=== PATIENT | male | born 1945 | race Caucasian/White ===

== ENCOUNTER → 2017-06-17 | Outpatient (CLI) | payer MEDICARE ==
[2017-06-17 10:59] LABS: ALT 36 U/L (21-72); AST 43 U/L (17-59); Albumin 4.2 g/dL (3.5-5.0); Alkaline Phosphatase 83 U/L (38-126); Anion Gap 11 mmol/L; Blood Urea Nitrogen 22 mg/dL (9-20); Calcium 9.5 mg/dL (8.4-10.2); Carbon Dioxide 28 mmol/L (22-30); Chloride 104 mmol/L (98-107); Cholesterol 152 mg/dL (<200); Glucose 110 mg/dL (74-99); HDL Cholesterol 36 mg/dL (40-60); LDL Cholesterol,Calculated 76 mg/dL (0-99); Potassium 4.9 mmol/L (3.5-5.1); Sodium 143 mmol/L (137-145); Total Bilirubin 0.6 mg/dL (0.2-1.3); Total Protein 7.3 g/dL (6.3-8.2); Triglycerides 198 mg/dL (<150)
[2017-06-17 11:25] LABS: Prostate Specific Antigen 0.64 ng/mL (0.00-4.00)
== END | disposition home or self-care (01) ==
LOC: LABWHC1 09:35
PROVIDERS: ATTEND Family Medicine
DX: E78.5 Hyperlipidemia, unspecified (principal); N40.0 Benign prostatic hyperplasia without lower urinary tract symptoms; I10 Essential (primary) hypertension
CPT/HCPCS: 36415; 80053; 80061; 84153

== ENCOUNTER → 2017-11-29 | Outpatient (CLI) | payer MEDICARE ==
--- NOTE | 2017-11-29 10:39 | XR ---
EXAMINATION TYPE: XR chest 2V DATE OF EXAM: 11/29/2017 COMPARISON: 01/15/2017 INDICATION: MRI clearance TECHNIQUE: Frontal and lateral views of the chest are obtained. FINDINGS: The heart size is normal. The pulmonary vasculature is normal. The lungs are clear. Sternotomy wires are in the midline. There is a right shoulder prosthesis. Left shoulder surgery luciano ges are evident. There are a few scattered surgical clips from a CABG. There appears to be residual epicardial lead just posterior to the xiphoid process and inferior to th e last sternotomy wire on the lateral projection. IMPRESSION: 1. No acute pulmonary process. 2. Suspected epicardial leads identified on the lateral view.
== END | disposition home or self-care (01) ==
LOC: RADXRMAIN 09:57
PROVIDERS: ATTEND Orthopaedic Surgery Sports Medicine
DX: Z01.818 Encounter for other preprocedural examination (principal)
CPT/HCPCS: 71046

== ENCOUNTER → 2017-12-13 | Outpatient (CLI) | payer MEDICARE ==
--- NOTE | 2017-12-13 22:00 | MR ---
EXAMINATION TYPE: MR shoulder LT wo con DATE OF EXAM: 12/13/2017 COMPARISON: None HISTORY: Pain in left shoulder TECHNIQUE: Multiplanar, multisequence imaging of the left shoulder is performed without contrast. FINDINGS: There is motion on the exam. Postop change causes susceptibility artifact limiting evaluati on. Rotator Cuff: a tear of the rotator cuff is present with retraction to the level of the distal clavi olimpia, supraspinatus tendon and infraspinatus tendon are torn Acromioclavicular Joint: Arthropathy present at the acromioclavicular joint Glenohumeral Joint: Humerus is somewhat high riding, there is remodeling with arthropathy of the chanel ral head Labrum: Some increased signal present within the anterior labrum, difficult to exclude a small tear Biceps Tendon: Thought to be within the bicipital groove but not well seen centrally Bone marrow signal: No focal abnormal marrow signal is appreciated. Other: No additional significant abnormality is appreciated. IMPRESSION: There is motion on the exam. Postop changes are noted. Osteoarthritic change. Tear with retraction of the supraspinatus and infraspinatus tendons. Additional findings above.
== END | disposition home or self-care (01) ==
LOC: RADMRIMAIN 21:05
PROVIDERS: ATTEND Orthopaedic Surgery Sports Medicine
DX: M19.012 Primary osteoarthritis, left shoulder (principal); M75.102 Unspecified rotator cuff tear or rupture of left shoulder, not specified as traumatic; S46.912A Strain of unspecified muscle, fascia and tendon at shoulder and upper arm level, left arm, initial encounter; Z98.890 Other specified postprocedural states

== ENCOUNTER → 2018-06-26 | Outpatient (CLI) | payer MEDICARE ==
[2018-06-26 11:08] LABS: HCT 53.4 % (39.0-53.0); HGB 17.6 gm/dL (13.0-17.5); MCH 30.8 pg (25.0-35.0); MCV 93.4 fL (80.0-100.0); Mean Platelet Volume 7.4; Platelet Count 183 k/uL (150-450); RBC 5.71 m/uL (4.30-5.90); RDW 13.1 % (11.5-15.5); WBC 5.6 k/uL (3.8-10.6)
[2018-06-26 16:25] LABS: Albumin 4.6 g/dL (3.80-4.90); Anion Gap 8.9 mmol/L (4.00-12.00); Calcium 9.7 mg/dL (8.7-10.3); Carbon Dioxide 26.1 mmol/L (21.6-31.8); Globulin 2.3 g/dL (1.6-3.3); LDL Cholesterol,Calculated 76.2 mg/dL (0.0-131.0); Potassium 5.3 mmol/L (3.5-5.5); Total Bilirubin 0.7 mg/dL (0.3-1.2); Total Protein 6.9 g/dL (6.2-8.2); VLDL Calculation 51.8 mg/dL (5.00-40.00)
== END | disposition home or self-care (01) ==
LOC: LABWHC1 08:48
PROVIDERS: ATTEND Family Medicine
DX: I10 Essential (primary) hypertension (principal); N40.0 Benign prostatic hyperplasia without lower urinary tract symptoms; E78.5 Hyperlipidemia, unspecified
CPT/HCPCS: 36415; 80053; 80061; 84153; 84439; 84443; 85027

== ENCOUNTER 2018-11-21 09:42 | Observation (INO) | payer MEDICARE ==
[2018-11-21] MEDS ORDERED: NITROGLYCERIN OINT 1 INCH/GM PACKET TOPICAL STA (09:49)
[2018-11-21] MEDS ORDERED: MORPHINE SULFATE 2 MG/ML SYRINGE IVP STA (09:49)
[2018-11-21] MEDS ORDERED: SODIUM CHLORIDE 0.9% 500 ML 500 ML IV STA (09:49)
--- NOTE | 2018-11-21 10:07 | ED ---
General Adult HPI - General Stated complaint: chest pain Time Seen by Provider: 11/21/18 09:50 Source: EMS, RN notes reviewed Mode of arrival: EMS Limitations: no limitations - History of Present Illness Initial comments: This is a 73-year-old male who presents emergency department with past medical history significant for bypass surgery. Patient states yesterday morning he wo ke up with chest pain and is in the front of his chest and feels like a heaviness or patient states she is also back pain on the right side which radiates around to the right upper quadrant. Patient states movement seems to make it considerably worse. Taking a deep breath makes it worse. Patient states palpating on the abdomen or back also increases the pain. Patient states he is not short of breath but it does hurt to take a deep breath. Patient denies any diaphoretic episodes. Patient denies nausea vomiting diarrhea. Patient denies any injury or heavy lifting recently. Patient denies any recent fever chills or cough - Related Data Home Medications Medication Instructions Recorded Confirmed Lisinopril 10 mg PO DAILY 12/23/14 11/21/18 Aspirin 325 mg PO DAILY 12/26/14 11/21/18 Metoprolol Tartrate [Lopressor] 50 mg PO DAILY 12/26/14 11/21/18 Multivitamins, Thera [Theragran] 1 tab PO DAILY 12/26/14 11/21/18 Pravastatin Sodium 80 mg PO HS 11/21/18 11/21/18 Allergies Allergy/AdvReac Type Severity Reaction Status Date / Time Morpholine Analogues AdvReac Severe Nausea & Verified 11/21/18 10:07 Vomiting Review of Systems ROS Statement: Those systems with pertinent positive or pertinent negative responses have been documented in the HPI. ROS Other: All systems not noted in ROS Statement are negative. Past Medical History Past Medical History: Coronary Artery Disease (CAD), Hyperlipidemia, Hypertension, Osteoarthritis (OA) Additional Past Medical History / Comment(s): kidney stones. slight heart murmur History of Any Multi-Drug Resistant Organisms: None Reported Past Surgical History: Coronary Bypass/CABG, Heart Catheterization, Joint Replacement, Orthopedic Surgery Additional Past Surgical History / Comment(s): colonscopy. bilat knee scopes. bilat TKA. bilat rotator cuff repair, total right shoulder \\. uppp. kidney stones in july 2014 removal of scar tissue in bladder neck Past Anesthesia/Blood Transfusion Reactions: No Reported Reaction Past Psychological History: No Psychological Hx Reported Smoking Status: Former smoker Past Alcohol Use History: None Reported Past Drug Use History: None Reported - Past Family History Brother(s) Family Medical History: Cancer Sister(s) Family Medical History: Cancer General Exam - General Exam Comments Initial Comments: GENERAL: Patient is well-developed and well-nourished. Patient is nontoxic and well- hydrated and is in moderate distress. ENT: Neck is soft and supple. No significant lymphadenopathy is noted. Oropharynx is clear. Moist mucous membranes. Neck has full range of motion without eliciting any pain. EYES: The sclera were anicteric and conjunctiva were pink and moist. Extraocular movements were intact and pupils were equal round and reactive to light. Eyelids were unremarkable. PULMONARY: Unlabored respirations. Good breath sounds bilaterally. No audible rales rhonchi or wheezing was noted. CARDIOVASCULAR: There is a regular rate and rhythm without any murmurs gallops or rubs. ABDOMEN: Patient is tender right upper quadrant SKIN: Skin is clear with no lesions or rashes and otherwise unremarkable. NEUROLOGIC: Patient is alert and oriented x3. Cranial nerves II through XII are grossly intact. Motor and sensory are also intact. Normal speech, volume and content. Symmetrical smile. MUSCULOSKELETAL: Normal extremities with adequate strength and full range of motion. No lower extremity swelling or edema. No calf tenderness. Patient has tenderness over this CVA area on the right LYMPHATICS: No significant lymphadenopathy is noted PSYCHIATRIC: Normal psychiatric evaluation. Limitations: no limitations Course Vital Signs 11/21/18 11/21/18 11/21/18 09:51 10:00 11:13 Temperature 98.0 F Pulse Rate 69 86 Respiratory 16 16 Rate Blood Pressure 187/113 146/76 127/70 O2 Sat by Pulse 95 97 99 Oximetry 11/21/18 11/21/18 11:50 12:00 Temperature Pulse Rate 63 60 Respiratory 16 18 Rate Blood Pressure 123/84 133/69 O2 Sat by Pulse 99 96 Oximetry Medical Decision Making - Medical Decision Making EKG shows normal sinus rhythm at 66 bpm MS interval 166 QRS 122 QT interval 398 QTC is 417. Patient's EKG shows no ST segment elevation or depression or T wave abnormalities are noted. After the patient had been here a while the he come back and indicated to me that the patient had back pain radiating to the groin just like his previous kidney stone pain that started yesterday morning this morning however he woke up and was complaining of chest pain for the first time when asked patient if this was a more accurate description of his pain he said it was. Patient states the back pain does however seem to be increased with movement and the chest pain remains on his chest and he describes it as a pressure but is considerably better now than it was this morning. I repeated an EKG it showed sinus bradycardia 56 bpm MS interval 280 QRS 130 for QT intervals 448 QTC is 432. Patient's EKG shows some ST segment depression in leads 1 and aVL which was no different than what was previously seen in the previous EKG. CT of the abdomen and pelvis showed no acute abnormality. Patient still was complaining of some chest pressure pill considerably better than was earlier. I spoke with Dr. Zhang he agreed to admit the patient admitted the patient wrote admitting orders and consult to cardiology. - Lab Data Result diagrams: 11/21/18 09:50 11/21/18 09:50 Lab Results 11/21/18 11/21/18 11/21/18 Range/Units 09:50 09:50 09:50 WBC 8.3 (3.8-10.6) k/uL RBC 5.73 (4.30-5.90) m/uL Hgb 17.8 H (13.0-17.5) gm/dL Hct 53.2 H (39.0-53.0) % MCV 92.8 (80.0-100.0) fL MCH 31.0 (25.0-35.0) pg MCHC 33.5 (31.0-37.0) g/dL RDW 13.2 (11.5-15.5) % Plt Count 232 (150-450) k/uL Neutrophils % 58 % Lymphocytes % 29 % Monocytes % 5 % Eosinophils % 5 % Basophils % 1 % Neutrophils # 4.8 (1.3-7.7) k/uL Lymphocytes # 2.4 (1.0-4.8) k/uL Monocytes # 0.4 (0-1.0) k/uL Eosinophils # 0.4 (0-0.7) k/uL Basophils # 0.1 (0-0.2) k/uL PT 11.0 (9.0-12.0) sec INR 1.0 (<1.2) APTT 26.2 (22.0-30.0) sec Sodium 138 (137-145) mmol/L Potassium 5.2 H (3.5-5.1) mmol/L Chloride 103 (98-107) mmol/L Carbon Dioxide 21 L (22-30) mmol/L Anion Gap 14 mmol/L BUN 20 (9-20) mg/dL Creatinine 0.97 (0.66-1.25) mg/dL Est GFR (CKD-EPI)AfAm 89 (>60 ml/min/1.73 sqM) Est GFR (CKD-EPI)NonAf 77 (>60 ml/min/1.73 sqM) Glucose 120 H (74-99) mg/dL Calcium 9.5 (8.4-10.2) mg/dL Magnesium 1.8 (1.6-2.3) mg/dL Total Bilirubin 1.0 (0.2-1.3) mg/dL AST 45 (17-59) U/L ALT 35 (21-72) U/L Alkaline Phosphatase 71 (38-126) U/L Troponin I (0.000-0.034) ng/mL Total Protein 8.2 (6.3-8.2) g/dL Albumin 4.6 (3.5-5.0) g/dL Amylase 84 (30-110) U/L Lipase 73 (23-300) U/L Urine Color Urine Appearance (Clear) Urine pH (5.0-8.0) Ur Specific [place] (1.001-1.035) Urine Protein (Negative) Urine Glucose (UA) (Negative) Urine Ketones (Negative) Urine Blood (Negative) Urine Nitrite (Negative) Urine Bilirubin (Negative) Urine Urobilinogen (<2.0) mg/dL Ur Leukocyte Esterase (Negative) 11/21/18 11/21/18 Range/Units 09:50 11:55 WBC (3.8-10.6) k/uL RBC (4.30-5.90) m/uL Hgb (13.0-17.5) gm/dL Hct (39.0-53.0) % MCV (80.0-100.0) fL MCH (25.0-35.0) pg MCHC (31.0-37.0) g/dL RDW (11.5-15.5) % Plt Count (150-450) k/uL Neutrophils % % Lymphocytes % % Monocytes % % Eosinophils % % Basophils % % Neutrophils # (1.3-7.7) k/uL Lymphocytes # (1.0-4.8) k/uL Monocytes # (0-1.0) k/uL Eosinophils # (0-0.7) k/uL Basophils # (0-0.2) k/uL PT (9.0-12.0) sec INR (<1.2) APTT (22.0-30.0) sec Sodium (137-145) mmol/L Potassium (3.5-5.1) mmol/L Chloride (98-107) mmol/L Carbon Dioxide (22-30) mmol/L Anion Gap mmol/L BUN (9-20) mg/dL Creatinine (0.66-1.25) mg/dL Est GFR (CKD-EPI)AfAm (>60 ml/min/1.73 sqM) Est GFR (CKD-EPI)NonAf (>60 ml/min/1.73 sqM) Glucose (74-99) mg/dL Calcium (8.4-10.2) mg/dL Magnesium (1.6-2.3) mg/dL Total Bilirubin (0.2-1.3) mg/dL AST (17-59) U/L ALT (21-72) U/L Alkaline Phosphatase (38-126) U/L Troponin I <0.012 (0.000-0.034) ng/mL Total Protein (6.3-8.2) g/dL Albumin (3.5-5.0) g/dL Amylase (30-110) U/L Lipase (23-300) U/L Urine Color Light Yellow Urine Appearance Clear (Clear) Urine pH 5.5 (5.0-8.0) Ur Specific [place] 1.007 (1.001-1.035) Urine Protein Negative (Negative) Urine Glucose (UA) Negative (Negative) Urine Ketones Negative (Negative) Urine Blood Negative (Negative) Urine Nitrite Negative (Negative) Urine Bilirubin Negative (Negative) Urine Urobilinogen <2.0 (<2.0) mg/dL Ur Leukocyte Esterase Negative (Negative) Disposition Clinical Impression: Chest pain, Right flank pain Disposition: ADMITTED IP TO THIS HOSP Referrals: Antonio Zhnag DO [Primary Care Provider] - 1-2 days Time of Disposition: 13:01
[2018-11-21 10:09] LABS: Basophils # (A) 0.1 k/uL (0-0.2); Basophils % (A) 1 %; Eosinophils # (A) 0.4 k/uL (0-0.7); Eosinophils % (A) 5 %; HCT 53.2 % (39.0-53.0); HGB 17.8 gm/dL (13.0-17.5); Lymphocytes # (A) 2.4 k/uL (1.0-4.8); Lymphocytes % (A) 29 %; MCHC 33.5 g/dL (31.0-37.0); MCV 92.8 fL (80.0-100.0); Mean Platelet Volume 7.2; Monocytes # (A) 0.4 k/uL (0-1.0); Monocytes % (A) 5 %; Neutrophils # (A) 4.8 k/uL (1.3-7.7); Neutrophils % (A) 58 %; Platelet Count 232 k/uL (150-450); RBC 5.73 m/uL (4.30-5.90); RDW 13.2 % (11.5-15.5); WBC 8.3 k/uL (3.8-10.6)
[2018-11-21 10:18] LABS: Partial Thromboplastin Time 26.2 sec (22.0-30.0)
[2018-11-21 10:19] LABS: Albumin 4.6 g/dL (3.5-5.0); Calcium 9.5 mg/dL (8.4-10.2); Magnesium 1.8 mg/dL (1.6-2.3); Total Protein 8.2 g/dL (6.3-8.2)
[2018-11-21 10:22] LABS: Potassium 5.2 mmol/L (3.5-5.1)
--- NOTE | 2018-11-21 10:41 | XR ---
EXAMINATION TYPE: XR chest 2V DATE OF EXAM: 11/21/2018 COMPARISON: 11/29/2017 HISTORY: Chest pain radiating to the patient's back and abdomen TECHNIQUE: Frontal and lateral views of the chest are obtained. FINDINGS: There is no focal air space opacity, pleural effusion, or pneumothorax seen. The post-CAB G changes of the chest are noted within mediastinum slightly shifted to the right secondary to patien t rotation. Right humeral arthroplasty and postsurgical changes of the left shoulder/rotator cuff are seen. Mild multilevel degenerative changes of the thoracic spine. IMPRESSION: No acute cardiopulmonary process.
[2018-11-21 12:00] LABS: Appearance,Urine Clear (Clear); Bilirubin,Urine Negative (Negative); Blood,Urine Negative (Negative); Color,Urine Light Yellow; Glucose,Urine (UA) Negative (Negative); Ketones,Urine Negative (Negative); Leukocyte Esterase,Urine Negative (Negative); Nitrite,Urine Negative (Negative); PH, Urine 5.5 (5.0-8.0); Protein,Urine Negative (Negative); Specific Gravity,Urine 1.007 (1.001-1.035); Urobilinogen,Urine <2.0 mg/dL (<2.0)
[2018-11-21] MEDS ORDERED: DIAZEPAM 5 MG/ML 2 ML INJ IVP STA (12:23)
[2018-11-21] MEDS ORDERED: KETOROLAC 60 MG/2 ML VIAL IVP STA ×2 (12:23→12:59)
--- NOTE | 2018-11-21 12:49 | CT ---
EXAMINATION TYPE: CT abdomen pelvis wo con DATE OF EXAM: 11/21/2018 HISTORY: Right flank pain CT DLP: 851.9 mGycm. Automated Exposure Control for Dose Reduction was Utilized. TECHNIQUE: CT scan of the abdomen and pelvis is performed without oral or IV contrast. COMPARISON: CT abdomen and pelvis December 27, 2011 FINDINGS: Within the limitations of a non-contrast study, the following observations are made. LUNG BASES: Bilateral lower lung groundglass opacity is seen posteriorly. No pleural effusion or pneu mothorax is evident. Coronary artery calcification is seen which is noted marked underlying coronary artery disease. Partial visualization of overlying sternal wires. LIVER/GB: Liver is diffusely low dense relative to spleen consistent with diffuse fatty infiltration. PANCREAS: No significant abnormality is seen. SPLEEN: No significant abnormality is seen. ADRENALS: No significant abnormality is seen. KIDNEYS: Some cortical thinning in both kidneys. Retroaortic left renal vein which is normal variant redemonstrated. No renal calculi or hydronephrosis identified bilaterally. BOWEL: Evaluation bowel suboptimal secondary to lack of enteric contrast. Normal-appearing appendix i s seen for base of cecum in the right upper pelvis. Scattered colonic diverticula left and sigmoid co ruth. No CT evidence for acute diverticulitis.. GENITAL ORGANS: Left-sided pelvic phleboliths. Prostate gland is not enlarged with central calcificat ions. LYMPH NODES: No greater than 1cm abdominal or pelvic lymph nodes are appreciated. OSSEOUS STRUCTURES: Postsurgical change L4-S1 level redemonstrated. OTHER: Small fat containing left greater than right inguinal hernias. IMPRESSION: No renal stones or hydronephrosis is seen bilaterally. No suspicious new or acute finding s seen to account for patient's symptoms of right-sided flank pain.
[2018-11-21] MEDS ORDERED: NITROGLYCERIN SL TABS 0.4 MG TAB SUBLINGUAL PRN (13:02)
[2018-11-21] MEDS: NITROGLYCERIN OINT 1 INCH/GM PACKET TOPICAL SCH (18:22)
[2018-11-22] MEDS: NITROGLYCERIN OINT 1 INCH/GM PACKET TOPICAL SCH ×2 (00:39→06:06)
[2018-11-22 05:35] LABS: Cholesterol 189 mg/dL (<200); HDL Cholesterol 31 mg/dL (40-60); Triglycerides 443 mg/dL (<150)
[2018-11-22 08:28] VITALS: RESP 17
[2018-11-22] MEDS ORDERED: ASPIRIN 325 MG TAB PO SCH (09:00)
[2018-11-22] MEDS ORDERED: METOPROLOL TARTRATE 50 MG TAB PO SCH (09:00)
[2018-11-22] MEDS ORDERED: FENOFIBRATE 160 MG TAB PO SCH (09:00)
[2018-11-22] MEDS ORDERED: ASPIRIN 81 MG PO SCH (09:00)
[2018-11-22] MEDS ORDERED: LISINOPRIL 10 MG TAB PO SCH (09:00)
--- NOTE | 2018-11-22 10:23 | P.CRDCN ---
History of Present Illness History of present illness: This is a pleasant 73-year-old male past medical history significant for coronary artery disease status post bypass grafting, hyperlipidemia, hypertension and chronic kidney disease. We have been asked to see the patient in consultation secondary to chest discomfort. He follows in the office with Dr. Calle. He states he has been feeling pain in the right flank for the past few days, started Tuesday. Tried to get into his PCP but couldn't get an appointment until . Yesterday he woke up with ongoing flank pain but he also developed a pressure sensation in the mid sternal region like someone was pushing on his chest. He went to Urgent care and his blood pressure was around 200/100 so he was sent to ED for further evaluation. At the time of my exam he is seen sitting up in bed with his at the bedside. He continues to feel significant pain in the right upper abdomen with radiation around to the right flank. He also feels a reproducible pain in the mid-sternal region. He denies associated shortness of breath, dizziness, nausea, vomiting, diaphoresis or pal pitations. EKG reveals sinus mechanism heart rate of 66, LVH, poor R-wave progression and non-specific abnormalities. Chest x-ray is negative for any acute cardiopulmonary process. CT abdomen and pelvis obtained revealed bilateral lower lobe groundglass opacities, coronary artery calcifications, diffuse fatty infiltration of the liver with no renal stones or hydronephrosis noted. No comment on the gallbladder. Laboratory data reviewed, WBC 8.3, hemoglobin 17.8, platelet's 232, sodium 138, potassium 5.2, creatinine 0.97, magnesium 1.8, triglycerides 443, cardiac enzymes negative 3. Current cardiac medications include pravastatin 80 mg daily, Lopressor 50 mg daily, lisinopril 10 mg daily and aspirin 325 mg daily. Most recent stress test was a Lexiscan stress test performed in the office 2017 was negative for reversibility. Most recent echocardiogram obtained in the office in 2016 revealed preserved LV systolic function with EF 50% with mild LVH, trace mitral regurgitation, mild a ortic regurgitation and calcified aortic valve. At the time of my exam: CONSTITUTIONAL: Denies fever. Denies chills. EYES: Denies blurred vision. Denies vision changes. Denies eye pain. EARS, NOSE, MOUTH & THROAT: Denies headache. Denies sore throat. Denies ear pain. CARDIOVASCULAR: Complains of reproducible chest pain. Denies shortness of breath. Denies orthopnea. Denies PND. Denies palpitations. RESPIRATORY: Denies cough. GASTROINTESTINAL: Complains of right upper abdominal pain and right flank pain. Denies diarrhea. Denies constipation. Denies nausea. Denies vomiting. MUSCULOSKELETAL: Denies myalgias. INTEGUMENTARY: Denies pruitis. Denies rash. NEUROLOGIC: Denies numbness. Denies tingling. Denies weakness. PSYCHIATRIC: Denies anxiety. Denies depression. ENDOCRINE: Denies fatigue. Denies weight change. Denies polydipsia. Denies polyurina. GENITOURINARY: Denies burning, hematuria or urgency with micturation. HEMATOLOGIC: Denies history of anemia. Denies bleeding. Blood pressure 149/76 heart rate 67 afebrile and maintaining oxygen saturation on room air GENERAL: This is a 73-year-old male in no apparent distress at the time of my examination. HEENT: Head is atraumatic, normocephalic. Pupils are equal, round. Sclerae anicteric. Conjunctivae are clear. Mucous membranes of the mouth are moist. Neck is supple. There is no jugular venous distention. No carotid bruit is heard. LUNGS: Clear to auscultation no wheezes, rales or rhonchi. No chest wall tenderness is noted on palpation or with deep breathing. HEART: Regular rate and rhythm with systolic ejection murmur at the base, no rubs or gallops. S1 and S2 heard. ABDOMEN: Soft, significant right upper quadrant tenderness. Bowel sounds are heard. No organomegaly noted. EXTREMITIES: No evidence of peripheral edema and no calf tenderness noted. VASCULAR: Radial and dorsalis pedis pulses palpated, no evidence of clubbing. NEUROLOGIC: Patient is awake, alert and oriented x3. ASSESSMENT Chest pain, atypical for angina. Pain is reproducible and seems to be radiating up from the abdomen. An acute coronary event has been ruled out. Abdominal pain, primary team is evaluating the gallbladder History of coronary artery disease s/p bypass grafting Hypertension Dyslipidemia PLAN An acute coronary event has been ruled out. Ongoing medical management of suspected gallbladder disease. Initiate on fenofibrate for control of triglycerides. Follow up with Dr. Calle upon discharge for outpatient stress testing once abdominal discomfort is addressed and relieved. Thank you kindly for this consultation. Nurse Practitioner note has been reviewed, I agree with a documented findings and plan of care. Patient was seen and examined. Past Medical History Past Medical History: Coronary Artery Disease (CAD), Hyperlipidemia, Hypertension, Osteoarthritis (OA), Renal Disease Additional Past Medical History / Comment(s): Generalized arthritis, L leg numbness/tingling since harvested vein for CABG, slight cardiac murmur, kidney stones, possible ureteral stricture-difficult to pass lópez catheters. History of Any Multi-Drug Resistant Organisms: None Reported Past Surgical History: Coronary Bypass/CABG, Heart Catheterization, Joint Replacement, Orthopedic Surgery Additional Past Surgical History / Comment(s): 2004 CABG 4 vessel, UVPPP, colonoscopy, bilateral knee arthroscopy, bilateral total knee arthroplasties, bilateral rotator cuff repairs, R total reverse shoulder, kidney stone basketing, cystoscopies/scar tissue removed from bladder. Past Anesthesia/Blood Transfusion Reactions: No Reported Reaction Smoking Status: Former smoker - Past Family History Father Additional Family Medical History / Comment(s): Father in a tractor accident. Mother Family Medical History: Myocardial Infarction ([place]) Additional Family Medical History / Comment(s): Mother of a massive [place] at the age of 69yrs. Brother(s) Family Medical History: Cancer Sister(s) Family Medical History: Cancer Medications and Allergies Home Medications Medication Instructions Recorded Confirmed Type Lisinopril 10 mg PO DAILY 12/23/14 11/21/18 History Aspirin 325 mg PO DAILY 12/26/14 11/21/18 History Metoprolol Tartrate [Lopressor] 50 mg PO DAILY 12/26/14 11/21/18 History Multivitamins, Thera [Theragran] 1 tab PO DAILY 12/26/14 11/21/18 History Pravastatin Sodium 80 mg PO HS 11/21/18 11/21/18 History Allergies Allergy/AdvReac Type Severity Reaction Status Date / Time Morpholine Analogues AdvReac Severe Nausea & Verified 11/21/18 10:07 Vomiting Physical Exam Vitals: Vital Signs Temp Pulse Pulse Resp BP BP Pulse Ox 11/22/18 02:31 97.8 F 59 L 18 115/58 93 L 11/22/18 00:00 97.3 F L 59 L 18 128/55 94 L 11/21/18 20:00 98.1 F 67 18 153/70 11/21/18 16:00 17 11/21/18 14:20 98.2 F 61 17 145/72 96 11/21/18 14:00 98.1 F 81 16 112/56 99 11/21/18 13:46 61 18 116/74 96 11/21/18 13:02 57 L 18 134/76 99 11/21/18 12:00 60 18 133/69 96 11/21/18 11:50 63 16 123/84 99 11/21/18 11:13 86 16 127/70 99 11/21/18 10:00 146/76 97 11/21/18 09:51 98.0 F 69 16 187/113 95 Intake and Output 11/21/18 11/22/18 11/22/18 22:59 06:59 14:59 Intake Total 0 Balance 0 Intake: Oral 0 Results 11/21/18 09:50 11/21/18 09:50 Cardiac Enzymes 11/21/18 11/21/18 11/21/18 Range/Units 09:50 09:50 15:23 AST 45 (17-59) U/L Troponin I <0.012 <0.012 (0.000-0.034) ng/mL 11/21/18 Range/Units 22:24 AST (17-59) U/L Troponin I <0.012 (0.000-0.034) ng/mL Coagulation 11/21/18 Range/Units 09:50 PT 11.0 (9.0-12.0) sec APTT 26.2 (22.0-30.0) sec Lipids 11/21/18 Range/Units 09:50 Triglycerides 443 H (<150) mg/dL Cholesterol 189 (<200) mg/dL HDL Cholesterol 31 L (40-60) mg/dL CBC 11/21/18 Range/Units 09:50 WBC 8.3 (3.8-10.6) k/uL RBC 5.73 (4.30-5.90) m/uL Hgb 17.8 H (13.0-17.5) gm/dL Hct 53.2 H (39.0-53.0) % Plt Count 232 (150-450) k/uL Comprehensive Metabolic Panel 11/21/18 Range/Units 09:50 Sodium 138 (137-145) mmol/L Potassium 5.2 H (3.5-5.1) mmol/L Chloride 103 (98-107) mmol/L Carbon Dioxide 21 L (22-30) mmol/L BUN 20 (9-20) mg/dL Creatinine 0.97 (0.66-1.25) mg/dL Glucose 120 H (74-99) mg/dL Calcium 9.5 (8.4-10.2) mg/dL AST 45 (17-59) U/L ALT 35 (21-72) U/L Alkaline Phosphatase 71 (38-126) U/L Total Protein 8.2 (6.3-8.2) g/dL Albumin 4.6 (3.5-5.0) g/dL Current Medications Generic Name Dose Route Start Last Admin Trade Name Freq PRN Reason Stop Dose Admin Aspirin 81 mg 11/22/18 09:00 Aspirin PO DAILY [facility] Fenofibrate 160 mg 11/22/18 09:00 Lofibra PO DAILY [facility] Lisinopril 10 mg 11/22/18 09:00 Zestril PO DAILY [facility] Metoprolol Tartrate 50 mg 11/22/18 09:00 Lopressor PO DAILY [facility] Nitroglycerin 0.4 mg 11/21/18 13:02 Nitrostat SUBLINGUAL Q5M PRN Chest Pain Pravastatin Sodium 80 mg 11/22/18 21:00 Pravachol PO HS [facility] Intake and Output 11/21/18 11/22/18 11/22/18 22:59 06:59 14:59 Intake Total 0 Balance 0 Intake: Oral 0 11/21/18 09:50 11/21/18 09:50
--- NOTE | 2018-11-22 10:34 | ECHOF ---
Referral Reason:cp MEASUREMENTS -------- HEIGHT: 167.6 cm WEIGHT: 86.2 kg BP: IVSd: 1.3 cm (0.6 - 1.1) LVIDd: 3.5 cm (3.9 - 5.3) LVPWd: 0.9 cm (0.6 - 1.1) IVSs: 2.0 cm LVIDs: 1.8 cm LVPWs: 1.5 cm LAESV Index (A-L): 15.49 ml/m Ao Diam: 3.5 cm (2.0 - 3.7) AV Cusp: 1.9 cm (1.5 - 2.6) LA Diam: 2.9 cm (2.7 - 3.8) MV EXCURSION: 14.230 mm (> 18.000) MV EF SLOPE: 86 mm/s (70 - 150) EPSS: 1.9 cm MV E Dany: 0.55 m/s MV DecT: 229 ms MV A Dany: 0.74 m/s MV E/A Ratio: 0.75 AV maxP.24 mmHg AV meanP.86 mmHg AR PHT: 576 ms RAP: 5.00 mmHg RVSP: 15.44 mmHg FINDINGS -------- Sinus rhythm. This was a technically difficult study with suboptimal views. The left ventricular size is normal. There is mild concentric left ventricular hypertrophy. Overa ll left ventricular systolic function is mildly impaired with, an EF between 45 - 50 %. Basal infer olateral hypokinesis. The right ventricle is normal in size. Normal LA size by volume 22+/-6 ml/m2. The right atrial size is normal. Lumason used Interatrial and interventricular septum intact. Aortic valve is trileaflet and is mildly thickened. There is mild aortic regurgitation. There is mild aortic stenosis present. Peak/mean gradient across the Aortic Valve is 19.24mmHg / 8.86mmHg. The mitral valve is normal. The mitral valve leaflets are mildly thickened. Mild mitral regurgita tion is present. The tricuspid valve appears structurally normal. Mild tricuspid regurgitation present. Right vent ricular systolic pressure is normal at < 35 mmHg. There is no pulmonic regurgitation present. The aortic root size is normal. Normal inferior vena cava with normal inspiratory collapse consistent with estimated right atrial pre ssure of 5 mmHg. There is no pericardial effusion. CONCLUSIONS -------- 1. Sinus rhythm. 2. This was a technically difficult study with suboptimal views. 3. The left ventricular size is normal. 4. There is mild concentric left ventricular hypertrophy. 5. Overall left ventricular systolic function is mildly impaired with, an EF between 45 - 50 %. 6. Basal inferolateral hypokinesis. 7. The right ventricle is normal in size. 8. Normal LA size by volume 22+/-6 ml/m2. 9. The right atrial size is normal. 10. Lumason used 11. Interatrial and interventricular septum intact. 12. Aortic valve is trileaflet and is mildly thickened. 13. There is mild aortic regurgitation. 14. There is mild aortic stenosis present. 15. Peak/mean gradient across the Aortic Valve is 19.24mmHg / 8.86mmHg. 16. The mitral valve is normal. 17. The mitral valve leaflets are mildly thickened. 18. Mild mitral regurgitation is present. 19. The tricuspid valve appears structurally normal. 20. Mild tricuspid regurgitation present. 21. Right ventricular systolic pressure is normal at < 35 mmHg. 22. There is no pulmonic regurgitation present. 23. The aortic root size is normal. 24. Normal inferior vena cava with normal inspiratory collapse consistent with estimated right atrial pressure of 5 mmHg. 25. There is no pericardial effusion. [employer] OPENER: Ivett Goodman RDCS
--- NOTE | 2018-11-22 10:50 | US ---
EXAMINATION TYPE: US gallbladder DATE OF EXAM: 11/22/2018 COMPARISON: NONE CLINICAL HISTORY: R/O cholecystitis. RUQ pain EXAM MEASUREMENTS: Liver Length: 16.5 cm Gallbladder Wall: 0.4 cm CBD: 0.7 cm Right Kidney: 10.2 x 4.8 x 4.3 cm Pancreas: Obscured by bowel gas Liver: Portions visualized appear wnl. There is mild hepatomegaly. Gallbladder: No stones seen Evidence for sonographic Nguyễn's sign: No CBD: wnl Right Kidney: wnl IMPRESSION: 1. Mild hepatomegaly.
[2018-11-22 12:15] VITALS: BP 143/77; PULSE 57; TEMP 97.7
[2018-11-22] MEDS ORDERED: PRAVASTATIN SODIUM 80 MG TAB PO SCH (21:00)
== END 2018-11-22 13:10 ==
LOC: EC 09:42 → 1SOBS 13:02
PROVIDERS: ADMIT Family Medicine; ATTEND Family Medicine
DX: R07.89 Other chest pain (principal); R10.11 Right upper quadrant pain; M54.9 Dorsalgia, unspecified; I12.9 Hypertensive chronic kidney disease with stage 1 through stage 4 chronic kidney disease, or unspecified chronic kidney disease; N18.9 Chronic kidney disease, unspecified; Z95.1 Presence of aortocoronary bypass graft; I25.10 Atherosclerotic heart disease of native coronary artery without angina pectoris; E78.5 Hyperlipidemia, unspecified; R01.1 Cardiac murmur, unspecified; R20.0 Anesthesia of skin; R20.2 Paresthesia of skin; M15.9 Polyosteoarthritis, unspecified; Z79.899 Other long term (current) drug therapy; Z79.82 Long term (current) use of aspirin; Z88.5 Allergy status to narcotic agent; Z87.442 Personal history of urinary calculi; Z87.891 Personal history of nicotine dependence; Z80.9 Family history of malignant neoplasm, unspecified; Z82.49 Family history of ischemic heart disease and other diseases of the circulatory system
CPT/HCPCS: 96374; 96375; 99285; 36415; 93005; 80061; 80053; 82150; 83690; 83735; 84484; 85025; 85610; 85730; 81003; 71046; 76705; 74176; G0378 ×2; C8929; J3360; J1885; Q9950; 93306

== ENCOUNTER → 2018-12-27 | Outpatient (CLI) | payer MEDICARE ==
--- NOTE | 2018-12-27 16:51 | CT ---
EXAMINATION TYPE: CT abdomen pelvis w con DATE OF EXAM: 12/27/2018 COMPARISON: 11/21/2018 HISTORY: Right upper quadrant abdominal pain and back pain. CT DLP: 1289.9 mGycm Automated exposure control for dose reduction was used. TECHNIQUE: Helical acquisition of images was performed from the lung bases through the pelvis. CONTRAST: Performed with Oral Contrast and with IV Contrast, patient injected with 80ml mL of Isovue 300. FINDINGS: There is minimal atelectasis at the lung bases. There is no pleural effusion. Heart appears normal. Liver appears normal. Bile ducts are not dilated. Gallbladder appears normal. Spleen appears normal. There is no evidence of pancreatic mass. There is no adrenal mass. Stomach appears normal. Kidneys show satisfactory contrast opacification. T here is no hydronephrosis. Ureters are not dilated. There is 1 cm cortical cyst posterior right kidne y. Appendix appears normal. There are multiple diverticula in the sigmoid colon. Bladder distends smo othly. There is no inguinal hernia. There is dense prostatic calcification. There is no evidence of p elvic mass. There is no mesenteric edema. There is no ascites or free air. There is no sign of a bowel obstructio n. There is a mild first-degree L4-5 spondylolisthesis. There is no lumbar compression fracture. Ther e is posterior fusion surgery from L4 to S1. The bony pelvis is intact. There is severe L4-5 bony spi nal stenosis. IMPRESSION: NO RENAL STONE OR OBSTRUCTION. NO ACUTE ABNORMALITY OF THE ABDOMEN PELVIS. SEVERE LUMBAR SPINAL STENOSIS AT L4-5. NO SIGNIFICANT CHANGE COMPARED TO OLD EXAM. MINIMAL SIGMOID DIVERTICULOSIS.
== END | disposition home or self-care (01) ==
LOC: RADCTMAIN 14:39
PROVIDERS: ATTEND Family Medicine
DX: K57.30 Diverticulosis of large intestine without perforation or abscess without bleeding (principal)
CPT/HCPCS: 82565; 84520; 74177; 36415; Q9967 ×2

== ENCOUNTER → 2019-01-09 | Outpatient (CLI) | payer MEDICARE ==
--- NOTE | 2019-01-10 11:17 | NM ---
EXAMINATION TYPE: NM hepatobiliary w EF DATE OF EXAM: 01/09/2019 COMPARISON: NONE INDICATION: Cholecystitis, K 81.0 TECHNIQUE: After the intravenous administration of 5.2 mCi Tc 99m Mebrofenin hepatobiliary scintigrap hy is performed. Images were obtained immediately post injection. FINDINGS: There is prompt uptake and excretion of radiotracer by the liver. Extrahepatic ducts are identified at 5 minutes. The gallbladder is visualized within 7 minutes. Small bowel activity is noted within 16 minutes. At one hour 8 ounces of oral ensure plus is given to mimic CCK and gallbladder ejection fraction is c alculated at 73 %, which is in the normal range. (Normal >35% and <80%.). IMPRESSION: 1. Normal hepatobiliary scan
== END | disposition home or self-care (01) ==
LOC: RADNMMAIN 14:38
PROVIDERS: ATTEND Family Medicine
DX: K81.0 Acute cholecystitis (principal)
CPT/HCPCS: 78226; A9537

== ENCOUNTER → 2020-01-14 | Outpatient (CLI) | payer MEDICARE ==
--- NOTE | 2020-01-14 14:18 | US ---
EXAMINATION TYPE: US extremity nonvasc mass LT DATE OF EXAM: 01/14/2020 COMPARISON: NONE CLINICAL HISTORY: 74-year-old male S90.852A FOREIGN BODY LT HEEL. Patient states he has had multiple visits to the physician's office office where the doctor tried to remove this foreign body. This was also seen on x-rays taken at the physician's office. TECHNIQUE: Targeted ultrasound examination at the site of clinical concern along the left heel FINDINGS: Residential Program Worker notes: Echogenic linear structure seen measuring 3.6mm and a depth of 3 mm. IMPRESSION: A 3.6 mm linear foreign body within the subcutaneous adipose layer, 3 mm deep to the skin surface.
== END | disposition home or self-care (01) ==
LOC: RADUSWWP 10:19
PROVIDERS: ATTEND Podiatrist Foot & Ankle Surgery
DX: S90.852A Superficial foreign body, left foot, initial encounter (principal)

== ENCOUNTER → 2020-11-11 | Outpatient (CLI) | payer MEDICARE ==
--- NOTE | 2020-11-12 08:41 | CT ---
EXAMINATION TYPE: CT brain enoch lenz DATE OF EXAM: 11/11/2020 COMPARISON: None. HISTORY: Dizziness, memory changes and neck pain. CT DLP: 1598.6 mGycm. Automated Exposure Control for Dose Reduction was Utilized. TECHNIQUE: CT scan of the head and cervical spine are performed without contrast. FINDINGS: There is no acute intracranial hemorrhage or midline shift identified. Mild to moderate v entricular and sulcal prominence is present. Mild to moderate low-attenuation in the periventricular white matter. Vascular calcification distal internal carotid arteries bilaterally is noted. The globe s are intact and the visualized sinuses are clear. No suspicious opacification mastoid air cells. Cervical spine is visualized in its entirety from C1 through upper thoracic levels and demonstrates s light grade 1 retrolisthesis C3 on C4 lung posterior vertebral body margin. Prevertebral soft tissue appears within normal limits. The C1-C2 articulation is within normal limits on the coronal images. Vertebral body heights are maintained. Mild to moderate disc space narrowing with moderate to severe spurring at C3-C4 level. Moderate to severe disc space narrowing with severe spurring at C5-C6 and C 6-C7 levels. Posterior spur disc complexes efface the anterior thecal sac at C4-C5 level, slightly mo re prominent at C3-C4 level sagittal image 50 and most prominent at C5-C6 and C6-C7 levels. Review of axial images shows multilevel uncovertebral facet degenerative changes contributing to mult ilevel bilateral neural foraminal narrowing findings greatest at the bilateral C6-C7 level. Thyroid g land appears within normal limits. Lung apices show no pneumothorax. Moderate calcified plaque bilate ral carotid bulb level is present IMPRESSION: 1. Multilevel spondylolisthesis and degenerative changes in the cervical spine as detailed above. 2. No acute intracranial hemorrhage or midline shift is seen. Egos-lq-[id number] diffuse cerebral atrop hy and chronic small vessel ischemic change.
== END | disposition home or self-care (01) ==
LOC: RADCTMAIN 16:55
PROVIDERS: ATTEND Family Medicine
DX: I67.82 Cerebral ischemia (principal); M47.812 Spondylosis without myelopathy or radiculopathy, cervical region; M43.12 Spondylolisthesis, cervical region; G31.9 Degenerative disease of nervous system, unspecified
CPT/HCPCS: 70450; 72125

== ENCOUNTER → 2020-11-17 | Outpatient (CLI) | payer MEDICARE ==
[2020-11-17 14:01] LABS: Basophils # (A) 0.06 X 10*3/uL (0.00-0.10); Basophils % (A) 0.6 %; Eosinophils # (A) 0.14 X 10*3/uL (0.04-0.35); Eosinophils % (A) 1.4 %; HCT 52.7 % (39.6-50.0); HGB 17.4 g/dL (13.0-17.0); Lymphocytes # (A) 1.79 X 10*3/uL (0.90-5.00); Lymphocytes % (A) 18.4 %; MCV 93.9 fL (80.0-97.0); Mean Platelet Volume 10.3 fL (9.5-12.2); Monocytes # (A) 0.52 X 10*3/uL (0.20-1.00); Monocytes % (A) 5.4 %; Neutrophils % (A) 73.2 %; Platelet Count 216 X 10*3/uL (140-440); RBC 5.61 X 10*6/uL (4.40-5.60); RDW 13.2 % (11.5-14.5); WBC 9.71 X 10*3/uL (4.50-10.00)
[2020-11-17 16:38] LABS: African American GFR (CKD) 84.4 (60.0-200.0); C Reactive Protein <0.4 mg/dL (0.0-0.8); Non-African American GFR(CKD) 72.8 (60.0-200.0)
[2020-11-17 16:47] LABS: Erythrocyte Sedimentation Rate 1 mm/Hr (0-20)
== END | disposition home or self-care (01) ==
LOC: LABWHC1 09:26
PROVIDERS: ATTEND Ophthalmology
DX: M31.6 Other giant cell arteritis (principal)
CPT/HCPCS: 36415; 82565; 84520; 85025; 85652; 86140

== ENCOUNTER → 2020-11-23 | Outpatient (CLI) | payer MEDICARE ==
--- NOTE | 2020-11-23 22:11 | MR ---
EXAMINATION TYPE: MR brain wo/w con DATE OF EXAM: 11/23/2020 COMPARISON: None HISTORY: Prior CT on synapse, no prior MR, visual field loss, CVA CONTRAST: Standard multiplanar, multisequence MRI departmental protocol utilizing 8.5ml mL intravenous Gadavist gadolinium contrast. There is cerebral cortical atrophy. There is no mass effect nor midline shift. There is no evidence o f intracranial hemorrhage. There are some nodular areas of increased signal on the diffusion images i n the cortex of the posterior right occipital lobe. There is also 7 mm area of increased signal in th e central brainstem on the diffusion and FLAIR images. This could be additional focus of acute infarc t. The corpus callosum is intact. Sella turcica appears normal. Optic chiasm appears normal. There is no evidence of orbital mass. The contrast images show some minimal gyriform enhancement medial right oc cipital lobe. There is normal enhancement of the venous sinuses. The pituitary stalk is in the midlin e. There are some nodular foci nonenhancing in the right centrum semiovale on the T2 and FLAIR images consistent with microvascular ischemia. Total number is approximately 10, these measure up to 7 mm. 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 There is possible acute infarct in the centra l brainstem at the level of the cerebral peduncles. There is evidence of some microvascular ischemia with small lacunar infarcts in the right centrum aba iovale. Cerebral atrophy.
== END | disposition home or self-care (01) ==
LOC: RADMRIMAIN 10:38
PROVIDERS: ATTEND Ophthalmology
DX: I63.9 Cerebral infarction, unspecified (principal); I67.82 Cerebral ischemia; G31.9 Degenerative disease of nervous system, unspecified
CPT/HCPCS: 70553; A9585

== ENCOUNTER 2021-06-13 13:19 | Emergency (ER) | payer MEDICARE ==
[2021-06-13 14:13] VITALS: RESP 18; TEMP 97.1
--- NOTE | 2021-06-13 15:56 | ED ---
General Adult HPI - General Chief complaint: Extremity Injury, Lower Stated complaint: fall, right hip pain Time Seen by Provider: 06/13/21 15:33 Source: patient Mode of arrival: ambulatory Limitations: no limitations - History of Present Illness Initial comments: Dictation was produced using [employer] dictation software. please excuse any grammatical, word or spelling errors. Chief Complaint: Patient is a 75-year-old male presents with progressive coccygeal pain and lower back pain after multiple falls History of Present Illness: To 75-year-old male he has past medical history of back surgery. He is accompanied by who is a recently retired [employer] a nurse. She states that patient has fallen multiple times causing coccygeal and lower back pain. Patient has history of spine surgery. They initially went to one of the nearby urgent cares were a bunch of x-rays were performed. It was then recommended to them to come to the emergency department for CT imaging. Patient is ambulatory. Does however have severe pain to his coccyx and lower back. has been trying to treated with ice and Voltaren gel with no result. reports that his symptoms are getting slightly worse. The ROS documented in this emergency department record has been reviewed and confirmed by me. Those systems with pertinent positive or negative responses have been documented in the HPI. All other systems are other negative and/or noncontributory. PHYSICAL EXAM: General Impression: Alert and oriented x3, not in acute distress HEENT: Normocephalic atraumatic, extra-ocular movements intact, pupils equal and reactive to light bilaterally, mucous membranes moist. Cardiovascular: Heart regular rate and rhythm Chest: Able to complete full sentences, no retractions, no tachypnea Abdomen: abdomen soft, non-tender, non-distended, no organomegaly Musculoskeletal: Pulses present and equal in all extremities, no peripheral edema Pelvis: Pelvis stable, palpable pain over the coccyx and sacrum and lumbar spine Motor: no focal deficits noted Neurological: CN II-XII grossly intact, no focal motor or sensory deficits noted Skin: Intact with no visualized rashes Psych: Normal affect and mood ED course: 75-year-old male presents to the emergency department with lumbar back pain and sacral/coccygeal pain. He has fallen 3 times. Last fall was 3 days ago. Denies any head trauma. Patient not on any blood thinners. Pelvis CT and lumbar spine CT shows no acute traumatic injuries. Surgical instrumentation appears to be intact. Patient reevaluated at the bedside found to be in stable medical condition. He ambulatory with minimal complications. - Related Data Home Medications Medication Instructions Recorded Confirmed lisinopriL [Lisinopril] 10 mg PO DAILY 12/23/14 11/21/18 Metoprolol Tartrate [Lopressor] 50 mg PO DAILY 12/26/14 11/21/18 Multivitamins, Thera [Multivitamin 1 tab PO DAILY 12/26/14 11/21/18 (formulary)] Pravastatin Sodium 80 mg PO HS 11/21/18 11/21/18 Previous Rx's Medication Instructions Recorded Aspirin EC [Ecotrin Low Dose] 81 mg PO DAILY #30 tablet. 11/22/18 Baclofen [Lioresal] 10 mg PO BID #30 tablet 11/22/18 Fenofibrate [Lofibra] 160 mg PO DAILY #30 tab 11/22/18 Allergies Allergy/AdvReac Type Severity Reaction Status Date / Time Morpholine Analogues AdvReac Severe Nausea & Verified 06/13/21 14:13 Vomiting Review of Systems ROS Statement: Those systems with pertinent positive or pertinent negative responses have been documented in the HPI. ROS Other: All systems not noted in ROS Statement are negative. Past Medical History Past Medical History: Coronary Artery Disease (CAD), Hyperlipidemia, Hypertension, Osteoarthritis (OA), Renal Disease Additional Past Medical History / Comment(s): Generalized arthritis, L leg numbness/tingling since harvested vein for CABG, slight cardiac murmur, kidney stones, possible ureteral stricture-difficult to pass lópez catheters. History of Any Multi-Drug Resistant Organisms: None Reported Past Surgical History: Coronary Bypass/CABG, Heart Catheterization, Joint Replacement, Orthopedic Surgery Additional Past Surgical History / Comment(s): 2004 CABG 4 vessel, UVPPP, colonoscopy, bilateral knee arthroscopy, bilateral total knee arthroplasties, bilateral rotator cuff repairs, R total reverse shoulder, kidney stone basketing, cystoscopies/scar tissue removed from bladder. Past Anesthesia/Blood Transfusion Reactions: No Reported Reaction Past Psychological History: No Psychological Hx Reported Past Alcohol Use History: None Reported Past Drug Use History: None Reported - Past Family History Father Additional Family Medical History / Comment(s): Father in a tractor accident. Mother Family Medical History: Myocardial Infarction (PA) Additional Family Medical History / Comment(s): Mother of a massive PA at the age of 69yrs. Brother(s) Family Medical History: Cancer Sister(s) Family Medical History: Cancer General Exam Limitations: no limitations Course Vital Signs 06/13/21 14:10 Temperature 97.1 F L Pulse Rate 18 L Respiratory 18 Rate Blood Pressure 152/78 O2 Sat by Pulse 99 Oximetry Disposition Clinical Impression: Sacral pain Disposition: HOME SELF-CARE Condition: Good Instructions (If sedation given, give patient instructions): Contusion in Adults (ED) Is patient prescribed a controlled substance at d/c from ED?: No Referrals: Antonio Zhang DO [Primary Care Provider] - 1-2 days
--- NOTE | 2021-06-13 16:44 | CT ---
EXAMINATION TYPE: CT lumbar spine wo con, CT pelvis wo con DATE OF EXAM: 06/13/2021 4:20 PM COMPARISON: CT abdomen and pelvis December 27, 2018 HISTORY: Fall, right hip and back pain. CT DLP: 1242.7 (accession [id number]), 381.8 (accession [id number]) mGycm Automated exposure control for dose reduction was used. Unenhanced CT of the lumbar spine was performed. Bone and soft tissue window settings are submitted as well as coronal and sagittal reconstructions. There are 5 lumbar-type vertebra redemonstrated. Persistent posterior interpedicular rods and screws from L4 through S1 level. Persistent artificial disc material at L4-L5 level. Stable slight grade 1 a nterolisthesis of L4 and L3. Persistent mild to moderate disc space narrowing with vacuum disc phenom enon at L3-L4 level. No acute fracture or dislocation is seen. Posterior bony projection at L4-L5 lev el effaces the anterior thecal sac similar to 2019 study. Review of axial images shows broad disc bulge effaces the anterior thecal sac at L3-L4 level. There i s moderate facet arthropathy effacing the posterolateral thecal sac on axial image 58. Mild to moderate calcified plaque of the aorta extends into branch vessels. Some diverticula and prox imal sigmoid colon are redemonstrated. Images of the pelvis show no acute displaced fracture. Pubic symphysis is intact. Moderate axial join t space loss with mild to moderate acetabular spurring is present in both hips bilaterally. Sacroilia c joints show symmetric mild to moderate narrowing similar to prior. Small to moderate-sized bilatera l fat containing inguinal hernias are redemonstrated. No concerning pelvic fluid collection is seen. IMPRESSION: No acute fracture or dislocation in the lumbar spine or pelvis.
[2021-06-13 17:19] VITALS: BP 151/75; PULSE 51
== END 2021-06-13 17:15 | disposition home or self-care (01) ==
LOC: EC 13:19
DX: M53.3 Sacrococcygeal disorders, not elsewhere classified (principal); I25.10 Atherosclerotic heart disease of native coronary artery without angina pectoris; E78.5 Hyperlipidemia, unspecified; I10 Essential (primary) hypertension; M19.90 Unspecified osteoarthritis, unspecified site; Z79.82 Long term (current) use of aspirin; Z79.899 Other long term (current) drug therapy; Z87.442 Personal history of urinary calculi; Z95.1 Presence of aortocoronary bypass graft; Z96.653 Presence of artificial knee joint, bilateral; W18.30XA Fall on same level, unspecified, initial encounter
CPT/HCPCS: 72131; 72192; 99283

== ENCOUNTER → 2022-02-15 | Outpatient (CLI) | payer MEDICARE ==
--- NOTE | 2022-02-15 10:28 | XR ---
EXAMINATION TYPE: XR chest 2V DATE OF EXAM: 02/15/2022 COMPARISON: November 21, 2018 HISTORY: Shortness of breath TECHNIQUE: Frontal and lateral views of the chest are obtained. FINDINGS: Scattered senescent parenchymal changes noted. Hyperinflation compatible with COPD. No evidence for infiltrate. No evidence for atelectasis. Heart size is stable. Mediastinal structures are stable and grossly unremarkable. No evidence for hilar prominence. Degenerative changes dorsal spine. IMPRESSION: 1. No evidence for acute pulmonary disease.
== END | disposition home or self-care (01) ==
LOC: RADXRMAIN 10:02
PROVIDERS: ATTEND Family Medicine
DX: R05.9 Cough, unspecified (principal); R63.4 Abnormal weight loss
CPT/HCPCS: 71046

== ENCOUNTER → 2022-07-20 | Outpatient (CLI) | payer MEDICARE ==
--- NOTE | 2022-07-20 09:18 | XR ---
EXAMINATION TYPE: XR thoracic spine complete DATE OF EXAM: 07/20/2022 CLINICAL HISTORY: pain TECHNIQUE: Frontal, lateral, and swimmer's view of thoracic spine are obtained. COMPARISON: None. FINDINGS: Thoracic spine show satisfactory alignment without evidence of acute fracture or dislocatio n. Vertebral body heights are preserved. Moderate multilevel degenerative disc disease and spondylos is. Visualized ribs are unremarkable. IMPRESSION: No acute fracture or dislocation is seen in the thoracic spine. ICD 10 NO FRACTURE, INIT IAL EVALUATION
== END | disposition home or self-care (01) ==
LOC: RADXRMAIN 08:48
PROVIDERS: ATTEND Family Medicine
DX: M51.34 Other intervertebral disc degeneration, thoracic region (principal)
CPT/HCPCS: 72072

== ENCOUNTER → 2022-08-17 | Outpatient (CLI) | payer MEDICARE ==
--- NOTE | 2022-08-18 00:28 | CT ---
EXAMINATION TYPE: CT abdomen pelvis w con DATE OF EXAM: 08/17/2022 COMPARISON: 06/13/2021 INDICATION: elevated WBC DLP: 1027.6 mGycm, Automated exposure control for dose reduction was used. CONTRAST: 80 cc mL of Isovue 300. Study performed with Oral Contrast TECHNIQUE: Axial images were obtained from above the diaphragm to the pubic rami in the axial plane a t 5 mm thick sections. Reconstructed images are reviewed on the computer in the coronal plane. FINDINGS: Limited CT sections are obtained the lung bases. Mild subsegmental atelectasis may be within the dep endent lung bases.. Some coronary artery calcifications likely present. CT ABDOMEN: Liver: Diminished density relationships and spleen compatible some mild fatty infiltration. Spleen: Normal Pancreas: Normal Adrenal glands: The adrenal glands are normal. Gallbladder: Normal Kidneys: No masses are evident. No hydronephrosis is present. There is a 1.4 cm cyst of the posteri or mid right kidney. 1.5 cm exophytic cyst may be on the lateral left mid kidney. Aorta: Vascular calcification is within the aorta. Inferior vena cava: Normal. CT PELVIS: Loops of bowel within the abdomen and pelvis are normal. Oral contrast extends to the splenic fle xure. Couple of diverticuli within the descending colon. Diverticula within the sigmoid colon. No acu te diverticulitis is evident. Appendix: Not identified. No dilated tubular structure or inflammatory changes. Urinary bladder: Normal. Genitourinary structures: Prostate is slightly prominent with calcification. Osseous structures: No suspicious lytic or sclerotic lesions. IMPRESSIONS: 1. Diverticulosis without acute diverticulitis. 2. Right renal cyst. 3. Suggestion of mild subsegmental atelectasis lung bases. 4. No suspicious abnormality to account for elevated white count otherwise evident.
== END | disposition home or self-care (01) ==
LOC: RADCTMAIN 17:00
PROVIDERS: ATTEND Family Medicine
DX: D72.829 Elevated white blood cell count, unspecified (principal); K57.30 Diverticulosis of large intestine without perforation or abscess without bleeding; N28.1 Cyst of kidney, acquired
CPT/HCPCS: 74177; Q9967

== ENCOUNTER → 2022-09-24 | Outpatient (CLI) | payer MEDICARE ==
--- NOTE | 2022-09-29 10:20 | MR ---
EXAMINATION TYPE: MR lumbar spine wo con DATE OF EXAM: 09/24/2022 COMPARISON: none HISTORY: Low back pain TECHNIQUE: Multiplanar, multisequence images of the lumbar spine were acquired without IV contrast. L1-L2: Normal disc appearance without desiccation. No herniation, protrusion or disc bulging. No ca nal stenosis is present. Foramina are patent bilaterally. L2-L3: Moderate disc desiccation with posterior disc bulge. Effacement of the ventral thecal sac. No evidence for central stenosis or lateral recess stenosis. Bilateral neural foramina are patent. L3-L4: Severe disc desiccation with posterior disc bulge. Laminectomy change however there appears to be moderate persistent central stenosis. Bilateral neural foraminal encroachment. Severe facet joint arthropathy. L4-L5: Postoperative changes of fusion and laminectomy. Pedicular screws are in place. Intervertebral body spacer is noted. Grade 1 anterolisthesis measuring 4 mm. Artifact limits evaluation. Lack of co ntrast also limits evaluation. Recurrent Central stenosis is not excluded at this level. L5-S1: Decompressive laminectomy with pedicular screws in place. Normal alignment. No evidence for re current central stenosis. Lumbar segments are intact. No paraspinal masses are identified. Conus medullaris has a normal appe arance. IMPRESSION: 1. Postoperative changes as discussed above. Recurrent central stenosis at L3-4 and L4-5 is difficult to exclude. See above.
== END | disposition home or self-care (01) ==
LOC: RADMRIMAIN 18:50
PROVIDERS: ATTEND Nurse Practitioner Family
DX: M43.16 Spondylolisthesis, lumbar region (principal); M99.73 Connective tissue and disc stenosis of intervertebral foramina of lumbar region
CPT/HCPCS: 72148

== ENCOUNTER → 2022-12-08 | Outpatient (CLI) | payer MEDICARE | END | disposition home or self-care (01) | LOC: LABPAT 08:35 | PROVIDERS: ATTEND Orthopaedic Surgery | DX: Z01.812 Encounter for preprocedural laboratory examination (principal); Z22.322 Carrier or suspected carrier of Methicillin resistant Staphylococcus aureus; M47.816 Spondylosis without myelopathy or radiculopathy, lumbar region; M48.061 Spinal stenosis, lumbar region without neurogenic claudication | CPT/HCPCS: 87070 ==

== ENCOUNTER 2022-12-14 08:16 | Inpatient (IN) | payer MEDICARE ==
[2022-12-09 16:09] VITALS: BMI 27.7
--- NOTE | 2022-12-13 15:58 | P.HPOR ---
History of Present Illness H&P Date: 12/08/22 Chief Complaint: Low back pain and neurogenic claudication .D:Date: 12/08/22 : 01:25pm .T:Title: [facility] Date of :[birth year] [id number]: NKDA Age: 77 year Height: 5'6" Weight: 174 lbs BMI: 28.08 kg/m2 Occupation: Retired VAS: 6 CHIEF COMPLAINT: Preoperative evaluation for L2-pelvis decompression and fusion DOI: 02/2022 DOS: H/O L4-S1 decompression and fusion performed by Dr. Summers Duration of current treatment regiment:N/A HISTORY : Xrays No new xrays taken in office Trauma or injury Yes FFS in Feb 2022 and Mar 2022 Work-Related No Pain description Sharp Location Posterior Activity Modification No Hand Dominance Right TREATMENTS COMPLETED: 6 weeks of PT completed? Month and Year of last PT date? Yes, years ago How many sessions? 12 Did it help? No Physician directed home exercise completed? Yes, Patient has trialed the physician directed home exercise program without relief of their symptoms. Medications No: List: N/A Alternative interventions Chiropractic:No Massage therapy:No R.I.C.E: yes Brace:No Injections No RFA: No SUBJECTIVE: Mr. Rodriguez returns to the office today for a preoperative evaluation preceeding his previously scheduled L2-pelvis decompression and fusion. The patient is currently taking Ibuprofen as needed for relief of his symptoms. Otherwise, the patient denies any f/c/sob/cp, no bladder or bowel retention/incontinence, no perineal numbness/tingling, and ambulates independently. HPI: Mr. Rodriguez returns to the office on 10/11/2022 for a re-check on his mid and low back pain and to review recent MRI of the lumbar spine results. The patient reports experiencing a continued sharp, ache-like pain throughout the mid and low back. The patient notes intermittent radiating pain into the hips as well. The patient notes radiating pain down into the bilateral lower extremities, associated with intermittent numbness and tingling. The patient previously underwent surgical intervention in the form of an L4-S1 decompression and fusion in 2006. He notes that the surgery provided him with significant relief up until February of 2022 after he had fallen at home from a standing position. The patient notes that his symptoms are exacerbated by prolonged activity, such as walking and standing. The patient states that his current symptoms make it very difficult to complete his daily activities. The patient is having severe sleep disturbances due to his ongoing pain and associated symptoms. The patient notes that is symptoms have become intractable. The patient has trialed conservative treatment measures in the form of at home stretches/exercises, activity modification, at home ice/heat therapies, and medication management, all with no significant or sustained relief of his symptoms. The patient is currently taking Ibuprofen as needed for relief of his symptoms. Otherwise, the patient denies any f/c/sob/cp, no bladder or bowel retention/incontinence, no perineal numbness/tingling, and ambulates independently. Mr. Rodriguez presents to the office on 09/20/2022 for an evaluation of their thoracolumbar pain. Patient reports a constant stabbing and sharp thoracolumbar pain ongoing for the past 6 months but has progressed over the last 6 weeks with an onset of 02/2022 after he reports fall from standing x2. In addition to their thoracolumbar pain, they do report that it radiates from the mid back around to the right rib cage. Patient does report numbness and tinging to the bottom of his feet. Overall the patient has seen a progressive increase in symptoms since their onset. Mr. Rodriguez symptoms are exacerbated with prolonged ambulation or sitting, bending or twisting, due to this they notes that it is increasingly difficult for Mr. Rodriguez to complete many of their daily tasks. Patient is having mild sleep disturbances as well due to their ongoing pain and associated symptoms. Regarding treatments, the patient has previously trialed the above listed modalities. Patient denies trialing any other modalities at this time. For their symptoms, the patient has been taking Tramadol, Motrin, and Flexeril. Otherwise the patient denies any f/c/sob/cp, no bladder or bowel rete ntion/incontinence, no perineal numbness/tingling, and ambulates independently. The patients' past social, medical, family, surgical history, as well as review of systems, have been reviewed. Please refer to the Neurosurgery History and Physical form that has been scanned in to our electronic medical record system. 14 points review of systems completed and as stated in HPI, all other systems reviewed are negative. Social History: Reviewed, see appropriate section of the chart for details. Family History: Reviewed, see appropriate section of the chart for details. P2 Past Medical History: Reviewed, see appropriate section of the chart for details. P1 [id number] Medications: Rx: aspirin 325 mg tablet Ref: 0 Rx: cholecalciferol (vitamin D3) Ref: 0 Rx: cyclobenzaprine 10 mg tablet Ref: 0 Rx: lisinopriL 10 mg tablet Ref: 0 Rx: metFORMIN ER 500 mg 24 hr tablet,extended release Ref: 0 Rx: metoprolol tartrate 50 mg tablet Ref: 0 Rx: pravastatin 80 mg tablet Ref: 0 Rx: traMADol 50 mg tablet Ref: 0 PHYSICAL EXAMINATION: General:Awake, alert, appropriate for age, in no acute distress. HEENT:No unusual neck masses around region of lateral neck triangle, thyroid, supraclavicular groove Heart:Regular rate and rhythm, normal S1, S2 and no murmur/gallop. Lungs:Clear to auscultation bilaterally with no use of accessory muscles. Extremities:Skin warm and dry without acute lesions, coloration, temperature, skin intact, no tenderness or erythema Integument: Hairy patches:ABSENT Dorsal skin dimples:ABSENT Cafe au lait spots:ABSENT Surgical incisions:well healed Palpation: Please see Pain drawing on Intake sheet for further detail. Midline spinal tenderness: No E6 Cervical Tenderness: No E6 Paralumbar tenderness: No E6 Parathoracic tenderness: No E6 Buttocks tenderness: No E6 POSTURAL and MUSCULO-SKELETAL EVALUATION: Coronal Balance: NEUTRAL Recumbent testing: Patient is able to lay flat on back Sagittal Balance: NEUTRAL Shoulder Profile: LEVEL Pelvic Girdle: LEVEL Neck ROM: UNRESTRICTED Lumbar ROM: RESTRICTED Shoulder ROM: Symmetrical Hip ROM: Symmetrical Knee ROM: Symmetrical Hands: Normal appearance, symmetrical Feet: Normal appearance, Symmetrical VASCULAR STATUS : LEFT RIGHT Wrist Pulses INTACT INTACT Pedal Pulses (Dors. pedis & post.tibialis) INTACT INTACT Color NORMAL NORMAL Edema Absent Absent NEUROLOGIC EXAMINATION: Mental Status:Awake and alert, fully oriented, with normal attention, concentration and memory, and fluent, appropriate speech. Cranial Nerves: I: Olfactory not tested. II: Visual acuity normal, no visual field deficit noted with confrontation. III,IV: Normal pupillary reflexes & intact extraocular movements without nystagmus. V,: Intact symmetrical facial sensation. VII: Intact symmetrical facial motor movement VIII: Hearing intact. IX,X: Intact gag, swallow, & normal voice. XI: Sternocleidomastoid, trapezius function intact. XII: Tongue midline with normal movements. L'hermitte's Sign: Negative / absent Spurling'Sign: Absent bilaterally. Cubital percussion test: Absent bilaterally. العراقي-Tinel sign - Carpal region: Absent bilaterally. Straight Leg Raising: Absent bilaterally. Crossed straight leg raise: negative O8 MOTOR EXAM (0-5/5, N/T) Muscle appearance: Symmetrical, without signs of atrophy or dystrophy UPPER EXTREMITY RIGHT LEFT Shoulder Abduction 4+ 4+ Biceps 4+ 4+ Triceps 4+ 4+ Wrist Extension 4+ 4+ Hand Intrinsic 4+ 4+ Head Of Mathematics 4+ 4+ Hand and finger dexterity intact bilaterally?yes Disdiadochokinesis examination negative bilaterally? yes LOWER EXTREMITY RIGHT LEFT Hip Flexion 4/5 4/5 Knee Extension 4/5 4/5 Knee Flexion 4/5 4/5 Dorsiflexion 4+/5 4/5 Plantarflexion 4/5 4/5 EHL 4/5 4+/5 FHL 4/5 4+/5 Toe heel walk / heel-toe walk intact while maintaining satisfactory balance? yes Squatting/straightening w/o assistance to a min of 60 degree knee flexion? yes Single leg stance:intact Trendelenburg sign negative bilaterally REFLEXES(0-4/2, NT)Upper ExtremityLower Extremity Right 2 2 Left 2 2 Pathological Reflexes RIGHTLEFT العراقي's Absent Absent Clonus Absent Absent Babinski Absent Absent Sensory system (0-4, N/T) Test type RU KENDRICK RL LL Joint-Position 2 2 2 2 Vibration 2 2 2 2 Pain & LT sense 2 2 2 2 Dermatomal Deficit: None None Global Global Gait and Functional Evaluation: Ambulatory aids:Independent Romberg's test:Intact bilaterally Steady Gait RADIOGRAPHIC STUDI ES: XR lumbar spine, multiview taken at [facility] on 09/20/22 reviewed: These demonstrate posterior fusion complex from L4-S1 with rods and screws in position along with interbody devices. There is reasonable looking fusion at L4-5. There is ASD at L3-4 and spondylosis that is advancing at L2-3 with collapse of disc space and facet arthrosis along with deformity. No fractures noted. AP pelvis shows no fractures. INCLUDEPICTURE P:\\\\ppart\\\\Files\\\\[id number]\\\\[id number]\\\\ [id number]\\\\SVQG586\\\\JJJG590\\\\GYSS750\\\\JIIW945\\\\WNKG240\\\\YVHR498\\\\JGTM327\\\\GZER060\\ \\KMLG682\\\\KHHR276\\\\KUTL763\\\\HAWH127\\\\VVYP374\\\\VRGU312\\\\DEYE510\\\\RCJY907\\\\WXKJ484 \\\\[id number].PNG \\d MRI scancompleted [facility] from09[facility]2022 of Lum[facility]ine: IMages reviewed. ASD noted around L4-S1 posteriolateral and interbody fusion at L2-3 and L3-4. L3-4 shows severe stenosis related to degenerative changes along with L2-3 which has moderate stenosis central and foraminal. No fractures no lesions. INCLUDEPICTURE P:\\\\ppart\\\\Files\\\\[id number]\\\\[id number]\\\\BCQB697\\\\UJAO007\\\\IGYK423\\\\JNHO079\\\\JAMS661\\ \\CKMB037\\\\BPIY985\\\\YWDD099\\\\GLJT567\\\\YDQY452\\\\YPUO189\\\\JUXF414\\\\NPLL635\\\\XJRB855 \\\\GXXE787\\\\HVUG006\\\\YXVO589\\\\LNZW379\\\\[id number].PNG \\d IMPRESSION: It was my pleasure to have seen and examined Manny. I reviewed the patient's clinical syndrome, physical findings, and imaging studies during the appointment today. It is my impression that the patient has a diagnosis of. 1. L2-S1 spondylosis with stenosis 2. Lower extremity radiculopathy, bilateral 3. Lower extremity weakness, bilateral I outlined the natural course history without intervention and various interv entional options. I discussed at length with the patient different nonsurgical and surgical options. In the nonsurgical arm the patient can elect to do medications [id number]-fyocuib as well as prescription injections home exercise physical therapy occupational therapy all of which are symptomatic treatments at this time. While I recommend surgery the patient has the option of these. On the taveras rgical arm the patient has options of decompression alone decompression and fusion or revision decompression fusion. We discussed all these at length the risks and benefits as well as potential outcomes. At this point the patient and I both agree that he would like a revision decompression and fusion from L2 to pelvis. He expressed understanding this is very comfortable with this choice and he wants to proceed PLAN: Based on my findings I suggest the following course of action: -I discussed treatment options with the patient, including operative and non- operative options, and they have elected to proceed with the following surgical procedure: Revision L2-Pelvis decompression and fusion The indications, risks, benefits, and alternatives to surgery were discussed with the patient and family at length. Specifically (but not limited to) the risks of infection, stiffness, recurrence of symptoms, need for revision surgery, local numbness, neurovascular injury, and blood clots were discussed. The patient's questions were answered. The decision to proceed was made. Consent will be obtained for the procedure. - Ambulate daily - Take medications as directed - Ice and rest for pain and swelling control. Spine Surgery Risk Review Mr. Rodriguez is presenting for evaluation of mid and low back pain, as well as bilateral lower extremity weakness, numbness, and tingling. It was my pleasure to have seen and examined Mr. Rodriguez. In our visit today we have had a chance to go over subjective complaints, physical examination findings and treatments including the natural course history without intervention and various interventional options. The patients imaging demonstrates: XR lumbar spine, multiview taken at [facility] on 09/20/22 reviewed: These demonstrate posterior fusion complex from L4-S1 with rods and screws in position along with interbody devices. There is reasonable looking fusion at L4-5. There is ASD at L3-4 and spondylosis that is advancing at L2-3 with collapse of disc space and facet arthrosis along with deformity. No fractures noted. AP pelvis shows no fractures. MRI scancompleted [facility]09[facility]20[facility] of [facility]: IMages reviewed. ASD noted around L4-S1 posteriolateral and interbody fusion at L2-3 and L3-4. L3-4 shows severe stenosis related to degenerative changes along with L2-3 which has moderate stenosis central and foraminal. No fractures no lesions. There is the apperance of pseudo arthrosis at L5-S1 as well. Thoracic spine: Mild spondylitic changes with preserved alignment. Disc heights are preserved. Vertebral body heights are preserved. No acute osseous abnormalities. Lumbar spine: Moderate spondylitic and degenerative changes with preserved alignment. surgical hardware noted L4-S1, rods and screws intact no migration. Artificial disc present at L4-L5. Adjacent segment disease present at L3-L4. Grade 1 anterolisthesis L3 and L4. No acute osseous abnormalities. On physical exam, Mr. Rodriguez demonstrates: The patient reports experiencing a continued sharp, ache-like pain throughout the mid and low back. The patient notes intermittent radiating pain into the hips as well. The patient notes radiating pain down into the bilateral lower extremities, associated with intermittent numbness and tingling. The patient notes that his symptoms are exacerbated by prolonged activity, such as walking and standing. The patient states that his current symptoms make it very difficult to complete his daily activities. The patient is having severe sleep disturbances due to his ongoing pain and associated symptoms. The patient notes that is symptoms have become intractable. I have explained to the patient that as their condition progresses it will cause further neurological deficits and eventual paralysis. Based on the patients imaging, physical exam, and the rapid progression and disabling nature of their symptoms, at this time I recommend surgery in the form of a: Revision L2-Pelvis decompression and fusion. I discussed the risk and benefits of this procedure at length with Mr. Rodriguez. The patient agreed to considered pursuing the procedure above mentioned. Prior to surgery, she should follow up with her PCP (Cardio, ID, IM etc) for clearance. Questions were invited and answered, and the patient wishes to proceed as outlined below. Currently, I am recommendin.Revision L2-Pelvis decompression and fusion 2.Follow up with PCP for surgical clearance 3.Review of surgical risks and benefits as well as an educational packet on the proposed surgical procedure. Risks: All surgical procedures come with inherent risks, including those related to positioning, anesthesia, intraoperative findings, and postoperative complications. It is important to understand that surgery does not come with any guarantee of a successful outcome as complications and adverse events are always possible. The patient was given a handout in office today discussing the surgical p rocedure and risks associated with the intervention, both of which were discussed with the patient. These risks include but are not limited to the following: * Experiencing same, different or even worse symptoms in back, neck, arms, or legs compared to before surgery. Requiring further surgery or other forms of treatment presently or at some time in the future at same or other levels of the intended spine surgery. On an extreme but fortunately relatively rare basis severe complication such as blindness, stroke, heart attack, temporary and/or permanent nerve injury, paralysis, coma, or may occur, sometimes without known explanation. Surgical complications may include but are not limited to risk of infection, fluid accumulation in the surgical dissection site, including a seroma or hematoma, that requires additional surgery, wound drainage, bleeding, new numbness or weakness, vision changes/loss, spinal fluid leakage, non-healing and/or infected incision, headaches, difficulty or inability to swallow, hoarseness, hemopneumothorax, pneumothorax, impotence, retrograde ejaculation, vaginal dryness; injury to nerves, spinal cord, blood vessels, lymphatics or other vital organs (i.e., bowel injury, injury to the great vessels); heterotopic bone formation; complications related to the hardware such as screws, rods, cages including misplaced hardware, device failure, instrumentation at the wrong spine level, hardware fracture/breakage, or hardware loosening; vertebral failure of the spinal column above or below the newly placed hardware; retained surgical instrumentations or devices and the need for further surgery. * Medical risks of the planned spine surgery include but are not limited to generalized Infections to the whole body or local areas outside of the surgical site (sepsis), heart attack, bleeding, anaphylaxis, meningitis, seizure, epilepsy, hearing loss, burn gu, laceration of the head or other areas of the body, bruising, hypersensitivity of the skin, bladder over distension; allergic reaction; shoulder injury related to positioning; fat, blood and air clots to other areas of the body like heart, lungs, brain; failure of internal organs such as lungs, kidneys, liver and excessive bleeding. If blood transfusions are necessary, note that transfusions may cause intolerance reactions such as anaphylaxis or other complex reactions. Despite best efforts, the results of spine surgery might not heal in terms of bone, soft tissues such as skin, fascia, ligaments, and joints. Additionally, in order to achieve best possible results, spine surgery may be carried out beyond the initially planned levels and involve decompression, fusion including insertion of hardware at levels other than the original intended area of taveras rgical interest change some portions of the procedure in order to ensure the best possible outcomes. With spine surgery and spinal fusion, there are different off label uses of instrumentation (devices, implants and hardware) as well as biological substances (bone morphogenic proteins, demineralized bone matrix) as well as using extra bone from allograft sources (i.e. cadaver bone) or autograft (iliac crest bone, ribs, or the spine itself). The patient has been given information about these practices and their inherent risks and benefits. [facility] is an educational center that serves as a training facility for neurosurgical and orthopedic MEDICAL ASSISTANT OB GYN and Nursing students. Physician assistants are medically trained surgical providers who function in the outpatient, inpatient, and operating room setting under the direct supervision of the attending surgeon. [facility] has multiple operating rooms with single and overlapping rooms running daily. They currently function under the required guidelines as produced by the [facility] Finance Committee with regards to the overlapping rooms and will continue to comply with changes to this policy as they occur. The requirements include and are complied with as follows: (1) the critical portions of the overlapping rooms will not occur at the same time, (2) the attending physician will be physically present during the critical portions of the procedure and immediately available during the entire case, and (3) a back-up attending is designated should the primary attending not be immediately available. The patient has had a chance to review all the listed information, has been given print outs detailing this information, and has had all his/her questions answered to their satisfaction. It was my pleasure to have seen and examined Mr. Rodriguez. In our visit today we have had a chance to go over my understanding of our patient's current condition, the natural course history without intervention and various interventional options. Questions were invited and answered, and the patient wishes to proceed as outlined above. I have seen and examined the patient for 25 minutes and we have spent more than 50% of the time in repeat and detailed counseling about the patient's condition, its natural course history with out and as much as can be predicted with surgery and re-review of various surgical treatment options. In conclusion, Mr. Rodriguez and his spouse requested we proceed with the above suggested surgery and are willing to accept risks and limitations of the suggested surgery as nature of the disease process and our best attempts at treatment for the condition. Thank you again for allowing us to be part of your patient's care. Please don't hesitate to contact me if you have any further questions. Follow- up: Post procedure Patient Education: (Informational booklet, instructions, etc) given at today's appointment: Yes .ED:Patient Education: Y Medications Reviewed: YES In our visit today Mr. Rodriguez and I have had a chance to go over my understanding of the patient's current condition, the natural course history without intervention and various interventional options. Questions were invited and answered, and the patient wishes to proceed as outlined above. I will be sure to keep you updated afterMr. Rodriguez returns here for further follow-up. Thank you again for your referral. Please do not hesitate to contact me if you have any further questions. Signed and authenticated by: Cruz Abreu [facility] [address], [address] [address] This message is confidential, intended only for the named recipient(s) and may contain information that is privileged or exempt from disclosure under applicable law. If you are not the intended recipient(s), you are notified that the dissemination, distribution or copying of this information is strictly prohibited. If you received this message in error, please notify the sender then delete this message. Patient verbalizes understanding of the information discussed. The above note was initiated by Nellie Patel, physician recording shampoo assistant for Dr. Cruz Mahoney. This note has been reviewed by Dr. Mahoney, who has made his personal changes and impressions for this document. CC: Antonio Zhang D.O. 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 Past Anesthesia/Blood Transfusion Reactions: No Reported Reaction Additional Past Anesthesia/Blood Transfusion Reaction / Comment(s): no hx blood transfusion Past Psychological History: No Psychological Hx Reported Additional Psychological History / Comment(s): Pt resides with his spouse. He is independent. Smoking Status: Never smoker Past Alcohol Use History: None Reported Additional Past Alcohol Use History / Comment(s): Pt started smoking in 1959 and quit in 1979. Past Drug Use History: None Reported - Past Family History Father Additional Family Medical History / Comment(s): Father in a tractor accident. Mother Family Medical History: Myocardial Infarction ([place]) Additional Family Medical History / Comment(s): Mother of a massive CT at the age of 69yrs. Brother(s) Family Medical History: Cancer Additional Family Medical History / Comment(s): at age 49 Sister(s) Family Medical History: Cancer Additional Family Medical History / Comment(s): at age 49 Medications and Allergies Home Medications Medication Instructions Recorded Confirmed Type lisinopriL [Lisinopril] 10 mg PO QAM 12/23/14 12/09/22 History Metoprolol Tartrate [Lopressor] 50 mg PO QAM 12/26/14 12/09/22 History Multivitamins, Thera [Multivitamin 1 tab PO DAILY 12/26/14 12/09/22 History (formulary)] Pravastatin Sodium 80 mg PO HS 11/21/18 12/09/22 History Aspirin EC [Ecotrin Low Dose] 81 mg PO DAILY #30 tablet. 11/22/18 12/09/22 Rx Cholecalciferol [Vitamin D3 (25 25 mcg PO DAILY 12/09/22 12/09/22 History Mcg = 1000 Iu)] Clopidogrel [Plavix] 75 mg PO HS 12/09/22 12/09/22 History Ibuprofen [Motrin] 800 mg PO Q8H PRN 12/09/22 12/09/22 History Allergies Allergy/AdvReac Type Severity Reaction Status Date / Time morphine AdvReac Nausea & Verified 12/09/22 14:26 Vomiting Physical Examination Osteopathic Statement: *. No significant issues noted on an osteopathic structural exam other than those noted in the History and Physical/Consult.
[~2022-12-14 08:16] MED LIST: ACETAMINOPHEN TAB 500 MG TAB PO PRN; GABAPENTIN 300 MG CAP PO PRN; MIDAZOLAM 2 MG/2 ML VIAL IV PRN; ONDANSETRON 4 MG/2 ML VIAL IVP PRN; TRANEXAMIC 1,000 MG/100ML-NACL 1,000 MG in SALINE 1 100ML.BAG IVPB PRN; fentaNYL (PF) 50 MCG/ML 2 ML AMP IV PRN
[2022-12-14] MEDS: LACTATED RINGERS 1,000 ML IV SCH (08:52)
[2022-12-14] MEDS ORDERED: MIDAZOLAM 2 MG/2 ML VIAL IVP ONE (10:10)
[2022-12-14] MEDS ORDERED: fentaNYL (PF) 50 MCG/ML 2 ML AMP IVP ONE (10:11)
[2022-12-14] MEDS ORDERED: ROCURONIUM 10 MG/ML (5 ML VIAL) IV ONE (10:48)
[2022-12-14] MEDS ORDERED: TRANEXAMIC 1,000 MG/100ML-NACL PREMIX BAG ONE (10:48)
[2022-12-14] MEDS ORDERED: fentaNYL (PF) 50 MCG/ML 2 ML AMP ONE (10:48)
[2022-12-14] MEDS ORDERED: SUCCINYLCHOLINE CHLORIDE 200 MG/10 ML VIAL IV ONE (10:48)
[2022-12-14] MEDS ORDERED: NEOSTIGMINE 1 MG/ML 10 ML VIAL ONE (10:48)
[2022-12-14] MEDS ORDERED: WATER FOR INJECTION, STERILE 10 ML VIAL IV ONE (10:48)
[2022-12-14] MEDS ORDERED: PHENYLEPHRINE-0.9% NACL SYG 1,000 MCG/10 ML SYRINGE ONE (10:48)
[2022-12-14] MEDS ORDERED: LIDOCAINE 2% INJ 20 MG/ML (2 ML VIAL) ONE (10:48)
[2022-12-14] MEDS ORDERED: KETAMINE 10 MG/ML 20 ML VIAL ONE (10:48)
[2022-12-14] MEDS ORDERED: VASOPRESSIN 20 UNIT/ML 1 ML VIAL ONE (10:48)
[2022-12-14] MEDS ORDERED: ePHEDrine 50 MG/ML 1 ML VIAL ONE (10:48)
[2022-12-14] MEDS ORDERED: PROPOFOL 10 MG/ML 20 ML VIAL IV ONE (10:48)
[2022-12-14] MEDS ORDERED: ONDANSETRON 4 MG/2 ML VIAL ONE (10:48)
[2022-12-14] MEDS ORDERED: MIDAZOLAM 2 MG/2 ML VIAL ONE (10:48)
[2022-12-14] MEDS ORDERED: GLYCOPYRROLATE 0.2 MG/ML 2 ML VIAL ONE (10:48)
[2022-12-14] MEDS ORDERED: GENTAMICIN 80 MG in SODIUM CHLORIDE 0.9% IRRIGATIO 3,000 ML IRRIGATION ONE (12:18)
[2022-12-14] MEDS ORDERED: ceFAZolin 3,000 MG in SODIUM CHLORIDE 0.9% IRRIGATIO 3,000 ML IRRIGATION ONE (12:19)
[2022-12-14] MEDS ORDERED: THROMBIN (BOVINE) 5,000 UNIT VIAL MISCELLANE ONE (12:29)
[2022-12-14] MEDS ORDERED: GELATIN SPONGE,ABSORB (LARGE) 1 EACH SPONGE MISCELLANE ONE (12:29)
[2022-12-14] MEDS ORDERED: VANCOMYCIN 1,000 MG VIAL MISCELLANE ONE ×2 (12:45→16:02)
[2022-12-14] MEDS ORDERED: LACTATED RINGERS 1,000 ML IV ONE ×3 (13:14→17:15)
--- NOTE | 2022-12-14 14:29 | P.ANPRN ---
Procedure Note - Anesthesia - Invasive Line Right Arterial Line Time Out Performed: Yes (1007) Date of Procedure: 12/14/22 Time of Procedure: 10:18 Location of Patient: PreOp Preparation: Sterile Prep, Sterile Dressing Arterial Line Location: Radial (right) Ultrasound Used: No Purpose - Visualization and Identification of Vasculature: No Needle Guage: 20g Image Stored and Saved: No Narrative: Central line placement per sterile protocol utilized.
[2022-12-14] MEDS ORDERED: MAGNESIUM HYDROXIDE 2,400 MG/30 ML CUP PO PRN (15:23)
[2022-12-14] MEDS ORDERED: HYDROmorphone 1 MG/ML 1 ML SYRINGE IVP PRN (15:23)
[2022-12-14] MEDS ORDERED: SENNOSIDES-DOCUSATE SODIUM 1 EACH TAB PO PRN (15:23)
[2022-12-14] MEDS ORDERED: HYDROmorphone 0.5 MG/0.5 ML SYRINGE IVP PRN (15:23)
--- NOTE | 2022-12-14 17:02 | P.OP ---
Date of Procedure: 12/14/22 Preoperative Diagnosis: 1. 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 SPONDYLOSIS L2-4 SEVERE 3. LE WEAKNESS 4. NEUROGENIC CLAUDICATION Postoperative Diagnosis: 1. 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 SPONDYLOSIS L2-4 SEVERE 3. LE WEAKNESS 4. NEUROGENIC CLAUDICATION 5. BILATERAL SIJ OA, SEVERE Procedure(s) Performed: 1. L2-3 POSTERILATERAL AND INTERBODY FUSION (06308) 2. L3-4 POSTERIOLATERAL AND INTERBODY FUSION (38779) 3. REVISION POSTERIOLATERAL FUSION L4-S1 (89522, 76944)/59 4. BILATERAL SACROILLIAC JOINT ARTHRODESIS, OPEN FOR LARGE CONSTRUCT STABILITY (49873/50) 5. BILATERAL COMPLETE LAMINECTOMY, FACETECTOMY AND FORAMINOTOMY FOR DEFORMITY CORRECTION AND CAGE PLACEMENT AND DECOMPRESSION OF NEURAL ELEMENTS L2-3 AND L3-4 (74721, 43973) 6. INSTRUMENTATION L2-PELVIS (21586) 7. ATTACHMENT OF CAUDAL END OF CONSTRUCT TO THE PELVIS (36459) 8. REMOVAL OF HARDWARE L4-S1 (48303) 9. EXPLORATION OF FUSION (77471) 10. USE OF [employer] NAVIGATION FOR SCREW PLACEMENT (82845) USE OF IONM. ALL SCREWS TESTING >14 MA Implants: LYNDON EVEREST SCREW AND SEEMA SYSTEM GLOBUS RISE TLIF 8X7/[id number] MM X2 MAGNATOS VENTRIS ALLOCEL AF, CERUS Anesthesia: GETA Surgeon: Cruz Mahoney Pigeon Fancier #1: Marcos Bullock (WAS PRESENT AND ASSISTED WITH ALL ASPECTS OF THE CASE FROM POSITION TO CLOSURE) Estimated Blood Loss (ml): 350 IV fluids (ml): 2,500 Urine output (ml): 500 Pathology: none sent Condition: stable Disposition: PACU Indications for Procedure: Mr. Rodriguez is presenting for evaluation of mid and low back pain, as well as bilateral lower extremity weakness, numbness, and tingling. It was my pleasure to have seen and examined Mr. Rodriguez. In our visit today we have had a chance to go over subjective complaints, physical examination findings and treatments including the natural course history without intervention and various interventional options. The patients imaging demonstrates: XR lumbar spine, multiview taken at [facility] on 09/20/22 reviewed: These demonstrate posterior fusion complex from L4-S1 with rods and screws in position along with interbody devices. There is reasonable looking fusion at L4-5. There is ASD at L3-4 and spondylosis that is advancing at L2-3 with collapse of disc space and facet arthrosis along with deformity. No fractures noted. AP pelvis shows no fractures. [facility]: IMages reviewed. ASD noted around L4-S1 posteriolateral and interbody fusion at L2-3 and L3-4. L3-4 shows severe stenosis related to degenerative changes along with L2-3 which has moderate stenosis central and foraminal. No fractures no lesions. There is the apperance of pseudo arthrosis at L5-S1 as well. Thoracic spine: Mild spondylitic changes with preserved alignment. Disc heights are preserved. Vertebral body heights are preserved. No acute osseous abnormalities. Lumbar spine: Moderate spondylitic and degenerative changes with preserved alignment. surgical hardware noted L4-S1, rods and screws intact no migration. Artificial disc present at L4-L5. Adjacent segment disease present at L3-L4. Grade 1 anterolisthesis L3 and L4. No acute osseous abnormalities. On physical exam, Mr. Rodriguez demonstrates: The patient reports experiencing a continued sharp, ache-like pain throughout the mid and low back. The patient notes intermittent radiating pain into the hips as well. The patient notes radiating pain down into the bilateral lower extremities, associated with intermittent numbness and tingling. The patient notes that his symptoms are ex acerbated by prolonged activity, such as walking and standing. The patient states that his current symptoms make it very difficult to complete his daily activities. The patient is having severe sleep disturbances due to his ongoing pain and associated symptoms. The patient notes that is symptoms have become intractable. I have explained to the patient that as their condition progresses it will cause further neurological deficits and eventual paralysis. Based on the patients imaging, physical exam, and the rapid progression and disabling nature of their symptoms, at this time I recommend surgery in the form of a: Revision L2-Pelvis decompression and fusion. I discussed the risk and benefits of this procedure at length with Mr. Rodriguez. The patient agreed to considered pursuing the procedure above mentioned. Prior to surgery, she should follow up with her PCP (Cardio, ID, IM etc) for clearance. Questions were invited and answered, and the patient wishes to proceed as outlined below. Currently, I am recommendin.Revision L2-Pelvis decompression and fusion Description of Procedure: L2-Pelvis Decompression and fusion REVISION, WITH ANGELA The patient was seen and examined in the preoperative area. All preoperative protocols were followed. Informed consent was obtained, risks and benefits of the procedure were discussed at length. Risks including bleeding infection damage to the surrounding tissue and risk of reoperation were discussed with the patient. Risk of anesthesia up to and including was discussed with the patient. These are outlined in the risk review. They were willing to accept these risks and all the risks of surgery. The patient was given a weight-based dose of antibiotics in the form of 3 g Ancef. The patient was seen and evaluated by the anesthesia team who deemed them fit for surgery. The site was marked, the patient was willing to proceed with the procedure. The patient was transferred to the operative suite by the Department of anesthesia. They were then drifted off to sleep by the department anesthesia and GETA was performed. The patient tolerated this well. Burrows catheter was placed by nursing staff, a-traumatically. Once confirmation of lines and ventilation the patient was transferred to a prone Trios spine table very carefully. The head was secured and stable. X Ray confirmed alignment. All bony prominences including wrists, elbows, axilla, chest, hips, and thighs, and feet were padded very well. Special attention was paid to the genitalia, and these were padded accordingly. SCDs were placed on bilateral lower extremities and were connected. Arms were well padded and placed at 90/90 up and out and well padded. Safety strap and tape placed on the patient. Once in position, again we confirmed good ventilation capabilities and that lines were running appropriately. The patients lumbosacral pelvic was then exposed. Hair was removed for incision. 1010s were placed outlining the incision site. Standard alcohol was used to clean the incision site and allowed to dry. C-arm was used to bio-lillian the patient and confirm level for incision which was marked with a skin marker. Operative briefing was performed with all teams and everyone in agreement to proceed. The patient was then prepped and draped in a normal sterile fashion. Timeout was then performed, and all parties agreed with the procedure to be performed. Midline skin incision was then made over the previously bookmarked and incised area and dissection taken down to the lumbosacral fascia which was identified and cleaned with a mccann. There was excessive sub-q adipose and scar tissue that was obtrusive and needed to be retracted. Once midline was identified, fasciotomy was made over the SP of L1-S1 and pelvis. Subperiosteal dissection was then taken down over the lamina and facet joints and TPs were exposed and trough made posterolateral. Old hardware was identified and cleaned of scar tissue and bone. Old hardware was explored along with the fusion at these levels. Hardware was removed without issues. There was good fusion L4-5, this was questionable at L5-S1 but overall good bone foramtion was noted. TPs were then decorticated with a high speed luis angel for lateral fusion. Dissection was taken out over the sacrum to the pelvis. SI joint identified and modified Stinson starting point for pelvic screws identified as well. Retractors placed. Wound was irrigated and lateral image with penfield 4 placed at the pars of L4 confirmed levels for operation. SP clamp was then placed for the [employer] navigation tracker and secured. The wound was then filled with NSS and Z-drape. A 3D Ziehm spin was then obtained and registered. Once confirmation of accuracy screws were then placed from L2-Pelvis using navigation. Old screw trajectories were changed to more favorable tajectories. Navigated high speed luis angel was used to make a pilot fuel engineer hole followed by a navigated awl-tap passed through the pedicle into the body. A ball tip probe then confirmed within the pedicle. Screw was then measured and placed using a navigated screwdriver. After screws were placed from L2-S1, AP image confirmed safe placement of screws. Lateral images as well as navigation were then used to place bilateral pelvic screws. Starting point selected just lateral to the SI joint and S2 pseudo facet. Lateral image taken and luis angel used to make the pilot fuel engineer hole. Gearshift then used to pass into the pelvis under lateral imaging just above the sciatic notch. 30 deg/30deg iliac oblique then taken to confirm within the teardrop and ball tip probe used to probe good bone. Screw was then measured and selected and placed under lateral imaging. This was repeated on the contralateral side. Screws were then visualized and appeared safe. A second Zheim spin was obtained and confirmed safe screw placement. We then proceeded to place in an S2Ai approach bilateral, SIJ screws for the purpose of SIJ fusion due to severe OA and large construct needing firm foundational support. High speed luis angel, navigated awl-tap and finally SI bone torque screw was selected and placed. This was done on both sides bilaterally. SIJ were then decorticated with the high speed luis angel for further healing potential. Screws and construct were then viewed in AP, LAT, Inlet and Outlet and confirmed to be in good position. Screws were then tested, and reliably tested screws tested above 14 mA. We then proceeded to decompression and interbody placement. At L3-4, bilateral laminectomy, complete facetectomy and foraminotomy was performed with high speed luis angel and kerrison rongure. Again, exuberant scar tissue and bone formation was encountered and at this level specifically around the facet joints as well as a white chalky like substance which was taken from joints and the epidural space at this level and sent for pathology. I suspected gout or CPPD in this area based on its look, but it was one of the main reason for stenosis at this adjacent level. There was also a large disc osteophyte com plex that was identified once disc space was found. The dura was carefully dissected off this anteriorly and b/l. Once encountered, the disc space was then accessed with a Raptor osteotome neural elements protected. Complete discectomy performed there was good mobility at this level. Cage was then sized and selected. Autograft and allograft was then placed anterior in the disc space and the cage was then inserted and impacted into place under lateral. AP image, as before, was taken to ensure midline placement. The cage was then expanded into position. The cage was tested and was very stable and since it was in safe position without any other issues. The wound was irrigated. Meticulous hemostasis then performed, and attention turned to L2-3. At L2-3 again bilateral laminectomy, complete facetectomy and foraminotomy were performed. The neural elements were less scared at this level; however, it was very unstable. The elements were then protected, and disc space accessed. Seq uential shaving performed until desired height and lordosis. Cage selected, and graft placed anterior to the cage within the disc space. Cage was then placed under lateral image, expanded and had good height, lordosis and deformity correction. The wound was irrigated, and meticulous hemostasis performed once again. Attention was then drawn to seema placement. Rods were selected, measured, cut and bent to appropriate lordosis. They were then secured into pelvic screws b/l. Sequential reduction then done into each screw and set screw placed. Set screws were then final tightened and lateral image showed good lordosis reduction with increase around 10 deg from starting. Once rods were secured, cross links were selected and placed and final tightened. The wound was then irrigated with 3L Ancef irrigation, 3L gentamicin irrigation and 3L NSS. Surgicel was then placed on the dura, which was inspected and had no injury. Then, in the posterolateral gutter was placed, MagnatOs, Autograft and allograft. This was impacted into position and surgical placed over it. 2g Vanco powder was then placed deep in the wound. A deep, subfascial drain was placed We then proceeded with layered closure. #1 PDS placed in the deep fascia. 0 Vicryl placed in the deep subq, 2-0 placed in the superficial subq and charli placed in the skin. The wound edges approximated very well. The wound was then cleaned with ETOH and dressed with optifoam dressing, drain sponges and tegaderms. Drains sewed into position. IONM confirmed no changes. The patient was then transferred off the [facility] spine table to their hospital bed a-traumatically. Drains continued to hold suction. The patient was then extubated and transferred to the PACU in stable condition having tolerated the procedure with no complications.
--- NOTE | 2022-12-14 17:05 | P.PN ---
Progress Note - Text Progress Note Date: 12/14/22 Pt s/e in PACU. Still sleepy and groggy from surgery. VSS at this time, still bradycardic at 55 but pressures are running in the 120s SBP. Currently, being warmed as his temp was low. No other issues. Does not follow commands yet. Pain seems controlled. Nsg at bedside.
--- NOTE | 2022-12-14 17:06 | FL ---
Fluoroscopy INDICATION: Pain FINDINGS: Fluoroscopy time: 1 minute 7 seconds. Total dose area product (DAP) in uGy*m?, mGy*cm? (or similar): 3888.7139 Images obtained: 0. IMPRESSION: 1. Documentation of fluoroscopy.
--- NOTE | 2022-12-14 17:12 | XR ---
Fluoroscopy INDICATION: L2 pelvic revision FINDINGS: Fluoroscopy time: 1 minute 7 seconds. Total dose area product (DAP) in uGy*m?, mGy*cm? (or similar): 3888.7139 Images obtained: 6. IMPRESSION: 1. Documentation of fluoroscopy.
[2022-12-14] MEDS ORDERED: PHENYLEPHRINE-0.9% NACL SYG 1,000 MCG/10 ML SYRINGE IVP ONE (17:20)
[2022-12-14] MEDS: PHENYLEPHRINE 40 MG in SODIUM CHLORIDE 0.9% 250 ML IV SCH (17:39)
[2022-12-14] MEDS ORDERED: SODIUM CHLORIDE 0.9% 1,000 ML IV ONE (17:58)
--- NOTE | 2022-12-14 18:51 | P.GSCN ---
History of Present Illness Consult date: 12/14/22 History of present illness: 77 yo male in the or today for extensive back surgery by Dr ritchie today. An intraoperative catheter will be necessary but the nursing staff and Dr ritchie couldnot place. I was asked to do so. He apparently years ago had a similar situation requiring urological intervention to place a catheter. Review of Systems not obtainable as the patient is anesthetized. Past Medical History Past Medical History: Coronary Artery Disease (CAD), Hyperlipidemia, Hypertension, Osteoarthritis (OA), Renal Disease Additional Past Medical History / Comment(s): Generalized arthritis, L leg numbness/tingling since harvested vein for CABG, slight cardiac murmur, kidney stones, urethra stricture at the bladder neck-has had difficulty with catheter insertions in the past History of Any Multi-Drug Resistant Organisms: None Reported Past Surgical History: Coronary Bypass/CABG, Heart Catheterization, Joint Replacement, Orthopedic Surgery Additional Past Surgical History / Comment(s): 2004 CABG 4 vessel, UVPPP, colonoscopy, bilateral knee arthroscopy, bilateral total knee arthroplasties, bilateral rotator cuff repairs, R total reverse shoulder, kidney stone basketing, cystoscopies/scar tissue removed from bladder. Past Anesthesia/Blood Transfusion Reactions: No Reported Reaction Additional Past Anesthesia/Blood Transfusion Reaction / Comm: no hx blood transfusion Past Psychological History: No Psychological Hx Reported Additional Psychological History / Comment(s): Pt resides with his spouse. He is independent. Smoking Status: Never smoker Past Alcohol Use History: None Reported Additional Past Alcohol Use History / Comment(s): Pt started smoking in 1960 and quit in 1979. Past Drug Use History: None Reported - Past Family History Father Additional Family Medical History / Comment(s): Father in a tractor accident. Mother Family Medical History: Myocardial Infarction ([place]) Additional Family Medical History / Comment(s): Mother of a massive [place] at the age of 69yrs. Brother(s) Family Medical History: Cancer Additional Family Medical History / Comment(s): at age 49 Sister(s) Family Medical History: Cancer Additional Family Medical History / Comment(s): at age 49 Medications and Allergies Home Medications Medication Instructions Recorded Confirmed Type lisinopriL [Lisinopril] 10 mg PO QAM 12/23/14 12/14/22 History Metoprolol Tartrate [Lopressor] 50 mg PO QAM 10/01/15 09/19/23 History Multivitamins, Thera [Multivitamin 1 tab PO DAILY 12/26/14 12/14/22 History (formulary)] Pravastatin Sodium 80 mg PO HS 11/21/18 12/14/22 History Aspirin EC [Ecotrin Low Dose] 81 mg PO DAILY #30 tablet. 11/22/18 12/14/22 Rx Cholecalciferol [Vitamin D3 (25 25 mcg PO DAILY 12/09/22 12/14/22 History Mcg = 1000 Iu)] Clopidogrel [Plavix] 75 mg PO HS 12/09/22 12/14/22 History Ibuprofen [Motrin] 800 mg PO Q8H PRN 12/09/22 12/14/22 History Allergies Allergy/AdvReac Type Severity Reaction Status Date / Time morphine AdvReac Nausea & Verified 12/14/22 08:45 Vomiting Surgical - Exam Vital Signs Temp Pulse Resp BP Pulse Ox 98.1 F 42 L 18 144/65 97 12/14/22 09:01 12/14/22 09:01 12/14/22 09:01 12/14/22 09:01 12/14/22 09:01 - General well developed, well nourished - Respiratory intubated - Genitourinary normal penis with no external lesions, testicles present Assessment and Plan Assessment: Impression: inability to pass a catheter probably due to a urethral stricture. Plan: catheter placement
--- NOTE | 2022-12-14 18:59 | P.PCN ---
Date of Procedure: 12/14/22 Preoperative Diagnosis: Inability to pass a catheter. Postoperative Diagnosis: same secondary to a distal bulbar urethral stricture Procedure(s) Performed: dilation of urethral stricute with f/f 10-18 fr, Difficult placement of a 14 fr coude tip catheter Anesthesia: ANALIA Surgeon: Ac Bourne Estimated Blood Loss (ml): 0 Pathology: none sent Condition: stable Indications for Procedure: inability of staff to place a catheter intraop for a complicated surgical procedure. Description of Procedure: thepatient is prepped and draped sterilely, I first attempt a 14 fr coude tip catheter and meet resistance in the distal bulbar urethra. I then pass a 5 fr spiral tip filiform catheter into the bladder. I then sequentially dilate the stricture with 10 to 18 fr followers. These are then removed and I pass a 14 fr coude tip catheter into the bladder with clear urine return. Impression: successful dilation of distal bulbar urethral stricture with catheter placement Recommendation: The cath can be removed as soon as 48 hours post op. If further problems arise please let me know.
[2022-12-14] MEDS: ACETAMINOPHEN TAB 325 MG TAB PO SCH ×2 (19:22→23:00)
[2022-12-14] MEDS: GABAPENTIN 300 MG CAP PO SCH ×2 (19:22→21:03)
[2022-12-14 19:36] LABS: African American GFR (CKD) >90 (>60 ml/min/1.73 sqM); Anion Gap 5 mmol/L; Blood Urea Nitrogen 16 mg/dL (9-20); Calcium 7.9 mg/dL (8.4-10.2); Carbon Dioxide 23 mmol/L (22-30); Chloride 105 mmol/L (98-107); Glucose 120 mg/dL (74-99); Non-African American GFR(CKD) >90 (>60 ml/min/1.73 sqM); Potassium 4.2 mmol/L (3.5-5.1); Sodium 133 mmol/L (137-145)
[2022-12-15] MEDS: HYDROcodone/APAP 5-325MG 1 EACH TAB PO PRN (01:05)
--- NOTE | 2022-12-15 02:18 | P.CNPUL ---
History of Present Illness Consult date: 12/15/22 Requesting physician: Cruz Mahoney Reason for consult: other (ICU management) Chief complaint: Elective L2 to pelvis decompression and fusion History of present illness: I am seeing this patient in new consultation today 12/15/2022 status postoperative day #1 following elective L2 to pelvis decompression and fusion. Patient is a 77-year-old male with past medical history significant for chronic lower back pain and prior lumbar fusion, coronary artery disease with prior coronary artery bypass grafting, hypertension, hyperlipidemia. PCP is Dr. Zhang. Patient was having issues with lower back pain and radiculopathy symptoms. He was scheduled for an elective L2-pelvis decompression and fusion yesterday with Dr. Mahoney. Patient's perioperative course was relatively uneventful. He was on low-dose Greg-Synephrine intraoperatively, but this has been weaned off. He was extubated in recovery. Patient is currently lying in bed, on 2 L/m nasal cannula, in no acute distress. Neurovascular status of the lower extremities is intact. Strength 5/5. Postoperative surgical incision is clean, dry, and approximated. CYNTHIA drain is compressed and has a small amount of sangenous output. Follow-up CT of the lumbar spine is pending. Postoperative BMP shows sodium 133, potassium 4.2, chloride 105, serum bicarbonate 23, BUN 16, creatinine 0.71, glucose 120. Lactated Ringer's is currently infusing at 40 miles per hour. Pain is reportedly well controlled with current analgesics. Patient is hemodynamically stable. He will likely be monitored in the intensive care unit overnight. Review of Systems REVIEW OF SYSTEMS: CONSTITUTIONAL: Denies any recent significant weight loss or weight gain. EYES: Denies change in vision. EARS, NOSE, MOUTH, THROAT: Denies headaches, denies sore throat. CARDIOVASCULAR: Denies chest pain, palpitations or syncopal episodes. RESPIRATORY: Denies shortness of breath, cough, congestion or hemoptysis. GASTROINTESTINAL: Denies change in appetite, abdominal pain, nausea and vomiting, or diarrhea GENITOURINARY: Denies hematuria, denies infections. MUSKULOSKELETAL: Admits post-surgical incisional pain. INTEGUMENTARY: Denies rash, denies eczema. NEUROLOGICAL: Denies recent memory loss, no recent seizure activity. PSYCHIATRIC: Denies anxiety, denies depression. 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 Past Anesthesia/Blood Transfusion Reactions: No Reported Reaction Additional Past Anesthesia/Blood Transfusion Reaction / Comment(s): no hx blood transfusion Past Psychological History: No Psychological Hx Reported Additional Psychological History / Comment(s): Pt resides with his spouse. He is independent. Smoking Status: Never smoker Past Alcohol Use History: None Reported Additional Past Alcohol Use History / Comment(s): Pt started smoking in 1959 and quit in 1979. Past Drug Use History: None Reported - Past Family History Father Additional Family Medical History / Comment(s): Father in a tractor accident. Mother Family Medical History: Myocardial Infarction (NC) Additional Family Medical History / Comment(s): Mother of a massive NC at the age of 69yrs. Brother(s) Family Medical History: Cancer Additional Family Medical History / Comment(s): at age 49 Sister(s) Family Medical History: Cancer Additional Family Medical History / Comment(s): at age 49 Medications and Allergies Home Medications Medication Instructions Recorded Confirmed Type lisinopriL [Lisinopril] 10 mg PO QAM 12/23/14 12/14/22 History Metoprolol Tartrate [Lopressor] 50 mg PO QAM 12/26/14 12/14/22 History Multivitamins, Thera [Multivitamin 1 tab PO DAILY 12/26/14 12/14/22 History (formulary)] Pravastatin Sodium 80 mg PO HS 11/21/18 12/14/22 History Aspirin EC [Ecotrin Low Dose] 81 mg PO DAILY #30 tablet. 11/22/18 12/14/22 Rx Cholecalciferol [Vitamin D3 (25 25 mcg PO DAILY 12/09/22 12/14/22 History Mcg = 1000 Iu)] Clopidogrel [Plavix] 75 mg PO HS 12/09/22 12/14/22 History Ibuprofen [Motrin] 800 mg PO Q8H PRN 12/09/22 12/14/22 History Allergies Allergy/AdvReac Type Severity Reaction Status Date / Time morphine AdvReac Nausea & Verified 12/14/22 08:45 Vomiting Physical Exam Vitals: Vital Signs Temp Pulse Pulse Resp BP BP Pulse Ox 12/15/22 01:23 67 18 112/69 97 12/15/22 01:00 66 8 L 132/60 96 12/15/22 00:00 98.4 F 66 56 L 10 L 135/61 97 12/14/22 23:04 70 6 L 135/61 98 12/14/22 23:00 68 12 124/53 99 12/14/22 22:00 61 11 L 144/66 95 12/14/22 21:23 57 L 12 144/66 96 12/14/22 21:00 36.3 F L 63 14 99 12/14/22 20:52 61 17 98 12/14/22 20:15 54 L 8 L 97 12/14/22 20:00 95.4 F L 54 L 11 L 90 L 12/14/22 19:50 56 L 12 12/14/22 19:45 52 L 9 L 88 L 12/14/22 19:30 53 L 9 L 99 12/14/22 19:15 50 L 6 L 99 12/14/22 19:00 55 L 11 L 97 12/14/22 18:50 48 L 12 98 12/14/22 18:40 47 L 13 94 L 12/14/22 18:33 15 12/14/22 18:21 46 L 18 139/61 100 12/14/22 18:00 47 L 16 153/63 100 12/14/22 17:57 97.9 F 12/14/22 17:45 97.6 F 42 L 16 160/70 100 12/14/22 17:30 46 L 16 113/56 97 12/14/22 17:29 96.9 F L 12/14/22 17:15 44 L 16 123/59 97 12/14/22 17:00 96.0 F L 44 L 16 116/36 97 12/14/22 10:19 40 L 16 112/51 99 12/14/22 09:01 98.1 F 42 L 18 144/65 97 Intake and Output 12/14/22 12/14/22 12/15/22 14:59 22:59 06:59 Intake Total 2952 1980 60 Output Total 1430 205 Balance 2952 550 -145 Intake: IV 2952 1980 60 Lactated Ringers 1,000 ml 80 60 @ 20 mls/hr IV .Q24H [facility] Rx#:[id number] Output: Drainage 200 60 Right Medial Back 200 60 Urine 880 145 Estimated Blood Loss 350 Other: Weight 78.4 kg ABP, PAP, CO, CI - Last 8 Hours Arterial Blood Pressure 138/53 Arterial Blood Pressure 138/45 Arterial Blood Pressure 173/58 Arterial Blood Pressure 138/51 Arterial Blood Pressure 159/57 Arterial Blood Pressure 179/64 Arterial Blood Pressure 156/54 Arterial Blood Pressure 164/55 Arterial Blood Pressure 158/56 Arterial Blood Pressure 168/62 Arterial Blood Pressure 168/63 Arterial Blood Pressure 168/63 Arterial Blood Pressure 161/58 Arterial Blood Pressure 164/65 GENERAL EXAM: Alert, 77-year-old white male, comfortable in no apparent distress. HEAD: Normocephalic and atraumatic EYES: Normal reaction of pupils, equal size. NOSE: Clear with pink turbinates. THROAT: No erythema or exudates. NECK: No masses, no JVD. CHEST: No chest wall deformity. LUNGS: Equal air entry with left lower lobe inspiratory crackles. No wheezing, rhonchi, focal dullness. On 2 L/m nasal cannula. No conversational dyspnea or accessory muscle use. CARDIOVASCULAR: S1 and S2, with a soft grade 2 systolic ejection murmur, no other extra heart sounds. ABDOMEN: No hepatosplenomegaly, active bowel sounds, no guarding or rigidity. SPINE: No scoliosis or deformity. Postsurgical incisional dressing clean, dry, and approximated. SKIN: No rashes CENTRAL NERVOUS SYSTEM: No focal deficits, tone is normal in all 4 extremities. No saddle anesthesia. Neurovascular status of the bilateral lower extremities intact. EXTREMITIES: There is no peripheral edema, clubbing, or cyanosis. Peripheral pulses are intact. Results - Laboratory Findings CBC and BMP: 12/14/22 18:58 Abnormal lab findings: Abnormal Labs 12/14/22 18:58 Sodium 133 L Glucose 120 H Calcium 7.9 L Assessment and Plan Assessment: Postoperative day #1 following elective L2 to pelvis decompression and fusion revision. History of uretheral stricture, with difficulties placing intra-operative urinary catheter, status-post dilation and uretheral stricture by urology. Coronary artery disease, status post coronary artery bypass grafting Benign essential hypertension Hyperlipidemia Plan: Patient's medications and labs were reviewed Patient is being monitored in the intensive care unit during his immediate post- op recovery. No perioperative complications reported. Follow-up lumbar CT pending On 2 L/m nasal cannula Encourage incentive spirometer SCDs are on DVT prophylaxis and activity per surgical services Pain adequately controlled with current analgesics. We will continue to follow while patient is in the intensive care unit I have personally seen and examined the patient, performed the documentation and the assessment and plan as written. Number of minutes spent on the visit:20 Time with Patient: Greater than 30
[2022-12-15] MEDS: CYCLOBENZAPRINE 5 MG TAB PO PRN ×2 (03:16→13:36)
[2022-12-15 03:46] LABS: Basophils % (A) 0 %; Eosinophils % (A) 0 %; HCT 36.3 % (39.0-53.0); Lymphocytes # (A) 0.7 k/uL (1.0-4.8); Lymphocytes % (A) 6 %; MCH 31.6 pg (25.0-35.0); MCHC 34.2 g/dL (31.0-37.0); MCV 92.6 fL (80.0-100.0); Mean Platelet Volume 7.9; Monocytes # (A) 0.5 k/uL (0-1.0); Monocytes % (A) 5 %; Neutrophils # (A) 9.3 k/uL (1.3-7.7); Neutrophils % (A) 88 %; Platelet Count 116 k/uL (150-450); RBC 3.92 m/uL (4.30-5.90); RDW 12.5 % (11.5-15.5); WBC 10.5 k/uL (3.8-10.6)
[2022-12-15 03:47] LABS: African American GFR (CKD) >90 (>60 ml/min/1.73 sqM); Anion Gap 5 mmol/L; Blood Urea Nitrogen 16 mg/dL (9-20); Calcium 7.9 mg/dL (8.4-10.2); Carbon Dioxide 23 mmol/L (22-30); Chloride 103 mmol/L (98-107); Glucose 113 mg/dL (74-99); Non-African American GFR(CKD) 87 (>60 ml/min/1.73 sqM); Potassium 4.4 mmol/L (3.5-5.1); Sodium 131 mmol/L (137-145)
[2022-12-15 04:02] LABS: HGB 12.4 gm/dL (13.0-17.5)
[2022-12-15] MEDS: ACETAMINOPHEN TAB 325 MG TAB PO SCH ×4 (05:54→23:01)
--- NOTE | 2022-12-15 08:54 | P.PN ---
Subjective Progress Note Date: 12/15/22 Principal diagnosis: 1. L2-S1 spondylosis with stenosis 2. Lower extremity radiculopathy, bilateral 3. Lower extremity weakness, bilateral Patient seen and examined this morning in ICU. Patient is resting comfortably in bed. VSS. Patient does report that his pain is managed on current regimen. Surgical incision to the thoracolumbar spine; dressing is clean, dry, and intact. Hemovac is present with 420 mL output overnight. Patient reports improvement in his bilateral lower extremities since the procedure. Burrows catheter is present, remains patent. Informed patient if he is medically stable he may be transferred to medical surgical floor. Patient is looking forward to working with physical therapy today. No acute concerns at this time. Objective - Vital Signs Vital signs: Vital Signs Temp 99.0 F 12/15/22 04:00 Pulse 71 12/15/22 07:00 Resp 17 12/15/22 07:00 BP 117/57 12/15/22 07:00 Pulse Ox 96 12/15/22 07:00 FiO2 Intake & Output 12/14/22 12/15/22 12/15/22 18:59 06:59 18:59 Intake Total 4852 760 Output Total 1020 1500 Balance 3832 -740 Weight 78.4 kg 81 kg Intake: IV 4852 260 Lactated Ringers 1,000 ml 260 @ 20 mls/hr IV .Q24H [facility] Rx#:[id number] Oral 500 Output: Drainage 420 Right Medial Back 420 Urine 670 1080 Estimated Blood Loss 350 ABP, PAP, CO, CI - Last Documented Arterial Blood Pressure 115/37 - Exam Inspection: Surgical incision to the thoracolumbar spine, dressing is clean dry and intact with no shadowing noted. Hemovac is present with 420 mL output overnight. Sensation: Sensation is equal, symmetric, bilaterally intact throughout the upper and lower extremities. Patient reports mild bilateral thigh tingling, which was present prior to procedure. Palpation: Nontender to palpation throughout bilateral upper and lower extremities and throughout spine exam Range of motion: Patient does have full range of motion bilateral upper and lower extremities on exam Motor: 5/5 in all major motor groups in the bilateral upper and 4/5 lower extremities Special tests: Negative Homans bilaterally. Negative Esvin bilaterally. Negative clonus bilaterally. Neurovascular: Radial pulse intact, 2+ bilaterally. Cap refill under 3 seconds in digits upper extremities. - Labs CBC & Chem 7: 12/15/22 03:30 12/15/22 03:30 Labs: Abnormal Lab Results - Last 24 Hours (Table) 12/14/22 12/15/22 12/15/22 Range/Units 18:58 03:30 03:30 RBC 3.92 L (4.30-5.90) m/uL Hgb 12.4 L D (13.0-17.5) gm/dL Hct 36.3 L (39.0-53.0) % Plt Count 116 L (150-450) k/uL Neutrophils # 9.3 H (1.3-7.7) k/uL Lymphocytes # 0.7 L (1.0-4.8) k/uL Sodium 133 L 131 L (137-145) mmol/L Glucose 120 H 113 H (74-99) mg/dL Calcium 7.9 L 7.9 L (8.4-10.2) mg/dL Assessment and Plan Assessment: Postop day 1: Revision [id number] decompression and fusion 1. L2-S1 spondylosis with stenosis 2. Lower extremity radiculopathy, bilateral 3. Lower extremity weakness, bilateral Plan: -Appreciate home service consultant and team management. -Patient may be downgraded to medical surgical floor when medically stable -Activity: Ambulate QID, OOB all meals, up and about, limit lifting bending twisting to less than 5 lbs. Use walker or cane if needed for stability. -Daily PT/OT, increase ambulation strength and balance. -Brace when up and about, not needed in bed or chair -Pain control: Adequate at this time -Meds: reviewed -GI ppx: senna, Miralax -Maintain Burrows catheter at this time -DVT PPX: OK to restart Heparin tonight -Hygiene: Shower today. Maintain dressing clean and dry. Meticulous cleaning after BMs away from the incision site -Drains: Maintain for now. Continue to monitor and record output q shift. -Encourage IS 10x/hr -Dispo: Anticipate discharge home with homecare in the next 48-72 hours *I reviewed and discussed this case with my attending Dr. Mahoney, whom has reviewed this chart and films and is in agreement with assessment and plan of care as outlined above. I have personally seen and examined the patient, performed the documentation and the assessment and plan as written. Number of minutes spent on the visit: 20m.
[2022-12-15] MEDS: GABAPENTIN 300 MG CAP PO SCH ×3 (09:23→21:07)
--- NOTE | 2022-12-15 09:43 | CONS ---
CONSULTATION HISTORY OF PRESENT ILLNESS: Manny is a 77-year-old gentleman, well known to me from my practice with known coronary artery disease, status post bypass surgery and hypertension, who is admitted to hospital following back surgery. The patient was on a small dose of Levophed perioperatively that had been quickly tapered and stopped. The patient underwent L2-L3 fusion and bilateral sacroiliac arthrodesis along with laminectomy, facetectomy and foraminectomy. This morning, the patient is doing well and is free of cardiac symptoms. Denies any chest pain, difficulty in breathing, stable hemodynamically, and his home medications are going to be resumed. PAST MEDICAL HISTORY: Significant for CAD, status post CABG, hypertension, dyslipidemia, chronic back pain, status post prior surgery. MEDICATIONS: He is currently on, 1. Lisinopril 10 daily. 2. Pravastatin 80 daily. 3. Lopressor. 4. Plavix 75 mg daily. 5. Aspirin. 6. Vitamin D. ALLERGIES: To morphine. FAMILY HISTORY: Negative for premature coronary artery disease. SOCIAL HISTORY: Negative for current smoking, EtOH abuse, or drug abuse. REVIEW OF SYSTEMS: 14 out of 14 review of systems has been performed. Pertinents are as documented. PHYSICAL EXAMINATION: GENERAL: Comfortable at rest. VITAL SIGNS: Stable. NECK: There is no jugular venous distention. Carotid upstroke is normal. There is no bruit. CHEST: Reveals good air entry bilaterally. HEART: Reveals first and second heart sounds. No gallop. No murmur. ABDOMEN: Soft. EXTREMITIES: Did not reveal any edema. Peripheral pulses are felt. LABORATORY DATA: Labs show a hemoglobin of 12.4, platelet count is 160. Potassium is 4.4, creatinine is 0.7. ASSESSMENT: 1. Back pain, status post surgery postop day #1. 2. Coronary artery disease, status post coronary artery bypass graft. 3. Hypertension. 4. Dyslipidemia. PLAN: We will resume lisinopril, pravastatin, and Lopressor that he is on. Aspirin and Plavix will be resumed whenever it is feasible from surgical standpoint. MMODL / IJN: [id number] /
[2022-12-15] MEDS: HYDROcodone/APAP 10-325MG 1 EACH TAB PO PRN ×3 (10:04→23:05)
[2022-12-15] MEDS: PHENYLEPHRINE 40 MG in SODIUM CHLORIDE 0.9% 250 ML IV SCH ×3 (10:46→21:13)
[2022-12-15 10:49] LABS: Glucose,Whole Blood 112 mg/dL (70-110)
--- NOTE | 2022-12-15 11:27 | CT ---
EXAMINATION TYPE: CT brain wo con for TPA DATE OF EXAM: 12/15/2022 COMPARISON: 11/21/2020 INDICATION: CODE STROKE DLP: 1139.9 mGycm, Automated exposure control for dose reduction was used. CONTRAST: None CT of the brain is performed utilizing 3 mm thick sections through the posterior fossa and 3 mm thick sections through the remaining calvarium. Study is performed within 24 hours of arrival to the hosp ital. No abnormal hyperdensity is present to suggest an acute intracranial hemorrhage. No mass lesion is evident. Some physiologic basal ganglion calcifications within the left basal gangl ia. There is some hypodensity within the inferior right occipital region which appears to be changing fro m comparison. The evolving infarct at this level could be considered., Example image series 201 image 21. Ventricles and sulci are mildly prominent for the patient age. Paranasal sinuses and mastoid air cells within the [id number] are clear. Report was called to the ICU by Dr. Chapman by telephone 1124 hours 12/15/2022. IMPRESSION: 1. 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 Correlate with the patient's sympt oms. Follow-up MRI can be performed as clinically indicated.
--- NOTE | 2022-12-15 11:34 | CT ---
EXAMINATION TYPE: CT lumbar spine wo con CT DLP: 1543.6 mGycm, Automated exposure control for dose reduction was used. DATE OF EXAM: 12/14/2022 8:48 PM COMPARISON: 06/13/2021. CLINICAL INDICATION:Male, 77 years old with history of s/p revision L2-pelvis decompression fusion; P HH, Post surgery TECHNIQUE: Multiple axial images were obtained from the midportion of T11 through the sacroiliac fatmata nts. Soft tissue and bone windows in coronal and sagittal planes were obtained and reviewed. Contrast used: none. Oral contrast used: none. FINDINGS: Postsurgical changes to the lumbar spine with fixation hardware at L2-S1 including bilateral sacroili ac joint fixation. Discectomy at L2-L3, L3-L4, and L4-L5 . Hardware limits evaluation at these levels . Hardware appears intact. No evidence of fracture. Laminectomy changes within the surgical bed. Postsurgical changes in the soft tissues with foci of gas present. Drainage catheter with tubing in t he surgical bed. Posterior back skin charli are present. IMPRESSION: Postsurgical changes without evidence of immediate post operative complication.
[2022-12-15] MEDS: ASPIRIN 325 MG TAB PO SCH (11:58)
[2022-12-15] MEDS: SODIUM CHLORIDE 0.9% 1,000 ML IV SCH (12:00)
--- NOTE | 2022-12-15 12:16 | CT ---
EXAMINATION TYPE: CODE STROKE: CTA head neck DATE OF EXAM: 12/15/2022 HISTORY: Code stroke, neurologic change COMPARISON: None CT DLP: 1665.9 mGycm. Automated Exposure Control for Dose Reduction was Utilized. TECHNIQUE: CTA scan of the neck is performed with IV Contrast, patient injected with 55 mL of Isovue 370, axial images are obtained, coronal and sagittal reformatted images are reviewed. Three-D recons tructed images are created on an independent workstation and reviewed. Source images are reviewed. FINDINGS: Carotid/Vascular Structures: There is a 3 vessel arch. There is occlusion of the right internal carotid artery at its proximal portion. Left carotid bifurca tion as atheromatous plaquing without significant flow-limiting stenosis. This is approximately 47% n arrowed. Vertebral arteries are codominant. Left internal carotid artery is patent to the skull base. No collateral flow below the skull base wit hin the right internal carotid artery is evident Cervical of [place]: Vertebral basilar system appears normal. Some minimal reflux into the right carot id siphon is present. There is normal flow within the left carotid siphon. A1 and M1 segments are pat ent. The anterior communicating artery is patent. Posterior communicating arteries are patent bilater ally. Other: No significant diminished posterior occipital blood flow is not identified. IMPRESSION: 1. 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 There is no contrast evident within the internal carotid skull base. 2. Normal [place] of [place] NASCET criteria was used in interpretation of this exam?
[2022-12-15] MEDS ORDERED: oxyBUTYnin chloride 5 MG TAB PO PRN (12:52)
[2022-12-15] MEDS: LACTATED RINGERS 1,000 ML IV SCH (12:57)
[2022-12-15] MEDS: CLOPIDOGREL 75 MG TAB PO SCH (13:07)
[2022-12-15] MEDS: NOREPINEPHRINE 4 MG in SODIUM CHLORIDE 0.9% 250 ML IV SCH (13:57)
--- NOTE | 2022-12-15 14:02 | P.CONS ---
History of Present Illness - Reason for Consult Consult date: 12/15/22 Medical management Requesting physician: Cruz Mahoney - History of Present Illness This is a 77-year-old gentleman with past medical history significant for CAD, status post CABG, hyperlipidemia, hypertension, chronic kidney disease, urethral stricture, renal calculi, chronic low back pain with radiculopathy and multiple other medical issues status post L2 to pelvis decompression/fusion as well as urethral dilation and Burrows catheter placement. Tolerated procedure well. Currently in the ICU. Continues on Greg-Synephrine, with parameters of maintaining mean arterial pressure greater than 80. Pain controlled on current analgesic regimen; reports minimal bilateral thigh tingling which patient states was present prior to surgery. Denies chest pain, palpitations or shortness of breath. Denies lightheadedness dizziness or focal deficits. Denies headache or visual disturbances. Lumbar CT results pending. Review of Systems ROS Statement: Those systems with pertinent positive or pertinent negative responses have been documented in the HPI. ROS Other: All systems not noted in ROS Statement are negative. Past Medical History Past Medical History: Coronary Artery Disease (CAD), Hyperlipidemia, Hypertension, Osteoarthritis (OA), Renal Disease Additional Past Medical History / Comment(s): Generalized arthritis, L leg numbness/tingling since harvested vein for CABG, slight cardiac murmur, kidney stones, urethra stricture at the bladder neck-has had difficulty with catheter insertions in the past History of Any Multi-Drug Resistant Organisms: None Reported Past Surgical History: Coronary Bypass/CABG, Heart Catheterization, Joint Replacement, Orthopedic Surgery Additional Past Surgical History / Comment(s): 2004 CABG 4 vessel, UVPPP, colonoscopy, bilateral knee arthroscopy, bilateral total knee arthroplasties, bilateral rotator cuff repairs, R total reverse shoulder, kidney stone basketing, cystoscopies/scar tissue removed from bladder. Past Anesthesia/Blood Transfusion Reactions: No Reported Reaction Additional Past Anesthesia/Blood Transfusion Reaction / Comm: no hx blood transfusion Past Psychological History: No Psychological Hx Reported Additional Psychological History / Comment(s): Pt resides with his spouse. He is independent. Smoking Status: Never smoker Past Alcohol Use History: None Reported Additional Past Alcohol Use History / Comment(s): Pt started smoking in 1959 and quit in 1979. Past Drug Use History: None Reported - Past Family History Father Additional Family Medical History / Comment(s): Father in a tractor accident. Mother Family Medical History: Myocardial Infarction (AL) Additional Family Medical History / Comment(s): Mother of a massive AL at the age of 69yrs. Brother(s) Family Medical History: Cancer Additional Family Medical History / Comment(s): at age 49 Sister(s) Family Medical History: Cancer Additional Family Medical History / Comment(s): at age 49 Medications and Allergies Home Medications Medication Instructions Recorded Confirmed Type lisinopriL [Lisinopril] 10 mg PO QAM 12/23/14 12/14/22 History Metoprolol Tartrate [Lopressor] 50 mg PO QAM 12/26/14 12/14/22 History Multivitamins, Thera [Multivitamin 1 tab PO DAILY 12/26/14 12/14/22 History (formulary)] Pravastatin Sodium 80 mg PO HS 11/21/18 12/14/22 History Aspirin EC [Ecotrin Low Dose] 81 mg PO DAILY #30 tablet. 11/22/18 12/14/22 Rx Cholecalciferol [Vitamin D3 (25 25 mcg PO DAILY 12/09/22 12/14/22 History Mcg = 1000 Iu)] Clopidogrel [Plavix] 75 mg PO HS 12/09/22 12/14/22 History Ibuprofen [Motrin] 800 mg PO Q8H PRN 12/09/22 12/14/22 History Allergies Allergy/AdvReac Type Severity Reaction Status Date / Time morphine AdvReac Nausea & Verified 12/14/22 08:45 Vomiting Physical Exam Vitals: Vital Signs Temp Pulse Pulse Resp BP BP Pulse Ox 12/15/22 07:00 71 17 117/57 96 12/15/22 06:00 70 15 121/60 95 12/15/22 05:00 70 7 L 130/60 97 12/15/22 04:00 99.0 F 71 56 L 12 129/60 96 12/15/22 03:00 69 17 120/67 96 12/15/22 02:00 68 16 112/69 94 L 12/15/22 01:23 67 18 112/69 97 12/15/22 01:00 66 8 L 132/60 96 12/15/22 00:00 98.4 F 66 56 L 10 L 135/61 97 12/14/22 23:04 70 6 L 135/61 98 12/14/22 23:00 68 12 124/53 99 12/14/22 22:00 61 11 L 144/66 95 12/14/22 21:23 57 L 12 144/66 96 12/14/22 21:00 36.3 F L 63 14 99 12/14/22 20:52 61 17 98 12/14/22 20:15 54 L 8 L 97 12/14/22 20:00 95.4 F L 54 L 11 L 90 L 12/14/22 19:50 56 L 12 12/14/22 19:45 52 L 9 L 88 L 12/14/22 19:30 53 L 9 L 99 12/14/22 19:15 50 L 6 L 99 12/14/22 19:00 55 L 11 L 97 12/14/22 18:50 48 L 12 98 12/14/22 18:40 47 L 13 94 L 12/14/22 18:33 15 12/14/22 18:21 46 L 18 139/61 100 12/14/22 18:00 47 L 16 153/63 100 12/14/22 17:57 97.9 F 12/14/22 17:45 97.6 F 42 L 16 160/70 100 12/14/22 17:30 46 L 16 113/56 97 12/14/22 17:29 96.9 F L 12/14/22 17:15 44 L 16 123/59 97 12/14/22 17:00 96.0 F L 44 L 16 116/36 97 12/14/22 10:19 40 L 16 112/51 99 12/14/22 09:01 98.1 F 42 L 18 144/65 97 Intake and Output 12/14/22 12/15/22 12/15/22 22:59 06:59 14:59 Intake Total 1980 680 Output Total 1430 1090 Balance 550 -410 Intake: IV 1979 180 Lactated Ringers 1,000 ml 80 180 @ 20 mls/hr IV .Q24H [facility] Rx#:[id number] Oral 500 Output: Drainage 200 220 Right Medial Back 200 220 Urine 880 870 Estimated Blood Loss 350 Other: Weight 81 kg ABP, PAP, CO, CI - Last 8 Hours Arterial Blood Pressure 115/37 Arterial Blood Pressure 101/42 Arterial Blood Pressure 106/44 Arterial Blood Pressure 133/52 Arterial Blood Pressure 146/66 Arterial Blood Pressure 140/65 Arterial Blood Pressure 138/53 GENERAL: This is a -77 year-old , sitting up in bed, in no apparent distress at the time of examination. Pleasant and cooperative. HEENT: Head is atraumatic, normocephalic. Pupils are equal, round, and reactive to light. Sclerae anicteric. Conjunctivae are clear. Mucus membranes of the mouth are moist. Neck is supple, no JVD. RESPIRATORY: Clear to auscultation. No wheezes, rales, or rhonchi. No use of accessory muscles. Patient maintaining oxygen saturation greater than 92%. No chest wall tenderness is noted on palpation or with deep breathing. CARDIOVASCULAR: Regular rate and rhythm. S1 and S2 noted. Systolic murmur auscultated. GASTROINTESTINAL: No distention noted. Abdomen soft and round. Normal active bowel sounds auscultated x 4 quadrants. No pain or tenderness noted upon palpation. INTEGUMENTARY: No cyanosis. No jaundice. No rashes noted. No cellulitis noted. EXTREMITIES: 2+ peripheral pulses. No evidence of peripheral edema. No calf tenderness noted. NEUROLOGIC: Cranial nerves II-XII intact. PSYCHIATRIC: Awake, alert, and oriented X 3. Appropriate affect. Intact judgement and insight. Results CBC & Chem 7: 12/15/22 03:30 12/15/22 03:30 Labs: Abnormal Lab Results - Last 24 Hours (Table) 12/14/22 12/15/22 12/15/22 Range/Units 18:58 03:30 03:30 RBC 3.92 L (4.30-5.90) m/uL Hgb 12.4 L D (13.0-17.5) gm/dL Hct 36.3 L (39.0-53.0) % Plt Count 116 L (150-450) k/uL Neutrophils # 9.3 H (1.3-7.7) k/uL Lymphocytes # 0.7 L (1.0-4.8) k/uL Sodium 133 L 131 L (137-145) mmol/L Glucose 120 H 113 H (74-99) mg/dL Calcium 7.9 L 7.9 L (8.4-10.2) mg/dL Assessment and Plan Assessment: Chronic lower extremity radiculopathy, weakness, L2-S1 spondylosis with stenosis, prior lumbar fusion ,status post revision L2-pelvis decompression and fusion History of distal bulbar urethral stricture, status post dilation with Burrows catheter- coude placement intraoperative as per urology. History of a occipital CVA,11/15 brain MRI , follows with Dr. Rajwinder Francisco. reports repeat [place] of [place] [facility] [place], history of CABG Hypertension Hyperlipidemia Plan: Continue on current medication regime ,monitoring and symptomatic treatme nt. ICU management as per [employer]. Pain management, DVT prophylaxis as per orthopedic spine. Aggressive pulmonary toileting with incentive spirometer reinforced.PT. thank you for the consult. The impression and plan of care has been dictated as directed. : I performed a history and examination of this patient, discussed the same with the dictator. I agree with the dictator's note ,documented as a scribe. Any additional findings or plans will be noted.
[2022-12-15 21:28] LABS: Chol/HDL Ratio 3.44 Ratio; LDL Cholesterol,Calculated 51.7 mg/dL (0.0-131.0)
[2022-12-16] MEDS: SODIUM CHLORIDE 0.9% 1,000 ML IV SCH ×2 (06:14→18:15)
[2022-12-16] MEDS: ACETAMINOPHEN TAB 325 MG TAB PO SCH ×3 (06:15→19:56)
[2022-12-16 06:56] LABS: Basophils % (A) 0 %; Eosinophils # (A) 0.4 k/uL (0-0.7); Eosinophils % (A) 5 %; HCT 35.4 % (39.0-53.0); HGB 11.6 gm/dL (13.0-17.5); Lymphocytes # (A) 0.6 k/uL (1.0-4.8); Lymphocytes % (A) 7 %; MCH 31.1 pg (25.0-35.0); MCHC 32.7 g/dL (31.0-37.0); MCV 95.2 fL (80.0-100.0); Mean Platelet Volume 8.5; Monocytes # (A) 0.5 k/uL (0-1.0); Monocytes % (A) 5 %; Neutrophils % (A) 83 %; Platelet Count 112 k/uL (150-450); RBC 3.72 m/uL (4.30-5.90); RDW 13.2 % (11.5-15.5); WBC 9.6 k/uL (3.8-10.6)
[2022-12-16 07:16] LABS: African American GFR (CKD) >90 (>60 ml/min/1.73 sqM); Anion Gap 2 mmol/L; Blood Urea Nitrogen 11 mg/dL (9-20); Calcium 8.1 mg/dL (8.4-10.2); Carbon Dioxide 28 mmol/L (22-30); Chloride 104 mmol/L (98-107); Glucose 102 mg/dL (74-99); Non-African American GFR(CKD) 85 (>60 ml/min/1.73 sqM); Potassium 4.5 mmol/L (3.5-5.1); Sodium 134 mmol/L (137-145)
--- NOTE | 2022-12-16 08:31 | P.PN ---
Subjective Progress Note Date: 12/16/22 Principal diagnosis: 1. L2-S1 spondylosis with stenosis 2. Lower extremity radiculopathy, bilateral 3. Lower extremity weakness, bilateral Patient seen and examined this morning. Patient remains in the ICU, he had an episode of becoming non-responsive yesterday 12/15/22 around 11:00am. Code Stroke initiated and CTA was obtained that demonstrates an obstruction of the proximal right internal carotid artery. Patient was started back on his Plavix, IV fluids, and Continues on Greg-Synephrine, with parameters of maintaining mean arterial pressure greater than 80. Current vitals are 127/59 MAP of 82, HR 81, 97% on 2L NC. Patient is currently resting in bed and is feeling much better. He is able to answer all questions appropriately and his muscle strength and ROM of bilateral extremities are equal. Surgical dressing to the lumbar region is intact with mild shadowing. Hemovac present with no compression and minimal output. Patient continues to report improvement in radicular symptoms into the bilateral lower extremities. LSO brace has been ordered. Patient to continue to work with physical therapy. No acute concerns at this time. Objective - Vital Signs Vital signs: Vital Signs Temp 97.8 F 12/16/22 04:00 Pulse 90 12/16/22 07:00 Resp 15 12/16/22 07:00 BP 133/58 12/16/22 07:00 Pulse Ox 96 12/16/22 07:00 FiO2 Intake & Output 12/15/22 12/16/22 12/16/22 18:59 06:59 18:59 Intake Total 255.966 5924.263 75 Output Total 1745 1450 100 Balance -1039.137 -107.737 -25 Weight 83.2 kg Intake: IV 517 900 75 Lactated Ringers 1,000 ml 60 @ 20 mls/hr IV .Q24H [facility] Rx#:[id number] Sodium Chloride 0.9% 1, 457 900 75 000 ml @ 75 mls/hr IV . [id number] [facility] Rx#:[id number] Intake, IV Titration 88.863 192.263 Amount Phenylephrine 40 mg In 88.863 192.263 Sodium Chloride 0.9% 250 ml @ 0.5 MCG/KG/MIN 14. 935 mls/hr IV .Q17H1M [facility] Rx#:[id number] Oral 100 250 Output: Drainage 120 40 Right Medial Back 120 40 Urine 1625 1410 100 Other: Voiding Method Indwelling Catheter Indwelling Catheter ABP, PAP, CO, CI - Last Documented Arterial Blood Pressure 103/47 - Exam Inspection: Surgical incision to the thoracolumbar spine, dressing is clean dry and intact with no shadowing noted. Hemovac is present with no compression, minimal output overnight. Sensation: Sensation is equal, symmetric, bilaterally intact throughout the upper and lower extremities. Patient reports mild bilateral thigh tingling, which was present prior to procedure. Palpation: Nontender to palpation throughout bilateral upper and lower extre mities and throughout spine exam Range of motion: Patient does have full range of motion bilateral upper and lower extremities on exam Motor: 5/5 in all major motor groups in the bilateral upper and 4/5 lower extremities Special tests: Negative Homans bilaterally. Negative Esvin bilaterally. Negative clonus bilaterally. Neurovascular: Radial pulse intact, 2+ bilaterally. Cap refill under 3 seconds in digits upper extremities. - Labs CBC & Chem 7: 12/16/22 06:24 12/16/22 06:24 Labs: Abnormal Lab Results - Last 24 Hours (Table) 12/15/22 12/15/22 12/16/22 Range/Units 03:30 10:47 06:24 RBC 3.72 L (4.30-5.90) m/uL Hgb 11.6 L (13.0-17.5) gm/dL Hct 35.4 L (39.0-53.0) % Plt Count 112 L (150-450) k/uL Neutrophils # 8.0 H (1.3-7.7) k/uL Lymphocytes # 0.6 L (1.0-4.8) k/uL Sodium (137-145) mmol/L Glucose (74-99) mg/dL POC Glucose (mg/dL) 112 H (70-110) mg/dL Calcium (8.4-10.2) mg/dL HDL Cholesterol 33.10 L (40.00-60.00) mg/dL 12/16/22 Range/Units 06:24 RBC (4.30-5.90) m/uL Hgb (13.0-17.5) gm/dL Hct (39.0-53.0) % Plt Count (150-450) k/uL Neutrophils # (1.3-7.7) k/uL Lymphocytes # (1.0-4.8) k/uL Sodium 134 L (137-145) mmol/L Glucose 102 H (74-99) mg/dL POC Glucose (mg/dL) (70-110) mg/dL Calcium 8.1 L (8.4-10.2) mg/dL HDL Cholesterol (40.00-60.00) mg/dL Assessment and Plan Assessment: Postop day 2: Revision [id number] decompression and fusion Dilation of urethral stricute with f/f 10-18 fr, Difficult placement of a 14 fr coude tip catheter 1. L2-S1 spondylosis with stenosis 2. Lower extremity radiculopathy, bilateral 3. Lower extremity weakness, bilateral Plan: -Appreciate marketing sales consultant and team management. -Patient may be downgraded to medical surgical floor when medically stable -Activity: Ambulate QID, OOB all meals, up and about, limit lifting bending twisting to less than 5 lbs. Use walker or cane if needed for stability. -Daily PT/OT, increase ambulation strength and balance. -Brace when up and about, not needed in bed or chair -Pain control: Adequate at this time -Meds: reviewed -GI ppx: senna, Miralax -Maintain Burrows catheter at this time -DVT PPX: Plavix -Hygiene: Shower today. Maintain dressing clean and dry. Meticulous cleaning after BMs away from the incision site -Drains: Maintain for now. Continue to monitor and record output q shift. -Encourage IS 10x/hr -Dispo: Anticipate discharge home with homecare in the next 48-72 hours *I reviewed and discussed this case with my attending Dr. Mahoney, whom has reviewed this chart and films and is in agreement with assessment and plan of care as outlined above. I have personally seen and examined the patient, performed the documentation and the assessment and plan as written. Number of minutes spent on the visit: 20m.
[2022-12-16] MEDS: HYDROcodone/APAP 10-325MG 1 EACH TAB PO PRN (09:01)
[2022-12-16] MEDS: GABAPENTIN 300 MG CAP PO SCH ×3 (09:03→22:51)
[2022-12-16] MEDS: ASPIRIN 325 MG TAB PO SCH (09:03)
[2022-12-16] MEDS: CLOPIDOGREL 75 MG TAB PO SCH (09:03)
[2022-12-16] MEDS: NOREPINEPHRINE 4 MG in SODIUM CHLORIDE 0.9% 250 ML IV SCH (10:43)
--- NOTE | 2022-12-16 11:49 | PN ---
PROGRESS NOTE SUBJECTIVE: Manny is a 77-year-old gentleman with history of coronary artery disease, status post bypass surgery, who underwent back surgery by Dr. Mahoney. Yesterday, the patient had a code stroke with transient weakness involving the left side of his body. CT angiogram revealed chronic occlusion of the right internal carotid artery with a right occipital lobe infarct. His symptoms have resolved in less than half a minute. This morning, his predominant symptom is in the form of pain at the surgical site. OBJECTIVE: VITAL SIGNS: Heart rate is 66 beats per minute, blood pressure is 126/57, respiratory rate is 14. NECK: There is no jugular venous distention. Carotid upstroke is normal. There is no bruit. CHEST: Reveals good air entry bilaterally. HEART: Reveals first and second heart sounds. No gallop. No murmur. ABDOMEN: Soft, nontender. EXTREMITIES: Did not reveal any edema. Peripheral pulses are felt. LABORATORY DATA: Show that the hemoglobin is 11.6, platelet count is 112. Potassium is 4.5, creatinine is 0.8. LDL cholesterol is 51. ASSESSMENT: 1. Coronary artery disease, status post coronary artery bypass grafting. 2. Cerebrovascular accident. 3. Status post back surgery. PLAN: We will continue him on his current medications. MMODL / IJN: [id number] /
[2022-12-16] MEDS: CYCLOBENZAPRINE 5 MG TAB PO PRN (11:53)
--- NOTE | 2022-12-16 12:04 | P.PN ---
Subjective Progress Note Date: 12/16/22 Principal diagnosis: ostoperative day #2 following elective L2 to pelvis decompression and fusion revision. I am seeing this patient in new consultation today 12/15/2022 status postoperative day #1 following elective L2 to pelvis decompression and fusion. Patient is a 77-year-old male with past medical history significant for chronic lower back pain and prior lumbar fusion, coronary artery disease with prior coronary artery bypass grafting, hypertension, hyperlipidemia. PCP is Dr. Zhang. Patient was having issues with lower back pain and radiculopathy symptoms. He was scheduled for an elective L2-pelvis decompression and fusion yesterday with Dr. Mahoney. Patient's perioperative course was relatively uneventful. He was on low-dose Greg-Synephrine intraoperatively, but this has been weaned off. He was extubated in recovery. Patient is currently lying in bed, on 2 L/m nasal cannula, in no acute distress. Neurovascular status of the lower extremities is intact. Strength 5/5. Postoperative surgical incision is clean, dry, and approximated. CYNTHIA drain is compressed and has a small amount of sangenous output. Follow-up CT of the lumbar spine is pending. Postoperative BMP shows sodium 133, potassium 4.2, chloride 105, serum bicarbonate 23, BUN 16, creatinine 0.71, glucose 120. Lactated Ringer's is currently infusing at 40 miles per hour. Pain is reportedly well controlled with current analgesics. Patient is hemodynamically stable. He will likely be monitored in the intensive care unit overnight. Patient was reevaluated today on 12/16/2022, he is postoperative day #2. However the patient had an episode yesterday of CVA, and code stroke was called. Patient was found to have an evolving right occipital lobe infarct. Patient had relief and transient hemiplegia involving the left side. However this has resolved. Patient was advised to go on Plavix and aspirin per neurology on the case. Today the pain is sickly about the same, no major change, neurologically is seems to be intact. 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 Patient was seen by orthopedics and the recommendation was to keep a mean arterial pressure above 80 hence the patient is requiring Greg-Synephrine at 0.4 mcg/kg/m in order to keep a mean arterial pressure of 80 or higher. Again the patient is now on aspirin and Plavix, his left-sided weakness didn't resolve. It lasted only about 50 seconds. Patient is hemodynamically stable, IV fluid is saline 0.9 at 75 mL per hour. Objective - Vital Signs Vital signs: Vital Signs Temp 98.1 F 12/16/22 08:00 Pulse 62 12/16/22 11:00 Resp 12 12/16/22 11:00 BP 112/53 12/16/22 11:00 Pulse Ox 96 12/16/22 11:00 FiO2 Intake & Output 12/15/22 12/16/22 12/16/22 18:59 06:59 18:59 Intake Total 649.628 5700.263 915 Output Total 1745 1450 1005 Balance -1039.137 -107.737 -90 Weight 83.2 kg Intake: IV 517 900 375 Lactated Ringers 1,000 ml 60 @ 20 mls/hr IV .Q24H [facility] Rx#:[id number] Sodium Chloride 0.9% 1, 457 900 375 000 ml @ 75 mls/hr IV . [id number] [facility] Rx#:[id number] Intake, IV Titration 88.863 192.263 Amount Phenylephrine 40 mg In 88.863 192.263 Sodium Chloride 0.9% 250 ml @ 0.5 MCG/KG/MIN 14. 935 mls/hr IV .Q17H1M [facility] Rx#:[id number] Oral 100 250 540 Output: Drainage 120 40 90 Right Medial Back 120 40 90 Urine 1625 1410 915 Other: Voiding Method Indwelling Catheter Indwelling Catheter Indwelling Catheter ABP, PAP, CO, CI - Last Documented Arterial Blood Pressure 103/47 - Exam GENERAL EXAM: Revealed a 77-year-old white male in no distress HEAD: Normocephalic and atraumatic EYES: Normal reaction of pupils, equal size. NOSE: Clear with pink turbinates. THROAT: No erythema or exudates. NECK: No masses, no JVD. CHEST: No chest wall deformity. LUNGS: Clear bilaterally no rhonchi and no wheezes CARDIOVASCULAR: S1 and S2, with a soft grade 2 systolic ejection murmur, no other extra heart sounds. ABDOMEN: No hepatosplenomegaly, active bowel sounds, no guarding or rigidity. SPINE: . Postsurgical incisional dressing clean, dry SKIN: No rashes CENTRAL NERVOUS SYSTEM: No gross focal neurologic deficits EXTREMITIES: No clubbing edema or cyanosis - Labs CBC & Chem 7: 12/16/22 06:24 12/16/22 06:24 Labs: Abnormal Lab Results - Last 24 Hours (Table) 12/15/22 12/16/22 12/16/22 Range/Units 03:30 06:24 06:24 RBC 3.72 L (4.30-5.90) m/uL Hgb 11.6 L (13.0-17.5) gm/dL Hct 35.4 L (39.0-53.0) % Plt Count 112 L (150-450) k/uL Neutrophils # 8.0 H (1.3-7.7) k/uL Lymphocytes # 0.6 L (1.0-4.8) k/uL Sodium 134 L (137-145) mmol/L Glucose 102 H (74-99) mg/dL Calcium 8.1 L (8.4-10.2) mg/dL HDL Cholesterol 33.10 L (40.00-60.00) mg/dL Assessment and Plan Assessment: Impression: Postoperative day #2 following elective L2 to pelvis decompression and fusion revision. Acute right occipital CVA, with transient neurological symptoms/resolved, this is related to 100% occluded right coronary artery/inoperable. History of uretheral stricture, with difficulties placing intra-operative urinary catheter, status-post dilation and uretheral stricture by urology. Coronary artery disease, status post coronary artery bypass grafting Benign essential hypertension Hyperlipidemia Recommendation: Continue to monitor in the ICU as long as the patient is on Greg-Synephrine Continue aspirin and Plavix Neurology to see officially on consultation today Continue incentive spirometry Continue pain control management Ambulation as per orthopedics on the case. We will continue to follow. Time with Patient: Less than 30
--- NOTE | 2022-12-16 15:00 | P.CNNES ---
History of Present Illness Consult date: 12/16/22 Requesting physician: Cruz Mahoney Reason for Consult: Code stroke History of Present Illness: I was not able to see patient yesterday because I had called in sick Patient is a 77-year-old right-handed male who came for elective lumbar surgery on 12/14/2022. Patient underwent posterolateral and interbody fusion, L3-L4 posterolateral interbody fusion, revision posterolateral fusion L4 to S1 bilateral sacroiliac joint arthrodesis, open for large construct stability, bilateral complete laminectomy, facetectomy and foraminotomy for deformity correction in cage placement and decompression of neural element L2-3 and L3 4. Instrumentation L2 to pelvis removal of hardware L4 to S1. Patient was doing fine postoperatively. Yesterday he was sitting in the chair when the nurse noticed that he suddenly slouched over and was not responding at all even with deep painful stimuli. He was flaccid on the left side, but the right side he was able to squeeze his hand. The nurse checked his blood pressure was 46/26 and pulse oximeter of the 85%. He was placed in the bed and he started to recover and symptoms completely went away within "30 seconds". At present he is back to baseline. Stroke code was activated. CT head reported an evolving right occipital lobe infarct. Correlate with patient's symptoms. Follow-up MRI can be performed as clinically indicated. I personally reviewed CT head, appears the lesion mentioned is chronic from the previous MRI performed from 11/23/2020, which revealed acute ischemic stroke right occipital lobe at that time. On the current study, there is no acute ischemic process. MRI of the brain performed at [facility] on 09/24/2022 revealed no evidence of intracranial mass, acute/subacute infarct or abnormal enhancement. Remote right occipital lobe injury. Nonspecific white matter changes, likely related to small vessel ischemic disease. Diffusion weighted images shows no evidence of restricted diffusion to suggest acute/subacute infarct. Patient's mentions that about 2 years ago he went to an eye doctor who felt patient may have stroke in the eye. He underwent MRI of the brain, which revealed an acute stroke in the right occipital region on 11/23/2020. He was seen by Dr. 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 Patient was maintained on aspirin and Plavix. Patient's further mentioned that they were recommended to stop aspirin and Plavix about 7 days prior to his back surgery. After patient has stroke code, he is resumed on his aspirin and Plavix. Patient also has history of quadruple bypass. Patient smoked 4 cigarettes per day for 25 years, quit in 1987. Patient is to drink alcohol. Review of Systems Constitutional: Reports weight loss, Denies chills, Denies fever Eyes: denies blurred vision, denies diplopia, denies pain Ears: left: decreased hearing, deny: ear discharge Ears, nose, mouth and throat: Denies headache, Denies sore throat Cardiovascular: Denies chest pain, Denies shortness of breath Respiratory: Denies cough, Denies excessive sputum Gastrointestinal: Denies abdominal pain, Denies diarrhea, Denies nausea, Denies vomiting Genitourinary: Reports urinary frequency, Denies incontinence, Denies urinary retention Musculoskeletal: Reports low back pain, Reports neck pain Integumentary: Denies pruritus, Denies rash Neurological: Reports as per HPI Psychiatric: Denies anxiety, Denies depression Endocrine: Reports weight change, Denies fatigue Hematologic/Lymphatic: Reports easy bruising, Denies easy bleeding Past Medical History Past Medical History: Coronary Artery Disease (CAD), Hyperlipidemia, Hypertension, Osteoarthritis (OA), Renal Disease Additional Past Medical History / Comment(s): Generalized arthritis, L leg numbness/tingling since harvested vein for CABG, slight cardiac murmur, kidney stones, urethra stricture at the bladder neck-has had difficulty with catheter insertions in the past History of Any Multi-Drug Resistant Organisms: None Reported Past Surgical History: Coronary Bypass/CABG, Heart Catheterization, Joint Replacement, Orthopedic Surgery Additional Past Surgical History / Comment(s): 2004 CABG 4 vessel, UVPPP, colonoscopy, bilateral knee arthroscopy, bilateral total knee arthroplasties, bilateral rotator cuff repairs, R total reverse shoulder, kidney stone basketing, cystoscopies/scar tissue removed from bladder. Past Anesthesia/Blood Transfusion Reactions: No Reported Reaction Additional Past Anesthesia/Blood Transfusion Reaction / Comment(s): no hx blood transfusion Past Psychological History: No Psychological Hx Reported Additional Psychological History / Comment(s): Pt resides with his spouse. He is independent. Smoking Status: Never smoker Past Alcohol Use History: None Reported Additional Past Alcohol Use History / Comment(s): Pt started smoking in 1959 and quit in 1979. Past Drug Use History: None Reported - Past Family History Father Additional Family Medical History / Comment(s): Father in a tractor accident. Mother Family Medical History: Myocardial Infarction (PA) Additional Family Medical History / Comment(s): Mother of a massive PA at the age of 69yrs. Brother(s) Family Medical History: Cancer Additional Family Medical History / Comment(s): at age 49 Sister(s) Family Medical History: Cancer Additional Family Medical History / Comment(s): at age 49 Medications and Allergies Home Medications Medication Instructions Recorded Confirmed Type lisinopriL [Lisinopril] 10 mg PO QAM 12/23/14 12/14/22 History Metoprolol Tartrate [Lopressor] 50 mg PO QAM 12/26/14 12/14/22 History Multivitamins, Thera [Multivitamin 1 tab PO DAILY 12/26/14 12/14/22 History (formulary)] Pravastatin Sodium 80 mg PO HS 11/21/18 12/14/22 History Aspirin EC [Ecotrin Low Dose] 81 mg PO DAILY #30 tablet. 11/22/18 12/14/22 Rx Cholecalciferol [Vitamin D3 (25 25 mcg PO DAILY 12/09/22 12/14/22 History Mcg = 1000 Iu)] Clopidogrel [Plavix] 75 mg PO HS 12/09/22 12/14/22 History Ibuprofen [Motrin] 800 mg PO Q8H PRN 12/09/22 12/14/22 History Allergies Allergy/AdvReac Type Severity Reaction Status Date / Time morphine AdvReac Nausea & Verified 12/14/22 08:45 Vomiting Physical Examination - Vital Signs Vital Signs: Vital Signs Temp Pulse Pulse Resp BP BP Pulse Ox 12/16/22 11:00 62 12 112/53 96 12/16/22 10:45 62 12 125/48 94 L 12/16/22 10:30 63 12 105/55 94 L 12/16/22 10:15 66 118/52 12/16/22 10:00 66 14 126/57 90 L 12/16/22 09:45 65 13 127/55 95 12/16/22 09:30 66 14 148/68 96 12/16/22 09:15 73 12 128/56 95 12/16/22 09:00 75 10 L 123/52 96 12/16/22 08:45 72 13 126/58 93 L 12/16/22 08:30 75 11 L 121/52 97 12/16/22 08:15 73 12 112/57 95 12/16/22 08:00 98.1 F 78 12 116/59 96 12/16/22 07:59 96 12/16/22 07:45 77 15 122/70 96 12/16/22 07:30 86 19 115/55 96 12/16/22 07:15 86 20 110/56 95 12/16/22 07:00 90 15 133/58 96 12/16/22 06:45 81 18 127/59 97 12/16/22 06:30 71 17 118/57 97 12/16/22 06:15 72 12 132/66 96 12/16/22 06:00 72 14 128/69 97 12/16/22 05:45 66 16 135/59 97 12/16/22 05:30 73 14 111/53 97 12/16/22 05:15 69 12 119/54 97 12/16/22 05:00 64 13 101/52 96 12/16/22 04:45 72 14 123/61 96 12/16/22 04:30 68 14 113/54 97 12/16/22 04:15 66 16 119/56 96 12/16/22 04:00 97.8 F 65 14 114/53 96 12/16/22 03:45 65 12 117/53 96 12/16/22 03:30 65 14 92/58 96 12/16/22 03:15 65 13 112/55 96 12/16/22 03:00 65 13 110/49 96 12/16/22 02:45 65 13 113/53 96 12/16/22 02:30 66 12 110/53 96 12/16/22 02:23 64 13 110/53 96 12/16/22 02:00 64 12 109/51 96 12/16/22 01:45 64 14 107/50 96 12/16/22 01:30 64 13 108/53 96 12/16/22 01:15 65 10 L 104/57 96 12/16/22 01:00 98.9 F 65 64 12 97/51 104/57 96 12/16/22 00:45 64 12 92/49 96 12/16/22 00:30 66 11 L 89/51 96 12/16/22 00:15 67 12 89/50 96 12/16/22 00:14 66 12 89/50 95 12/16/22 00:00 67 12 94/48 95 12/15/22 23:45 73 12 105/53 95 12/15/22 23:30 75 14 113/53 96 12/15/22 23:15 76 13 119/62 96 12/15/22 23:00 75 14 112/59 95 12/15/22 22:45 75 15 125/70 96 12/15/22 22:30 69 18 120/52 97 12/15/22 22:15 69 13 115/52 97 12/15/22 22:00 70 14 130/58 97 12/15/22 21:45 69 13 119/57 97 12/15/22 21:30 69 13 136/58 97 12/15/22 21:15 80 13 136/59 98 12/15/22 21:00 67 14 137/66 97 12/15/22 20:45 63 13 133/60 98 12/15/22 20:30 68 14 118/49 97 12/15/22 20:15 70 16 132/55 97 12/15/22 20:00 98.7 F 67 18 127/54 97 12/15/22 19:45 74 13 114/52 96 12/15/22 19:30 69 13 107/57 96 12/15/22 19:15 70 12 110/57 96 12/15/22 19:00 73 12 105/51 96 12/15/22 18:45 80 16 112/55 94 L 12/15/22 18:30 75 13 149/70 90 L 12/15/22 18:15 81 20 149/70 88 L 12/15/22 18:00 76 15 118/40 98 12/15/22 17:45 86 22 141/126 12/15/22 17:30 73 25 H 98 12/15/22 17:15 76 24 123/46 93 L 12/15/22 17:00 57 L 12 127/49 99 12/15/22 16:45 57 L 15 116/55 99 12/15/22 16:30 64 10 L 118/52 98 12/15/22 16:15 61 11 L 115/63 98 12/15/22 16:00 99.1 F 70 11 L 136/53 97 12/15/22 15:45 65 16 139/56 97 12/15/22 15:30 70 18 122/71 12/15/22 15:15 64 14 143/47 12/15/22 15:00 65 15 159/77 98 12/15/22 14:45 73 25 H 108/36 100 12/15/22 14:30 71 13 125/97 97 12/15/22 14:15 66 16 135/57 12/15/22 14:00 67 17 110/50 97 12/15/22 13:45 80 19 116/55 98 12/15/22 13:30 81 18 129/56 97 12/15/22 13:15 79 11 L 131/81 98 12/15/22 13:00 78 19 138/57 98 12/15/22 12:45 97 34 H 121/59 97 12/15/22 12:30 85 14 107/57 99 12/15/22 12:15 98 138/68 93 L 12/15/22 12:12 96 16 138/68 95 12/15/22 12:10 89 17 138/68 91 L 12/15/22 12:08 89 10 L 138/68 89 L 12/15/22 12:06 92 15 138/68 93 L 12/15/22 12:04 106 H 22 138/68 95 12/15/22 12:02 104 H 15 138/68 94 L 12/15/22 12:00 98.6 F 102 H 16 139/69 95 12/15/22 11:58 92 11 L 139/69 95 12/15/22 11:56 93 18 139/69 92 L 12/15/22 11:54 92 22 139/69 96 Intake and Output 12/15/22 12/16/22 12/16/22 22:59 06:59 14:59 Intake Total 1101.083 609.134 915 Output Total 0700 142 5605 Balance -113.917 -240.866 -90 Intake: IV 675 525 375 Sodium Chloride 0.9% 1, 675 525 375 000 ml @ 75 mls/hr IV . [id number] [facility] Rx#:[id number] Intake, IV Titration 176.083 84.134 Amount Phenylephrine 40 mg In 176.083 84.134 Sodium Chloride 0.9% 250 ml @ 0.5 MCG/KG/MIN 14. 935 mls/hr IV .[id number] [facility] Rx#:[id number] Oral 250 540 Output: Drainage 40 90 Right Medial Back 40 90 Urine 1175 850 915 Other: Voiding Method Indwelling Catheter Indwelling Catheter Indwelling Catheter Weight 83.2 kg Patient is an elderly male, very pleasant, in no acute distress. Patient is alert awake oriented to time place and person. He knows it is November 2022 and that is in [facility] in [place]. Speech and language functions are normal. Patient can name and repeat very well. Patient's speech appears slightly dysarthric, but patient's believes that is his baseline speech. No aphasia or dysarthria. Attention, concentration and fund of knowledge is adequate. On cranial nerve examination, pupils are equal, round and reacting to light, visual kruger are full on confrontation, with no neglect on double simultaneous stimulation. Extraocular muscles are intact with no nystagmus. Face is symmetric, tongue protrudes to the midline. Palatal elevation and sensation normal, hearing is slightly decreased and shoulder shrug normal, facial sensation normal. On muscle strength testing, there is no pronator drift and the strength is normal in arms and legs distally and proximally. Shoulders were difficult to check because of pain. Deep tendon reflexes are symmetric 1+ all over and plantars are withdrawal bilaterally. Sensory to touch is equal with no neglect on double simultaneous stimulation. Cerebellar function showed no ataxia for [id number] testing. No dysdiadochokinesia. Tone and bulk of muscles normal. Gait deferred.. On general examination, there is no carotid bruit or murmur, S1-S2 audible. Chest is clear on consultation. Abdomen is soft nontender. No organomegaly, bowel sounds present. Peripheral pulses are present. No edema. Results - Laboratory Findings CBC and BMP: 12/16/22 06:24 12/16/22 06:24 Abnormal Lab Findings: Abnormal Labs 12/14/22 12/15/22 12/15/22 18:58 03:30 03:30 RBC 3.92 L Hgb 12.4 L D Hct 36.3 L Plt Count 116 L Neutrophils # 9.3 H Lymphocytes # 0.7 L Sodium 133 L 131 L Glucose 120 H 113 H POC Glucose (mg/dL) Calcium 7.9 L 7.9 L HDL Cholesterol 12/15/22 12/15/22 12/16/22 03:30 10:47 06:24 RBC 3.72 L Hgb 11.6 L Hct 35.4 L Plt Count 112 L Neutrophils # 8.0 H Lymphocytes # 0.6 L Sodium Glucose POC Glucose (mg/dL) 112 H Calcium HDL Cholesterol 33.10 L 12/16/22 06:24 RBC Hgb Hct Plt Count Neutrophils # Lymphocytes # Sodium 134 L Glucose 102 H POC Glucose (mg/dL) Calcium 8.1 L HDL Cholesterol Assessment and Plan Assessment: * Probable TIA manifesting with unresponsiveness/left-sided weakness, that resolved in about 30 seconds. The cause of cerebral ischemia likely related to hypotension with blood pressure recorded 46/26 at that time. Patient has chronic right ICA occlusion, which probably resulted in hypoperfusion in the collaterals resulting in transient ischemia. Symptoms resolved in 30 seconds. At present all symptoms have resolved, and his NIH stroke scale is 0. * Status post lumbar surgery * Coronary artery disease * Hypertension * Hyperlipidemia * X tobacco use Plan: * MRI of the brain was considered, but it appears the symptoms were very transient, and symptoms resolved in 30 seconds. Cerebral ischemia was likely related to hypoperfusion from significant hypotension. His current neurological examination is normal, and current NIH stroke scale 0. The "right occipital evolving stroke" reported in computed tomography scan is chronic from previous right occipital CVA diagnosed in 11/23/2020. Patient with recent back surgery will have difficulty laying flat for 45 minutes. Therefore we canceled MRI. Patient's completely agrees with canceling MRI. * Patient's aspirin and Plavix has been resumed (which were held for 7 days prior to back surgery). We will decrease aspirin from 325 mg to 81 mg daily. * Avoid further episodes of hypotension. * 2-D echo with bubble study to rule out PFO. 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 There is no contrast evident within the internal carotid skull base. Normal [place]. This is chronic right ICA occlusion noted even 2 years prior. * Fasting a.m. lipid panel with cholesterol 114, LDL 51, HDL 33 and triglycerides 146. * Hemoglobin A1c 6.6 on 08/11/2022. We will repeat. * Permissive hypertension for next 24-48 hours * Close neuro checks as per protocol. * Telemetry monitoring rule out any arrhythmia * PT and OT. * Gastric ulcer prophylaxis: Start Pepcid 20 mg twice a day. * DVT prophylaxis: Heparin 5000 units subcu every 8 hours * Neurology will continue to follow. Thank you for the consult.
[2022-12-16] MEDS: FAMOTIDINE 20 MG TAB PO SCH (21:07)
[2022-12-17] MEDS: ACETAMINOPHEN TAB 325 MG TAB PO SCH ×5 (00:07→23:57)
[2022-12-17 04:56] LABS: African American GFR (CKD) >90 (>60 ml/min/1.73 sqM); Anion Gap 3 mmol/L; Blood Urea Nitrogen 11 mg/dL (9-20); Calcium 8.2 mg/dL (8.4-10.2); Carbon Dioxide 27 mmol/L (22-30); Chloride 105 mmol/L (98-107); Glucose 95 mg/dL (74-99); Non-African American GFR(CKD) 88 (>60 ml/min/1.73 sqM); Sodium 135 mmol/L (137-145)
[2022-12-17 05:20] LABS: Basophils % (A) 0 %; Eosinophils # (A) 0.5 k/uL (0-0.7); Eosinophils % (A) 7 %; HCT 32.3 % (39.0-53.0); HGB 10.6 gm/dL (13.0-17.5); Lymphocytes # (A) 0.7 k/uL (1.0-4.8); Lymphocytes % (A) 9 %; MCH 31.2 pg (25.0-35.0); MCV 94.5 fL (80.0-100.0); Mean Platelet Volume 8.3; Monocytes # (A) 0.4 k/uL (0-1.0); Monocytes % (A) 5 %; Neutrophils # (A) 6.1 k/uL (1.3-7.7); Neutrophils % (A) 77 %; Platelet Count 103 k/uL (150-450); RBC 3.41 m/uL (4.30-5.90); RDW 13.1 % (11.5-15.5); WBC 7.9 k/uL (3.8-10.6)
[2022-12-17] MEDS: PHENYLEPHRINE 40 MG in SODIUM CHLORIDE 0.9% 250 ML IV SCH (06:03)
--- NOTE | 2022-12-17 08:23 | P.PN ---
Subjective Progress Note Date: 12/17/22 Principal diagnosis: 1. L2-S1 spondylosis with stenosis 2. Lower extremity radiculopathy, bilateral 3. Lower extremity weakness, bilateral Patient seen and examined this morning. Patient remains in the ICU. Patient is currently resting in bed and is feeling much better. He was assisted by RN from bed to chair with walker and tolerated activity well. Surgical dressing to the lumbar region is intact with mild shadowing. Hemovac had been removed by patient last night. Patient continues to report improvement in radicular symptoms into the bilateral lower extremities. LSO brace has been ordered. Patient to [facility] to work with physical therapy. No acute concerns at this time. Objective - Vital Signs Vital signs: Vital Signs Temp 97.7 F 12/17/22 04:00 Pulse 72 12/17/22 07:00 Resp 11 L 12/17/22 07:00 BP 147/83 12/17/22 07:00 Pulse Ox 94 L 12/17/22 07:00 FiO2 Intake & Output 12/16/22 12/17/22 12/17/22 18:59 06:59 18:59 Intake Total 6647.783 0556 75 Output Total 2150 1695 100 Balance -174.847 -555 -25 Weight 82.2 kg Intake: IV 910 900 75 Invasive Line 4 10 Sodium Chloride 0.9% 1, 900 900 75 000 ml @ 75 mls/hr IV . [id number] [facility] Rx#:[id number] Intake, IV Titration 45.153 Amount Phenylephrine 40 mg In 45.153 Sodium Chloride 0.9% 250 ml @ 0.5 MCG/KG/MIN 14. 935 mls/hr IV .Q17H1M [facility] Rx#:[id number] Oral 1020 240 Output: Drainage 190 Right Medial Back 190 Urine 1960 1695 100 Other: Voiding Method Indwelling Catheter Indwelling Catheter ABP, PAP, CO, CI - Last Documented Arterial Blood Pressure 103/47 - Exam Inspection: Surgical incision to the thoracolumbar spine, dressing is clean dry and intact with no shadowing noted. Sensation: Sensation is equal, symmetric, bilaterally intact throughout the upper and lower extremities. Patient reports mild bilateral thigh tingling, which was present prior to procedure. Palpation: Nontender to palpation throughout bilateral upper and lower extremities and throughout spine exam Range of motion: Patient does have full range of motion bilateral upper and lower extremities on exam Motor: 5/5 in all major motor groups in the bilateral upper and 4/5 lower extr emities Special tests: Negative Homans bilaterally. Negative Esvin bilaterally. Negative clonus bilaterally. Neurovascular: Radial pulse intact, 2+ bilaterally. Cap refill under 3 seconds in digits upper extremities. - Labs CBC & Chem 7: 12/17/22 04:05 12/17/22 04:05 Labs: Abnormal Lab Results - Last 24 Hours (Table) 12/16/22 12/17/22 12/17/22 Range/Units 14:52 04:05 04:05 RBC 3.41 L (4.30-5.90) m/uL Hgb 10.6 L (13.0-17.5) gm/dL Hct 32.3 L (39.0-53.0) % Plt Count 103 L (150-450) k/uL Lymphocytes # 0.7 L (1.0-4.8) k/uL Sodium 135 L (137-145) mmol/L Hemoglobin A1c 6.3 H (<=6.0) % Calcium 8.2 L (8.4-10.2) mg/dL Assessment and Plan Assessment: Postop day 3: Revision [id number] decompression and fusion Dilation of urethral stricute with f/f 10-18 fr, Difficult placement of a 14 fr coude tip catheter 1. L2-S1 spondylosis with stenosis 2. Lower extremity radiculopathy, bilateral 3. Lower extremity weakness, bilateral Plan: -Appreciate data warehouse consultant and team management. -Patient may be downgraded to medical surgical floor when medically stable -Activity: Ambulate QID, OOB all meals, up and about, limit lifting bending twisting to less than 5 lbs. Use walker or cane if needed for stability. -Daily PT/OT, increase ambulation strength and balance. -Brace when up and about, not needed in bed or chair -Pain control: Adequate at this time -Meds: reviewed -GI ppx: senna, Miralax -Maintain Burrows catheter at this time -DVT PPX: Plavix -Hygiene: Shower today. Maintain dressing clean and dry. Meticulous cleaning after BMs away from the incision site -Encourage IS 10x/hr -Dispo: Anticipate discharge home with homecare in the next 48 hours *I reviewed and discussed this case with my attending Dr. Mahoney, whom has reviewed this chart and films and is in agreement with assessment and plan of care as outlined above. I have personally seen and examined the patient, performed the documentation and the assessment and plan as written. Number of minutes spent on the visit: 20m.
[2022-12-17] MEDS: NOREPINEPHRINE 4 MG in SODIUM CHLORIDE 0.9% 250 ML IV SCH (09:55)
[2022-12-17] MEDS: FAMOTIDINE 20 MG TAB PO SCH ×2 (09:55→21:22)
[2022-12-17] MEDS: CLOPIDOGREL 75 MG TAB PO SCH (09:55)
[2022-12-17] MEDS: SODIUM CHLORIDE 0.9% 1,000 ML IV SCH (09:55)
[2022-12-17] MEDS: ASPIRIN 81 MG PO SCH (09:55)
--- NOTE | 2022-12-17 10:55 | P.PN ---
Subjective Progress Note Date: 12/16/22 - History of Present Illness This is a 77-year-old gentleman with past medical history significant for CAD, status post CABG, hyperlipidemia, hypertension, chronic kidney disease, urethral stricture, renal calculi, chronic low back pain with radiculopathy and multiple other medical issues status post L2 to pelvis decompression/fusion as well as urethral dilation and Burrows catheter placement. Tolerated procedure well. Currently in the ICU. Continues on Greg-Synephrine, with parameters of maintaining mean arterial pressure greater than 80. Pain controlled on current analgesic regimen; reports minimal bilateral thigh tingling which patient states was present prior to surgery. Denies chest pain, palpitations or shortness of breath. Denies lightheadedness dizziness or focal deficits. Denies headache or visual disturbances. Lumbar CT results pending. 12/16/2022 complaining of postoperative pain. Yesterday, while sitting in the chair, staff reports- patient became unresponsive, blood pressure 46/26, pulse ox dropped to 85% left sided flaccid, code stroke called, placed in bed, symptoms resolved within 30 seconds. Currently patient is back to baseline. CT head reported an evolving right occipital lobe infarct. Evaluated by neurology, CT compared to previous MRI 11/23/20, reporting lesion appears to be chronic, as prior MRI reported acute ischemic stroke right occipital lobe at that time. Brain MRI of 09/24/2022 did not reveal evidence of intracranial mass, acute/subacute infarct or abnormal enhancement. Remote right occipital lobe injury, nonspecific white matter changes likely small vessel ischemic change, no evidence of restricted diffusion to suggest acute/subacute infarct as per neurology's review. Denies chest pain, palpitations or shortness of breath. Denies lightheadedness dizziness or focal deficits. Denies visual deficits or headache. Maintained on Greg-Synephrine to maintain map of 80. Continues on Plavix, aspirin and IV fluids. Hemoglobin 9.6, platelets 112, sodium increased to 134, renal function stable. Blood sugars controlled, prior hemoglobin A1c on 08/11/2022 6.6, repeat level ordered. Objective - Vital Signs Vital signs: Vital Signs Temp 98.0 F 12/16/22 12:00 Pulse 65 12/16/22 14:00 Resp 19 12/16/22 14:00 BP 102/69 12/16/22 14:00 Pulse Ox 96 12/16/22 14:00 FiO2 Intake & Output 12/15/22 12/16/22 12/16/22 18:59 06:59 18:59 Intake Total 062.723 4463.263 1421.818 Output Total 1745 1450 1515 Balance -1039.137 -107.737 -93.182 Weight 83.2 kg Intake: IV 517 900 600 Lactated Ringers 1,000 ml 60 @ 20 mls/hr IV .Q24H [facility] Rx#:[id number] Sodium Chloride 0.9% 1, 457 900 600 000 ml @ 75 mls/hr IV . [id number] [facility] Rx#:[id number] Intake, IV Titration 88.863 192.263 41.818 Amount Phenylephrine 40 mg In 88.863 192.263 41.818 Sodium Chloride 0.9% 250 ml @ 0.5 MCG/KG/MIN 14. 935 mls/hr IV .Q17H1M [facility] Rx#:[id number] Oral 100 250 780 Output: Drainage 120 40 90 Right Medial Back 120 40 90 Urine 1625 1410 1425 Other: Voiding Method Indwelling Catheter Indwelling Catheter Indwelling Catheter ABP, PAP, CO, CI - Last Documented Arterial Blood Pressure 103/47 - Exam GENERAL: Alert and oriented 3, sitting up in bed, no acute distress. HEENT: Head is atraumatic, normocephalic. Pupils are equal, round, and reactive to light. Sclerae anicteric. Conjunctivae are clear. MMM.Neck is supple, no JVD. RESPIRATORY: Unlabored, equal air entry .Clear to auscultation. No wheezes, rales, or rhonchi. CARDIOVASCULAR: Regular rate and rhythm. S1 and S2 noted. Systolic murmur auscultated. GASTROINTESTINAL: Soft, nontender, no distention noted. +BS. INTEGUMENTARY: Warm and dry ,No cyanosis. No jaundice. No rashes noted. No cellulitis noted. EXTREMITIES: 2+ peripheral pulses. No evidence of peripheral edema. No calf tenderness noted. NEUROLOGIC: Cranial nerves II-XII intact. No focal deficits - Labs CBC & Chem 7: 12/17/22 04:05 12/17/22 04:05 Labs: Abnormal Lab Results - Last 24 Hours (Table) 12/15/22 12/16/22 12/16/22 Range/Units 03:30 06:24 06:24 RBC 3.72 L (4.30-5.90) m/uL Hgb 11.6 L (13.0-17.5) gm/dL Hct 35.4 L (39.0-53.0) % Plt Count 112 L (150-450) k/uL Neutrophils # 8.0 H (1.3-7.7) k/uL Lymphocytes # 0.6 L (1.0-4.8) k/uL Sodium 134 L (137-145) mmol/L Glucose 102 H (74-99) mg/dL Calcium 8.1 L (8.4-10.2) mg/dL HDL Cholesterol 33.10 L (40.00-60.00) mg/dL Assessment and Plan Assessment: Chronic lower extremity radiculopathy, weakness, L2-S1 spondylosis with stenosis, prior lumbar fusion ,status post revision L2-pelvis decompression and fusion Probable TIA, secondary to hypotension in a patient with chronic right ICA occlusion. History of distal bulbar urethral stricture, status post dilation with Burrows catheter- coude placement intraoperative as per urology. Possible acute TIA History of a occipital CVA,11/15 brain MRI, follows with Dr. Rajwinder Francisco. reports repeat MRI of brain performed September 24 at [facility] [place]. CAD, history of CABG Hypertension Hyperlipidemia Plan: Continue on current medication regime ,monitoring and symptomatic treatment. Hemoglobin A1c level pending. Neuro workup in progress. ICU management as per line service person. Pain management. Continues on Plavix and aspirin .GI prophylaxis with Pepcid. DVT prophylaxis as per neurology and orthopedic spine surgery. Aggressive pulmonary toileting with incentive spirometer reinforced. PT. thank you for the consult. The impression and plan of care has been dictated as directed. Dr.: I performed a history and examination of this patient, discussed the same with the dictator. I agree with the dictator's note ,documented as a scribe. Any additional findings or plans will be noted.
--- NOTE | 2022-12-17 11:32 | CA ---
Transthoracic Echo Report Name: Manny Rodriguez Age: 77 Gender: M : 1945 Exam Date: 12/16/2022 13:57 Exam Location: [facility] Ht (in): 66 Wt (lb): 183 Ordering Physician: Jerrod Morales MD Attending/Referring Phys: Credit Control Manager Owen Parekh Procedure CPT: Indications: Acute stroke, rule out embolic source Cardiac Hx: Technical Quality: Technically difficult study Contrast 1: Total Dose (mL): Contrast 2: Total Dose (mL): MEASUREMENTS (Male / Female) Normal Values 2D ECHO LV Diastolic Diameter PLAX 3.6 cm 4.2 - 5.9 / 3.9 - 5.3 cm LV Systolic Diameter PLAX 1.8 cm IVS Diastolic Thickness 1.1 cm 0.6 - 1.0 / 0.6 - 0.9 cm LVPW Diastolic Thickness 1.1 cm 0.6 - 1.0 / 0.6 - 0.9 cm LV Relative Wall Thickness 0.6 LVOT Diameter 2.0 cm Aortic Root Diameter 3.2 cm LV Diastolic Volume MOD BP 59.7 cm??? 67 - 155 / 56 - 104 cm??? LV Systolic Volume MOD BP 26.3 cm??? 22 - 58 / 19 - 49 cm??? LV Ejection Fraction MOD BP 56.0 % >= 55 % LV Cardiac Index MOD BP 1092.8 cm???/min???m??? LV Diastolic Volume MOD 4C 72.1 cm??? LV Systolic Volume MOD 4C 31.5 cm??? LV Ejection Fraction MOD 4C 56.3 % LV Cardiac Index MOD 4C 1326.6 cm???/min???m??? LV Diastolic Length 4C 8.1 cm LV Systolic Length 4C 7.1 cm LV Diastolic Volume MOD 2C 41.7 cm??? LV Systolic Volume MOD 2C 17.0 cm??? LV Ejection Fraction MOD 2C 59.1 % LV Cardiac Index MOD 2C 804.7 cm???/min???m??? LV Diastolic Length 2C 6.7 cm LV Systolic Length 2C 5.5 cm LA Volume 59.5 cm??? 18 - 58 / 22 - 52 cm??? DOPPLER AV Peak Velocity 183.3 cm/s AV Peak Gradient 13.4 mmHg AV Mean Velocity 167.3 cm/s AV Mean Gradient 12.9 mmHg AV Velocity Time Integral 41.9 cm AI Peak Velocity 349.6 cm/s AI Peak Gradient 48.9 mmHg AI Pressure Half Time 643.1 ms LVOT Peak Velocity 136.0 cm/s LVOT Peak Gradient 7.4 mmHg LVOT Velocity Time Integral 25.6 cm LVOT Stroke Volume 82.5 cm??? LVOT Stroke Volume Index 42.8 ml/m??? LVOT Cardiac Index 2694.7 cm???/min???m??? AV Area Cont Eq vti 2.0 cm??? AV Area Cont Eq pk 2.4 cm??? MV Peak Velocity 95.4 cm/s MV Peak Gradient 3.6 mmHg MV Mean Velocity 47.2 cm/s MV Mean Gradient 1.1 mmHg MV Velocity Time Integral 31.8 cm Mitral E Point Velocity 73.3 cm/s Mitral A Point Velocity 94.5 cm/s Mitral E to A Ratio 0.8 MV Deceleration Time 221.1 ms MV E' Velocity 5.4 cm/s Mitral E to MV E' Ratio 13.5 TR Peak Velocity 192.0 cm/s TR Peak Gradient 14.7 mmHg Right Ventricular Systolic Press 19.8 mmHg PV Peak Velocity 124.9 cm/s PV Peak Gradient 6.2 mmHg FINDINGS Left Ventricle Normal LV size and wall thickness. Left ventricular ejection fraction is estimated at 50-55 %. Right Ventricle Normal right ventricular size. Right Atrium Normal right atrial size. Left Atrium Mildly increased left atrial volume. Mildly increased left atrial area. LA volume index= 31ml/m2 Mitral Valve Structurally normal mitral valve. No mitral regurgitation. Aortic Valve Aortic valve not well visualized. There is at least mild to moderate AV calcification. Mild to moderate AI. Tricuspid Valve Tricuspid valve not well visualized. Trace TR. Pulmonic Valve Pulmonic valve not well visualized. Pericardium Normal pericardium. Aorta Normal size aortic root . CONCLUSIONS Difficult and limited parasternal views. Left ventricular ejection fraction 5055% Mildly increased left atrial diameter No mitral regurgitation Mild to moderate aortic insufficiency Trace tricuspid regurgitation Technically difficult bubble study however no shunt noted. If still clinical suspicion of PFO may consider FREDERICK to further evaluate. Previewed by: Dr. Johann Peguero DO (Electronically Signed) Final Date: 17 December 2022 11:31
--- NOTE | 2022-12-17 11:36 | P.PN ---
Subjective Progress Note Date: 12/17/22 - History of Present Illness This is a 77-year-old gentleman with past medical history significant for CAD, status post CABG, hyperlipidemia, hypertension, chronic kidney disease, urethral stricture, renal calculi, chronic low back pain with radiculopathy and multiple other medical issues status post L2 to pelvis decompression/fusion as well as urethral dilation and Burrows catheter placement. Tolerated procedure well. Currently in the ICU. Continues on Greg-Synephrine, with parameters of maintaining mean arterial pressure greater than 80. Pain controlled on current analgesic regimen; reports minimal bilateral thigh tingling which patient states was present prior to surgery. Denies chest pain, palpitations or shortness of breath. Denies lightheadedness dizziness or focal deficits. Denies headache or visual disturbances. Lumbar CT results pending. 12/16/2022 complaining of postoperative pain. Yesterday, while sitting in the chair, staff reports- patient became unresponsive, blood pressure 46/26, pulse ox dropped to 85% left sided flaccid, code stroke called, placed in bed, symptoms resolved within 30 seconds. Currently patient is back to baseline. CT head reported an evolving right occipital lobe infarct. Evaluated by neurology, CT compared to previous MRI 11/23/20, reporting lesion appears to be chronic, as prior MRI reported acute ischemic stroke right occipital lobe at that time. Brain MRI of 09/24/2022 did not reveal evidence of intracranial mass, acute/subacute infarct or abnormal enhancement. Remote right occipital lobe injury, nonspecific white matter changes likely small vessel ischemic change, no evidence of restricted diffusion to suggest acute/subacute infarct as per neurology's review. Denies chest pain, palpitations or shortness of breath. Denies lightheadedness dizziness or focal deficits. Denies visual deficits or headache. Maintained on Greg-Synephrine to maintain map of 80. Continues on Plavix, aspirin and IV fluids. Hemoglobin 9.6, platelets 112, sodium increased to 134, renal function stable. Blood sugars controlled, prior hemoglobin A1c on 08/11/2022 6.6, repeat level ordered. 12/17/2022 Greg-Synephrine weaned off, maintaining mean arterial pressures in the high 90s.no events overnight.ambulating, tolerating exertion well.Denies lightheadedness dizziness or focal deficits.denies visual deficits, headache. denies chest pain, palpitations or shortness of breath. Maintaining O2 sats in the high 90s on room air. Echo Doppler with bubble study pending. Afebrile, normal WBC. Hemoglobin 10.6, platelets 103. Blood sugars controlled, A1c 6.3. Objective - Vital Signs Vital signs: Vital Signs Temp 97.5 F L 12/17/22 07:45 Pulse 79 12/17/22 07:45 Resp 13 12/17/22 07:45 BP 145/67 12/17/22 07:45 Pulse Ox 98 12/17/22 08:39 FiO2 Intake & Output 12/16/22 12/17/22 12/17/22 18:59 06:59 18:59 Intake Total 1479.181 3456 350 Output Total 2150 1695 350 Balance -174.847 -555 0 Weight 82.2 kg Intake: IV 910 900 150 Invasive Line 4 10 Sodium Chloride 0.9% 1, 900 900 150 000 ml @ 75 mls/hr IV . [id number] [facility] Rx#:[id number] Intake, IV Titration 45.153 Amount Phenylephrine 40 mg In 45.153 Sodium Chloride 0.9% 250 ml @ 0.5 MCG/KG/MIN 14. 935 mls/hr IV .Q17H1M [facility] Rx#:[id number] Oral 1020 240 200 Output: Drainage 190 Right Medial Back 190 Urine 1960 1695 350 Other: Voiding Method Indwelling Catheter Indwelling Catheter Indwelling Catheter ABP, PAP, CO, CI - Last Documented Arterial Blood Pressure 103/47 - Exam GENERAL: Alert and oriented 3, sitting up in chair, no acute distress. HEENT: Normocephalic ,Pupils are equal, round, and reactive to light. Conjunctivae clear. MMM.Neck is supple, no JVD. RESPIRATORY: Unlabored, equal air entry .Clear to auscultation. CARDIOVASCULAR: Regular rate and rhythm. S1 and S2 noted. Systolic murmur auscultated. GASTROINTESTINAL: Soft, nontender, no distention noted. +BS. INTEGUMENTARY: Warm and dry , No rashes noted. EXTREMITIES: 2+ peripheral pulses. No evidence of peripheral edema. No calf tenderness noted. NEUROLOGIC: Cranial nerves II-XII intact. No focal deficits - Labs CBC & Chem 7: 12/17/22 04:05 12/17/22 04:05 Labs: Abnormal Lab Results - Last 24 Hours (Table) 12/16/22 12/17/22 12/17/22 Range/Units 14:52 04:05 04:05 RBC 3.41 L (4.30-5.90) m/uL Hgb 10.6 L (13.0-17.5) gm/dL Hct 32.3 L (39.0-53.0) % Plt Count 103 L (150-450) k/uL Lymphocytes # 0.7 L (1.0-4.8) k/uL Sodium 135 L (137-145) mmol/L Hemoglobin A1c 6.3 H (<=6.0) % Calcium 8.2 L (8.4-10.2) mg/dL Assessment and Plan Assessment: Chronic lower extremity radiculopathy, weakness, L2-S1 spondylosis with stenosis, prior lumbar fusion ,status post revision L2-pelvis decompression and fusion Probable TIA, secondary to hypotension in a patient with chronic right ICA occlusion. History of distal bulbar urethral stricture, status post dilation with Burrows catheter- coude placement intraoperative as per urology. Possible acute TIA History of a occipital CVA,11/15 brain MRI, follows with Dr. Rajwinder Francisco. reports repeat MRI of brain performed September 24 at [facility] [place]. CAD, history of CABG Hypertension Hyperlipidemia Plan: Continue on current medication regime ,monitoring and symptomatic treatment. Echo with bubble study pending. Pain management. Continues on Plavix and aspirin .GI prophylaxis with Pepcid. DVT prophylaxis as per neurology and orthopedic spine surgery. Aggressive pulmonary toileting with incentive spirometer reinforced. PT. The impression and plan of care has been dictated as directed. : I performed a history and examination of this patient, discussed the same with the dictator. I agree with the dictator's note ,documented as a scribe. Any additional findings or plans will be noted.
--- NOTE | 2022-12-17 12:41 | P.PN ---
Subjective Progress Note Date: 12/17/22 Principal diagnosis: ostoperative day # 3 following elective L2 to pelvis decompression and fusion revision. I am seeing this patient in new consultation today 12/15/2022 status postoperative day #1 following elective L2 to pelvis decompression and fusion. Patient is a 77-year-old male with past medical history significant for chronic lower back pain and prior lumbar fusion, coronary artery disease with prior coronary artery bypass grafting, hypertension, hyperlipidemia. PCP is Dr. Zhang. Patient was having issues with lower back pain and radiculopathy symptoms. He was scheduled for an elective L2-pelvis decompression and fusion yesterday with Dr. Mahoney. Patient's perioperative course was relatively uneventful. He was on low-dose Greg-Synephrine intraoperatively, but this has been weaned off. He was extubated in recovery. Patient is currently lying in bed, on 2 L/m nasal cannula, in no acute distress. Neurovascular status of the lower extremities is intact. Strength 5/5. Postoperative surgical incision is clean, dry, and approximated. CYNTHIA drain is compressed and has a small amount of sangenous output. Follow-up CT of the lumbar spine is pending. Postoperative BMP shows sodium 133, potassium 4.2, chloride 105, serum bicarbonate 23, BUN 16, creatinine 0.71, glucose 120. Lactated Ringer's is currently infusing at 40 miles per hour. Pain is reportedly well controlled with current analgesics. Patient is hemodynamically stable. He will likely be monitored in the intensive care unit overnight. Patient was reevaluated today on 12/16/2022, he is postoperative day #2. However the patient had an episode yesterday of CVA, and code stroke was called. Patient was found to have an evolving right occipital lobe infarct. Patient had relief and transient hemiplegia involving the left side. However this has resolved. Patient was advised to go on Plavix and aspirin per neurology on the case. Today the pain is sickly about the same, no major change, neurologically is seems to be intact. 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 Patient was seen by orthopedics and the recommendation was to keep a mean arterial pressure above 80 hence the patient is requiring Greg-Synephrine at 0.4 mcg/kg/m in order to keep a mean arterial pressure of 80 or higher. Again the patient is now on aspirin and Plavix, his left-sided weakness didn't resolve. It lasted only about 50 seconds. Patient is hemodynamically stable, IV fluid is saline 0.9 at 75 mL per hour. Patient was reevaluated today on 12/17/2022, patient is doing great, feeling much better, he is off Greg-Synephrine, he is now postoperative day #3, seen by neurology on consultation, did not feel an MRI is necessary. Neurology felt the findings are old findings that were noted in his occipital lobe, and did not feel that the patient had acute CVA this was more of a TIA-type of picture Objective - Vital Signs Vital signs: Vital Signs Temp 97.5 F L 12/17/22 07:45 Pulse 79 12/17/22 07:45 Resp 13 12/17/22 07:45 BP 145/67 12/17/22 07:45 Pulse Ox 98 12/17/22 08:39 FiO2 Intake & Output 12/16/22 12/17/22 12/17/22 18:59 06:59 18:59 Intake Total 4866.906 0988 350 Output Total 2150 1695 350 Balance -174.847 -555 0 Weight 82.2 kg Intake: IV 910 900 150 Invasive Line 4 10 Sodium Chloride 0.9% 1, 900 900 150 000 ml @ 75 mls/hr IV . [id number] [facility] Rx#:[id number] Intake, IV Titration 45.153 Amount Phenylephrine 40 mg In 45.153 Sodium Chloride 0.9% 250 ml @ 0.5 MCG/KG/MIN 14. 935 mls/hr IV .Q17H1M [facility] Rx#:[id number] Oral 1020 240 200 Output: Drainage 190 Right Medial Back 190 Urine 1960 1695 350 Other: Voiding Method Indwelling Catheter Indwelling Catheter Indwelling Catheter ABP, PAP, CO, CI - Last Documented Arterial Blood Pressure 103/47 - Exam GENERAL EXAM: Revealed a 77-year-old white male in no distress HEAD: Normocephalic and atraumatic EYES: Normal reaction of pupils, equal size. NOSE: Clear with pink turbinates. THROAT: No erythema or exudates. NECK: No masses, no JVD. CHEST: No chest wall deformity. LUNGS: Clear bilaterally no rhonchi and no wheezes CARDIOVASCULAR: S1 and S2, with a soft grade 2 systolic ejection murmur, no other extra heart sounds. ABDOMEN: No hepatosplenomegaly, active bowel sounds, no guarding or rigidity. SPINE: . Postsurgical incisional dressing clean, dry SKIN: No rashes CENTRAL NERVOUS SYSTEM: No gross focal neurologic deficits EXTREMITIES: No clubbing edema or cyanosis - Labs CBC & Chem 7: 12/17/22 04:05 12/17/22 04:05 Labs: Abnormal Lab Results - Last 24 Hours (Table) 12/16/22 12/17/22 12/17/22 Range/Units 14:52 04:05 04:05 RBC 3.41 L (4.30-5.90) m/uL Hgb 10.6 L (13.0-17.5) gm/dL Hct 32.3 L (39.0-53.0) % Plt Count 103 L (150-450) k/uL Lymphocytes # 0.7 L (1.0-4.8) k/uL Sodium 135 L (137-145) mmol/L Hemoglobin A1c 6.3 H (<=6.0) % Calcium 8.2 L (8.4-10.2) mg/dL Assessment and Plan Assessment: Impression: Postoperative day #3 following elective L2 to pelvis decompression and fusion revision. Acute TIA, neurology felt there was no clear-cut evidence of CVA, and the findings on the CT of the brain are likely related to old infarct. History of uretheral stricture, with difficulties placing intra-operative urinary catheter, status-post dilation and uretheral stricture by urology. Coronary artery disease, status post coronary artery bypass grafting Benign essential hypertension Hyperlipidemia Recommendation: Transfer patient out of the ICU to a medical surgical floor Continue aspirin and Plavix Continue incentive spirometry Continue pain control management We will follow the patient as needed Time with Patient: Less than 30
[2022-12-17] MEDS: HYDROcodone/APAP 5-325MG 1 EACH TAB PO PRN ×2 (13:10→18:12)
[2022-12-17] MEDS: CYCLOBENZAPRINE 5 MG TAB PO PRN (21:22)
--- NOTE | 2022-12-17 22:15 | CONS ---
CONSULTATION HISTORY OF PRESENT ILLNESS: 77-year-old gentleman, who is admitted to hospital following back surgery, had an episode of TIA, from which he recovered fully. This morning, his predominant symptom is in the form of back pain. He is getting pain medications and is sleeping comfortably. PHYSICAL EXAMINATION: VITAL SIGNS: Afebrile. Vital signs are stable. NECK: There is no jugular venous distention. CHEST: Reveals good air entry bilaterally. HEART: Reveals first and second heart sounds. No gallop. No murmur. ABDOMEN: Soft. EXTREMITIES: Exam of extremities did not reveal any edema. Peripheral pulses are felt. MEDICATIONS: Currently on; 1. Aspirin. 2. Plavix. 3. Dilaudid on a p.r.n. basis. We will resume the lovastatin and lisinopril that he was on. MMODL / IJN: [id number] /
[2022-12-18] MEDS: ACETAMINOPHEN TAB 325 MG TAB PO SCH (05:27)
[2022-12-18] MEDS: ASPIRIN 81 MG PO SCH (07:59)
[2022-12-18] MEDS: CLOPIDOGREL 75 MG TAB PO SCH (07:59)
[2022-12-18] MEDS: FAMOTIDINE 20 MG TAB PO SCH (07:59)
[2022-12-18 08:33] VITALS: BP 144/71; PULSE 78; RESP 17; TEMP 97.6
[2022-12-18] MEDS ORDERED: ENOXAPARIN 40 MG/0.4 ML SYRINGE SQ SCH (11:45)
--- NOTE | 2022-12-18 11:45 | P.PN ---
Subjective Progress Note Date: 12/17/22 Patient was seen for a follow-up. Patient is laying comfortably in the bed. Patient's mentation has much improved. Objective - Vital Signs Vital signs: Vital Signs Temp 98 F 12/17/22 14:50 Pulse 78 12/17/22 14:50 Resp 12 12/17/22 14:50 BP 157/72 12/17/22 14:50 Pulse Ox 98 12/17/22 08:39 FiO2 Intake & Output 12/17/22 12/17/22 12/18/22 06:59 18:59 06:59 Intake Total 1140 850 Output Total 1695 1000 Balance -555 -150 Weight 82.2 kg Intake: IV 900 150 Sodium Chloride 0.9% 1, 900 150 000 ml @ 75 mls/hr IV . [id number] [facility] Rx#:[id number] Oral 240 700 Output: Urine 1695 1000 Other: Voiding Method Indwelling Catheter Indwelling Catheter ABP, PAP, CO, CI - Last Documented Arterial Blood Pressure 103/47 - Exam Patient's mentation has much improved. He is very alert and awake. He denies any focal symptoms. Denies any new neurological symptoms. Clinically stable. - Labs CBC & Chem 7: 12/17/22 04:05 12/17/22 04:05 Labs: Abnormal Lab Results - Last 24 Hours (Table) 12/16/22 12/17/22 12/17/22 Range/Units 14:52 04:05 04:05 RBC 3.41 L (4.30-5.90) m/uL Hgb 10.6 L (13.0-17.5) gm/dL Hct 32.3 L (39.0-53.0) % Plt Count 103 L (150-450) k/uL Lymphocytes # 0.7 L (1.0-4.8) k/uL Sodium 135 L (137-145) mmol/L Hemoglobin A1c 6.3 H (<=6.0) % Calcium 8.2 L (8.4-10.2) mg/dL Assessment and Plan Assessment: * Probable TIA manifesting with unresponsiveness/left-sided weakness, that resolved in about 30 seconds. The cause of cerebral ischemia likely related to hypotension with blood pressure recorded 46/26 at that time. Patient has chronic right ICA occlusion, which probably resulted in hypoperfusion in the collaterals resulting in transient ischemia. Symptoms resolved in 30 seconds. At present all symptoms have resolved, and his NIH stroke scale is 0. * Status post lumbar surgery * Coronary artery disease * Hypertension * Hyperlipidemia * X tobacco use Plan: * MRI of the brain was considered, but it appears the symptoms were very transient, and symptoms resolved in 30 seconds. Cerebral ischemia was likely related to hypoperfusion from significant hypotension. His current ne urological examination is normal, and current NIH stroke scale 0. The "right occipital evolving stroke" reported in computed tomography scan is chronic from previous right occipital CVA diagnosed in 11/23/2020. Patient with recent back surgery will have difficulty laying flat for 45 minutes. Therefore we canceled MRI. Patient's completely agrees with canceling MRI. * Patient's aspirin and Plavix has been resumed (which were held for 7 days prior to back surgery). We will decrease aspirin from 325 mg to 81 mg daily. * Avoid further episodes of hypotension. * 2-D echo revealed left-ventricular EF 50-55%, mildly increased left atrial di ameter. No MR. Dohy-ca-sqptojyy aortic insufficiency. Technically difficult bubble study however no shunt noted. If still clinical suspicion of PFO may consider FREDERICK to further evaluate. Cardiology is already on board. From neurology standpoint, it appears very clear, the patient was off antiplatelet medication for 7 days, and developed TIA. 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 There is no contrast evident within the internal carotid skull base. Normal gal[place] of [place]. This is chronic right ICA occlusion noted even 2 years prior. * Fasting a.m. lipid panel with cholesterol 114, LDL 51, HDL 33 and triglycerides 146. Although patient's LDL is well controlled, but because of carotid occlusion, we will start low-dose Lipitor 20 mg daily. * Hemoglobin A1c 6.6 on 08/11/2022. Repeat hemoglobin A1c 6.3 12/16/2022.. * Optimize control of blood pressure. * Telemetry monitoring rule out any arrhythmia * PT and OT. * Gastric ulcer prophylaxis: Start Pepcid 20 mg twice a day. * DVT prophylaxis: Lovenox 40 mg daily * As there is no active neurological issue, we will sign off. Please reconsult neurology if any concerns. Dr. Majano starting service from Tuesday.
--- NOTE | 2022-12-18 12:25 | P.PN ---
Subjective Progress Note Date: 12/18/22 Principal diagnosis: 1. L2-S1 spondylosis with stenosis 2. Lower extremity radiculopathy, bilateral 3. Lower extremity weakness, bilateral Patient seen and examined this morning. Patient has been transferred to medical surgical floor. Patient is sitting up in chair. Patient reports he is feeling well and is comfortable with being discharged home today. Spouse is at bedside and agrees with this plan. Surgical dressing to the lumbar region is intact with mild shadowing. Dressing to be changed prior to discharge. López cath remains, patient will be discharge with lópez and to include a leg bag. He will follow up with Dr. Bourne on Tuesday12/20/22 for trial void. Patient continues to report improvement in radicular symptoms into the bilateral lower extremities. LSO brace is at bedside. No acute concerns at this time. Objective - Vital Signs Vital signs: Vital Signs Temp 97.6 F 12/18/22 08:00 Pulse 78 12/18/22 08:00 Resp 17 12/18/22 08:00 BP 144/71 12/18/22 08:00 Pulse Ox 97 12/18/22 08:00 FiO2 Intake & Output 12/17/22 12/18/22 12/18/22 18:59 06:59 18:59 Intake Total 850 Output Total 1000 2345 Balance -150 -2345 Weight 78 kg Intake: IV 150 Sodium Chloride 0.9% 1, 150 000 ml @ 75 mls/hr IV . [id number] [facility] Rx#:[id number] Oral 700 Output: Urine 1000 2345 Other: Voiding Method Indwelling Catheter Indwelling Catheter ABP, PAP, CO, CI - Last Documented Arterial Blood Pressure 103/47 - Exam Inspection: Surgical incision to the thoracolumbar spine, dressing is clean dry and intact with scant shadowing noted. Sensation: Sensation is equal, symmetric, bilaterally intact throughout the upper and lower extremities. Palpation: Nontender to palpation throughout bilateral upper and lower extremities and throughout spine exam Range of motion: Patient does have full range of motion bilateral upper and lower extremities on exam Motor: 5/5 in all major motor groups in the bilateral upper and 4/5 lower extremities Special tests: Negative Homans bilaterally. Negative Esvin bilaterally. Negative clonus bilaterally. Neurovascular: Radial pulse intact, 2+ bilaterally. Cap refill under 3 seconds in digits upper extremities. - Labs CBC & Chem 7: 12/17/22 04:05 12/17/22 04:05 Assessment and Plan Assessment: Postop day 4: Revision [id number] decompression and fusion Dilation of urethral stricute with f/f 10-18 fr, Difficult placement of a 14 fr coude tip catheter 1. L2-S1 spondylosis with stenosis 2. Lower extremity radiculopathy, bilateral 3. Lower extremity weakness, bilateral Plan: -Appreciate devops consultant and team management. -Activity: Ambulate QID, OOB all meals, up and about, limit lifting bending twisting to less than 5 lbs. Use walker or cane if needed for stability. -Daily PT/OT, increase ambulation strength and balance. -Brace when up and about, not needed in bed or chair -Pain control: Adequate at this time -Meds: reviewed -GI ppx: senna, Miralax -Maintain López catheter at this time -DVT PPX: Plavix -Hygiene: Shower today. Maintain dressing clean and dry. Meticulous cleaning after BMs away from the incision site -Encourage IS 10x/hr -Dispo: Discharge home today with homecare. Pateint to follow up with Dr. Bourne, Tuesday12/20/22 for trial void. *I reviewed and discussed this case with my attending Dr. Mahoney, whom has reviewed this chart and films and is in agreement with assessment and plan of care as outlined above. I have personally seen and examined the patient, performed the documentation and the assessment and plan as written. Number of minutes spent on the visit: 20m.
--- NOTE | 2022-12-18 12:36 | P.DS ---
Providers Date of admission: 12/14/22 08:16 Expected date of discharge: 12/18/22 Attending physician: Cruz Mahoney DO Consults: 12/14/22 16:51 Consult Physician Routine Consulting Provider: Ac Bourne Consult Reason/Comments: Urinary catheter recomendations Do you want consulting provider notified?: Yes 12/14/22 16:52 Consult Physician Routine Consulting Provider: Dmitry Peña Consult Reason/Comments: bradycardia, s/p lumbar fusion Do you want consulting provider notified?: Yes 12/14/22 18:17 Consult Physician Routine Consulting Provider: Mickie Santamaria Consult Reason/Comments: ICU management Do you want consulting provider notified?: Already Contacted 12/14/22 18:51 Consult Physician Routine Consulting Provider: Antonio Zhang Consult Reason/Comments: medical management Do you want consulting provider notified?: Yes 12/15/22 11:18 Consult Physician Routine Consulting Provider: Jerrod Morales Consult Reason/Comments: code stroke Do you want consulting provider notified?: Yes Primary care physician: Antonio Zhang Hospital Course: Hospital Course: The patient was evaluated preoperatively and found to have the diagnosis of lumbar spondylosis with stenosis They underwent appropriate preoperative care and were willing to undergo the intended procedure. They underwent a successful revision L2 to pelvis decompression and fusion, were recovered appropriately and sent to the floor. While on the floor they worked with physical therapy, occupational therapy and nursing to enhance their recovery experience. Their pain was well controlled through their stay and they were started on appropriate medications, DVT ppx modalities, activity and dietary needs. Daily labs were monitored closely, and transfusions were only used when necessary. Medicine as well as other consulting services have made their input and have helped with our team approach and multidisciplinary care. PT milestones have been met and passed and they have made the recommendation of home with home care for this patient and treating providers agree with this care path. The patient will be discharged home with appropriate medications, instructions and follow-up information and in stable condition. Patient Condition at Discharge: Good Plan - Discharge Summary Discharge Rx Participant: No New Discharge Prescriptions: New cefaDROXiL [Duricef] 500 mg PO Q12HR #10 cap Cyclobenzaprine [Flexeril] 5 mg PO TID PRN #60 tablet PRN Reason: Muscle Spasm HYDROcodone/APAP 5-325MG [Clark 5-325] 1 tab PO Q4HR PRN #42 tab PRN Reason: Pain Sennosides/Docusate Sodium [Senna Plus 8.6-50 mg Softgel] 1 each PO DAILY PRN #20 capsule PRN Reason: Constipation No Action lisinopriL [Lisinopril] 10 mg PO QAM Multivitamins, Thera [Multivitamin (formulary)] 1 tab PO DAILY Metoprolol Tartrate [Lopressor] 50 mg PO QAM Pravastatin Sodium 80 mg PO HS Aspirin EC [Ecotrin Low Dose] 81 mg PO DAILY #30 tablet. Ibuprofen [Motrin] 800 mg PO Q8H PRN PRN Reason: Pain Cholecalciferol [Vitamin D3 (25 Mcg = 1000 Iu)] 25 mcg PO DAILY Clopidogrel [Plavix] 75 mg PO HS Discharge Medication List lisinopriL [Lisinopril] 10 mg PO QAM 12/23/14 [History] Metoprolol Tartrate [Lopressor] 50 mg PO QAM 12/26/14 [History] Multivitamins, Thera [Multivitamin (formulary)] 1 tab PO DAILY 12/26/14 [History] Pravastatin Sodium 80 mg PO HS 11/21/18 [History] Aspirin EC [Ecotrin Low Dose] 81 mg PO DAILY #30 tablet. 11/22/18 [Rx] Cholecalciferol [Vitamin D3 (25 Mcg = 1000 Iu)] 25 mcg PO DAILY 12/09/22 [History] Clopidogrel [Plavix] 75 mg PO HS 12/09/22 [History] Ibuprofen [Motrin] 800 mg PO Q8H PRN 12/09/22 [History] Cyclobenzaprine [Flexeril] 5 mg PO TID PRN #60 tablet 12/18/22 [Rx] HYDROcodone/APAP 5-325MG [Clark 5-325] 1 tab PO Q4HR PRN #42 tab 12/18/22 [Rx] Sennosides/Docusate Sodium [Senna Plus 8.6-50 mg Softgel] 1 each PO DAILY PRN #20 capsule 12/18/22 [Rx] cefaDROXiL [Duricef] 500 mg PO Q12HR #10 cap 12/18/22 [Rx] Follow up Appointment(s)/Referral(s): Anisa Bonilla NPC [Nurse Practitioner] - 12/28/22 Antonio Zhang DO [Primary Care Provider] - 1 Week Ac Bourne MD [STAFF PHYSICIAN] - 1-2 Days Activity/Diet/Wound Care/Special Instructions: Spine Discharge and Recovery Instructions Date of Surgery: 12/14/2022 Diagnosis: Lumbar spondylosis with stenosis Procedure: [] Medications: See medication list All medication refills should be obtained through your primary care doctor or your clinic spine surgeon. Please discuss prescription refills at your follow up appointment. Do not call the hospital for medication refills. Dressing: Leave your dressing in place for a total of 5 days post operatively. Then you may remove your dressing and leave open to air. Keep the area clean and if not able to keep area clean, then cover with sterile gauze and tape. Showering: You may shower 3 days after your procedure allowing soap and water to run over incision. Do not scrub. Do not soak. Blot dry. Follow up: Please confirm a follow up appointment with your surgeon 3 weeks post operatively. Please make an appointment to follow up with your PCP in 1-2 weeks after surgery for evaluation 3 phase, 3-week plan POST OP WEEKS 1-3 1. Lifting/carrying/pushing/pulling limited to less than 5 pounds. 2. Do not sit for longer than 15 minutes at one time. Get up and walk around. Prolonged sitting is NOT advised. If you lay down, see if you can tolerate laying down on you front (belly side) 3. Walk for periods of 15 minutes = 1 mile but no longer; do it multiple times times each day. 4. Ice your low back after activity. POST OP WEEKS 3-6 1. Lifting limited to less than 20 pounds. 2. Do not sit for longer than 30 minutes at a time. Frequently change positions. Use a sit-to stand workstation or take frequent breaks from sitting if you have returned to work. 3. Walk for 30 minutes each day. If possible, do these three or more times a day POST OP WEEKS 6+ At your 6-week appointment we will give you a physical therapy referral to focus on a core stabilization and strengthening program. You should also work on leg & buttock strengthening, hamstring & quadriceps stretching, and continue a low impact aerobic activity program such as swimming, walking, or riding a stationary bicycle. During the initial 6 weeks after your surgery, you are at the highest risk of re-injuring your spine. You should generally avoid BLTs (bending, lifting and twisting combination motions) and follow the above guidelines to reduce the chance of reinjury. You can anticipate post op appointments in our office at approximately 3 weeks and 6 weeks after your surgery. INCISION CARE: If your incision is not draining you do NOT need to cover it with a dressing. Keep your incision clean, dry and intact. In most cases, we apply skin glue, charli or sutures to the incision at the time of surgery. This will be like a crust or have the appearance of a scab and will fall off in time on its own. The stitches or charli need to be removed at 3 weeks post op appointment. You may begin to shower 3 days after surgery (this allows the glue to chan well). However, please avoid scrubbing the incision site or peeling off any of the skin glue. This will ensure optimal healing of your incision. Also, during this time avoid soaking the incision area in water - this includes swimming pools, hot tubs or baths. No ointments, lotions or oils on the incision until your surgeon allows. Leave charli, sutures or glue in place. Neurological dysfunction that comes on suddenly can also be a sign of a stroke. Below some common symptoms of a stroke are listed: B - balance difficulty such as sudden onset walking or leaning to one side - NEW E - eye problem such as sudden double vision or trouble seeing on one side - NEW F - Facial weakness or numbness on one side - NEW A - Arm or leg weakness or numbness on one side - NEW S - Slurred speech or difficulty with word finding - NEW T - Time is BRAIN! Call 911 as soon as you recognize these symptoms Diet: Consume a regular diet rich in vegetables and lean protein such as chicken or fish. You should consume in a ratio of approximately 20% fats|40% carbohydrates|40%protein. Vegetables, sweet potatoes, brown rice or quinoa are examples of good carbohydrates. Chips, white bread, cookies and sweets/sugar are examples of bad carbohydrates. Limit your bad carbs, go wild with good carbs. "Life's Simple 7" Guidelines as per [place] [employer] These will help you reclaim your life after surgery and calender machine operator helper in your recovery, keeping in mind your restrictions. (1) Get Active. Physical activity can help people lose weight, control high blood pressure and cholesterol, feel emotionally better, and sleep better. (2) Control Cholesterol. Avoid a diet high in saturated fat, trans fat, & cholesterol. Limit whole milk & cream, ice cream, butter, egg yolks, processed meats (like sausage and hot dogs), and fatty meats. Choose healthy foods that are low in saturated fat, trans fat and cholesterol which include: Fruits and vegetables, fiber rich grain products (like whole grain pasta and brown rice), lean meat such as chicken, fish, nuts, seeds, and legumes. (3) Eat Better. Eat small portions. Shop at the grocery with a list and do not stray from it. Tips for a healthy diet include: Limit sodium intake to less than 1500mg daily, avoid prepackaged, processed, and fast foods, choose a diet rich in fruits, vegetables, and whole grain, high fiber foods, and limit saturated & cholesterol in your diet. (4) Manage Blood Pressure. If you have high blood pressure, you should have a cuff at home so that you can check your blood pressure regularly. Be sure you have a good cuff. An arm one is generally better than a wrist one. Bring the cuff to a doctor's appointment to validate that the measurements that your cuff are taking are accurate. Take your blood pressure twice daily when you are sitting down and relaxing. Record the numbers in a log and bring this log with you to your doctors' appointments. (5) Lose Weight if your BMI is above 25. A healthy BMI is between 19-25. To calculate Your BMI, you may use a Standard BMI Calculator on the NIH BMI website: <www.nhlbi.nih.gov/guidelines/obesity/BMI/bmicalc.htm>. Weigh oneself daily. If you are overweight, set a goal to lose weight. A pound a week loss if needed is a good target. (6) Reduce Blood Sugar. Limit foods and liquids with "added sugars." (Added sugars include sucrose, fructose, glucose, maltose, dextrose, high fructose corn syrup, corn syrup, concentrated fruit juice and honey). (7) Stop Smoking. If you smoke, quitting smoking is one of the best things that you can do for your health. Smoking increases your risk of heart attack, stroke, and peripheral vascular disease, which is a build-up of plaque in your arteries. Please discard all the cigarettes and lighters in your house. Have a plan for what you will do when you have the urge to smoke. Direct and second- hand smoke shortens your life as well as the lives of your family, friends and others around you. For your health and the health of those around you, please consider quitting! Proper Bending Body Mechanics: Maintain a wide stance with one foot slightly in front of the other. Keep your back straight. Bend utilizing the strength in your hips and knees. Do not bend at the waist. Maintain the lifted object at your waist-level close to your body. Avoid lifting weight that causes immediately pain or pain anywhere in the body afterwards. Smoking/Nicotine If there was ever one thing that you could do to increase your overall health, decrease your risk of cardiovascular problems by about 39% the second you make the choice, it is to STOP SMOKING. Your body's most instant gratification is the second you stop smoking. We have all heard the studies, read the articles but it is true, smoking is extremely bad for your overall health, and moreover it is detrimental to your bone health. Nicotine, IN ANY FORM, kills bone cells, prevents your body from healing fractures, and significantly prolongs healing after surgery. In spine surgery specifically, it increases your risk of not healing your bones to create a fusion and increases your risk of having a revision surgery due to this up to 60%. I know it is hard. I know it feels impossible. But there are ways. Take control of your life. We are here to help you through it. And when you are ready, ask us and we can direct you to help if you desire. Use the START Plan to Quit Smoking (please visit the Helpguide.org website listed below for more information): S = Set a quit date. Choose a date within the next 2 weeks, so you have enough time to prepare without losing your motivation to quit. If you mainly smoke at work, quit on the weekend, so you have a few days to adjust to the change. T = Tell family, friends, and co-workers that you plan to quit. Let your friends and family in on your plan to quit smoking and tell them you need their support and encouragement to stop. Look for a quit katie who wants to stop smoking as well. You can help each other get through the rough times. A = Anticipate and plan for the challenges you'll face while quitting. Most people who begin smoking again do so within the first 3 months. You can help yourself make it through by preparing ahead for common challenges, such as nicotine withdrawal and cigarette cravings. R = Remove cigarettes and other tobacco products from your home, car, and work. Throw away all your cigarettes (no emergency pack!), lighters, ashtrays, and matches. Wash your clothes and freshen up anything that smells like smoke. Shampoo your car, clean your drapes and carpet, and steam your furniture. T = Talk to your doctor about getting help to quit. Your doctor can prescribe medication to help with withdrawal and suggest other alternatives. If you can't see a doctor, you can get many products over the counter at your local pharmacy or grocery store, including the nicotine patch, nicotine lozenges, and nicotine gum. Resources for Quitting Smoking: <https://www.[place].gov/documents/[facility]/Quit_Tobacco_Resources_for_patients_313 480_7.pdf> Supplementation: Take recommended dosages of Vitamin D and Calcium to help fortify your bones and help them to heal. See your health maintenance packet for dosages and recom mended levels. DVT/VTE prophylaxis: You will be given compression stockings from the hospital. Wear these daily for the first two weeks after surgery. You may take them off at night. You may be prescribed a medication to help thin your blood. Take this as directed. If you are not prescribed this medication, early and frequent ambulation has been shown to be the best prophylaxis to deep vein thrombosis and sequelae related to this event. Discharge Disposition: HOME WITH HOME HEALTH SERVICES
--- NOTE | 2022-12-18 12:45 | PN ---
PROGRESS NOTE SUBJECTIVE: A 77-year-old gentleman who is admitted to hospital following back surgery. He is feeling better. Back pain is better. Stable hemodynamically. OBJECTIVE: GENERAL: Comfortable at rest. VITAL SIGNS: Stable. CHEST: Reveals good air entry bilaterally. HEART: Reveals first and second heart sounds. No gallop. ABDOMEN: Soft. EXTREMITIES: Did not reveal any edema. Peripheral pulses are felt. ASSESSMENT: Coronary artery disease, status post coronary artery bypass grafting, status post back surgery, status post transient ischemic attack. PLAN: The patient is doing well. He will continue current medications. MMODL / IJN: [id number] /
[2022-12-18] MEDS ORDERED: PSYLLIUM HUSK 100% 6 GM PACKET PO SCH (13:00)
--- NOTE | 2022-12-18 14:45 | P.PN ---
Subjective Progress Note Date: 12/18/22 Patient seen and evaluated bedside. Patient is postoperative day 4. Seen by surgical team. Postoperatively patient doing well. Burrows catheter remains in place. Will need follow-up with urology. Primary team to decide regarding discharge planning. Objective - Vital Signs Vital signs: Vital Signs Temp 97.6 F 12/18/22 08:00 Pulse 78 12/18/22 08:00 Resp 17 12/18/22 08:00 BP 144/71 12/18/22 08:00 Pulse Ox 97 12/18/22 08:00 FiO2 Intake & Output 12/17/22 12/18/22 12/18/22 18:59 06:59 18:59 Intake Total 850 Output Total 1000 2345 Balance -150 -2345 Weight 78 kg Intake: IV 150 Sodium Chloride 0.9% 1, 150 000 ml @ 75 mls/hr IV . [id number] PEYTON Rx#:[id number] Oral 700 Output: Urine 1000 2345 Other: Voiding Method Indwelling Catheter Indwelling Catheter ABP, PAP, CO, CI - Last Documented Arterial Blood Pressure 103/47 - Exam PHYSICAL EXAMINATION: GENERAL: The patient is alert and oriented x3, not in any acute distress. Well developed, well nourished. HEENT: Pupils are round and equally reacting to light. EOMI. No scleral icterus. No conjunctival pallor. Normocephalic, atraumatic. No pharyngeal erythema. No thyromegaly. CARDIOVASCULAR: S1 and S2 present. No murmurs, rubs, or gallops. PULMONARY: Chest is clear to auscultation, no wheezing or crackles. ABDOMEN: Soft, nontender, nondistended, normoactive bowel sounds. No palpable organomegaly. MUSCULOSKELETAL: wound bandage, Burrows cath in place EXTREMITIES: No cyanosis, clubbing, or pedal edema. NEUROLOGICAL: Gross neurological examination did not reveal any focal deficits. - Labs CBC & Chem 7: 12/17/22 04:05 12/17/22 04:05 Assessment and Plan Assessment: Postoperative day 4 elective L2/pelvic decompression fusion History of urethral stricture Acute TIA seen by neurology Coronary artery disease history of bypass CABG Hypertension Hyperlipidemia Continue current medical management including aspirin, Plavix Continue pain control per primary team New to maintain Burrows catheter was seen by urology can follow up outpatient for trial of void versus inpatient trial of void Continue patient on aspirin, Lipitor, bowel regimen On Lovenox for DVT prophylaxis
[2022-12-18] MEDS ORDERED: ATORVASTATIN 20 MG TAB PO SCH (21:00)
--- NOTE | 2022-12-20 11:20 | CDI ---
Documentation Clarification Form Date: 12/20/2022 11:05:44 AM From: Pam Godinez Phone: Admit Date: 12/14/2022 08:16:00 AM Patient Name: Manny Rodriguez Visit Number: [id number] Discharge Date: 12/18/2022 03:15:00 PM ATTENTION: The Clinical Documentation Specialists (CDI) and [facility] Coding Staff appreciate your assistance in clarifying documentation. Please respond to the clarification below the line at the bottom and electronically sign. The CDI & [facility] Coding staff will review the response and follow-up if needed. Please note: Queries are made part of the Legal Health Record. If you have any questions, please contact the author of this message via ITS. Dr. Sheng Calle Unspecified CKD is documented per HP Notes. Additional clarification regarding the stage of CKD is requested. History/Risk Factors: 77yo M, Lumbar spondylosiswithstenosis, IP CVA d/t stenosis RAUL, HTN, HLD Clinical Indicators: CHILANGO GFR 85 - <90 BUN 16 Creatinine 0.71 Treatment: monitored Please clarify the stage of the CKD, if known: [ ] CKD Stage 1 (GFR > 90) [ ] CKD Stage 2 (GFR 60-89) [ ] Other, please specify [ ] Unable to determine (Template Last revised: April 2020) asking the wrong doctor MTDD
--- NOTE | 2022-12-31 11:09 | CDI ---
Documentation Clarification Form Date: 12/31/2022 11:07:33 AM From: Pam Godinez Phone: Admit Date: 12/14/2022 08:16:00 AM Patient Name: Manny Rodriguez Visit Number: [id number] Discharge Date: 12/18/2022 03:15:00 PM ATTENTION: The Clinical Documentation Specialists (CDI) and [facility] Coding Staff appreciate your assistance in clarifying documentation. Please respond to the clarification below the line at the bottom and electronically sign. The CDI & [facility] Coding staff will review the response and follow-up if needed. Please note: Queries are made part of the Legal Health Record. If you have any questions, please contact the author of this message via ITS. Dr. Antonio Zhang Unspecified CKD is documented per HP Notes. Additional clarification regarding the stage of CKD is requested. History/Risk Factors: 77yo M, Lumbar spondylosis with stenosis, IP CVA d/t stenosis RAUL, HTN, HLD Clinical Indicators: CHILANGO GFR 85 - <90 BUN 16 Creatinine 0.71 Treatment: monitored Please clarify the stage of the CKD, if known: [ ] CKD Stage 1 (GFR > 90) [ ] CKD Stage 2 (GFR 60-89) [ ] Other, please specify [ ] Unable to determine (Template Last revised: April 2020) MTDD
--- NOTE | 2023-02-01 10:33 | CDI ---
Documentation Clarification Form Date: 02/01/2023 10:31:28 AM From: Pam Godinez Phone: Admit Date: 12/14/2022 08:16:00 AM Patient Name: Manny Rodriguez Visit Number: [id number] Discharge Date: 12/18/2022 03:15:00 PM ATTENTION: The Clinical Documentation Specialists (CDI) and [facility] Coding Staff appreciate your assistance in clarifying documentation. Please respond to the clarification below the line at the bottom and electronically sign. The CDI & [facility] Coding staff will review the response and follow-up if needed. Please note: Queries are made part of the Legal Health Record. If you have any questions, please contact the author of this message via ITS. Dr. Mickie Santamaria Unspecified CKD is documented per HP Notes. Additional clarification regarding the stage of CKD is requested. History/Risk Factors: 77yo M, Lumbar spondylosis with stenosis, IP CVA d/t stenosis RAUL, HTN, HLD Clinical Indicators: CHILANGO GFR 85 - <90 BUN 16 Creatinine 0.71 Treatment: monitored Please clarify the stage of the CKD, if known: [ ] CKD Stage 1 (GFR > 90) [ ] CKD Stage 2 (GFR 60-89) [x ] Other, please specify _no evidence of chronic kidney disease [ ] Unable to determine (Template Last revised: April 2020) MTDD
== END 2022-12-18 15:15 | disposition home health service (06) | DRG 454 ==
LOC: 2ORMAIN 08:16 → EDSTATUS 13:10 → 2SICU 17:56 → 4SSUR 12-17 21:00
PROVIDERS: ADMIT Orthopaedic Surgery; ATTEND Orthopaedic Surgery
PROC: 0SG30AJ Fusion of Lumbosacral Joint with Interbody Fusion Device, Posterior Approach, Anterior Column, Open Approach (ICD-10-PCS; 2022-12-14)
PROC: 0SG3071 Fusion of Lumbosacral Joint with Autologous Tissue Substitute, Posterior Approach, Posterior Column, Open Approach (ICD-10-PCS; 2022-12-14)
PROC: 01NB0ZZ Release Lumbar Nerve, Open Approach (ICD-10-PCS; 2022-12-14)
PROC: 01NR0ZZ Release Sacral Nerve, Open Approach (ICD-10-PCS; 2022-12-14)
PROC: 0QH304Z Insertion of Internal Fixation Device into Left Pelvic Bone, Open Approach (ICD-10-PCS; 2022-12-14)
PROC: 0QH204Z Insertion of Internal Fixation Device into Right Pelvic Bone, Open Approach (ICD-10-PCS; 2022-12-14)
PROC: 0T7D8ZZ Dilation of Urethra, Via Natural or Artificial Opening Endoscopic (ICD-10-PCS; 2022-12-14)
PROC: 0SG10AJ Fusion of 2 or more Lumbar Vertebral Joints with Interbody Fusion Device, Posterior Approach, Anterior Column, Open Approach (ICD-10-PCS; principal; 2022-12-14 10:20)
PROC: 0SG1071 Fusion of 2 or more Lumbar Vertebral Joints with Autologous Tissue Substitute, Posterior Approach, Posterior Column, Open Approach (ICD-10-PCS; 2022-12-14 10:20)
PROC: 3E063XZ Introduction of Vasopressor into Central Artery, Percutaneous Approach (ICD-10-PCS; 2022-12-15)
DX: M47.26 Other spondylosis with radiculopathy, lumbar region (principal); G45.9 Transient cerebral ischemic attack, unspecified; I67.82 Cerebral ischemia; I67.2 Cerebral atherosclerosis; I95.9 Hypotension, unspecified; I10 Essential (primary) hypertension; M48.062 Spinal stenosis, lumbar region with neurogenic claudication; N35.912 Unspecified bulbous urethral stricture, male; G47.9 Sleep disorder, unspecified; E78.5 Hyperlipidemia, unspecified; I25.10 Atherosclerotic heart disease of native coronary artery without angina pectoris; G89.29 Other chronic pain; R29.700 NIHSS score 0; M13.0 Polyarthritis, unspecified; N35.819 Other urethral stricture, male, unspecified site; Z53.8 Procedure and treatment not carried out for other reasons; M47.27 Other spondylosis with radiculopathy, lumbosacral region; Z96.653 Presence of artificial knee joint, bilateral; W18.30XS Fall on same level, unspecified, sequela; Z86.73 Personal history of transient ischemic attack (TIA), and cerebral infarction without residual deficits; Z95.1 Presence of aortocoronary bypass graft; Z87.891 Personal history of nicotine dependence; Z79.84 Long term (current) use of oral hypoglycemic drugs; Z79.82 Long term (current) use of aspirin; Z79.02 Long term (current) use of antithrombotics/antiplatelets; Z82.49 Family history of ischemic heart disease and other diseases of the circulatory system; Z88.5 Allergy status to narcotic agent
CPT/HCPCS: 36415; 70450; 70496; 70498; 72100; 72131; 80048; 80061; 83036; 85025; 86850; 86900; 86901; 88304; 88311; 93306; 94760

== ENCOUNTER → 2023-04-18 | Outpatient (CLI) | payer MEDICARE ==
--- NOTE | 2023-04-18 16:17 | CT ---
EXAMINATION TYPE: CT lumbar spine wo con DATE OF EXAM: 04/18/2023 COMPARISON: None HISTORY: chronic low back pain CT DLP: 966 mGycm CONTRAST: None TECHNIQUE: CT of the lumbar spine is performed on a spiral scan at 3 mm thick sections. Reconstructed images are performed in the coronal and sagittal planes. FINDINGS: Pedicle screws with beam hardening are present L2-S1. T12-L1: No focal disc herniation or significant disc bulge is evident. No spinal canal stenosis or neural foraminal stenosis is present. L1-L2: No focal disc herniation or significant disc bulge is evident. No spinal canal stenosis or n eural foraminal stenosis is present. L2-L3: There is a disc spacer which has extended beyond the endplate into the right foramen region es timated at 0.7 cm. Correlate with left L3 radicular symptoms. No AP spinal canal stenosis is present. L3-L4: No focal disc herniation or significant disc bulge is evident. No spinal canal stenosis or n eural foraminal stenosis is present. Disc spacer is present. L4-L5: There is a spondylolisthesis of L4 anterior on L5. Disc uncovering is present. No AP spinal ca nal stenosis is present. Neural foraminal narrowing is present. L5-S1: No focal disc herniation or significant disc bulge is evident. No spinal canal stenosis or n eural foraminal stenosis is present IMPRESSION: 1. There is some disc spacer dimension beyond the endplate of L2-L3 and the left foraminal region. Co rrelation for left L3 radicular symptoms. 2. Grade 1 spondylolisthesis of L4 anteriorly on L5.
== END | disposition home or self-care (01) ==
LOC: RADCTMAIN 13:11
PROVIDERS: ATTEND Orthopaedic Surgery
DX: M43.16 Spondylolisthesis, lumbar region (principal)
CPT/HCPCS: 72131

== ENCOUNTER → 2023-04-29 | Outpatient (CLI) | payer MEDICARE ==
[2023-04-29 16:06] LABS: HCT 47.6 % (39.6-50.0); HGB 15.4 g/dL (13.0-17.0); MCHC 32.4 g/dL (32.0-37.0); MCV 89.6 FL (80.0-97.0); Mean Platelet Volume 9.6 FL (9.5-12.2); NRBC Per 100 WBC 0 X 10*3/uL (0.00-0.01); Platelet Count 279 X 10*3/uL (140-440); RBC 5.31 X 10*6/uL (4.40-5.60); RDW 13.6 % (11.5-14.5); WBC 12.56 X 10*3/uL (4.50-10.00)
[2023-04-29 16:54] LABS: INR 1.06 sec (0.93-1.11); Prothrombin Time 11.4 sec (9.9-11.9)
[2023-04-29 17:02] LABS: ALT 16 U/L (10-49); AST 22 U/L (14-35); Albumin 4.4 g/dL (3.8-4.9); Albumin/Globulin Ratio 1.38 Ratio (1.60-3.17); Alkaline Phosphatase 129 U/L (41-126); Carbon Dioxide 27.6 mmol/L (21.6-31.8); Chloride 100 mmol/L (96-109); Globulin 3.2 g/dL (1.6-3.3); Glucose 106 mg/dL (70-110); Sodium 139 mmol/L (135-145); Total Bilirubin 0.5 mg/dL (0.3-1.2); Total Protein 7.6 g/dL (6.2-8.2)
== END | disposition home or self-care (01) ==
LOC: LABPAT 08:20
PROVIDERS: ATTEND Orthopaedic Surgery
DX: Z01.812 Encounter for preprocedural laboratory examination (principal); Z22.322 Carrier or suspected carrier of Methicillin resistant Staphylococcus aureus; T84.296A Other mechanical complication of internal fixation device of vertebrae, initial encounter
CPT/HCPCS: 36415; 80053; 82306; 85027; 85610; 86850; 86900; 86901; 87070

== ENCOUNTER 2023-05-09 08:48 | Inpatient (IN) | payer MEDICARE ==
[~2023-05-09 08:48] MED LIST changes: -ACETAMINOPHEN TAB 500 MG TAB PO PRN; -GABAPENTIN 300 MG CAP PO PRN; +LIDOCAINE 1% (10MG/ML) FOR IV START INTRADERMA PRN; -MIDAZOLAM 2 MG/2 ML VIAL IV PRN; -ONDANSETRON 4 MG/2 ML VIAL IVP PRN
[2023-05-09] MEDS: LACTATED RINGERS 1,000 ML IV SCH (08:59)
[2023-05-09] MEDS: GABAPENTIN 300 MG CAP PO PRN (09:30)
[2023-05-09] MEDS: ACETAMINOPHEN TAB 500 MG TAB PO PRN (09:30)
[2023-05-09] MEDS: ONDANSETRON 4 MG/2 ML VIAL IVP PRN (09:30)
[2023-05-09] MEDS: MIDAZOLAM 2 MG/2 ML VIAL IVP ONE (09:41)
[2023-05-09] MEDS: DEXAMETHASONE SOD PHOSPHATE 4 MG/ML 1 ML VIAL IVP ONE (09:50)
--- NOTE | 2023-05-09 10:25 | P.ANPRN ---
Procedure Note - Anesthesia - Invasive Line Left Arterial Line Time Out Performed: Yes Date of Procedure: 05/09/23 Location of Patient: PreOp Preparation: Sterile Prep, Sterile Dressing Arterial Line Location: Radial Ultrasound Used: No Purpose - Visualization and Identification of Vasculature: No Narrative: Central line placement per sterile protocol utilized. Informed consent obtained from the patient. Procedure was performed under complete aseptic precautions. The left wrist is slightly extended and placed on a roll of cloth. Radial artery palpated and appeared to have a intact collateral circulation. Front of the wrist was cleaned with ChloraPrep. It was draped and 2 mL of 1% lidocaine was infiltrated and ability into the front of the wrist. A 20-gauge two and half inch Arrow arterial catheter was inserted and a bright red blood/back was noticed. It was connected to the pressure monitoring line and the flashback was confirmed. The line was sutured into the skin. Tegaderm dressing was applied. Patient tolerated the procedure very well with no apparent complications.
--- NOTE | 2023-05-09 11:12 | P.HPOR ---
History of Present Illness H&P Date: 05/09/23 Chief Complaint: Back and leg pain, new progressive The patient returns today for a 5 month postop L2-Pelvis decompression and fusion. He has had new onset of paresthesias in his LE that he didnot have before. He has sx of feeing unstable in his back like it is moving and he feels like his legs have more pain. He initially was doing very well but now is regressing. He is unable to participate in his daily activities well and feels that his legs are worse. He states this has progressed over the past month. Denies any other sx at this time. He presents for surgery today. We discussed risks and benefits again with pt and his daughter and at bedside. They are comfortable with any procedure needed to fix his issues. We discussed all variations of possible procedures needed and they understand and are comfortable progressing with this plan. Otherwise patient is very pleased with their progress since the time of their procedure and denies any f/c/sob/cp, perineal numbness and tinlging, or bowel/bladder incontinence/retention. The patient ambulates independently today. The patients' past social, medical, family, surgical history, as well as review of systems, have been reviewed. Please refer to the Neurosurgery History and Physical form that has been scanned in to our electronic medical record system. 16 points review of systems completed and as stated in HPI, all other systems reviewed are negative. Review of Systems 16 points review of systems completed and as stated in HPI, all other systems reviewed are negative. Past Medical History Past Medical History: Coronary Artery Disease (CAD), CVA/TIA, Hyperlipidemia, Hypertension, Osteoarthritis (OA), Renal Disease Additional Past Medical History / Comment(s): Generalized arthritis, L leg numbness/tingling since harvested vein for CABG, slight cardiac murmur, kidney stones, possible ureteral stricture-difficult to pass lópez catheters. tia behind eye many years ago History of Any Multi-Drug Resistant Organisms: None Reported Past Surgical History: Back Surgery, Coronary Bypass/CABG, Heart Catheterization, Joint Replacement, Orthopedic Surgery Additional Past Surgical History / Comment(s): 2004 CABG 4 vessel, UVPPP, colonoscopy, bilateral knee arthroscopy, bilateral total knee arthroplasties, bilateral rotator cuff repairs, R total reverse shoulder, kidney stone basketing, cystoscopies/scar tissue removed from bladder. 2006 2022 back surger ies Past Anesthesia/Blood Transfusion Reactions: No Reported Reaction Additional Past Anesthesia/Blood Transfusion Reaction / Comment(s): no hx blood transfusion, had hallucinations after back surgery 11/2022 Smoking Status: Former smoker - Past Family History Father Additional Family Medical History / Comment(s): Father in a tractor accident. Mother Family Medical History: Myocardial Infarction ([place]) Additional Family Medical History / Comment(s): Mother of a massive [place] at the age of 69yrs. Brother(s) Family Medical History: Cancer Sister(s) Family Medical History: Cancer Medications and Allergies Home Medications Medication Instructions Recorded Confirmed Type lisinopriL [Lisinopril] 10 mg PO QAM 12/23/14 05/09/23 History Metoprolol Tartrate [Lopressor] 50 mg PO QAM 12/26/14 05/09/23 History Multivitamins, Thera [Multivitamin 1 tab PO DAILY 12/26/14 05/09/23 History (formulary)] Pravastatin Sodium 80 mg PO HS 11/21/18 05/09/23 History Aspirin EC [Ecotrin Low Dose] 81 mg PO DAILY #30 tablet. 11/22/18 05/09/23 Rx Cholecalciferol [Vitamin D3 (25 25 mcg PO DAILY 12/09/22 05/09/23 History Mcg = 1000 Iu)] Clopidogrel [Plavix] 75 mg PO HS 12/09/22 05/09/23 History Allergies Allergy/AdvReac Type Severity Reaction Status Date / Time morphine AdvReac Nausea & Verified 05/09/23 09:18 Vomiting Physical Examination Osteopathic Statement: *. No significant issues noted on an osteopathic structural exam other than those noted in the History and Physical/Consult. AOX3, NAD, Appears well nourished and well hydrated. Overall alignment well maintained at this time inthe sagittal and coronal planes Incision: Healed well. TTP: Lumbar spine FROM all major joints without restriction or pain 5/5 BUE all major muscle groups. 4/5 BLE all major muscle groups; deconditioning and now likely due to cage migration SILT C3-T1 and L2-S1 Reflexes 2/4 all UE and LE b/l العراقي's: NEG Clonus: NEG Babinski: NEG Rena's: NEG +SLR b/l LE CN II-XII grossly intact 2/4 Distal pulses all 4 ext, no edema Compartments soft and compressive Abdomen soft, NTTP Respirations normal, non labored Results Post operative images taken today in office are reviewed with pt. AP and Lateral of the Lumbar Spine demonstrate migration of the L2-3 interbody cage posterioly and is now sitting inthe foramen where before it was in satisfactory position. The cage has not collapse. There is no subsidence, simply the cage backed out for unknown reason. When comparing to CT post op, it is a strange finding given that the cage was purposely regressed into the bony enplates to create a natural lock on the cage. There does not appear to be this interaction any longer. The remainder of the hardware is stable without significant chagnes. Assessment and Plan Assessment: 1. s/p Revision L2-Pelvis decompression and fusion 2. 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 LE paresthesias and radiculopathy, new Plan: - I have ordered a CT scan of the lumbar spine to further evaluate for any bony abnormalities or hardware failure or lucency. - Take medications as directed - Ice for pain and swelling control - Ambulate daily -We will plan on surgical intervention in the form of revision of his cage at L2-3 due to hardware failure, back out and LE radiculopathy with paresthesias. We discussed different options and due to the cage trying to enter the foramen, it needs to be addressed and he agrees. he is regressing not progressing and this is why. Spine Surgery Clinical and Risk Review Manny Rodriguez is a [Demographic] presenting for evaluation of [chief complaint]. It was my pleasure to have seen and examined Manny Rodriguez In our visit today we have had a chance to go over subjective complaints, physical examination findings and treatments including the natural course history without intervention and various interventional options. The patients imaging demonstrates Loose L2 screws with Cage back out L2-3, stenosis related to cage impingement. Possible fracture of Left L2 pedicle. On physical exam, Manny Rodriguez demonstrates extreme progressive back pain, Increased LE weakness, and progressive paresthesias in LE b/l. Difficulty with amubulation due to these findings. I have explained to the patient that as their condition progresses it will cause further neurological deficits and eventual paralysis. Based on the patients imaging, physical exam, and the rapid progression and disabling nature of their symptoms, at this time I recommend surgery in the form or a: revision L2-4 decompression and fusion with cage replacement, possible screw and sade replacement, possible extension up to T12/T11. I discussed the risk and benefits of this procedure at length with Manny Rodriguez . The patient and his and daughter at bedside agreed to considered pursuing the procedure abovementioned. Prior to surgery, she should follow up with her PCP (Cardio, ID, IM etc) for cl earance. Questions were invited and answered, and the patient wishes to proceed as outlined below. Currently, I am recommendin. Revision L2-4 with hardware revision and indicated procedures. 2. Follow up with PCP for surgical clearance 3. Review of surgical risks and benefits as well as an educational packet on the proposed surgical procedure. Risks: All surgical procedures come with inherent risks, including those related to positioning, anesthesia, intraoperative findings, and postoperative complications. It is important to understand that surgery does not come with any guarantee of a successful outcome as complications and adverse events are always possible. The patient was given a handout in office today discussing the surgical procedure and risks associated with the intervention, both of which were discussed with the patient. These risks include but are not limited to the following: * Experiencing same, different or even worse symptoms in back, neck, arms, or legs compared to before surgery. * Requiring further surgery or other forms of treatment presently or at some time in the future at same or other levels of the intended spine surgery. * On an extreme but fortunately relatively rare basis severe complication such as blindness, stroke, heart attack, temporary and/or permanent nerve injury, paralysis, coma, or may occur, sometimes without known explanation. * Surgical complications may include but are not limited to risk of infection, fluid accumulation in the surgical dissection site, including a seroma or hematoma, that requires additional surgery, wound drainage, bleeding, new numbness or weakness, vision changes/loss, spinal fluid leakage, non-healing and/or infected incision, headaches, difficulty or inability to swallow, hoarseness, hemopneumothorax, pneumothorax, impotence, retrograde ejaculation, vaginal dryness; injury to nerves, spinal cord, blood vessels, lymphatics or other vital organs (i.e., bowel injury, injury to the great vessels); heterotopic bone formation; complications related to the hardware such as screws, rods, cages including misplaced hardware, device failure, instrumentation at the wrong spine level, hardware fracture/breakage, or hardware loosening; vertebral failure of the spinal column above or below the newly placed hardware; retained surgical instrumentations or devices and the need for further surgery. * Medical risks of the planned spine surgery include but are not limited to generalized Infections to the whole body or local areas outside of the surgical site (sepsis), heart attack, bleeding, anaphylaxis, meningitis, seizure, epilepsy, hearing loss, burn gu, laceration of the head or other areas of the body, bruising, hypersensitivity of the skin, bladder over distension; allergic reaction; shoulder injury related to positioning; fat, blood and air clots to other areas of the body like heart, lungs, brain; failure of internal organs such as lungs, kidneys, liver and excessive bleeding. If blood transfusions are necessary, note that transfusions may cause intolerance reactions such as anaphylaxis or other complex reactions. * Despite best efforts, the results of spine surgery might not heal in terms of bone, soft tissues such as skin, fascia, ligaments, and joints. Additionally, in order to achieve best possible results, spine surgery may be carried out beyond the initially planned levels and involve decompression, fusion including insertion of hardware at levels other than the original intended area of surgical interest change some portions of the procedure in order to ensure the best possible outcomes. * With spine surgery and spinal fusion, there are different off label uses of instrumentation (devices, implants and hardware) as well as biological substances (bone morphogenic proteins, demineralized bone matrix) as well as using extra bone from allograft sources (i.e. cadaver bone) or autograft (iliac crest bone, ribs, or the spine itself). The patient has been given information about these practices and their inherent risks and benefits. The patient has had a chance to review all the listed information, has been given print outs detailing this information, and has had all his/her questions answered to their satisfaction. It was my pleasure to have seen and examined Manny Rodriguez . In our visit today we have had a chance to go over my understanding of our patient's current condition, the natural course history without intervention and various interventional options. Questions were invited and answered, and the patient wishes to proceed as outlined above. I have seen and examined the patient for 25 minutes and we have spent more than 50% of the time in repeat and detailed counseling about the patient's condition, its natural course history with out and as much as can be predicted with surgery and re-review of various surgical treatment options. In conclusion, Manny Rodriguez and his and daughter at bedside requested we proceed with the above suggested surgery and are willing to accept risks and limitations of the suggested surgery as nature of the disease process and our best attempts at treatment for the condition. Thank you again for allowing us to be part of your patient's care. Please don't hesitate to contact me if you have any further questions. Signed and authenticated by: Cruz Roblero [facility] [address] [place] [id number]
[2023-05-09] MEDS ORDERED: TRANEXAMIC 1,000 MG/100ML-NACL PREMIX BAG ONE (11:38)
[2023-05-09] MEDS ORDERED: SUCCINYLCHOLINE CHLORIDE 200 MG/10 ML VIAL IV ONE (11:38)
[2023-05-09] MEDS ORDERED: ROCURONIUM 10 MG/ML (5 ML VIAL) IV ONE (11:38)
[2023-05-09] MEDS ORDERED: PROPOFOL 10 MG/ML 20 ML VIAL IV ONE (11:38)
[2023-05-09] MEDS ORDERED: GLYCOPYRROLATE 0.2 MG/ML 2 ML VIAL ONE (11:38)
[2023-05-09] MEDS ORDERED: NEOSTIGMINE 1 MG/ML 10 ML VIAL ONE (11:38)
[2023-05-09] MEDS ORDERED: PHENYLEPHRINE 10 MG/ML VIAL ONE (11:38)
[2023-05-09] MEDS ORDERED: HYDROmorphone (PF) 1 MG/ML ONE (11:38)
[2023-05-09] MEDS ORDERED: fentaNYL (PF) 50 MCG/ML 2 ML AMP ONE (11:38)
[2023-05-09] MEDS ORDERED: ePHEDrine 50 MG/ML 1 ML VIAL ONE (11:38)
[2023-05-09] MEDS ORDERED: LIDOCAINE 1% INJ 10MG/ML (20 ML MDV) ONE (11:38)
[2023-05-09] MEDS: GENTAMICIN 80 MG in SODIUM CHLORIDE 0.9% IRRIGATIO 3,000 ML IRRIGATION ONE (12:38)
[2023-05-09] MEDS: THROMBIN (BOVINE) 5,000 UNIT VIAL TOPICAL ONE (12:38)
[2023-05-09] MEDS: ceFAZolin 3,000 MG in SODIUM CHLORIDE 0.9% IRRIGATIO 3,000 ML IRRIGATION ONE (12:38)
[2023-05-09] MEDS: GELATIN SPONGE,ABSORB (LARGE) 1 EACH SPONGE TOPICAL ONE (12:38)
--- NOTE | 2023-05-09 14:03 | P.GSCN ---
History of Present Illness Consult date: 05/09/23 History of present illness: 77 yomale in the or with Dr Mahoney for revision back surgery. A catheter will be required for bladder management due to the length of the procedure. the nursing staff was unable to place catheter. He has a history of urethral stricture disease. I have been asked to see the patient. He is anesthetized. the history is taken from the chart and the staff. Review of Systems ROS unobtainable: due to mental status Past Medical History Past Medical History: Coronary Artery Disease (CAD), CVA/TIA, Hyperlipidemia, Hypertension, Osteoarthritis (OA), Renal Disease Additional Past Medical History / Comment(s): Generalized arthritis, L leg numbness/tingling since harvested vein for CABG, slight cardiac murmur, kidney stones, possible ureteral stricture-difficult to pass lópez catheters. tia behind eye many years ago History of Any Multi-Drug Resistant Organisms: None Reported Past Surgical History: Back Surgery, Coronary Bypass/CABG, Heart Catheterization, Joint Replacement, Orthopedic Surgery Additional Past Surgical History / Comment(s): 2004 CABG 4 vessel, UVPPP, colonoscopy, bilateral knee arthroscopy, bilateral total knee arthroplasties, bilateral rotator cuff repairs, R total reverse shoulder, kidney stone basketing, cystoscopies/scar tissue removed from bladder. 2006 2022 back surgeries Past Anesthesia/Blood Transfusion Reactions: No Reported Reaction Additional Past Anesthesia/Blood Transfusion Reaction / Comm: no hx blood transfusion, had hallucinations after back surgery 11/2022 Smoking Status: Former smoker - Past Family History Father Additional Family Medical History / Comment(s): Father in a tractor accident. Mother Family Medical History: Myocardial Infarction (CA) Additional Family Medical History / Comment(s): Mother of a massive CA at the age of 69yrs. Brother(s) Family Medical History: Cancer Sister(s) Family Medical History: Cancer Medications and Allergies Home Medications Medication Instructions Recorded Confirmed Type lisinopriL [Lisinopril] 10 mg PO QAM 12/23/14 05/09/23 History Metoprolol Tartrate [Lopressor] 50 mg PO QAM 12/26/14 05/09/23 History Multivitamins, Thera [Multivitamin 1 tab PO DAILY 12/26/14 05/09/23 History (formulary)] Pravastatin Sodium 80 mg PO HS 11/21/18 05/09/23 History Aspirin EC [Ecotrin Low Dose] 81 mg PO DAILY #30 tablet. 11/22/18 05/09/23 Rx Cholecalciferol [Vitamin D3 (25 25 mcg PO DAILY 12/09/22 05/09/23 History Mcg = 1000 Iu)] Clopidogrel [Plavix] 75 mg PO HS 12/09/22 05/09/23 History Allergies Allergy/AdvReac Type Severity Reaction Status Date / Time morphine AdvReac Nausea & Verified 05/09/23 09:18 Vomiting Surgical - Exam Vital Signs Temp Pulse Resp BP Pulse Ox 97.1 F L 45 L 16 124/91 98 05/09/23 09:18 05/09/23 09:18 05/09/23 09:18 05/09/23 09:18 05/09/23 09:18 - General anesthetized, intubated. - Abdomen Abdomen: soft - Genitourinary uncircumcised Assessment and Plan Assessment: Impression: urine retention. Inability to pass a catheter due to urethral stricture disease Plan: urethral dilation with catheter placement
--- NOTE | 2023-05-09 14:11 | P.PCN ---
Date of Procedure: 05/09/23 Preoperative Diagnosis: urine retention with inability to pass a catheter Postoperative Diagnosis: same secondary to urethral stricture. Procedure(s) Performed: dilation of urethral stricture with filiform and followers 10-18 fr passage of a 16 fr lópez Anesthesia: ANALIA Surgeon: Ac Bourne Indications for Procedure: The patient is in the or for revision back surgery by Dr Mahoney. The nursing staff faile dwit 14, 14 coude and 16 fr cathters Description of Procedure: The patient is prepped and draped. A 4 fr spiral filiform is passed into the bladder. I then sequentially dilate the urethra with 10-18 fr followers. I then pass a 16 fr lópez catheter with clear to very faint pink urine The catheter should remain for 48 hour.
[2023-05-09] MEDS: LACTATED RINGERS 1,000 ML IV ONE ×2 (14:16→17:00)
[2023-05-09] MEDS: VANCOMYCIN 1,000 MG VIAL MISCELLANE ONE ×2 (14:29→15:19)
[2023-05-09] MEDS: TOBRAMYCIN SULFATE 1.2 GM VIAL MISCELLANE ONE (14:30)
[2023-05-09] MEDS ORDERED: MAGNESIUM HYDROXIDE 2,400 MG/30 ML CUP PO PRN (16:09)
[2023-05-09] MEDS ORDERED: CYCLOBENZAPRINE 5 MG TAB PO PRN (16:09)
[2023-05-09] MEDS ORDERED: HYDROcodone/APAP 10-325MG 1 EACH TAB PO PRN (16:09)
[2023-05-09] MEDS ORDERED: SENNOSIDES-DOCUSATE SODIUM 1 EACH TAB PO PRN (16:09)
[2023-05-09] MEDS: HYDROmorphone 0.5 MG/0.5 ML SYRINGE IVP ONE ×3 (16:34→18:19)
--- NOTE | 2023-05-09 17:17 | XR ---
EXAMINATION TYPE: XR lumbar spine 2 or 3V, FL guidance operating room DATE OF EXAM: 05/09/2023 Comparison: None Clinical History: LUMBAR HARDWARE REVISION Findings: Lumbar Hardware Revision . 36 secs FL. 25[address] Mahoney. 5 images provided. Impression: Intraoperative fluoroscopy as above.
[2023-05-09] MEDS: ACETAMINOPHEN TAB 325 MG TAB PO SCH (21:35)
[2023-05-09] MEDS: GABAPENTIN 300 MG CAP PO SCH (21:40)
[2023-05-10] MEDS: HYDROmorphone 0.5 MG/0.5 ML SYRINGE IVP PRN (00:36)
--- NOTE | 2023-05-10 07:26 | P.OP ---
Date of Procedure: 05/09/23 Preoperative Diagnosis: 1. HARDWARE FAILURE L2-3 2. PROGRESSIVE LE PARESTHESIAS WITH WEAKNESS AND SEVERE LOW BACK PAIN 3. L2 PEDICLE FRACTURE 4. THORACOLUMBAR DEFORMITY 5. COMPLEX MEDICAL PATIENT Postoperative Diagnosis: 1. HARDWARE FAILURE L2-3 2. PROGRESSIVE LE PARESTHESIAS WITH WEAKNESS AND SEVERE LOW BACK PAIN 3. L2 PEDICLE FRACTURE 4. THORACOLUMBAR DEFORMITY 5. COMPLEX MEDICAL PATIENT Procedure(s) Performed: 1. OPEN TREATMENT L2 FRACTURE 2. REVISION L2-3 INTERBODY FUSION WITH REMOVAL OF OLD INTERBODY AND REPLACEMENT OF NEW INTERBODY DEVICE 3. REVISION POSTEROLATERAL FUSION [id number] DUE TO HARDWARE FAILURE AT L2-3, L2 SCREW FAILURE, NEED FOR FURTHER FIXATION AND PURCHASE AND POSSIBLE INFECTION 4. SEGMENTAL INSTRUMENTATION [id number] 5. L1-3 REVISION LAMINECTOMY, FACETECTOMY AND FORAMINOTOMY FOR DECOMPRESSION AND CAGE REMOVAL AND PLACEMENT 6. INSERTION OF BIOMECHANICAL DEVICE L2-3 7. REMOVAL OF HARDWARE L2-3 CAGE 8. USE OF [employer] NAVIGATION FOR SCREW PLACEMENT AND DECOMPRESSION PLANNING CPTMOD 22 THIS CASE TOOK 80% LONGER THAN EXPECTED DUE TO CORMORBID CONDITIONS, NEED FOR FURTHER FIXATION AND TREATMENT, EXTENT OF THORACOLUMBAR DISEASE AND EXTREMELY HIGH TECHNICALITY OF THE CASE. EXPECTED CODES: 95983, 77609, 33456, 58324, 29243, 85086, 27564, 91260, 42360 Implants: -LYNDON EVEREST SCREW AND SEEMA SYSTEM -REMOVAL OF GLOBUS INTRALIFT, RISE CAGE X1 -PLACEMENT OF GLOBUS RISE 0 DEG, 22MM, 9-17 MM CAGE -THERACELL BULLETS IN DISC SPACE Anesthesia: MERLYNA Surgeon: Cruz Mahoney Protocol Officer #1: Lee Love (WAS PRESENT AND ASSISTED WITH ALL ASPECTS OF THE CASE FROM POSITION TO CLOSURE) Estimated Blood Loss (ml): 400 IV fluids (ml): 1,200 Urine output (ml): 500 Pathology: none sent Condition: stable Disposition: PACU Indications for Procedure: Manny Rodriguez is a 77 yo male presenting for evaluation of low back pain, severe, LE weakness and progressive changes due to cage migration. It was my pleasure to have seen and examined Manny Rodriguez In our visit today we have had a chance to go over subjective complaints, physical examination findings and treatments including the natural course history without intervention and various interventional options. The patients imaging demonstrates Loose L2 screws with Cage back out L2-3, stenosis related to cage impingement. Possible fracture of Left L2 pedicle. On physical exam, Kylie Rodriguez demonstrates extreme progressive back pain, Increased LE weakness, and progressive paresthesias in LE b/l. Difficulty with amubulation due to these findings. I have explained to the patient that as their condition progresses it will cause further neurological deficits and eventual paralysis. Based on the patients imaging, physical exam, and the rapid progression and disabling nature of their symptoms, at this time I recommend surgery in the form or a: revision L2-4 decompression and fusion with cage replacement, possible screw and seema replacement, possible extension up to T12/T11. I discussed the risk and benefits of this procedure at length with Manny Rodriguez . The patient and his and daughter at bedside agreed to considered pursuing the procedure abovementioned. Prior to surgery, she should follow up with her PCP (Cardio, ID, IM etc) for clearance. Questions were invited and answered, and the patient wishes to proceed as outlined below. Currently, I am recommendin. Revision L2-4 with hardware revision and all indicated procedures agreed to by family. Description of Procedure: REVISION [id number] WITH OPEN TREATMENT L2 FRACTURE, REMOVAL WITH PLACEMENT OF NEW CAGE L2-3, REVISION PL FUSION The patient was seen and examined in the preoperative area. All preoperative protocols were followed. Informed consent was obtained, risks and benefits of the procedure were discussed at length. Risks including bleeding infection damage to the surrounding tissue and risk of reoperation were discussed with the patient. Risk of anesthesia up to and including was discussed with the patient. These are outlined in the risk review. They were willing to accept these risks and all of the risks of surgery. The patient was given a weight- based dose of antibiotics in the form of ANCEF. The patient was seen and evaluated by the anesthesia team who deemed them fit for surgery. The site was marked, the patient was willing to proceed with the procedure. The patient was transferred to the operative suite by the Department of anesthesia. They were then drifted off to sleep by the department anesthesia and GETA was performed. The patient tolerated this well. [Burrows catheter was placed by nursing staff, atraumatically]. Once confirmation of lines and ventilation the patient was transferred to a [prone Antony table very carefully]. All bony prominences including wrists, elbows, axilla, chest, hips, and thighs, and feet were padded very well. Special attention was paid to the genitalia and these were padded accordingly. SCDs were placed on bilateral lower extremities and were connected. Arms were well padded and placed [on arm boards up and out in the 90/90 position]. Once in position, again we confirmed good ventilation capabilities and that lines were running appropriately. The patient's THORACOLUMBOPELVIC spine was then exposed. 1010s were placed outlining the incision site. Standard alcohol was used to clean the incision site and allowed to dry. C-arm was used to biomark the patient and confirm level for incision which was marked with a skin marker. Operative briefing was performed with all teams and everyone in agreement to proceed. The patient was then prepped and draped in a normal sterile fashion. Timeout was then performed and all parties were in agreement with the procedure to be performed. MIDLINE SKIN INCISION WAS MADE OVER THE PREVIOUSLY ABOUT MARKED AND DISSECTION TAKEN DOWN over the fascial region. Fascia was identified. In the midline portion there was some fluid that was expressed is not purulent however it was suspicious and this was cultured. It did not seem to track it seems stay in the area. Upon further dissection distally was noted that there was still stitches that had not dissolved PDS in this area as well as some other areas of possible potential suture abscesses in the past. These areas were also cultured. There was no tracking deep that is noted in the fascia was intact. Midline fasciotomy was made and some parallel ostial dissection was taken down over the lamina and transverse processes of T11 through pelvis hardware was identified and exposed from L2 to the pelvis. Once exposed set screws were removed and rods removed from bilateral L2 to pelvis region the L2 screws bilaterally were extremely loose and these were just removed. Once this was accomplished the wound was copiously irrigated and debrided of any scar tissue or suspicious looking tissue and deep cultures were taken prior to this. Once this was accomplished we then turned our attention to removal of interbody device at L2-L3. Laminectomy and facetectomy were done from L1 through L3 and scar tissue was removed from this area to allow access to the disc space. there is exuberant scar tissue in this area is very difficult to mobilize the scar tissue and get into the disc space lamina hogshead stock clerk was used to open the disc space further. Nerves were protected during this time. The cage was finally identified and the financial aid administrator was able to be placed on the cage cage was then collapsed and removed carefully. The disc space was inspected there was no purulence there was decent endplates the bone was fairly soft however endplates were still intact. Sizing paddle was used to determine a new size of cage placement this area once this was determined their cell allograft Bullets were selected and placed anteriorly within the disc space. Once this was accomplished the cage was selected and while protecting neural elements was impacted into position under lateral fluoroscopy. Cages then expanded until it torqued out cage was tested and was stable exuberant force was placed on the cage and it was not able to be dislodged at this time. We then place their cell Bullets behind the cages well. After this was accomplished the wound was copiously irrigated again withirricept solution followed by sterile saline. And further debridement was done of the area. We then placed the tracker for [employer] navigation a 3-D intraoperative seems been was then registered and confirmed to be accurate. We then placed screws agata aterally at T11 through L1. The screws all had good purchase. Screws at T11 were cemented bilaterally through fenestrations well under lateral fluoroscopy. Good cement fill was noted. We then placed their cell bone anchors into L2 and upsized L2 screws these were then placed bilaterally. Good purchase was achieved on the left moderate purchase on the right. Once this was accomplished AP and lateral fluoroscopy confirmed good placement of screws. Screws were tested and all tested above 20 mA. We then copiously irrigated again with normal sterile saline and Betadine. We then sized and selected rods and bent them appropriately. Rods were then placed into tulip heads starting at the pelvis and sequentially reduced into the thoracic screws. Set screws were then placed and final tightened and the position. 2 cross-links selected and placed and final tightened. This allowed for good reduction as well as stabilization of the segments. We then again copiously irrigated the wound with Irricept Betadine Ancef and gentamicin solutions followed by 6 L of normal sterile saline. Final imaging confirmed good placement of screws and hardware as well as good reduction of the fracture in the area. Normal and maintained alignment. Posterior lateral gutters were decorticated with high-speed bur. 2 g of vancomycin powder along with antibiotic beads were placed deep within the wound. A deep drain was placed and sewn in position at the skin. We then proceeded to layered closure. Deep fascia was closed with #1 PDS followed by a running #1 PDS strata fix. Deep subcu tissue closed with 0 Vicryl superficial subcu closed with 0 PDS running and skin closed with skin charli. The wound edges approximated very well. The drain was sewn into position and had good suction. Wound was then cleaned and dressed sterilely with Opteform dressing drain sponge and Tegaderm. The patient was transferred back to their hospital bed atraumatically. [Drain continued to hold suction and was in a good position]. Patient was then awakened and extubated by the department of anesthesia having tolerated the procedure very well with no complications. They were transferred to the postoperative care unit in stable condition.
--- NOTE | 2023-05-10 07:27 | P.PN ---
Progress Note - Text Progress Note Date: 05/10/[address] evaluated thoracolumbar pelvic spine demonstrates hardware in good position with good reduction of fracture and area. No, Complicating processing at this time.
[2023-05-10] MEDS: lisinopriL 10 MG TAB PO SCH (07:44)
[2023-05-10] MEDS: METOPROLOL TARTRATE 50 MG TAB PO SCH (07:44)
[2023-05-10] MEDS: HYDROcodone/APAP 5-325MG 1 EACH TAB PO PRN (07:53)
[2023-05-10] MEDS: ASPIRIN 81 MG PO SCH (07:54)
--- NOTE | 2023-05-10 08:39 | CT ---
EXAMINATION TYPE: CT thor lumbar spine wo con DATE OF EXAM: 05/09/2023 COMPARISON: CT lumbar spine 04/18/2023 HISTORY: s/p [id number] fusion CT DLP: 1878.1 mGycm Automated exposure control for dose reduction was used. Contrast: None Technique: Axial images at 3 mm thick sections. Reconstructed images in the sagittal and coronal plan e. FINDINGS: Note is made of some endplate spurring with anterior thecal sac flattening in the lower cervical spin e C6-7 foraminal stenosis is present C6-7 Thoracic spine: Some small central spurring is present at T6-7. No spinal canal stenosis. Vertebral plasty is present T11. Pedicle screws are present S1 and into the pelvis. Post surgical soft tissue changes are in the anjel dyllan regions. Disc spacers present at L2-3 L3-4. No spinal canal stenosis is evident. The L2-3 disc spacer has been replaced. A mild grade 1 spondylolisthesis of L4 anteriorly on L5 is present. No AP spinal canal stenosis. Note is made of some atelectatic type changes at the lung bases. IMPRESSION: 1. STATUS POST FIXATION T11 THROUGH THE PELVIS.
--- NOTE | 2023-05-10 08:58 | P.PN ---
Subjective Progress Note Date: 05/10/23 Principal diagnosis: 1. s/p Revision L2-Pelvis decompression and fusion 2. 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 LE paresthesias and radiculopathy, new Patient seen and examined this morning. Patient is resting comfortably in bed. Spouse is at bedside. Patient does report increased pain in his lower back and radiating to bilateral groin area with any activity. Medications have been adjusted. Patient has not been up since procedure. He is looking forward to working with physical therapy today. Prescription for TLSO brace is present in chart. Surgical dressing to the lumbar spine is clean dry and intact with Hemovac present, 220ml output overnight. Continue to encourage patient to be up in chair with all meals today and to work with physical therapy. Patient to utilize incentive spirometer while awake. No acute concerns at this time. Objective - Vital Signs Vital signs: Vital Signs Temp 98.8 F 05/10/23 07:07 Pulse 82 05/10/23 07:07 Resp 16 05/10/23 07:07 BP 90/49 05/10/23 07:07 Pulse Ox 95 05/10/23 07:07 FiO2 Intake & Output 05/09/23 05/10/23 05/10/23 18:59 06:59 18:59 Intake Total 3352 Output Total 1150 820 Balance 2202 -820 Weight 72.4 kg 72.4 kg Intake: IV 3352 Output: Drainage 220 Back 220 Urine 750 600 Estimated Blood Loss 400 - Exam Physical Examination General: The patient is awake and alert, in no acute distress Skin: Skin is warm and dry with no obvious rashes or lesions. Surgical incision to the lumbar spine, dressing is clean dry and intact with Hemovac present, 220 mL output overnight. Eye: Pupils are equal, round and reactive to light, extra-ocular movements are intact; there is normal conjunctiva bilaterally. Neck: The neck is supple, there is no tenderness and ROM intact. Cardiovascular: There is a regular rate and rhythm. No murmur, rub or gallop is appreciated. Respiratory: Lungs are clear to auscultation, respirations are non-labored, breath sounds are equal. Gastrointestinal: Soft, non-distended, non-tender abdomen. Back: There is no tenderness to palpation in the midline, paralumbar, parathoracic or buttocks region. There is no obvious deformity . Musculoskeletal: ROM limited secondary to pain and stiffness from surgical procedure. Muscle strength in all major muscle groups of bilateral upper extremities 5/5, bilateral lower extremities 4/5. Neurological: CN 2-12 intact. There are no obvious motor or sensory deficits. Movement and coordination equal and intact. Sensory exam to light touch intact C5-T1 and intact from L2-S1. Reflexes 2/4 in bilateral upper and lower extremities. Negative Hoffmans, babinski, and clonus signs. Psychiatric: Cooperative, appropriate mood & affect, normal judgment. Assessment and Plan Assessment: Postop day 1: Revision posterior lateral fusion [id number] with open treatment L2 fracture, removal with replacement of new cage L2-3 1. s/p Revision L2-Pelvis decompression and fusion 2. 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 LE paresthesias and radiculopathy, new Plan: -Appreciate hr shared services consultant and team management. -Activity: Ambulate QID, OOB all meals, up and about, limit lifting bending twisting to less than 5 lbs. Use walker or cane if needed for stability. -Daily PT/OT, increase ambulation strength and balance. -Brace when up and about, not needed in bed or chair -Prescription for TLSO brace has been placed in chart -Pain control: Medications adjusted -Meds: reviewed -GI ppx: senna, Milk of Mag -DC lópez when up and about, bedside commode if needed -DVT PPX: OK to restart Heparin tonight -Hygiene: Shower today. Maintain dressing clean and dry. Meticulous cleaning after BMs away from the incision site -Drains: Maintain for now. Continue to monitor and record output q shift. -Encourage IS 10x/hr -Dispo: Anticipate discharge home with homecare in the next 48hrs *I reviewed and discussed this case with my attending Dr. Mahoney, whom has reviewed this chart and films and is in agreement with assessment and plan of care as outlined above. I have personally seen and examined the patient, performed the documentation and the assessment and plan as written. Number of minutes spent on the visit: 20m
[2023-05-10 11:27] LABS: BUN/Creat Ratio 19.78 Ratio (12.00-20.00); Blood Urea Nitrogen 17.8 mg/dL (9.0-27.0); Calcium 8.8 mg/dL (8.7-10.3); Carbon Dioxide 24.3 mmol/L (21.6-31.8); Chloride 98 mmol/L (96-109); Glucose 102 mg/dL (70-110); Potassium 4.7 mmol/L (3.5-5.5); Sodium 134 mmol/L (135-145)
[2023-05-10 11:48] LABS: Basophils # (A) 0.03 X 10*3/uL (0.00-0.10); Basophils % (A) 0.2 %; Eosinophils # (A) 0 X 10*3/uL (0.04-0.35); Eosinophils % (A) 0 %; HCT 38.2 % (39.6-50.0); HGB 12.4 g/dL (13.0-17.0); Lymphocytes # (A) 0.89 X 10*3/uL (0.90-5.00); Lymphocytes % (A) 5.8 %; MCH 28.9 pg (27.0-32.0); MCHC 32.5 g/dL (32.0-37.0); Mean Platelet Volume 10.1 FL (9.5-12.2); Monocytes # (A) 0.73 X 10*3/uL (0.20-1.00); Monocytes % (A) 4.7 %; NRBC Per 100 WBC 0 X 10*3/uL (0.00-0.01); Neutrophils # (A) 13.72 X 10*3/uL (1.80-7.70); Neutrophils % (A) 88.8 %; Platelet Count 228 X 10*3/uL (140-440); RBC 4.29 X 10*6/uL (4.40-5.60); RDW 13.5 % (11.5-14.5); WBC 15.45 X 10*3/uL (4.50-10.00)
[2023-05-10] MEDS ORDERED: traMADol 50 MG TAB PO PRN (12:16)
[2023-05-10] MEDS: HYDROcodone/APAP 5-325MG 1 EACH TAB PO SCH (12:28)
--- NOTE | 2023-05-10 12:52 | P.CONS ---
History of Present Illness - Reason for Consult Consult date: 05/10/23 Medical management Requesting physician: Cruz Mahoney - History of Present Illness This is a 77-year-old gentleman with past medical history significant for chronic low back pain with radiculopathy-L2 to pelvis decompression/fusion,CAD, status post CABG, hyperlipidemia, hypertension, chronic kidney disease, urethral stricture, renal calculi and multiple other medical issues, status post revision of posterior lateral fusion [id number] with open treatment L2 fracture, removal with replacement of new cage L2-3 secondary to hardware failure L2-3 with cage backout, lower extremity paresthesias and radiculopathy. Positive pain. Denies chest pain, palpitations or shortness of breath. Has not yet been out of bed, PT is scheduled for this morning. Denies passing of flatus or bowel movement. Afebrile, WBC 15.45. Hemoglobin 12.4, platelets 228. Sodium 134, potassium 4.7, bicarb 24.3, BUN 17.8, creatinine 0.9. Oxygen has been weaned off and maintaining O2 sats in the mid 90s on room air. Denies numbness or tingling. thoracic lumbar spine CT pending. Review of Systems ROS Statement: Those systems with pertinent positive or pertinent negative responses have been documented in the HPI. ROS Other: All systems not noted in ROS Statement are negative. Past Medical History Past Medical History: Coronary Artery Disease (CAD), CVA/TIA, Hyperlipidemia, Hypertension, Osteoarthritis (OA), Renal Disease Additional Past Medical History / Comment(s): Generalized arthritis, L leg numbness/tingling since harvested vein for CABG, slight cardiac murmur, kidney stones, possible ureteral stricture-difficult to pass lópez catheters. tia behind eye many years ago History of Any Multi-Drug Resistant Organisms: None Reported Past Surgical History: Back Surgery, Coronary Bypass/CABG, Heart Catheterization, Joint Replacement, Orthopedic Surgery Additional Past Surgical History / Comment(s): 2004 CABG 4 vessel, UVPPP, colonoscopy, bilateral knee arthroscopy, bilateral total knee arthroplasties, bilateral rotator cuff repairs, R total reverse shoulder, kidney stone basketing, cystoscopies/scar tissue removed from bladder. 2006 2022 back surgeries Past Anesthesia/Blood Transfusion Reactions: No Reported Reaction Additional Past Anesthesia/Blood Transfusion Reaction / Comm: no hx blood transfusion, had hallucinations after back surgery 11/2022 Past Psychological History: No Psychological Hx Reported Additional Psychological History / Comment(s): Pt resides with his spouse. He is independent. Smoking Status: Former smoker Past Alcohol Use History: None Reported Additional Past Alcohol Use History / Comment(s): Pt started smoking in 1959 and quit in 1987. Past Drug Use History: None Reported - Past Family History Father Additional Family Medical History / Comment(s): Father in a tractor accident. Mother Family Medical History: Myocardial Infarction (MS) Additional Family Medical History / Comment(s): Mother of a massive MS at the age of 69yrs. Brother(s) Family Medical History: Cancer Sister(s) Family Medical History: Cancer Medications and Allergies Home Medications Medication Instructions Recorded Confirmed Type lisinopriL [Lisinopril] 10 mg PO QAM 12/23/14 05/09/23 History Metoprolol Tartrate [Lopressor] 50 mg PO QAM 12/26/14 05/09/23 History Multivitamins, Thera [Multivitamin 1 tab PO DAILY 12/26/14 05/09/23 History (formulary)] Pravastatin Sodium 80 mg PO HS 11/21/18 05/09/23 History Aspirin EC [Ecotrin Low Dose] 81 mg PO DAILY #30 tablet. 11/22/18 05/09/23 Rx Cholecalciferol [Vitamin D3 (25 25 mcg PO DAILY 12/09/22 05/09/23 History Mcg = 1000 Iu)] Clopidogrel [Plavix] 75 mg PO HS 12/09/22 05/09/23 History Allergies Allergy/AdvReac Type Severity Reaction Status Date / Time morphine AdvReac Nausea & Verified 05/09/23 09:18 Vomiting Physical Exam Vitals: Vital Signs Temp Pulse Resp BP Pulse Ox 05/10/23 07:07 98.8 F 82 16 90/49 95 05/10/23 01:30 97.6 F 67 14 100/51 93 L 05/09/23 19:25 97.1 F L 53 L 16 145/66 100 05/09/23 19:13 59 L 18 135/61 97 05/09/23 18:45 54 L 12 125/58 96 05/09/23 18:15 50 L 10 L 122/58 93 L 05/09/23 17:56 49 L 15 139/63 100 05/09/23 17:41 53 L 12 136/57 100 05/09/23 17:20 56 L 15 134/63 98 05/09/23 17:04 57 L 19 107/59 97 05/09/23 16:49 56 L 17 103/56 94 L 05/09/23 16:34 51 L 12 107/57 94 L 05/09/23 16:29 53 L 20 107/57 97 05/09/23 16:14 96.4 F L 49 L 14 145/65 98 05/09/23 10:00 45 L 16 118/74 98 05/09/23 09:18 97.1 F L 45 L 16 124/91 98 Intake and Output 05/09/23 05/10/23 05/10/23 22:59 06:59 14:59 Intake Total 1400 Output Total 1150 820 Balance 250 -820 Intake: IV 1400 Output: Drainage 220 Back 220 Urine 750 600 Estimated Blood Loss 400 Other: Weight 72.4 kg PHYSICAL EXAM: VITAL SIGNS: [As above] GENERAL: Alert and oriented x 3, laying in bed, pleasant, no acute distress HEENT: Atraumatic, normocephalic conjunctivae normal. eyes normal. Sclera anicteric. mmm. NECK: Supple, no JVD. CARDIOVASCULAR: S1, S2 regular. Systolic murmur RESPIRATION: Unlabored, equal air entry, clear to auscultation ,breath sounds diminished in the bases. No use of assessory muscles. ABDOMEN: Soft, no distention, nontender . No guarding. no masses palpable. No ascites, No hepatosplenomegaly.Bowel sounds heard. LEGS: No edema. no swelling, no calf tenderness noted. Positive DP pulses. NERVOUS SYSTEM: Cranial N 2-12 grossly normal.No focal deficits. Skin: Warm and dry, no rash. Hemovac with serosanguineous drainage. Results CBC & Chem 7: 05/10/23 05:39 05/10/23 05:39 Assessment and Plan Assessment: Revision posterior lateral fusion [id number] with open treatment L2 fracture, removal with replacement of new cage L2-3, status post revision L2-pelvis decompression and fusion. Leukocytosis , suspect postoperative atelectasis History of distal bulbar urethral stricture, status post dilation with López catheter- coude placement intraoperative as per urology. History of a occipital CVA,11/15 brain MRI , follows with Dr. Rajwinder Francisco. reports repeat MRI of brain performed September 24 at [facility] [place]. CAD, history of CABG Hypertension Hyperlipidemia Plan: Continue on current medication regimen, monitoring and symptomatic treatment. Aggressive pulmonary toileting with incentive spirometer reinforced. Leukocytosis, close monitoring with repeat CBC in a.m. PT. Metamucil-Home medication, added to med regimen. Pain management, DVT prophylaxis as per orthopedic spine. Thank you for the consult. The impression and plan of care has been dictated as directed. : I performed a history and examination of this patient, discussed the same with the dictator. I agree with the dictator's note ,documented as a scribe. Any additional findings or plans will be noted.
[2023-05-10] MEDS: PSYLLIUM HUSK 100% 6 GM PACKET PO SCH (17:53)
[2023-05-10] MEDS: CLOPIDOGREL 75 MG TAB PO SCH (21:41)
[2023-05-10] MEDS: PRAVASTATIN SODIUM 80 MG TAB PO SCH (21:41)
[2023-05-11 06:55] LABS: Basophils % (A) 0 %; Eosinophils # (A) 0.5 k/uL (0-0.7); Eosinophils % (A) 5 %; HGB 12.3 gm/dL (13.0-17.5); Lymphocytes # (A) 0.8 k/uL (1.0-4.8); Lymphocytes % (A) 8 %; MCH 29.3 pg (25.0-35.0); MCHC 32.4 g/dL (31.0-37.0); MCV 90.4 fL (80.0-100.0); Mean Platelet Volume 7.5; Monocytes # (A) 0.6 k/uL (0-1.0); Monocytes % (A) 5 %; Neutrophils # (A) 8.3 k/uL (1.3-7.7); Neutrophils % (A) 81 %; Platelet Count 206 k/uL (150-450); RDW 13.7 % (11.5-15.5); WBC 10.3 k/uL (3.8-10.6)
[2023-05-11 07:05] LABS: African American GFR (CKD) >90 (>60 ml/min/1.73 sqM); Anion Gap 7 mmol/L; Blood Urea Nitrogen 19 mg/dL (9-20); Calcium 8.8 mg/dL (8.4-10.2); Carbon Dioxide 26 mmol/L (22-30); Chloride 101 mmol/L (98-107); Glucose 97 mg/dL (74-99); Non-African American GFR(CKD) 89 (>60 ml/min/1.73 sqM); Potassium 4.2 mmol/L (3.5-5.1); Sodium 134 mmol/L (137-145)
--- NOTE | 2023-05-11 08:25 | P.PN ---
Subjective Progress Note Date: 05/11/23 Principal diagnosis: 1. s/p Revision L2-Pelvis decompression and fusion 2. 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 LE paresthesias and radiculopathy, new Patient seen and examined this morning. Patient is resting comfortably in bed. He does have complaint of low back pain, instructed patient to use call light to request pain medication. Hes states he was provided Tylenol this morning. Patient reports he did work with physical therapy yesterday and tolerated activity well. Patient denies any numbness or tingling to the bilateral lower extremities. López catheter was removed this morning, patient is due to void. Continue to encourage patient to the up in chair for all meals and to work with therapy. Surgical dressing to the lumbar spine is clean dry and intact with Hemovac present with 60 mL output overnight. Patient is progressing well for possible discharge tomorrow. No acute concerns at this time. Objective - Vital Signs Vital signs: Vital Signs Temp 98.3 F 05/11/23 01:06 Pulse 83 05/11/23 01:06 Resp 15 05/11/23 01:06 BP 122/65 05/11/23 01:06 Pulse Ox 91 L 05/11/23 01:06 FiO2 Intake & Output 05/10/23 05/11/23 05/11/23 18:59 06:59 18:59 Output Total 1220 6040 Balance -1220 -6040 Output: Drainage 220 240 Back 220 240 Urine 1000 5800 Uretheral (López) 2900 Other: Voiding Method Indwelling Catheter Indwelling Catheter - Exam Physical Examination General: The patient is awake and alert, in no acute distress Skin: Skin is warm and dry with no obvious rashes or lesions. Surgical i ncision to the lumbar spine, dressing is clean dry and intact with Hemovac present, 60 mL output overnight. Eye: Pupils are equal, round and reactive to light, extra-ocular movements are intact; there is normal conjunctiva bilaterally. Neck: The neck is supple, there is no tenderness and ROM intact. Cardiovascular: There is a regular rate and rhythm. No murmur, rub or gallop is appreciated. Respiratory: Lungs are clear to auscultation, respirations are non-labored, breath sounds are equal. Gastrointestinal: Soft, non-distended, non-tender abdomen. Back: There is no tenderness to palpation in the midline, paralumbar, parathoracic or buttocks region. There is no obvious deformity . Musculoskeletal: ROM limited secondary to pain and stiffness from surgical procedure. Muscle strength in all major muscle groups of bilateral upper extremities 5/5, bilateral lower extremities 4/5. Neurological: CN 2-12 intact. There are no obvious motor or sensory deficits. Movement and coordination equal and intact. Sensory exam to light touch intact C5-T1 and intact from L2-S1. Reflexes 2/4 in bilateral upper and lower extremities. Negative Hoffmans, babinski, and clonus signs. Psychiatric: Cooperative, appropriate mood & affect, normal judgment. - Labs CBC & Chem 7: 05/11/23 06:19 05/11/23 06:19 Labs: Abnormal Lab Results - Last 24 Hours (Table) 05/10/23 05/10/23 05/11/23 Range/Units 05:39 05:39 06:19 WBC 15.45 H (4.50-10.00) X 10*3/uL RBC 4.29 L 4.20 L (4.40-5.60) X 10*6/uL Hgb 12.4 L 12.3 L (13.0-17.0) g/dL Hct 38.2 L 38.0 L (39.6-50.0) % Immature Gran # 0.08 H (0.00-0.04) X 10*3/uL Neutrophils # 13.72 H 8.3 H (1.80-7.70) X 10*3/uL Lymphocytes # 0.89 L 0.8 L (0.90-5.00) X 10*3/uL Eosinophils # 0 L (0.04-0.35) X 10*3/uL Sodium 134 L (135-145) mmol/L 05/11/23 Range/Units 06:19 WBC (4.50-10.00) X 10*3/uL RBC (4.40-5.60) X 10*6/uL Hgb (13.0-17.0) g/dL Hct (39.6-50.0) % Immature Gran # (0.00-0.04) X 10*3/uL Neutrophils # (1.80-7.70) X 10*3/uL Lymphocytes # (0.90-5.00) X 10*3/uL Eosinophils # (0.04-0.35) X 10*3/uL Sodium 134 L (135-145) mmol/L Microbiology - Last 24 Hours (Table) 05/09/23 12:50 Gram Stain - Preliminary Back Wound Culture - Preliminary Assessment and Plan Assessment: Postop day 2: Revision posterior lateral fusion [id number] with open treatment L2 fracture, removal with replacement of new cage L2-3 1. s/p Revision L2-Pelvis decompression and fusion 2. 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 LE paresthesias and radiculopathy, new Plan: -Appreciate baby registry sales consultant and team management. -Activity: Ambulate QID, OOB all meals, up and about, limit lifting bending twisting to less than 5 lbs. Use walker or cane if needed for stability. -Daily PT/OT, increase ambulation strength and balance. -Brace when up and about, not needed in bed or chair -Pain control: Medications adjusted -Meds: reviewed -GI ppx: senna, Milk of Mag -DC lópez when up and about, bedside commode if needed -DVT PPX: Plavix, aspirin -Hygiene: Maintain dressing clean and dry. Meticulous cleaning after BMs away from the incision site -Drains: Maintain for now. Continue to monitor and record output q shift. -Encourage IS 10x/hr -Dispo: Anticipate discharge home with homecare in the next 48hrs *I reviewed and discussed this case with my attending Dr. Mahoney, whom has reviewed this chart and films and is in agreement with assessment and plan of care as outlined above. I have personally seen and examined the patient, performed the documentation and the assessment and plan as written. Number of minutes spent on the visit: 20m
[2023-05-11] MEDS: oxyCODONE-APAP 5-325MG 1 EACH TAB PO PRN (08:28)
[2023-05-11] MEDS: HYDROmorphone 1 MG/ML 1 ML SYRINGE IVP PRN (09:55)
--- NOTE | 2023-05-11 12:37 | P.PN ---
Subjective Progress Note Date: 05/11/23 05/10/2023 this is a 77-year-old gentleman with past medical history significant for chronic low back pain with radiculopathy-L2 to pelvis decompression/fusion,CAD, status post CABG, hyperlipidemia, hypertension, chronic kidney disease, urethral stricture, renal calculi and multiple other medical issues, status post revision of posterior lateral fusion [id number] with open treatment L2 fracture, removal with replacement of new cage L2-3 secondary to hardware failure L2-3 with cage backout, lower extremity paresthesias and radiculopathy. Positive pain. Denies chest pain, palpitations or shortness of b reath. Has not yet been out of bed, PT is scheduled for this morning. Denies passing of flatus or bowel movement. Afebrile, WBC 15.45. Hemoglobin 12.4, platelets 228. Sodium 134, potassium 4.7, bicarb 24.3, BUN 17.8, creatinine 0.9. Oxygen has been weaned off and maintaining O2 sats in the mid 90s on room air. Denies numbness or tingling. thoracic lumbar spine CT pending. 05/11/2023 at bedside and reports that patient became confused after receiving Leslie.patient reports he takes Ultram at home ,tolerates without any confusion. participated with PT, tolerated exertion well. Reports he sat up in chair yesterday. denies numbing or tingling. Burrows catheter recently discontinued, spontaneous void pending. Denies chest pain, palpitations or shortness of breath. Maintaining O2 sats in the low 90s on room air. afebrile, WBC normalized. Hemoglobin 12.3, platelets 206. Sodium 134, bicarb 26, BUN 19, creatinine decreased to 0.72. Objective - Vital Signs Vital signs: Vital Signs Temp 98.5 F 05/11/23 07:16 Pulse 83 05/11/23 07:16 Resp 17 05/11/23 07:16 BP 115/74 05/11/23 07:16 Pulse Ox 92 L 05/11/23 07:16 FiO2 Intake & Output 05/10/23 05/11/23 05/11/23 18:59 06:59 18:59 Output Total 1220 6040 Balance -1220 -6040 Output: Drainage 220 240 Back 220 240 Urine 1000 5800 Uretheral (Burrows) 2900 Other: Voiding Method Indwelling Catheter Indwelling Catheter - Exam PHYSICAL EXAM: VITAL SIGNS: [As above] GENERAL: Alert and oriented x 3, laying in bed, pleasant, no acute distress HEENT: Atraumatic, normocephalic conjunctivae normal. eyes normal. Sclera anicteric. mmm. NECK: Supple, no JVD. CARDIOVASCULAR: S1, S2 regular. Systolic murmur RESPIRATION: Unlabored, equal air entry, clear to auscultation ,breath sounds diminished in the bases. ABDOMEN: Soft, no distention, nontender . No guarding. +BS LEGS: No edema. no swelling, no calf tenderness noted. Positive DP pulses. NERVOUS SYSTEM: Cranial N 2-12 grossly normal.No focal deficits. Skin: Warm and dry, no rash. Hemovac with serosanguineous drainage. - Labs CBC & Chem 7: 05/11/23 06:19 05/11/23 06:19 Labs: Abnormal Lab Results - Last 24 Hours (Table) 05/10/23 05/10/23 05/11/23 Range/Units 05:39 05:39 06:19 WBC 15.45 H (4.50-10.00) X 10*3/uL RBC 4.29 L 4.20 L (4.40-5.60) X 10*6/uL Hgb 12.4 L 12.3 L (13.0-17.0) g/dL Hct 38.2 L 38.0 L (39.6-50.0) % Immature Gran # 0.08 H (0.00-0.04) X 10*3/uL Neutrophils # 13.72 H 8.3 H (1.80-7.70) X 10*3/uL Lymphocytes # 0.89 L 0.8 L (0.90-5.00) X 10*3/uL Eosinophils # 0 L (0.04-0.35) X 10*3/uL Sodium 134 L (135-145) mmol/L 05/11/23 Range/Units 06:19 WBC (4.50-10.00) X 10*3/uL RBC (4.40-5.60) X 10*6/uL Hgb (13.0-17.0) g/dL Hct (39.6-50.0) % Immature Gran # (0.00-0.04) X 10*3/uL Neutrophils # (1.80-7.70) X 10*3/uL Lymphocytes # (0.90-5.00) X 10*3/uL Eosinophils # (0.04-0.35) X 10*3/uL Sodium 134 L (135-145) mmol/L Microbiology - Last 24 Hours (Table) 05/09/23 12:50 Gram Stain - Preliminary Back Wound Culture - Preliminary Assessment and Plan Assessment: Revision posterior lateral fusion [id number] with open treatment L2 fracture, removal with replacement of new cage L2-3, status post revision L2-pelvis decompression and fusion. Atelectasis, postoperative, expected outcome Leukocytosis , resolved ,suspect postoperative atelectasis History of distal bulbar urethral stricture, status post dilation with Burrows catheter- coude placement intraoperative as per urology. History of a occipital CVA,11/15 brain MRI , follows with Dr. Rajwinder Francisco. reports repeat MRI of brain performed September 24 at [facility] [place]. CAD, history of CABG Hypertension Hyperlipidemia Plan: Continue on current medication regimen, monitoring and symptomatic treatment. PT. maintain aggressive pulmonary toileting with incentive spirometer reinforced. Pain management, DVT prophylaxis as per orthopedic spine. The impression and plan of care has been dictated as directed. : I performed a history and examination of this patient, discussed the same with the dictator. I agree with the dictator's note ,documented as a scribe. Any additional findings or plans will be noted.
[2023-05-12 03:03] VITALS: TEMP 98
--- NOTE | 2023-05-12 07:30 | P.DS ---
Providers Date of admission: 05/09/23 08:48 Expected date of discharge: 05/12/23 Attending physician: Cruz Mahoney DO Consults: 05/09/23 16:07 Consult Physician Routine Consulting Provider: Ac Bourne Consult Reason/Comments: Urology Management - urethral stricture Do you want consulting provider notified?: Yes 05/09/23 16:09 Consult Physician Routine Consulting Provider: Antonio Zhang Consult Reason/Comments: medical management s/p [id number] Do you want consulting provider notified?: Yes Primary care physician: Antonio Zhang Hospital Course: Hospital Course: The patient was evaluated preoperatively and found to have the diagnosis of mechanical complication. They underwent appropriate preoperative care and were w illing to undergo the intended procedure. They underwent a successful Revision posterior lateral fusion [id number] with open treatment L2 fracture, removal with replacement of new cage L2-3, were recovered appropriately and sent to the floor. While on the floor they worked with physical therapy, occupational therapy and nursing to enhance their recovery experience. Their pain was well controlled through their stay and they were started on appropriate medications, DVT ppx modalities, activity and dietary needs. Daily labs were monitored closely, and transfusions were only used when necessary. Medicine as well as other consulting services have made their input and have helped with our team approach and multidisciplinary care. PT milestones have been met and passed and they have made the recommendation of home with home care for this patient and treating providers agree with this care path. The patient will be discharged home with appropriate medications, instructions and follow-up information and in stable condition. Patient Condition at Discharge: Good Plan - Discharge Summary Discharge Rx Participant: Yes New Discharge Prescriptions: New cefaDROXiL [Duricef] 500 mg PO Q12HR #10 cap Sennosides/Docusate Sodium [Senna Plus 8.6-50 mg Softgel] 1 each PO DAILY PRN #20 capsule PRN Reason: Constipation oxyCODONE-APAP 5-325MG [Percocet 5-325 mg] 1 tab PO Q6HR PRN #40 tab PRN Reason: Pain No Action lisinopriL [Lisinopril] 10 mg PO QAM Multivitamins, Thera [Multivitamin (formulary)] 1 tab PO DAILY Metoprolol Tartrate [Lopressor] 50 mg PO QAM Pravastatin Sodium 80 mg PO HS Aspirin EC [Ecotrin Low Dose] 81 mg PO DAILY #30 tablet. Cholecalciferol [Vitamin D3 (25 Mcg = 1000 Iu)] 25 mcg PO DAILY Clopidogrel [Plavix] 75 mg PO HS Discharge Medication List lisinopriL [Lisinopril] 10 mg PO QAM 12/23/14 [History] Metoprolol Tartrate [Lopressor] 50 mg PO QAM 12/26/14 [History] Multivitamins, Thera [Multivitamin (formulary)] 1 tab PO DAILY 12/26/14 [History] Pravastatin Sodium 80 mg PO HS 11/21/18 [History] Aspirin EC [Ecotrin Low Dose] 81 mg PO DAILY #30 tablet. 11/22/18 [Rx] Cholecalciferol [Vitamin D3 (25 Mcg = 1000 Iu)] 25 mcg PO DAILY 12/09/22 [History] Clopidogrel [Plavix] 75 mg PO HS 12/09/22 [History] Sennosides/Docusate Sodium [Senna Plus 8.6-50 mg Softgel] 1 each PO DAILY PRN #20 capsule 05/12/23 [Rx] cefaDROXiL [Duricef] 500 mg PO Q12HR #10 cap 05/12/23 [Rx] oxyCODONE-APAP 5-325MG [Percocet 5-325 mg] 1 tab PO Q6HR PRN #40 tab 05/12/23 [Rx] Follow up Appointment(s)/Referral(s): [facility], [NON-STAFF] - As Needed ([facility] will call you to schedule your in home nursing, physical therapy, and occupational therapy visits. ) Cruz Mahoney, [Doctor of Osteopathic Medicine] - 10 Days Activity/Diet/Wound Care/Special Instructions: Spine Discharge and Recovery Instructions Date of Surgery: 05/09/2023 Diagnosis: Mechanical complications Procedure: Revision posterior lateral fusion [id number] with open treatment L2 fracture, removal with replacement of new cage L2-3 Medications: See medication list All medication refills should be obtained through your primary care doctor or your clinic spine surgeon. Please discuss prescription refills at your follow up appointment. Do not call the hospital for medication refills. Activity: Encourage ambulation with assist of walker, Up and about 6-8x daily PT/OT daily work on balance, strength and mobility Up in chair with all meals Shower daily Brace: Use brace when up and about, do not wear in bed or shower Dressing: Leave your dressing in place for a total of 3 days post operatively. Then you may remove your dressing and leave open to air. Keep the area clean and if not able to keep area clean, then cover with sterile gauze and tape. Showering: You may shower 3 days after your procedure allowing soap and water to run over incision. Do not scrub. Do not soak. Blot dry. Follow up: Please confirm a follow up appointment with your surgeon 2 weeks post operatively. Please make an appointment to follow up with your PCP in 1-2 weeks after surgery for evaluation 3 phase, 3-week plan POST OP WEEKS 1-3 1. Lifting/carrying/pushing/pulling limited to less than 5 pounds. 2. Do not sit for longer than 15 minutes at one time. Get up and walk around. Prolonged sitting is NOT advised. If you lay down, see if you can tolerate laying down on you front (belly side) 3. Walk for periods of 15 minutes = 1 mile but no longer; do it multiple times times each day. 4. Ice your low back after activity. POST OP WEEKS 3-6 1. Lifting limited to less than 20 pounds. 2. Do not sit for longer than 30 minutes at a time. Frequently change positions. Use a sit-to stand workstation or take frequent breaks from sitting if you have returned to work. 3. Walk for 30 minutes each day. If possible, do these three or more times a day POST OP WEEKS 6+ At your 6-week appointment we will give you a physical therapy referral to focus on a core stabilization and strengthening program. You should also work on leg & buttock strengthening, hamstring & quadriceps stretching, and continue a low impact aerobic activity program such as swimming, walking, or riding a stationary bicycle. During the initial 6 weeks after your surgery, you are at the highest risk of re-injuring your spine. You should generally avoid BLTs (bending, lifting and twisting combination motions) and follow the above guidelines to reduce the chance of reinjury. You can anticipate post op appointments in our office at approximately 3 weeks and 6 weeks after your surgery. INCISION CARE: If your incision is not draining you do NOT need to cover it with a dressing. Keep your incision clean, dry and intact. In most cases, we apply skin glue, charli or sutures to the incision at the time of surgery. This will be like a crust or have the appearance of a scab and will fall off in time on its own. The stitches or charli need to be removed at 3 weeks post op appointment. You may begin to shower 3 days after surgery (this allows the glue to chan well). However, please avoid scrubbing the incision site or peeling off any of the skin glue. This will ensure optimal healing of your incision. Also, during this time avoid soaking the incision area in water - this includes swimming pools, hot tubs or baths. No ointments, lotions or oils on the incision until your surgeon allows. Leave charli, sutures or glue in place. Neurological dysfunction that comes on suddenly can also be a sign of a stroke. Below some common symptoms of a stroke are listed: B - balance difficulty such as sudden onset walking or leaning to one side - NEW E - eye problem such as sudden double vision or trouble seeing on one side - NEW F - Facial weakness or numbness on one side - NEW A - Arm or leg weakness or numbness on one side - NEW S - Slurred speech or difficulty with word finding - NEW T - Time is BRAIN! Call 911 as soon as you recognize these symptoms Diet: Consume a regular diet rich in vegetables and lean protein such as chicken or fish. You should consume in a ratio of approximately 20% fats|40% carbohydrates|40%protein. Vegetables, sweet potatoes, brown rice or quinoa are examples of good carbohydrates. Chips, white bread, cookies and sweets/sugar are examples of bad carbohydrates. Limit your bad carbs, go wild with good carbs. "Life's Simple 7" Guidelines as per [place] [employer] These will help you reclaim your life after surgery and truss puller helper in your recovery, keeping in mind your restrictions. (1) Get Active. Physical activity can help people lose weight, control high blood pressure and cholesterol, feel emotionally better, and sleep better. (2) Control Cholesterol. Avoid a diet high in saturated fat, trans fat, & cholesterol. Limit whole milk & cream, ice cream, butter, egg yolks, processed meats (like sausage and hot dogs), and fatty meats. Choose healthy foods that are low in saturated fat, trans fat and cholesterol which include: Fruits and vegetables, fiber rich grain products (like whole grain pasta and brown rice), lean meat such as chicken, fish, nuts, seeds, and legumes. (3) Eat Better. Eat small portions. Shop at the grocery with a list and do not stray from it. Tips for a healthy diet include: Limit sodium intake to less than 1500mg daily, avoid prepackaged, processed, and fast foods, choose a diet rich in fruits, vegetables, and whole grain, high fiber foods, and limit saturated & cholesterol in your diet. (4) Manage Blood Pressure. If you have high blood pressure, you should have a cuff at home so that you can check your blood pressure regularly. Be sure you have a good cuff. An arm one is generally better than a wrist one. Bring the cuff to a doctor's appointment to validate that the measurements that your cuff are taking are accurate. Take your blood pressure twice daily when you are sitting down and relaxing. Record the numbers in a log and bring this log with you to your doctors' appointments. (5) Lose Weight if your BMI is above 25. A healthy BMI is between 19-25. To calculate Your BMI, you may use a Standard BMI Calculator on the NIH BMI website: <www.nhlbi.nih.gov/guidelines/obesity/BMI/bmicalc.htm>. Weigh oneself daily. If you are overweight, set a goal to lose weight. A pound a week loss if needed is a good target. (6) Reduce Blood Sugar. Limit foods and liquids with "added sugars." (Added sugars include sucrose, fructose, glucose, maltose, dextrose, high fructose corn syrup, corn syrup, concentrated fruit juice and honey). (7) Stop Smoking. If you smoke, quitting smoking is one of the best things that you can do for your health. Smoking increases your risk of heart attack, stroke, and peripheral vascular disease, which is a build-up of plaque in your arteries. Please discard all the cigarettes and lighters in your house. Have a plan for what you will do when you have the urge to smoke. Direct and second- hand smoke shortens your life as well as the lives of your family, friends and others around you. For your health and the health of those around you, please consider quitting! Proper Bending Body Mechanics: Maintain a wide stance with one foot slightly in front of the other. Keep your back straight. Bend utilizing the strength in your hips and knees. Do not bend at the waist. Maintain the lifted object at your waist-level close to your body. Avoid lifting weight that causes immediately pain or pain anywhere in the body afterwards. Smoking/Nicotine If there was ever one thing that you could do to increase your overall health, decrease your risk of cardiovascular problems by about 39% the second you make the choice, it is to STOP SMOKING. Your body's most instant gratification is the second you stop smoking. We have all heard the studies, read the articles but it is true, smoking is extremely bad for your overall health, and moreover it is detrimental to your bone health. Nicotine, IN ANY FORM, kills bone cells, prevents your body from healing fractures, and significantly prolongs healing after surgery. In spine surgery specifically, it increases your risk of not healing your bones to create a fusion and increases your risk of having a revision surgery due to this up to 60%. I know it is hard. I know it feels impossible. But there are ways. Take control of your life. We are here to help you through it. And when you are ready, ask us and we can direct you to help if you desire. Use the START Plan to Quit Smoking (please visit the Helpguide.org website listed below for more information): S = Set a quit date. Choose a date within the next 2 weeks, so you have enough time to prepare without losing your motivation to quit. If you mainly smoke at work, quit on the weekend, so you have a few days to adjust to the change. T = Tell family, friends, and co-workers that you plan to quit. Let your friends and family in on your plan to quit smoking and tell them you need their support and encouragement to stop. Look for a quit katie who wants to stop smoking as well. You can help each other get through the rough times. A = Anticipate and plan for the challenges you'll face while quitting. Most people who begin smoking again do so within the first 3 months. You can help yourself make it through by preparing ahead for common challenges, such as nicotine withdrawal and cigarette cravings. R = Remove cigarettes and other tobacco products from your home, car, and work. Throw away all your cigarettes (no emergency pack!), lighters, ashtrays, and matches. Wash your clothes and freshen up anything that smells like smoke. Shampoo your car, clean your drapes and carpet, and steam your furniture. T = Talk to your doctor about getting help to quit. Your doctor can prescribe medication to help with withdrawal and suggest other alternatives. If you can't see a doctor, you can get many products over the counter at your local pharmacy or grocery store, including the nicotine patch, nicotine lozenges, and nicotine gum. Resources for Quitting Smoking: <https://www.[place].gov/documents/[facility]/Quit_Tobacco_Resources_for_patients_313 480_7.pdf> Supplementation: Take recommended dosages of Vitamin D and Calcium to help fortify your bones and help them to heal. See your health maintenance packet for dosages and recommended levels. DVT/VTE prophylaxis: You will be given compression stockings from the hospital. Wear these daily for the first two weeks after surgery. You may take them off at night. You may be prescribed a medication to help thin your blood. Take this as directed. If you are not prescribed this medication, early and frequent ambulation has been shown to be the best prophylaxis to deep vein thrombosis and sequelae related to this event. Discharge Disposition: HOME WITH HOME HEALTH SERVICES
--- NOTE | 2023-05-12 07:33 | P.PN ---
Subjective Progress Note Date: 05/12/23 Principal diagnosis: 1. s/p Revision L2-Pelvis decompression and fusion 2. 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 LE paresthesias and radiculopathy, new Patient seen and examined this morning. Patient is ambulating from restroom with his walker to assist from his spouse. He is urinating without any difficulty. Patient reports he is passing gas, no bowel movement at this time. Surgical incision to the thoracic or lumbar spine, edges are well approximated with charli intact. Hemovac drain has been removed and new surgical dressing applied. Patient reports his pain is managed on current regimen. Patient states he is looking forward to going home. TLSO brace is at bedside. Discharge instructions have been reviewed. No acute concerns. Objective - Vital Signs Vital signs: Vital Signs Temp 98.0 F 05/12/23 01:47 Pulse 71 05/12/23 01:47 Resp 16 05/12/23 01:47 BP 96/56 05/12/23 01:47 Pulse Ox 91 L 05/12/23 01:47 FiO2 Intake & Output 05/11/23 05/12/23 05/12/23 18:59 06:59 18:59 Output Total 220 Balance -220 Output: Drainage 20 Back 20 Urine 200 Other: # Voids 1 3 - Exam Physical Examination General: The patient is awake and alert, in no acute distress Skin: Skin is warm and dry with no obvious rashes or lesions. Surgical incision to the thoracolumbar spine, edges are well approximated with charli intact. Hemovac drain has been removed and new surgical dressing applied. Eye: Pupils are equal, round and reactive to light, extra-ocular movements are intact; there is normal conjunctiva bilaterally. Neck: The neck is supple, there is no tenderness and ROM intact. Cardiovascular: There is a regular rate and rhythm. No murmur, rub or gallop is appreciated. Respiratory: Lungs are clear to auscultation, respirations are non-labored, breath sounds are equal. Gastrointestinal: Soft, non-distended, non-tender abdomen. Back: There is no tenderness to palpation in the midline, paralumbar, parathoracic or buttocks region. There is no obvious deformity . Musculoskeletal: ROM limited secondary to pain and stiffness from surgical procedure. Muscle strength in all major muscle groups of bilateral upper extremities 5/5, bilateral lower extremities 4/5. Neurological: CN 2-12 intact. There are no obvious motor or sensory deficits. Movement and coordination equal and intact. Sensory exam to light touch intact C5-T1 and intact from L2-S1. Reflexes 2/4 in bilateral upper and lower extremities. Negative Hoffmans, babinski, and clonus signs. Psychiatric: Cooperative, appropriate mood & affect, normal judgment. - Labs CBC & Chem 7: 05/11/23 06:19 05/11/23 06:19 Labs: Microbiology - Last 24 Hours (Table) 05/09/23 12:50 Anaerobic Culture - Preliminary Back 05/09/23 12:50 Gram Stain - Final Back Wound Culture - Final Assessment and Plan Assessment: Postop day 3: Revision posterior lateral fusion [id number] with open treatment L2 fracture, removal with replacement of new cage L2-3 1. s/p Revision L2-Pelvis decompression and fusion 2. 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 LE paresthesias and radiculopathy, new Plan: -Appreciate marketing database consultant and team management. -Activity: Ambulate QID, OOB all meals, up and about, limit lifting bending twisting to less than 5 lbs. Use walker or cane if needed for stability. -Daily PT/OT, increase ambulation strength and balance. -Brace when up and about, not needed in bed or chair -Pain control: Medications adjusted -Meds: reviewed -GI ppx: senna, Milk of Mag -DVT PPX: Plavix, aspirin -Hygiene: Maintain dressing clean and dry. Meticulous cleaning after BMs away from the incision site -Encourage IS 10x/hr -Dispo: Anticipate discharge home with homecare today. *I reviewed and discussed this case with my attending Dr. Mahoney, whom has reviewed this chart and films and is in agreement with assessment and plan of care as outlined above. I have personally seen and examined the patient, performed the documentation and the assessment and plan as written. Number of minutes spent on the visit: 20m
[2023-05-12 08:20] VITALS: BP 110/71; PULSE 74; RESP 18
--- NOTE | 2023-05-12 09:37 | P.PN ---
Subjective Progress Note Date: 05/12/23 05/10/2023 this is a 77-year-old gentleman with past medical history significant for chronic low back pain with radiculopathy-L2 to pelvis decompression/fusion,CAD, status post CABG, hyperlipidemia, hypertension, chronic kidney disease, urethral stricture, renal calculi and multiple other medical issues, status post revision of posterior lateral fusion [id number] with open treatment L2 fracture, removal with replacement of new cage L2-3 secondary to hardware failure L2-3 with cage backout, lower extremity paresthesias and radiculopathy. Positive pain. Denies chest pain, palpitations or shortness of b reath. Has not yet been out of bed, PT is scheduled for this morning. Denies passing of flatus or bowel movement. Afebrile, WBC 15.45. Hemoglobin 12.4, platelets 228. Sodium 134, potassium 4.7, bicarb 24.3, BUN 17.8, creatinine 0.9. Oxygen has been weaned off and maintaining O2 sats in the mid 90s on room air. Denies numbness or tingling. thoracic lumbar spine CT pending. 05/11/2023 at bedside and reports that patient became confused after receiving [place].patient reports he takes Ultram at home ,tolerates without any confusion. participated with PT, tolerated exertion well. Reports he sat up in chair yesterday. denies numbing or tingling. Burrows catheter recently discontinued, spontaneous void pending. Denies chest pain, palpitations or shortness of breath. Maintaining O2 sats in the low 90s on room air. afebrile, WBC normalized. Hemoglobin 12.3, platelets 206. Sodium 134, bicarb 26, BUN 19, creatinine decreased to 0.72. 05/12/2023 significant clinical improvement. Sitting up in chair, denies numbing or tingling. Spontaneously voiding. Denies chest pain, palpitations or shortness of breath. Maintaining O2 sats in the 90s on room air. ambulating, tolerating exertion well. Denies lightheadedness, dizziness or focal deficits. Objective - Vital Signs Vital signs: Vital Signs Temp 98.0 F 05/12/23 06:52 Pulse 74 05/12/23 06:52 Resp 18 05/12/23 06:52 BP 110/71 05/12/23 06:52 Pulse Ox 90 L 02/15/24 06:52 FiO2 Intake & Output 05/11/23 05/12/23 05/12/23 18:59 06:59 18:59 Output Total 220 Balance -220 Output: Drainage 20 Back 20 Urine 200 Other: # Voids 1 3 - Exam PHYSICAL EXAM: VITAL SIGNS: [As above] GENERAL: Alert and oriented x 3, sitting up in chair,no acute distress HEENT: Atraumatic, normocephalic conjunctivae normal. eyes normal. Sclera anicteric. mmm. NECK: Supple, no JVD. CARDIOVASCULAR: S1, S2 regular. Systolic murmur RESPIRATION: Unlabored, equal air entry, clear to auscultation ,breath sounds diminished in the bases. ABDOMEN: Soft, no distention, nontender . No guarding. +BS LEGS: No edema. no swelling, no calf tenderness noted. Positive DP pulses. NERVOUS SYSTEM: Cranial N 2-12 grossly normal.No focal deficits. Skin: Warm and dry, no rash. - Labs CBC & Chem 7: 05/11/23 06:19 05/11/23 06:19 Labs: Microbiology - Last 24 Hours (Table) 05/09/23 12:50 Anaerobic Culture - Preliminary Back 05/09/23 12:50 Gram Stain - Final Back Wound Culture - Final Assessment and Plan Assessment: Revision posterior lateral fusion [id number] with open treatment L2 fracture, removal with replacement of new cage L2-3, status post revision L2-pelvis decompression and fusion. Atelectasis, postoperative, expected outcome Leukocytosis , resolved ,suspect postoperative atelectasis History of distal bulbar urethral stricture, status post dilation with Burrows catheter- coude placement intraoperative as per urology. History of a occipital CVA,11/15 brain MRI , follows with Dr. Rajwinder Francisco. reports repeat MRI of brain performed September 24 at [facility] [place]. CAD, history of CABG Hypertension Hyperlipidemia Plan: Continue on current medication regimen, monitoring and symptomatic treatment. Discharge planning in progress as per orthopedic spine .Continue aggressive pulmonary toileting with incentive spirometer reinforced. Pain management, DVT prophylaxis as per orthopedic spine. Follow-up with PCP in 1 week. The impression and plan of care has been dictated as directed. DrGuillermo: I performed a history and examination of this patient, discussed the same with the dictator. I agree with the dictator's note ,documented as a scribe. Any additional findings or plans will be noted.
--- NOTE | 2023-05-16 10:55 | CDI ---
Documentation Clarification Form Date: 05/16/2023 10:34:08 AM From: Julianna Smith Admit Date: 05/09/2023 08:48:00 AM Patient Name: Manny Rodriguez Visit Number: [id number] Discharge Date: 05/12/2023 11:42:00 AM ATTENTION: The Clinical Documentation Specialists (CDI) and [facility] Coding Staff appreciate your assistance in clarifying documentation. Please respond to the clarification below the line at the bottom and electronically sign. The CDI & [facility] Coding staff will review the response and follow-up if needed. Please note: Queries are made part of the Legal Health Record. If you have any questions, please contact the author of this message via ITS. Dr. Cruz Mahoney, [id number], REMOVALWITHPLACEMENTOF NEW CAGE L2- L3,,REVISIONPLFUSION is documented in the Operative Report 05/09. Additional clarification regarding the procedure is requested. History/Risk factors: Breakdown of internal fixation device of vertebrae, fx of 2nd lumbar vertebra, HTN CKD, bulbous urethral stricture with retention Pre-Operative Diagnosis: 1.HARDWARE FAILURE L2-3 2.PROGRESSIVE LEPARESTHESIASWITHWEAKNESSAND SEVERELOW BACK PAIN 3.L2 PEDICLEFRACTURE 4.THORACOLUMBARDEFORMITY Postoperative Diagnosis: Same Clinical Indicators: Back and leg pain Treatment: REVISIONL2-3 INTERBODYFUSIONWITHREMOVALOF OLD INTERBODY ANDREPLACEMENT OF NEW INTERBODY DEVICE [id number] DUE TO HARDWARE FAILURE AT L2-3, L2 SCREW FAILURE, NEED FOR FURTHERFIXATIONAND PURCHASE ANDPOSSIBLEINFECTION Please clarify the following: the posterolateral levels and type of graft material implanted: [ ] T11-T12 (specify type of graft) [ ] T12-L1 (specify type of graft) [ ] L1-L5 (specify type of graft) [ ] Other (specify type of (graft) MTDD
--- NOTE | 2023-05-17 12:42 | CDI ---
Documentation Clarification Form Date: 05/17/2023 12:32:00 PM From: Julianna Smith Admit Date: 05/09/2023 08:48:00 AM Patient Name: Manny Rodriguez Visit Number: [id number] Discharge Date: 05/12/2023 11:42:00 AM ATTENTION: The Clinical Documentation Specialists (CDI) and [facility] Coding Staff appreciate your assistance in clarifying documentation. Please respond to the clarification below the line at the bottom and electronically sign. The CDI & [facility] Coding staff will review the response and follow-up if needed. Please note: Queries are made part of the Legal Health Record. If you have any questions, please contact the author of this message via ITS. Dr. Cruz Mahoney, Revision T-11-Pelvis, removal with placement of new cage L2-L3, revision PL fusion is documented in the Operative Report 05/09. Additional clarification regarding the procedure is requested. The PL fusion is noted in the Pre-op and post-op diagnosis but is not described in the operative note. History/Risk factors: Breakdownofinternal fixation deviceof vertebrae,fx of 2nd lumbar vertebra,HTN CKD, bulbousurethral stricturewithretention Pre-Operative Diagnosis: Hardware failure L 2-3. Progressive LE paresthesia with weakness and severe low back pain. L2 pedicle fracture. Thoracolumbar deformity. Postoperative Diagnosis: Same Clinical Indicators: Back andleg pain Treatment: Revision L2-3 interbody fusion with removal of old interbody and replacement of interbody device. Revision posterolateral fusion [id number] due to hardware failure at L2-3, L2 screw failure, need for further fixation and purchase and possible infection. Please clarify the following: the posterolateral levels and type ofgraft materialimplanted: [ ] T11-T12 (specify type ofgraft) [ ] T12-L1 (specify type ofgraft) [ ] L1-L5 (specify type ofgraft) [ ] Other (specify type of (graft) MagnatOs, Autograft local, and allograft MTDD
== END 2023-05-12 11:42 | disposition home health service (06) | DRG 454 ==
LOC: 2ORMAIN 08:48 → 4SSUR 18:46
PROVIDERS: ADMIT Orthopaedic Surgery; ATTEND Orthopaedic Surgery
PROC: 0T9B70Z Drainage of Bladder with Drainage Device, Via Natural or Artificial Opening (ICD-10-PCS; 2023-05-09)
PROC: 0T7D7ZZ Dilation of Urethra, Via Natural or Artificial Opening (ICD-10-PCS; 2023-05-09)
PROC: 0QS004Z Reposition Lumbar Vertebra with Internal Fixation Device, Open Approach (ICD-10-PCS; principal; 2023-05-09 10:45)
PROC: 0QP004Z Removal of Internal Fixation Device from Lumbar Vertebra, Open Approach (ICD-10-PCS; principal; 2023-05-09 10:45)
PROC: 4A1104G Monitoring of Peripheral Nervous Electrical Activity, Intraoperative, Open Approach (ICD-10-PCS; principal; 2023-05-09 10:45)
PROC: 0SG00AJ Fusion of Lumbar Vertebral Joint with Interbody Fusion Device, Posterior Approach, Anterior Column, Open Approach (ICD-10-PCS; principal; 2023-05-09 10:45)
PROC: 0SP00AZ Removal of Interbody Fusion Device from Lumbar Vertebral Joint, Open Approach (ICD-10-PCS; principal; 2023-05-09 10:45)
PROC: 0RGA071 Fusion of Thoracolumbar Vertebral Joint with Autologous Tissue Substitute, Posterior Approach, Posterior Column, Open Approach (ICD-10-PCS; principal; 2023-05-09 10:45)
PROC: 0SG1071 Fusion of 2 or more Lumbar Vertebral Joints with Autologous Tissue Substitute, Posterior Approach, Posterior Column, Open Approach (ICD-10-PCS; principal; 2023-05-09 10:45)
PROC: 0RG6071 Fusion of Thoracic Vertebral Joint with Autologous Tissue Substitute, Posterior Approach, Posterior Column, Open Approach (ICD-10-PCS; principal; 2023-05-09 10:45)
DX: T84.216A Breakdown (mechanical) of internal fixation device of vertebrae, initial encounter (principal); J98.11 Atelectasis; S32.029A Unspecified fracture of second lumbar vertebra, initial encounter for closed fracture; D72.829 Elevated white blood cell count, unspecified; I12.9 Hypertensive chronic kidney disease with stage 1 through stage 4 chronic kidney disease, or unspecified chronic kidney disease; N18.9 Chronic kidney disease, unspecified; M54.16 Radiculopathy, lumbar region; E78.5 Hyperlipidemia, unspecified; N35.812 Other bulbous urethral stricture, male; R33.9 Retention of urine, unspecified; G89.29 Other chronic pain; M19.90 Unspecified osteoarthritis, unspecified site; I25.10 Atherosclerotic heart disease of native coronary artery without angina pectoris; Z79.82 Long term (current) use of aspirin; Z79.02 Long term (current) use of antithrombotics/antiplatelets; Z79.899 Other long term (current) drug therapy; Z87.891 Personal history of nicotine dependence; Y83.4 Other reconstructive surgery as the cause of abnormal reaction of the patient, or of later complication, without mention of misadventure at the time of the procedure; Z96.653 Presence of artificial knee joint, bilateral; Z96.611 Presence of right artificial shoulder joint; Z86.73 Personal history of transient ischemic attack (TIA), and cerebral infarction without residual deficits; Z95.1 Presence of aortocoronary bypass graft; Z87.442 Personal history of urinary calculi; Z88.5 Allergy status to narcotic agent
CPT/HCPCS: 72100; 72128; 72131; 80048; 85025; 87070; 87075; 87205

== ENCOUNTER 2023-09-20 12:55 | Emergency (ER) | payer MEDICARE ==
[2023-09-20 12:59] VITALS: RESP 18
[2023-09-20] MEDS: LIDOCAINE/EPINEPHR/TETRACAINE 5 ML BOTTLE TOPICAL ONE (13:17)
[2023-09-20] MEDS: LIDOCAINE 1%-EPI 1:100,000 20 ML VIAL SQ STA (13:17)
--- NOTE | 2023-09-20 13:19 | ED ---
Wound/Laceration HPI - General Chief Complaint: Wound/Laceration Stated Complaint: L leg lac. on thinner Time Seen by Provider: 09/20/23 13:01 Source: patient, family, RN notes reviewed Mode of arrival: ambulatory Limitations: no limitations - History of Present Illness Initial Comments: This is a 78-year-old male who presents to the emergency department for a laceration to his left leg. States that he cut this on a fence yesterday afternoon, but did not tell family about it right away. Family is concerned because it has continued to bleed through multiple bandages. He is on Plavix. Unsure when his last tetanus vaccine was. - Related Data Home Medications Medication Instructions Recorded Confirmed lisinopriL [Lisinopril] 10 mg PO QAM 12/23/14 05/09/23 Metoprolol Tartrate [Lopressor] 50 mg PO QAM 12/26/14 05/09/23 Multivitamins, Thera [Multivitamin 1 tab PO DAILY 12/26/14 05/09/23 (formulary)] Pravastatin Sodium 80 mg PO HS 11/21/18 05/09/23 Cholecalciferol [Vitamin D3 (25 25 mcg PO DAILY 12/09/22 05/09/23 Mcg = 1000 Iu)] Clopidogrel [Plavix] 75 mg PO HS 12/09/22 05/09/23 Previous Rx's Medication Instructions Recorded Aspirin EC [Ecotrin Low Dose] 81 mg PO DAILY #30 tablet. 11/22/18 Sennosides/Docusate Sodium [Senna 1 each PO DAILY PRN #20 capsule 05/12/23 Plus 8.6-50 mg Softgel] cefaDROXiL [Duricef] 500 mg PO Q12HR #10 cap 05/12/23 oxyCODONE-APAP 5-325MG [Percocet 1 tab PO Q6HR PRN #40 tab 05/12/23 5-325 mg] Cephalexin [Keflex] 500 mg PO Q6HR 5 Days #20 cap 09/20/23 Allergies Allergy/AdvReac Type Severity Reaction Status Date / Time morphine AdvReac Nausea & Verified 09/20/23 12:59 Vomiting Review of Systems ROS Statement: Those systems with pertinent positive or pertinent negative responses have been documented in the HPI. ROS Other: All systems not noted in ROS Statement are negative. Past Medical History Past Medical History: Coronary Artery Disease (CAD), CVA/TIA, Hyperlipidemia, Hypertension, Osteoarthritis (OA), Renal Disease Additional Past Medical History / Comment(s): Generalized arthritis, L leg numbness/tingling since harvested vein for CABG, slight cardiac murmur, kidney stones, possible ureteral stricture-difficult to pass lópez catheters. tia behind eye many years ago History of Any Multi-Drug Resistant Organisms: None Reported Past Surgical History: Back Surgery, Coronary Bypass/CABG, Heart Catheterization, Joint Replacement, Orthopedic Surgery Additional Past Surgical History / Comment(s): 2004 CABG 4 vessel, UVPPP, colonoscopy, bilateral knee arthroscopy, bilateral total knee arthroplasties, bilateral rotator cuff repairs, R total reverse shoulder, kidney stone basketing, cystoscopies/scar tissue removed from bladder. 2006 2022 back surgeries Past Anesthesia/Blood Transfusion Reactions: No Reported Reaction Additional Past Anesthesia/Blood Transfusion Reaction / Comment(s): no hx blood transfusion, had hallucinations after back surgery 11/2022 Past Psychological History: No Psychological Hx Reported Smoking Status: Former smoker Past Alcohol Use History: None Reported Past Drug Use History: None Reported - Past Family History Father Additional Family Medical History / Comment(s): Father in a tractor accident. Mother Family Medical History: Myocardial Infarction ([place]) Additional Family Medical History / Comment(s): Mother of a massive [place] at the age of 69yrs. Brother(s) Family Medical History: Cancer Sister(s) Family Medical History: Cancer General Exam Limitations: no limitations General appearance: alert, in no apparent distress Head exam: Present: atraumatic, normocephalic, normal inspection Respiratory exam: Present: normal lung sounds bilaterally. Absent: respiratory distress, wheezes, rales, rhonchi, stridor Cardiovascular Exam: Present: regular rate, normal rhythm, normal heart sounds. Absent: systolic murmur, diastolic murmur, rubs, gallop, clicks Neurological exam: Present: alert, oriented X3, CN II-XII intact Psychiatric exam: Present: normal affect, normal mood Skin exam: Present: other (1 cm superficial laceration to the left porter. Active bleeding.) Course Vital Signs 09/20/23 09/20/23 12:56 14:26 Temperature 97.5 F L 97.6 F Pulse Rate 54 L 58 L Respiratory 18 18 Rate Blood Pressure 125/61 128/79 O2 Sat by Pulse 98 98 Oximetry Procedures - Laceration Laceration #1 Consent Obtained: verbal consent Indication: laceration Site: lower extremity Size (cm): 1 Description: linear Depth: simple, single layer Anesthetic Used: lidocaine 1%, with epi Anesthesia Technique: local infiltration Amount (mls): 3 Pre-repair: wound explored, irrigated extensively Type of Sutures: nylon Size of Sutures: 5-0 Number of Sutures: 1 Technique: simple, interrupted Medical Decision Making - Medical Decision Making This is a 78-year-old male who presents to the emergency department for a laceration. Was pt. sent in by a medical professional or institution? @ -No Did you speak to anyone other than the patient for history? @ -No Did you review nursing and triage notes? @ -Yes, and I agree, it is accurate with regards to the patient's symptoms. Were old charts reviewed? @ -No Differential Diagnosis? @ -Differential Laceration: Laceration, abrasion, abscess, insect bite, burn, this is not meant to be an all-inclusive list. EKG interpreted by me (3pts min.)? @ -Not obtained X-rays interpreted by me (1pt min.)? @ -Not obtained CT interpreted by me (1pt min.)? @ -Not obtained U/S interpreted by me (1pt. min.)? @ -Not obtained What testing was considered but not performed? (CT, X-rays, U/S, labs)? Why? @ -None What meds were considered but not given? Why? @ -None Did you discuss the management of the patient with other professionals? @ -No Did you reconcile home meds? @ -No Was smoking cessation discussed for >3mins.? @ -No Was critical care preformed (if so, how long)? @ -No Were there social determinants of health that impacted care today? How? (Homelessness, low income, unemployed, alcoholism, drug addiction, transportation, low edu. Level, literacy, decrease access to med. care, alf, rehab)? @ -No Was there de-escalation of care discussed even if they declined? (Discuss DNR or withdrawal of care, Hospice)? @ -No What co-morbidities impacted this encounter? (DM, HTN, Smoking, COPD, CAD, Cancer, CVA, Hep., AIDS, mental health diagnosis, sleep apnea, morbid obesity)? @ -CAD Was patient admitted / discharged? @ -Discharged. Patient's wound was thoroughly cleansed and irrigated. Tetanus vaccine was updated. LET was applied which helped control the bleeding. 1% lidocaine with epinephrine was then used to achieve hemostasis as well as anesthetize the area. A suture was loosely applied to close the wound and help with bleeding. However, this was not pulled tight to reduce the risk of trapping an infection. Large amounts of irrigation were performed prior as well. Prescription for Keflex provided for infectious prophylaxis. Advised returning in 5 to 7 days for suture removal. Undiagnosed new problem with uncertain prognosis? @ -None Drug Therapy requiring intensive monitoring for toxicity (Heparin, Nitro, Insulin, Cardizem)? @ -None Were any procedures done? @ -Laceration repair with sutures Diagnosis/symptom? @ -Laceration Acute, or Chronic, or Acute on Chronic? @ -Acute Uncomplicated (without systemic symptoms) or Complicated (systemic symptoms)? @ -Uncomplicated Side effects of treatment? @ -None Exacerbation, Progression, or Severe Exacerbation] @ -Not applicable Poses a threat to life or bodily function? @ -No Return precautions reviewed in depth, the patient is instructed to return to the emergency department with any new, worsening, or concerning symptoms. Patient verbalized understanding. This case was discussed in detail with the attending ED physician, Dr. Wyman. Presentation, findings, and treatment plan discussed in detail as well. Disposition Clinical Impression: Laceration Disposition: HOME SELF-CARE Instructions (If sedation given, give patient instructions): Care For Your Stitches (ED) Additional Instructions: Return to the emergency department with any new, worsening, or concerning sympto ms and in 5 to 7 days for removal of the stitch. Take the antibiotic as prescribed for 5 days. Follow up with your primary care provider in 1-2 days. Prescriptions: Cephalexin [Keflex] 500 mg PO Q6HR 5 Days #20 cap Is patient prescribed a controlled substance at d/c from ED?: No Referrals: Antonio Zhang DO [Primary Care Provider] - 1-2 days Time of Disposition: 14:05
[2023-09-20] MEDS: DIPH,PERTUS(ACELL)TETVAC-LF 0.5 ML VIAL IM ONE (14:22)
[2023-09-20 14:28] VITALS: BP 128/79; PULSE 58; TEMP 97.6
== END 2023-09-20 14:31 | disposition home or self-care (01) ==
LOC: EC 12:55
DX: S81.812A Laceration without foreign body, left lower leg, initial encounter (principal); Z88.5 Allergy status to narcotic agent; Z87.891 Personal history of nicotine dependence; Z23 Encounter for immunization; W26.8XXA Contact with other sharp object(s), not elsewhere classified, initial encounter
CPT/HCPCS: 12001; 90471; 90715; 99282

== ENCOUNTER 2023-10-06 10:55 | Emergency (ER) | payer MEDICARE ==
[2023-10-06 11:09] VITALS: RESP 16
[2023-10-06] MEDS: LIDOCAINE 1% INJ 10MG/ML (20 ML MDV) SQ ONE (11:27)
--- NOTE | 2023-10-06 12:13 | ED ---
Wound/Laceration HPI - General Chief Complaint: Wound/Laceration Stated Complaint: CUT ON ARM Time Seen by Provider: 10/06/23 12:11 Source: patient, family (), RN notes reviewed Mode of arrival: ambulatory Limitations: no limitations - History of Present Illness Initial Comments: 78 year old male presenting to the ER with a chief complaint of left arm abscess. Patient reports on Tuesday he noticed a small pimple on this left forearm. His popped it and expressed purulent drainage. She cleaned it with hydrogen peroxide and warm soapy water. He states since then he has noticed the abscess increasing in size and tenderness over the past couple of days. He denies any fevers, chills, nightsweats or other complaints. No history of MRSA. - Related Data Home Medications Medication Instructions Recorded Confirmed lisinopriL [Lisinopril] 10 mg PO QAM 12/23/14 05/09/23 Metoprolol Tartrate [Lopressor] 50 mg PO QAM 12/26/14 05/09/23 Multivitamins, Thera [Multivitamin 1 tab PO DAILY 12/26/14 05/09/23 (formulary)] Pravastatin Sodium 80 mg PO HS 11/21/18 05/09/23 Cholecalciferol [Vitamin D3 (25 25 mcg PO DAILY 12/09/22 05/09/23 Mcg = 1000 Iu)] Clopidogrel [Plavix] 75 mg PO HS 12/09/22 05/09/23 Previous Rx's Medication Instructions Recorded Aspirin EC [Ecotrin Low Dose] 81 mg PO DAILY #30 tablet. 11/22/18 Sennosides/Docusate Sodium [Senna 1 each PO DAILY PRN #20 capsule 05/12/23 Plus 8.6-50 mg Softgel] cefaDROXiL [Duricef] 500 mg PO Q12HR #10 cap 05/12/23 oxyCODONE-APAP 5-325MG [Percocet 1 tab PO Q6HR PRN #40 tab 05/12/23 5-325 mg] Cephalexin [Keflex] 500 mg PO Q6HR 5 Days #20 cap 09/20/23 Cephalexin [Keflex] 500 mg PO Q6HR #40 cap 10/06/23 Sulfamethox-Tmp 800-160Mg [Bactrim 1 each PO Q12HR #20 tab 10/06/23 Ds] Allergies Allergy/AdvReac Type Severity Reaction Status Date / Time morphine AdvReac Nausea & Verified 10/06/23 11:05 Vomiting Review of Systems ROS Statement: Those systems with pertinent positive or pertinent negative responses have been documented in the HPI. ROS Other: All systems not noted in ROS Statement are negative. Past Medical History Past Medical History: Coronary Artery Disease (CAD), CVA/TIA, Hyperlipidemia, Hypertension, Osteoarthritis (OA), Renal Disease Additional Past Medical History / Comment(s): Generalized arthritis, L leg numbness/tingling since harvested vein for CABG, slight cardiac murmur, kidney stones, possible ureteral stricture-difficult to pass lópez catheters. tia behind eye many years ago History of Any Multi-Drug Resistant Organisms: None Reported Past Surgical History: Back Surgery, Coronary Bypass/CABG, Heart Catheterization, Joint Replacement, Orthopedic Surgery Additional Past Surgical History / Comment(s): 2004 CABG 4 vessel, UVPPP, colonoscopy, bilateral knee arthroscopy, bilateral total knee arthroplasties, bilateral rotator cuff repairs, R total reverse shoulder, kidney stone basketing, cystoscopies/scar tissue removed from bladder. 2006 2022 back surgeries Past Anesthesia/Blood Transfusion Reactions: No Reported Reaction Additional Past Anesthesia/Blood Transfusion Reaction / Comment(s): no hx blood transfusion, had hallucinations after back surgery 11/2022 Past Psychological History: No Psychological Hx Reported Smoking Status: Former smoker Past Alcohol Use History: None Reported Past Drug Use History: None Reported - Past Family History Father Additional Family Medical History / Comment(s): Father in a tractor accident. Mother Family Medical History: Myocardial Infarction ([place]) Additional Family Medical History / Comment(s): Mother of a massive [place] at the age of 69yrs. Brother(s) Family Medical History: Cancer Sister(s) Family Medical History: Cancer General Exam Limitations: no limitations General appearance: alert, in no apparent distress Respiratory exam: Present: normal lung sounds bilaterally. Absent: respiratory distress, wheezes, rales, rhonchi, stridor Cardiovascular Exam: Present: regular rate, normal rhythm, normal heart sounds. Absent: systolic murmur, diastolic murmur, rubs, gallop, clicks Extremities exam: Present: normal inspection, full ROM, normal capillary refill, other (2+ left radial pulse. Mild surrounding erythema. No proximal spreading erythema.). Absent: tenderness, pedal edema, joint swelling, calf tenderness Skin exam: Present: warm, dry, intact, normal color, other (abscess to left dorsal forearm with purulent drainage. tender to touch. ) Course Vital Signs 10/06/23 11:05 Temperature 98.0 F Pulse Rate 71 Respiratory 16 Rate Blood Pressure 146/72 O2 Sat by Pulse 98 Oximetry Medical Decision Making - Medical Decision Making Was pt. sent in by a medical professional or institution ([facility], [facility], urgent care, hospital, or [facility]...) When possible be specific @ -No Did you speak to anyone other than the patient for history (EMS, parent, family, police, friend...)? What history was obtained from this source @ - aiding in HPI Did you review nursing and triage notes (agree or disagree)? Why? @ -I reviewed and agree with nursing and triage notes Were old charts reviewed (outside hosp., previous admission, EMS record, old EKG, old radiological studies, urgent care reports/EKG's, [facility] records)? Report findings @ -No old charts were reviewed Differential Diagnosis (chest pain, altered mental status, abdominal pain women, abdominal pain men, vaginal bleeding, weakness, fever, dyspnea, syncope, headache, dizziness, GI bleed, back pain, seizure, CVA, palpatations, mental health, musculoskeletal)? @ -Abscess, cellulitis, bite This list is not meant to be all-inclusive EKG interpreted by me (3pts min.). @ -None X-rays interpreted by me (1pt min.). @ -None done CT interpreted by me (1pt min.). @ -None done U/S interpreted by me (1pt. min.). @ -None done What testing was considered but not performed or refused? (CT, X-rays, U/S, labs)? Why? @ -None What meds were considered but not given or refused? Why? @ -None Did you discuss the management of the patient with other professionals (professionals i.e. [facility], [facility], lab, RT, psych nurse, nephrology social worker, glass forming crew member, teacher, border patrol officer, counseling case manager)? Give summary @ -No Was smoking cessation discussed for >3mins.? @ -No Was critical care preformed (if so, how long)? @ -No Were there social determinants of health that impacted care today? How? (Homelessness, low income, unemployed, alcoholism, drug addiction, transportat ion, low edu. Level, literacy, decrease access to med. care, [facility], rehab)? @ -No Was there de-escalation of care discussed even if they declined (Discuss DNR or withdrawal of care, Hospice)? DNR status @ -No What co-morbidities impacted this encounter? (DM, HTN, Smoking, COPD, CAD, Cancer, CVA, ARF, Chemo, Hep., AIDS, mental health diagnosis, sleep apnea, morbid obesity)? @ -None Was patient admitted / discharged? Hospital course, mention meds given and route, prescriptions, significant lab abnormalities, going to OR and other pertinent info. @ -Discharge. 78-year-old male presented to ER with complaint of left arm abscess. History and physical exam completed. Vitals stable. Patient in no signs of acute distress and nontoxic-appearing. Exam remarkable for 2 cm x 2 cm loculated abscess to left forearm with purulent drainage. Mild surrounding erythema. Tender to touch. Left upper extremity neurovascular intact. Wound culture obtained. Patient will be started on Bactrim and Keflex, concerning of abscess. Advised close follow-up with PCP. Strict return parameters discussed. Patient discharged in stable condition. Patient and , at bedside, verbally expressed understanding and agreement with care plan. Case discussed with ED attending, Dr. Ramirez. Undiagnosed new problem with uncertain prognosis? @ -No Drug Therapy requiring intensive monitoring for toxicity (Heparin, Nitro, Insulin, Cardizem)? @ -No Were any procedures done? @ -No Diagnosis/symptom? @ -Abscess Acute, or Chronic, or Acute on Chronic? @ -Acute Uncomplicated (without systemic symptoms) or Complicated (systemic symptoms)? @ -Uncomplicated Side effects of treatment? @ -No Exacerbation, Progression, or Severe Exacerbation? @ -No Poses a threat to life or bodily function? How? (Chest pain, [place], ME, pneumonia, PE, COPD, DKA, ARF, appy, cholecystitis, CVA, Diverticulitis, Homicidal, Suicidal, threat to staff... and all critical care pts) @ -Low likelihood at this time Disposition Clinical Impression: Abscess Disposition: HOME SELF-CARE Condition: Stable Instructions (If sedation given, give patient instructions): Abscess (ED) Additional Instructions: Keep expression drainage from wound. Complete full course of antibiotics. Follow-up with PCP. Return to the ER for any new or concerning symptoms. Prescriptions: Sulfamethox-Tmp 800-160Mg [Bactrim Ds] 1 each PO Q12HR #20 tab Cephalexin [Keflex] 500 mg PO Q6HR #40 cap Is patient prescribed a controlled substance at d/c from ED?: No Referrals: Antonio Zhang DO [Primary Care Provider] - 1-2 days Time of Disposition: 12:12
[2023-10-06 12:37] VITALS: BP 139/81; PULSE 70; TEMP 98.1
== END 2023-10-06 12:41 | disposition home or self-care (01) ==
LOC: EC 10:55
DX: L02.414 Cutaneous abscess of left upper limb (principal); Z88.5 Allergy status to narcotic agent; Z86.73 Personal history of transient ischemic attack (TIA), and cerebral infarction without residual deficits; Z87.891 Personal history of nicotine dependence
CPT/HCPCS: 87070; 87205; 99283; J2001

== ENCOUNTER 2023-10-13 12:17 | Inpatient (IN) | payer MEDICARE ==
--- NOTE | 2023-10-13 12:35 | ED ---
General Adult HPI - General Chief complaint: Weakness Stated complaint: Weakness Time Seen by Provider: 10/13/23 12:20 Source: patient, RN notes reviewed, old records reviewed Mode of arrival: ambulatory Limitations: no limitations - History of Present Illness Initial comments: Is a 78-year-old male who presents to the emergency department stating that he had a wound on his left posterior forearm that started a week ago this past Tuesday. Patient states has been on antibiotics and it has been cultured but the wound continues to get worse he becomes more more tired over the last week and a half and now there is swelling under his elbow and arm. Patient states that area is extremely tender as well. Patient denies any fever or chills. Patient states his own doctor recently took more cultures. - Related Data Home Medications Medication Instructions Recorded Confirmed lisinopriL [Lisinopril] 10 mg PO DAILY 12/23/14 10/13/23 Multivitamins, Thera [Multivitamin 1 tab PO DAILY 12/26/14 10/13/23 (formulary)] Pravastatin Sodium 80 mg PO DAILY 11/21/18 10/13/23 Cholecalciferol [Vitamin D3 (25 25 mcg PO DAILY 12/09/22 10/13/23 Mcg = 1000 Iu)] Clopidogrel [Plavix] 75 mg PO DAILY 12/09/22 10/13/23 Fish Oil 1,400mg 1,400 mg PO DAILY 10/13/23 10/13/23 Metoprolol Tartrate [Lopressor] 25 mg PO BID 10/13/23 10/13/23 Mupirocin 2% Oint [Bactroban 2% 1 applic TOPICAL BID PRN 10/13/23 10/13/23 Oint] Sulfamethox-Tmp 800-160Mg [Bactrim 1 tab PO Q12HR 10/13/23 10/13/23 Ds] Previous Rx's Medication Instructions Recorded Aspirin EC [Ecotrin Low Dose] 81 mg PO DAILY #30 tablet. 11/22/18 Cephalexin [Keflex] 500 mg PO Q6HR #40 cap 10/06/23 Allergies Allergy/AdvReac Type Severity Reaction Status Date / Time morphine AdvReac Nausea & Verified 10/13/23 13:08 Vomiting Review of Systems ROS Statement: Those systems with pertinent positive or pertinent negative responses have been documented in the HPI. ROS Other: All systems not noted in ROS Statement are negative. Past Medical History Past Medical History: Coronary Artery Disease (CAD), CVA/TIA, Hyperlipidemia, Hypertension, Osteoarthritis (OA), Renal Disease Additional Past Medical History / Comment(s): Generalized arthritis, L leg numbness/tingling since harvested vein for CABG, slight cardiac murmur, kidney stones, possible ureteral stricture-difficult to pass lópez catheters. tia behind eye many years ago History of Any Multi-Drug Resistant Organisms: None Reported Past Surgical History: Back Surgery, Coronary Bypass/CABG, Heart Catheterization, Joint Replacement, Orthopedic Surgery Additional Past Surgical History / Comment(s): 2004 CABG 4 vessel, UVPPP, colonoscopy, bilateral knee arthroscopy, bilateral total knee arthroplasties, bilateral rotator cuff repairs, R total reverse shoulder, kidney stone basketing, cystoscopies/scar tissue removed from bladder. 2006 2022 back surgeries Past Anesthesia/Blood Transfusion Reactions: No Reported Reaction Additional Past Anesthesia/Blood Transfusion Reaction / Comment(s): no hx blood transfusion, had hallucinations after back surgery 11/2022 Past Psychological History: No Psychological Hx Reported Smoking Status: Former smoker Past Alcohol Use History: None Reported Past Drug Use History: None Reported - Past Family History Father Additional Family Medical History / Comment(s): Father in a tractor accident. Mother Family Medical History: Myocardial Infarction (CT) Additional Family Medical History / Comment(s): Mother of a massive [place] at the age of 69yrs. Brother(s) Family Medical History: Cancer Sister(s) Family Medical History: Cancer General Exam - General Exam Comments Initial Comments: GENERAL: Patient is well-developed and well-nourished. Patient is nontoxic and well- hydrated and is in mild distress. ENT: Neck is soft and supple. No significant lymphadenopathy is noted. Oropharynx is clear. Moist mucous membranes. Neck has full range of motion without eliciting any pain. EYES: The sclera were anicteric and conjunctiva were pink and moist. Extraocular movements were intact and pupils were equal round and reactive to light. Eyelids were unremarkable. PULMONARY: Unlabored respirations. Good breath sounds bilaterally. No audible rales rhon chi or wheezing was noted. CARDIOVASCULAR: There is a regular rate and rhythm without any murmurs gallops or rubs. ABDOMEN: Soft and nontender with normal bowel sounds. SKIN: Skin is clear with no lesions or rashes and otherwise unremarkable. NEUROLOGIC: Patient is alert and oriented x3. Cranial nerves II through XII are grossly intact. Motor and sensory are also intact. Normal speech, volume and content. Symmetrical smile. MUSCULOSKELETAL: Patient has a wound on the distal forearm on the left that is very tender and there is some fluctuance proximal to it. Patient also has swelling of the elbow and arm that is very tender LYMPHATICS: No significant lymphadenopathy is noted PSYCHIATRIC: Normal psychiatric evaluation. Limitations: no limitations Course Vital Signs 10/13/23 10/13/23 10/13/23 12:18 12:43 14:21 Temperature 97.9 F 99.3 F 98.5 F Pulse Rate 89 79 70 Respiratory 18 18 16 Rate Blood Pressure 113/72 110/58 O2 Sat by Pulse 97 99 100 Oximetry Medical Decision Making - Medical Decision Making EKG is interpreted by myself EKG shows a sinus rhythm with occasional PAC at 81 bpm WI interval is 172 QRS is 124 QT interval 369 QTc is 407. Patient's EKG shows no ST segment elevation or depression. Was pt. sent in by a medical professional or institution (, PA, JAILER/TRAINING OFFICER, urgent care, hospital, or senior living...) When possible be specific @ -No Did you speak to anyone other than the patient for history (EMS, parent, family, police, friend...)? What history was obtained from this source @ -No Did you review nursing and triage notes (agree or disagree)? Why? @ -I reviewed and agree with nursing and triage notes Were old charts reviewed (outside hosp., previous admission, EMS record, old EKG, old radiological studies, urgent care reports/EKG's, senior living records)? Report findings @ -No old charts were reviewed Differential Diagnosis? @ -Abscess, cellulitis, DVT, this is not an all-inclusive list EKG interpreted by me (3pts min.). @ -As above X-rays interpreted by me (1pt min.). @ -None done CT interpreted by me (1pt min.). @ -None done U/S interpreted by me (1pt. min.). @ -Ultrasound showed no DVT What testing was considered but not performed or refused? (CT, X-rays, U/S, labs)? Why? @ -None What meds were considered but not given or refused? Why? @ -None Did you discuss the management of the patient with other professionals (professionals i.e. , PA, JAILER/TRAINING OFFICER, lab, RT, psych nurse, social media analyst, criminal defense lawyer, teacher, articulation officer, continuous pillowcase cutter)? Give summary @ -I spoke with [facility] hospitalist and they agreed to admit the patient admit the patient wrote admitting orders Was smoking cessation discussed for >3mins.? @ -No Was critical care preformed (if so, how long)? @ -No Were there social determinants of health that impacted care today? How? (Homelessness, low income, unemployed, alcoholism, drug addiction, transportation, low edu. Level, literacy, decrease access to med. care, detention, rehab)? @ -No Was there de-escalation of care discussed even if they declined (Discuss DNR or withdrawal of care, Hospice)? DNR status @ -No What co-morbidities impacted this encounter? (DM, HTN, Smoking, COPD, CAD, Cancer, CVA, ARF, Chemo, Hep., AIDS, mental health diagnosis, sleep apnea, morbid obesity)? @ -None Was patient admitted / discharged? Hospital course, mention meds given and route, prescriptions, significant lab abnormalities, going to OR and other pertinent info. @ -Infected wound forearm and I treated the patient with Camille and Fabián. Patient [facility] be [facility] to [facility] I will consult ID Undiagnosed new problem with uncertain prognosis? @ -No Drug Therapy requiring intensive monitoring for toxicity (Heparin, Nitro, Insulin, Cardizem)? @ -No Were any procedures done? @ -No Diagnosis/symptom? @ -Infected wound forearm Acute, or Chronic, or Acute on Chronic? @ -Default Uncomplicated (without systemic symptoms) or Complicated (systemic symptoms)? @ -Complicated Side effects of treatment? @ -No Exacerbation, Progression, or Severe Exacerbation? @ -No Poses a threat to life or bodily function? How? (Chest pain, USA, CT, pneumonia, PE, COPD, DKA, ARF, appy, cholecystitis, CVA, Diverticulitis, Homicidal, Suicidal, threat to staff... and all critical care pts) @ -Yes this could lead to sepsis and endorgan dysfunction - Lab Data Result diagrams: 10/13/23 13:06 10/13/23 13:06 Lab Results 10/13/23 10/13/23 10/13/23 Range/Units 13:06 13:06 13:06 WBC 11.1 H (3.8-10.6) k/uL RBC 5.22 (4.30-5.90) m/uL Hgb 15.7 (13.0-17.5) gm/dL Hct 48.6 (39.0-53.0) % MCV 93.1 (80.0-100.0) fL MCH 30.0 (25.0-35.0) pg MCHC 32.2 (31.0-37.0) g/dL RDW 14.7 (11.5-15.5) % Plt Count 217 (150-450) k/uL MPV 6.9 Neutrophils % 85 % Lymphocytes % 10 % Monocytes % 5 % Eosinophils % 0 % Basophils % 0 % Neutrophils # 9.4 H (1.3-7.7) k/uL Lymphocytes # 1.1 (1.0-4.8) k/uL Monocytes # 0.5 (0-1.0) k/uL Eosinophils # 0.1 (0-0.7) k/uL Basophils # 0.0 (0-0.2) k/uL PT 10.5 (10.0-12.5) sec INR 1.0 (<1.2) APTT 24.5 (22.0-30.0) sec Sodium 126 L (137-145) mmol/L Potassium 5.1 (3.5-5.1) mmol/L Chloride 99 (98-107) mmol/L Carbon Dioxide 20 L (22-30) mmol/L Anion Gap 7 mmol/L BUN 33 H (9-20) mg/dL Creatinine 0.81 (0.66-1.25) mg/dL Est GFR (CKD-EPI)AfAm >90 (>60 ml/min/1.73 sqM) Est GFR (CKD-EPI)NonAf 85 (>60 ml/min/1.73 sqM) Glucose 103 H (74-99) mg/dL Plasma Lactic Acid Óscar (0.7-2.0) mmol/L Calcium 8.7 (8.4-10.2) mg/dL Total Bilirubin 0.8 (0.2-1.3) mg/dL AST 40 (17-59) U/L ALT 39 (4-49) U/L Alkaline Phosphatase 84 (38-126) U/L Total Protein 6.6 (6.3-8.2) g/dL Albumin 3.8 (3.5-5.0) g/dL // Range/Units 13:06 WBC (3.8-10.6) k/uL RBC (4.30-5.90) m/uL Hgb (13.0-17.5) gm/dL Hct (39.0-53.0) % MCV (80.0-100.0) fL MCH (25.0-35.0) pg MCHC (31.0-37.0) g/dL RDW (11.5-15.5) % Plt Count (150-450) k/uL MPV Neutrophils % % Lymphocytes % % Monocytes % % Eosinophils % % Basophils % % Neutrophils # (1.3-7.7) k/uL Lymphocytes # (1.0-4.8) k/uL Monocytes # (0-1.0) k/uL Eosinophils # (0-0.7) k/uL Basophils # (0-0.2) k/uL PT (10.0-12.5) sec INR (<1.2) APTT (22.0-30.0) sec Sodium (137-145) mmol/L Potassium (3.5-5.1) mmol/L Chloride (98-107) mmol/L Carbon Dioxide (22-30) mmol/L Anion Gap mmol/L BUN (9-20) mg/dL Creatinine (0.66-1.25) mg/dL Est GFR (CKD-EPI)AfAm (>60 ml/min/1.73 sqM) Est GFR (CKD-EPI)NonAf (>60 ml/min/1.73 sqM) Glucose (74-99) mg/dL Plasma Lactic Acid Óscar 1.3 (0.7-2.0) mmol/L Calcium (8.4-10.2) mg/dL Total Bilirubin (0.2-1.3) mg/dL AST (17-59) U/L ALT (4-49) U/L Alkaline Phosphatase (38-126) U/L Total Protein (6.3-8.2) g/dL Albumin (3.5-5.0) g/dL Disposition Clinical Impression: Infected wound, Hyponatremia, Abscess of arm Disposition: ADMITTED IP TO THIS HOSP Referrals: Antonio Zhang DO [Primary Care Provider] - 1-2 days Time of Disposition: 16:26
[2023-10-13 13:21] LABS: Basophils % (A) 0 %; Eosinophils # (A) 0.1 k/uL (0-0.7); Eosinophils % (A) 0 %; HCT 48.6 % (39.0-53.0); HGB 15.7 gm/dL (13.0-17.5); Lymphocytes # (A) 1.1 k/uL (1.0-4.8); Lymphocytes % (A) 10 %; MCHC 32.2 g/dL (31.0-37.0); MCV 93.1 fL (80.0-100.0); Mean Platelet Volume 6.9; Monocytes # (A) 0.5 k/uL (0-1.0); Monocytes % (A) 5 %; Neutrophils # (A) 9.4 k/uL (1.3-7.7); Neutrophils % (A) 85 %; Platelet Count 217 k/uL (150-450); RBC 5.22 m/uL (4.30-5.90); RDW 14.7 % (11.5-15.5); WBC 11.1 k/uL (3.8-10.6)
[2023-10-13] MEDS: SODIUM CHLORIDE 0.9% 500 ML 500 ML IV SCH (13:29)
[2023-10-13 13:33] LABS: ALT 39 U/L (4-49); African American GFR (CKD) >90 (>60 ml/min/1.73 sqM); Albumin 3.8 g/dL (3.5-5.0); Anion Gap 7 mmol/L; Blood Urea Nitrogen 33 mg/dL (9-20); Calcium 8.7 mg/dL (8.4-10.2); Carbon Dioxide 20 mmol/L (22-30); Chloride 99 mmol/L (98-107); Glucose 103 mg/dL (74-99); Non-African American GFR(CKD) 85 (>60 ml/min/1.73 sqM); Sodium 126 mmol/L (137-145); Total Bilirubin 0.8 mg/dL (0.2-1.3); Total Protein 6.6 g/dL (6.3-8.2)
[2023-10-13 13:34] LABS: Partial Thromboplastin Time 24.5 sec (22.0-30.0); Prothrombin Time 10.5 sec (10.0-12.5)
[2023-10-13 13:51] LABS: AST 40 U/L (17-59); Alkaline Phosphatase 84 U/L (38-126); Potassium 5.1 mmol/L (3.5-5.1)
--- NOTE | 2023-10-13 14:28 | US ---
EXAMINATION TYPE: US venous doppler duplex UE LT DATE OF EXAM: 10/13/2023 COMPARISON: NONE CLINICAL INDICATION: Male, 78 years old with history of DVT; Pain, edema left arm. wound left wrist. patient on Plavix SIDE PERFORMED: left Left Arm: No evidence of DVT IMPRESSION: 1. Left upper extremity ultrasound negative for deep venous thrombosis.
[2023-10-13] MEDS ORDERED: VANCOMYCIN IV PER PHARMACY 1 EACH MISC MISCELLANE PRN (15:55)
[2023-10-13] MEDS: PIPERACILLIN-TAZOBACTAM 3.375 GM in SODIUM CHLORIDE 0.9% 100 ML IVPB STA (16:22)
--- NOTE | 2023-10-13 16:22 | US ---
EXAMINATION TYPE: US extremity nonvasc mass LT DATE OF EXAM: 10/13/2023 COMPARISON: NONE CLINICAL INDICATION: Male, 78 years old with history of lump at elbow; lump and redness at posterior elbow. TECHNIQUE: Area of redness scanned FINDINGS: Complex area seen at area of concern measuring 2.3 x 1.7 x 1.5cm. There does appear to be some hypervascularity seen. IMPRESSION: Nonspecific complex lesion with central nodular component and peripheral hypoechoic comp onent could reflect hematoma. Infected collection is difficult to exclude. Mass of other etiology nomi uld also be considered. Correlate clinically.
[2023-10-13] MEDS: SODIUM CHLORIDE 0.9% 1,000 ML IV ONE (16:23)
[2023-10-13] MEDS: VANCOMYCIN 1,250 MG in SODIUM CHLORIDE 0.9% 250 ML IVPB SCH (17:32)
[2023-10-13] MEDS: METOPROLOL TARTRATE 25 MG TAB PO SCH (20:05)
--- NOTE | 2023-10-13 22:31 | P.CONS ---
History of Present Illness - Reason for Consult Consult date: 10/13/23 Wound forearm Requesting physician: Chirag Ramirez - Chief Complaint Nonhealing wound to the left forearm and swelling to the upper arm x few da - History of Present Illness Patient is a 78-year-old male with a past medical history significant for hypertension hyperlipidemia CVA TIA coronary artery disease osteoarthritis in this patient apparently has been dealing with a wound to the left lateral forearm area that apparently started as a small pimple with the at clinic with a peroxide and squeezed the pus out of it subsequently the patient noticed to having open laceration hand cellulitis that has been treated by the ER as well as by primary care physician with oral Keflex and Bactrim DS patient apparently did have a culture done on 10/06/2023 in the ER they did grew, positive bacilli patient subsequent noticed to have increasing swelling to the left upper arm over the last few days that area is painful describing it to be mostly sharp to dull aching moderate intensity worse with touching and there is no drainage with the symptoms the patient has been sent to the ER on presentation to the hospital the patient was afebrile and no fever have recorded subsequently patient was not tachycardic hypotensive or hypoxic and no need for supplemental oxygen patient did have white count of 11.1 with a left shift creatinine 0.81 potassium was 5.1 platelets are normal patient did have blood cultures obtained patient was started on vancomycin and Zosyn infectious disease was consulted for further management of antibiotic therapy patient did have a Doppler ultrasound that was negative for DVT extremity ultrasound did show some nonspecific complex lesion in the left upper arm concerning for possible infected hematoma muscle further etiology not entirely excluded Review of Systems Positive point and negatives has been mentioned in the HPI, complete review of systems was performed and all other systems are negative Past Medical History Past Medical History: Coronary Artery Disease (CAD), CVA/TIA, Hyperlipidemia, Hypertension, Osteoarthritis (OA), Renal Disease Additional Past Medical History / Comment(s): Generalized arthritis, L leg numbness/tingling since harvested vein for CABG, slight cardiac murmur, kidney stones, possible ureteral stricture-difficult to pass lópez catheters. tia behind eye many years ago History of Any Multi-Drug Resistant Organisms: None Reported Past Surgical History: Back Surgery, Coronary Bypass/CABG, Heart Catheterization, Joint Replacement, Orthopedic Surgery Additional Past Surgical History / Comment(s): 2004 CABG 4 vessel, UVPPP, colonoscopy, bilateral knee arthroscopy, bilateral total knee arthroplasties, bilateral rotator cuff repairs, R total reverse shoulder, kidney stone basketing, cystoscopies/scar tissue removed from bladder. 2006 2022 back surgeries Past Anesthesia/Blood Transfusion Reactions: No Reported Reaction Additional Past Anesthesia/Blood Transfusion Reaction / Comm: no hx blood transfusion, had hallucinations after back surgery 11/2022 Past Psychological History: No Psychological Hx Reported Smoking Status: Former smoker Past Alcohol Use History: None Reported Past Drug Use History: None Reported - Past Family History Father Additional Family Medical History / Comment(s): Father in a tractor accident. Mother Family Medical History: Myocardial Infarction ([place]) Additional Family Medical History / Comment(s): Mother of a massive [place] at the age of 69yrs. Brother(s) Family Medical History: Cancer Sister(s) Family Medical History: Cancer Medications and Allergies Home Medications Medication Instructions Recorded Confirmed Type lisinopriL [Lisinopril] 10 mg PO DAILY 12/23/14 10/13/23 History Multivitamins, Thera [Multivitamin 1 tab PO DAILY 12/26/14 10/13/23 History (formulary)] Pravastatin Sodium 80 mg PO DAILY 11/21/18 10/13/23 History Aspirin EC [Ecotrin Low Dose] 81 mg PO DAILY #30 tablet. 11/22/18 10/13/23 Rx Cholecalciferol [Vitamin D3 (25 25 mcg PO DAILY 12/09/22 10/13/23 History Mcg = 1000 Iu)] Clopidogrel [Plavix] 75 mg PO DAILY 12/09/22 10/13/23 History Cephalexin [Keflex] 500 mg PO Q6HR #40 cap 10/06/23 10/13/23 Rx Fish Oil 1,400mg 1,400 mg PO DAILY 10/13/23 10/13/23 History Metoprolol Tartrate [Lopressor] 25 mg PO BID 10/13/23 10/13/23 History Mupirocin 2% Oint [Bactroban 2% 1 applic TOPICAL BID PRN 10/13/23 10/13/23 History Oint] Sulfamethox-Tmp 800-160Mg [Bactrim 1 tab PO Q12HR 10/13/23 10/13/23 History Ds] Allergies Allergy/AdvReac Type Severity Reaction Status Date / Time morphine AdvReac Nausea & Verified 10/13/23 13:08 Vomiting Physical Exam Vitals: Vital Signs Temp Pulse Resp BP Pulse Ox 10/13/23 20:00 73 16 108/63 96 10/13/23 18:38 98.7 F 72 16 109/58 95 10/13/23 17:23 98.9 F 77 16 121/62 94 L 10/13/23 14:21 98.5 F 70 16 110/58 100 10/13/23 12:43 99.3 F 79 18 99 10/13/23 12:18 97.9 F 89 18 113/72 97 Intake and Output 10/13/23 10/13/23 10/13/23 06:59 14:59 22:59 Other: Weight 67.132 kg GENERAL DESCRIPTION: Elderly male lying in bed, no distress. No tachypnea or accessory muscle of respiration use. HEENT: Shows Pallor , no scleral icterus. Oral mucous membrane is dry. No pharyngeal erythema or thrush NECK: Trachea central, no thyromegaly. LUNGS: Unlabored breathing. Clear to auscultation anteriorly. No wheeze or crackle. HEART: S1, S2, regular rate and rhythm. No loud murmur ABDOMEN: Soft, no tenderness , guarding or rigidity, no organomegaly EXTREMITIES: Forearm on the left side did have a small wound which has been cultured he did have a swelling to the medial side of the left upper arm which is warm and tender to touch SKIN: No rash, no masses palpable. NEUROLOGICAL: The patient is awake, alert, oriented x3, mood and affect normal. Results CBC & Chem 7: 10/14/23 13:59 10/14/23 13:59 Labs: Abnormal Lab Results - Last 24 Hours (Table) 10/13/23 10/13/23 Range/Units 13:06 13:06 WBC 11.1 H (3.8-10.6) k/uL Neutrophils # 9.4 H (1.3-7.7) k/uL Sodium 126 L (137-145) mmol/L Carbon Dioxide 20 L (22-30) mmol/L BUN 33 H (9-20) mg/dL Glucose 103 H (74-99) mg/dL Assessment and Plan (1) Abscess of left arm Current Visit: Yes Status: Acute Code(s): L02.414 - CUTANEOUS ABSCESS OF LEFT UPPER LIMB SNOMED Code(s): 69241344288617253 (2) Wound of left upper extremity Current Visit: Yes Status: Acute Code(s): S41.102A - UNSPECIFIED OPEN WOUND OF LEFT UPPER ARM, INITIAL ENCOUNTER SNOMED Code(s): 896005059 (3) Failure of outpatient treatment Current Visit: Yes Status: Acute Code(s): Z78.9 - OTHER SPECIFIED HEALTH STATUS SNOMED Code(s): 792115085 Plan: 1patient presented to hospital with left upper arm swelling and this patient has been dealing with the wound to the left lateral forearm for more than a week and has failed outpatient oral Bactrim DS as well as Keflex therapy no concern for possible development of abscess to the left upper lobe likely from gram- positive skin talha gram-negative infection less likely but not entirely excluded 2-patient benefit from surgical drainage of this abscess and deep culture 3 we will continue patient on vancomycin however to decrease risk of nephrotoxicity we will switch Zosyn to cefepime Family at the bedside multiple question concern answered We will follow on clinical condition and cultures to further adjust medication if needed Thank you for this consultation we will follow the patient along with you Dictation was produced using Rapid[employer] dictation software. please excuse any grammatical, word or spelling errors. Time with Patient: Greater than 30
[2023-10-13] MEDS: CEFEPIME 2 GM in SODIUM CHLORIDE 0.9% 100 ML IVPB SCH (23:53)
[2023-10-14] MEDS ORDERED: PIPERACILLIN-TAZOBACTAM 3.375 GM in SODIUM CHLORIDE 0.9% 100 ML IVPB SCH
[2023-10-14] MEDS: CLOPIDOGREL 75 MG TAB PO SCH (09:23)
[2023-10-14] MEDS: lisinopriL 10 MG TAB PO SCH (09:23)
[2023-10-14] MEDS: ASPIRIN 81 MG PO SCH (09:23)
[2023-10-14] MEDS: PRAVASTATIN SODIUM 80 MG TAB PO SCH (09:23)
[2023-10-14 12:55] VITALS: BMI 23.8
[2023-10-14 14:20] LABS: Basophils % (A) 0 %; Eosinophils % (A) 1 %; HCT 41.5 % (39.0-53.0); HGB 13.3 gm/dL (13.0-17.5); Lymphocytes # (A) 0.4 k/uL (1.0-4.8); Lymphocytes % (A) 8 %; MCH 30.3 pg (25.0-35.0); MCHC 31.9 g/dL (31.0-37.0); MCV 94.8 fL (80.0-100.0); Mean Platelet Volume 7.1; Monocytes # (A) 0.2 k/uL (0-1.0); Monocytes % (A) 5 %; Neutrophils % (A) 86 %; Platelet Count 176 k/uL (150-450); RBC 4.38 m/uL (4.30-5.90); RDW 14.7 % (11.5-15.5); WBC 4.7 k/uL (3.8-10.6)
[2023-10-14 14:29] LABS: African American GFR (CKD) >90 (>60 ml/min/1.73 sqM); Anion Gap 2 mmol/L; Blood Urea Nitrogen 24 mg/dL (9-20); Carbon Dioxide 22 mmol/L (22-30); Chloride 105 mmol/L (98-107); Glucose 159 mg/dL (74-99); Non-African American GFR(CKD) 88 (>60 ml/min/1.73 sqM); Sodium 129 mmol/L (137-145)
--- NOTE | 2023-10-14 15:34 | P.GSCN ---
History of Present Illness Consult date: 10/14/23 History of present illness: CHIEF COMPLAINT: left forearm wound and weakness HISTORY OF PRESENT ILLNESS: This is a 78-year-old male who presented to the hospital with weakness and fatigue and lethargy. He has had a left wrist wound since October 02. Family member at bedside reports that it started as a pimple. It was popped. She cleaned it and had been applying bacitracin ointment. Patient came into the ER on October 01 and was sent home with Keflex and Bactrim. Patient continues to not have any improvement and was getting weaker. He came into the ER for further evaluation. He continues to have purulent drainage from the left wrist wound. But now is having more swelling in the upper arm. Patient reports a history of borderline diabetes. And a prior history of a staph infection with abscess in his back when he was around 13 required to be drained. He does also have a history of stroke and is on Plavix. He denies any fever chills or sweats. Ultrasound of the left arm completed reported nonspecific complex lesion with central nodular component peripheral hypoechoic component could reflect hematoma. Infected collection is difficult to exclude. Mass or other etiologies should be considered. Patient denies any injury to arm. PAST MEDICAL HISTORY: Coronary Artery Disease (CAD), CVA, Hyperlipidemia, Hypertension, Osteoarthritis (OA), Renal Disease PAST SURGICAL HISTORY: CABG 2004 MEDICATIONS: See below ALLERGIES: See below SOCIAL HISTORY: No illicit drug use. REVIEW OF SYSTEMS: CONSTITUTIONAL: Denies fever or chills. HEENT: Denies blurred vision, vision changes, or eye pain. Denies hemoptysis CARDIOVASCULAR: Denies chest pain or pressure. RESPIRATORY: No shortness of breath. GASTROINTESTINAL: See HPI for pertinent findings HEMATOLOGIC: Denies bleeding disorders. GENITOURINARY: Denies any blood in urine or increased urinary frequency. SKIN: Denies pruitis. Denies rash. PHYSICAL EXAM: VITAL SIGNS: Reviewed GENERAL: Well-developed in no acute distress. ABDOMEN: Soft. Nondistended. nontender NEUROLOGIC: Alert and oriented. Cranial nerves II through XII grossly intact. extremities: Left lateral forearm small wound with purulent drainage. Small area of erythema. Mild tenderness to palpation. There is swelling, induration and mild erythema noted in the left upper arm posterior aspect. no fluctuance LABORATORY DATA: WBC 11.1 down to 4.7HB 13.3 platelets 176 Sodium 129 potassium is 4.0 creatinine 0.74 Lactic acid 1.3 IMAGING: venous Doppler negative for DVT Left arm ultrasound as stated above ASSESSMENT: 1. Left forearm woundwith swelling in the left upper arm. Failed outpatient antibiotics PLAN: -Further recommendations forthcoming per surgeon -Keep arm elevated -Apply warm compresses -Antibiotics per infectious disease -Hold Plavix for now -repeat CBC in AM Physician Bank President note has been reviewed by physician. Signing provider agrees with the documented findings, assessment, and plan of care. Past Medical History Past Medical History: Coronary Artery Disease (CAD), CVA/TIA, Hyperlipidemia, Hypertension, Osteoarthritis (OA), Renal Disease Additional Past Medical History / Comment(s): Generalized arthritis, L leg numbness/tingling since harvested vein for CABG, slight cardiac murmur, kidney stones, possible ureteral stricture-difficult to pass lópez catheters. tia behind eye many years ago History of Any Multi-Drug Resistant Organisms: None Reported Past Surgical History: Back Surgery, Coronary Bypass/CABG, Heart Catheterization, Joint Replacement, Orthopedic Surgery Additional Past Surgical History / Comment(s): 2004 CABG 4 vessel, UVPPP, colonoscopy, bilateral knee arthroscopy, bilateral total knee arthroplasties, bilateral rotator cuff repairs, R total reverse shoulder, kidney stone basketing, cystoscopies/scar tissue removed from bladder. 2006 2022 back surgeries Past Anesthesia/Blood Transfusion Reactions: No Reported Reaction Additional Past Anesthesia/Blood Transfusion Reaction / Comm: no hx blood transfusion, had hallucinations after back surgery 11/2022 Past Psychological History: No Psychological Hx Reported Smoking Status: Former smoker Past Alcohol Use History: None Reported Past Drug Use History: None Reported - Past Family History Father Additional Family Medical History / Comment(s): Father in a tractor accident. Mother Family Medical History: Myocardial Infarction (RI) Additional Family Medical History / Comment(s): Mother of a massive RI at the age of 69yrs. Brother(s) Family Medical History: Cancer Sister(s) Family Medical History: Cancer Medications and Allergies Home Medications Medication Instructions Recorded Confirmed Type lisinopriL [Lisinopril] 10 mg PO DAILY 12/23/14 10/13/23 History Multivitamins, Thera [Multivitamin 1 tab PO DAILY 12/26/14 10/13/23 History (formulary)] Pravastatin Sodium 80 mg PO DAILY 11/21/18 10/13/23 History Aspirin EC [Ecotrin Low Dose] 81 mg PO DAILY #30 tablet. 11/22/18 10/13/23 Rx Cholecalciferol [Vitamin D3 (25 25 mcg PO DAILY 12/09/22 10/13/23 History Mcg = 1000 Iu)] Clopidogrel [Plavix] 75 mg PO DAILY 12/09/22 10/13/23 History Cephalexin [Keflex] 500 mg PO Q6HR #40 cap 10/06/23 10/13/23 Rx Fish Oil 1,400mg 1,400 mg PO DAILY 10/13/23 10/13/23 History Metoprolol Tartrate [Lopressor] 25 mg PO BID 10/13/23 10/13/23 History Mupirocin 2% Oint [Bactroban 2% 1 applic TOPICAL BID PRN 10/13/23 10/13/23 History Oint] Sulfamethox-Tmp 800-160Mg [Bactrim 1 tab PO Q12HR 10/13/23 10/13/23 History Ds] Allergies Allergy/AdvReac Type Severity Reaction Status Date / Time morphine AdvReac Nausea & Verified 10/13/23 13:08 Vomiting Surgical - Exam Vital Signs Temp Pulse Resp BP Pulse Ox 97.9 F 89 18 113/72 97 10/13/23 12:18 10/13/23 12:18 10/13/23 12:18 10/13/23 12:18 10/13/23 12:18 Results - Labs 10/14/23 13:59 10/14/23 13:59 Abnormal Lab Results - Last 24 Hours (Table) 10/14/23 10/14/23 Range/Units 13:59 13:59 Lymphocytes # 0.4 L (1.0-4.8) k/uL Sodium 129 L (137-145) mmol/L BUN 24 H (9-20) mg/dL Glucose 159 H (74-99) mg/dL Calcium 8.0 L (8.4-10.2) mg/dL Microbiology - Last 24 Hours (Table) 10/13/23 17:15 Gram Stain - Preliminary Wrist - Left Diabetes panel 10/14/23 Range/Units 13:59 Sodium 129 L (137-145) mmol/L Potassium 4.0 (3.5-5.1) mmol/L Chloride 105 (98-107) mmol/L Carbon Dioxide 22 (22-30) mmol/L BUN 24 H (9-20) mg/dL Creatinine 0.74 (0.66-1.25) mg/dL Glucose 159 H (74-99) mg/dL Calcium 8.0 L (8.4-10.2) mg/dL Calcium panel 10/14/23 Range/Units 13:59 Calcium 8.0 L (8.4-10.2) mg/dL Pituitary panel 10/14/23 Range/Units 13:59 Sodium 129 L (137-145) mmol/L Potassium 4.0 (3.5-5.1) mmol/L Chloride 105 (98-107) mmol/L Carbon Dioxide 22 (22-30) mmol/L BUN 24 H (9-20) mg/dL Creatinine 0.74 (0.66-1.25) mg/dL Glucose 159 H (74-99) mg/dL Calcium 8.0 L (8.4-10.2) mg/dL Adrenal panel 10/14/23 Range/Units 13:59 Sodium 129 L (137-145) mmol/L Potassium 4.0 (3.5-5.1) mmol/L Chloride 105 (98-107) mmol/L Carbon Dioxide 22 (22-30) mmol/L BUN 24 H (9-20) mg/dL Creatinine 0.74 (0.66-1.25) mg/dL Glucose 159 H (74-99) mg/dL Calcium 8.0 L (8.4-10.2) mg/dL
--- NOTE | 2023-10-14 16:16 | P.PN ---
Subjective Progress Note Date: 10/14/23 Principal diagnosis: Reason for follow up his left forearm wound and upper arm abscess Patient is a 78-year-old male with a past medical history significant for hypertension hyperlipidemia CVA TIA coronary artery disease osteoarthritis in this patient apparently has been dealing with a wound to the left lateral forearm area with multiple courses of antibiotic now presenting with left upper arm swelling concerning for possible abscess, patient did have an ultrasound concerning for small area of possible abscess. On today's evaluation that is 10/14/2023, patient has been afebrile, patient is breathing comfortably and is currently on room air, patient denies having any significant cough no chest pain shortness of breath, patient denies nausea vomiting or diarrhea and no abdominal pain patient left upper arm swelling and pain has slightly decreased. Patient white count normalized to 4.7, creatinine 0.74 cultures currently pending Objective - Vital Signs Vital signs: Vital Signs Temp 98.1 F 10/14/23 07:41 Pulse 63 10/14/23 07:41 Resp 22 10/14/23 08:00 BP 124/64 10/14/23 07:41 Pulse Ox 96 10/14/23 07:41 FiO2 Intake & Output 10/13/23 10/14/23 10/14/23 18:59 06:59 18:59 Weight 67.132 kg 67.132 kg 67.132 kg Other: Voiding Method Toilet Toilet # Voids 1 - Exam GENERAL DESCRIPTION: An elderly male lying in bed in no distress RESPIRATORY SYSTEM: Unlabored breathing , decreased breath sounds at bases HEART: S1 S2 regular rate and rhythm , ABDOMEN: Soft , no tenderness EXTREMITIES: Left upper arm swelling has slightly decreased - Labs CBC & Chem 7: 10/14/23 13:59 10/14/23 13:59 Labs: Abnormal Lab Results - Last 24 Hours (Table) 10/13/23 10/13/23 Range/Units 13:06 13:06 WBC 11.1 H (3.8-10.6) k/uL Neutrophils # 9.4 H (1.3-7.7) k/uL Sodium 126 L (137-145) mmol/L Carbon Dioxide 20 L (22-30) mmol/L BUN 33 H (9-20) mg/dL Glucose 103 H (74-99) mg/dL Microbiology - Last 24 Hours (Table) 10/13/23 17:15 Gram Stain - Preliminary Wrist - Left Assessment and Plan (1) Abscess of left arm Current Visit: Yes Status: Acute Code(s): L02.414 - CUTANEOUS ABSCESS OF LEFT UPPER LIMB SNOMED Code(s): 46209828408365303 (2) Wound of left upper extremity Current Visit: Yes Status: Acute Code(s): S41.102A - UNSPECIFIED OPEN WOUND OF LEFT UPPER ARM, INITIAL ENCOUNTER SNOMED Code(s): 416910252 (3) Failure of outpatient treatment Current Visit: Yes Status: Acute Code(s): Z78.9 - OTHER SPECIFIED HEALTH STATUS SNOMED Code(s): 176445920 Plan: 1patient presented to hospital with left upper arm swelling and this patient has been dealing with the wound to the left lateral forearm for more than a week and has failed outpatient oral Bactrim DS as well as Keflex therapy no concern for possible development of abscess to the left upper lobe likely from gram- positive skin talha gram-negative infection less likely but not entirely excluded 2-patient ultrasound however suggestive of possible fluid collection suspicious for abscess General surgery has been consulted for surgical drainage of this abscess and deep culture 3 patient to l continue patient on vancomycin pharmacy to dose and cefepime, pending culture completion Dictation was produced using [employer] dictation software. please excuse any grammatical, word or spelling errors. Time with Patient: Less than 30
[2023-10-15 06:34] LABS: African American GFR (CKD) >90 (>60 ml/min/1.73 sqM); Anion Gap 3 mmol/L; Blood Urea Nitrogen 20 mg/dL (9-20); Calcium 7.9 mg/dL (8.4-10.2); Carbon Dioxide 20 mmol/L (22-30); Chloride 107 mmol/L (98-107); Glucose 90 mg/dL (74-99); Non-African American GFR(CKD) >90 (>60 ml/min/1.73 sqM); Potassium 4.2 mmol/L (3.5-5.1); Sodium 130 mmol/L (137-145)
[2023-10-15] MEDS: MULTIVITAMINS, THERA 1 EACH TAB PO SCH (08:16)
[2023-10-15] MEDS: CHOLECALCIFEROL 25 MCG (1000 IU) TABLET PO SCH (08:17)
[2023-10-15 09:42] LABS: Basophils # (A) 0 X 10*3/uL (0.00-0.10); Basophils % (A) 0 %; Eosinophils # (A) 0.02 X 10*3/uL (0.04-0.35); Eosinophils % (A) 0.4 %; HCT 38.9 % (39.6-50.0); HGB 12.9 g/dL (13.0-17.0); Lymphocytes # (A) 0.49 X 10*3/uL (0.90-5.00); Lymphocytes % (A) 9.1 %; MCH 29.5 pg (27.0-32.0); MCHC 33.2 g/dL (32.0-37.0); MCV 88.8 FL (80.0-97.0); Mean Platelet Volume 8.8 FL (9.5-12.2); Monocytes # (A) 0.14 X 10*3/uL (0.20-1.00); Monocytes % (A) 2.6 %; NRBC Per 100 WBC 0 X 10*3/uL (0.00-0.01); Neutrophils # (A) 4.69 X 10*3/uL (1.80-7.70); Neutrophils % (A) 87.5 %; Platelet Count 154 X 10*3/uL (140-440); RBC 4.38 X 10*6/uL (4.40-5.60); RDW 16.3 % (11.5-14.5); WBC 5.36 X 10*3/uL (4.50-10.00)
--- NOTE | 2023-10-15 13:48 | P.PN ---
Subjective Progress Note Date: 10/15/23 Principal diagnosis: Reason for follow up his left forearm wound and upper arm abscess Patient is a 78-year-old male with a past medical history significant for hypertension hyperlipidemia CVA TIA coronary artery disease osteoarthritis in this patient apparently has been dealing with a wound to the left lateral forearm area with multiple courses of antibiotic now presenting with left upper arm swelling concerning for possible abscess, patient did have an ultrasound concerning for small area of possible abscess. On today's evaluation that is 10/15/2023, Patient is afebrile this morning patient denies having any chest pain shortness of breath or cough, the patient is breathing comfortably and currently on room air, patient denies any abdominal pain no diarrhea no nausea no vomiting still complaining of some weakness and pain to the left upper arm overall swelling has decreased. Patient white count is 5.36, creatinine 0.56 cultures currently pending Objective - Vital Signs Vital signs: Vital Signs Temp 98.1 F 10/15/23 07:48 Pulse 60 10/15/23 07:48 Resp 17 10/15/23 07:48 BP 121/60 10/15/23 07:48 Pulse Ox 96 10/15/23 07:48 FiO2 Intake & Output 10/14/23 10/15/23 10/15/23 18:59 06:59 18:59 Intake Total 540 450 240 Balance 540 450 240 Weight 67.132 kg Intake: Intake, IV Titration 450 Amount Cefepime 2 gm In Sodium 200 Chloride 0.9% 100 ml @ 25 mls/hr IVPB Q8HR [facility] Rx# :[id number] Vancomycin 1,250 mg In 250 Sodium Chloride 0.9% 250 ml @ 125 mls/hr IVPB Q12H [facility] Rx#:[id number] Oral 540 240 Other: Voiding Method Toilet Toilet Toilet # Voids 1 - Exam GENERAL DESCRIPTION: An elderly male lying in bed in no distress RESPIRATORY SYSTEM: Unlabored breathing , decreased breath sounds at bases HEART: S1 S2 regular rate and rhythm , ABDOMEN: Soft , no tenderness EXTREMITIES: Left upper arm swelling has slightly decreased - Labs CBC & Chem 7: 10/15/23 05:11 10/15/23 05:07 Labs: Abnormal Lab Results - Last 24 Hours (Table) 10/14/23 10/14/23 10/15/23 Range/Units 13:59 13:59 05:07 RBC (4.40-5.60) X 10*6/uL Hgb (13.0-17.0) g/dL Hct (39.6-50.0) % RDW (11.5-14.5) % MPV (9.5-12.2) FL Lymphocytes # 0.4 L (1.0-4.8) k/uL Monocytes # (0.20-1.00) X 10*3/uL Eosinophils # (0.04-0.35) X 10*3/uL Sodium 129 L 130 L (137-145) mmol/L Carbon Dioxide 20 L (22-30) mmol/L BUN 24 H (9-20) mg/dL Creatinine 0.56 L (0.66-1.25) mg/dL Glucose 159 H (74-99) mg/dL Calcium 8.0 L 7.9 L (8.4-10.2) mg/dL 10/15/23 Range/Units 05:11 RBC 4.38 L (4.40-5.60) X 10*6/uL Hgb 12.9 L (13.0-17.0) g/dL Hct 38.9 L (39.6-50.0) % RDW 16.3 H (11.5-14.5) % MPV 8.8 L (9.5-12.2) FL Lymphocytes # 0.49 L (1.0-4.8) k/uL Monocytes # 0.14 L (0.20-1.00) X 10*3/uL Eosinophils # 0.02 L (0.04-0.35) X 10*3/uL Sodium (137-145) mmol/L Carbon Dioxide (22-30) mmol/L BUN (9-20) mg/dL Creatinine (0.66-1.25) mg/dL Glucose (74-99) mg/dL Calcium (8.4-10.2) mg/dL Microbiology - Last 24 Hours (Table) 10/13/23 17:15 Gram Stain - Preliminary Wrist - Left Wound Culture - Preliminary 10/13/23 13:00 Blood Culture - Preliminary Blood 10/13/23 12:45 Blood Culture - Preliminary Blood Assessment and Plan (1) Abscess of left arm Current Visit: Yes Status: Acute Code(s): L02.414 - CUTANEOUS ABSCESS OF LEFT UPPER LIMB SNOMED Code(s): 35877674323865838 (2) Wound of left upper extremity Current Visit: Yes Status: Acute Code(s): S41.102A - UNSPECIFIED OPEN WOUND OF LEFT UPPER ARM, INITIAL ENCOUNTER SNOMED Code(s): 323568567 (3) Failure of outpatient treatment Current Visit: Yes Status: Acute Code(s): Z78.9 - OTHER SPECIFIED HEALTH STATUS SNOMED Code(s): 406133837 Plan: 1patient presented to hospital with left upper arm swelling and this patient has been dealing with the wound to the left lateral forearm for more than a week and has failed outpatient oral Bactrim DS as well as Keflex therapy no concern for possible development of abscess to the left upper lobe likely from gram- positive skin talha gram-negative infection less likely but not entirely excluded 2-patient ultrasound however suggestive of possible fluid collection suspicious for abscess General surgery has been consulted for surgical drainage of this abscess and deep culture 3 patient swelling to the left arm from his slightly decreased cultures currently pending, patient to continue patient on vancomycin pharmacy to dose and cefepime while waiting for the culture to finalize Question concern answered Dictation was produced using [employer] dictation software. please excuse any grammatical, word or spelling errors. Time with Patient: Less than 30
--- NOTE | 2023-10-15 16:03 | P.PN ---
Progress Note - Text Progress Note Date: 10/15/23 CHIEF COMPLAINT: Left forearm wound HISTORY OF PRESENT ILLNESS: NAEO. Denies fevers and chills. PHYSICAL EXAM: VITAL SIGNS: Reviewed. GENERAL: no acute distress. ABDOMEN: Soft. Nondistended. Incision sites clean dry and intact. very minimal bruisingincision sites NEUROLOGIC: Alert and oriented. Cranial nerves II through XII grossly intact. ASSESSMENT: 1. Left forearm woundwith swelling in the left upper arm. Failed outpatient antibiotics PLAN: -No acute surgical intervention at this time -Keep arm elevated -Apply warm compresses -Antibiotics per infectious disease -Hold Plavix for now
--- NOTE | 2023-10-15 16:23 | P.HPIM ---
History of Present Illness H&P Date: 10/14/23 Chief Complaint: Nonhealing wound left forearm 78-year-old male with history significant for hypertension, hyperlipidemia, CVA, TIA, coronary artery disease, osteoarthritis, presents to ED with nonhealing wound left forearm. Patient apparently has been dealing with a wound to the left lateral forearm area that apparently started as a small pimple; patient went with the at clinic with a peroxide and squeezed the pus out of it subsequently the patient noticed to having open laceration hand cellulitis that has been treated by the ER as well as by primary care physician with oral Keflex and Bactrim DS patient apparently did have a culture done on 10/06/2023 in the ER they did grew gram positive bacilli. Patient subsequent noticed to have increasing swelling to the left upper arm over the last few days that area is painful describing it to be mostly sharp to dull aching moderate intensity worse with touching and there is no drainage with the symptoms. The patient has been sent to the ER on presentation to the hospital the patient was afebrile and no fever have recorded subsequently patient was not tachycardic hypotensive or hypoxic and no need for supplemental oxygen. Blood work completed in ED reveals a WBC of 4.7, 13.3 and platelet count of 176, sodium 129, potassium 4.2, BUNs/creatinine of 24/0.74 and blood glucose of 159 --Patient had ultrasound Doppler completed in ED which was negative for DVT; ultrasound did show nonspecific complex lesion in the left upper arm concerning for possible infected hematoma --patient did have blood cultures obtained patient was started on vancomycin and Zosyn. Infectious disease was consulted for further management of antibiotic therapy patient did have a Doppler ultrasound that was negative for DVT extremity ultrasound did show some nonspecific complex lesion in the left upper arm concerning for possible infected hematoma muscle further etiology not entirely excluded Review of Systems REVIEW OF SYSTEMS: CONSTITUTIONAL: No fever, no malaise, no fatigue. HEENT: No recent visual problems or hearing problems. Denied any sore throat. CARDIOVASCULAR: No chest pain, orthopnea, PND, no palpitations, no syncope. PULMONARY: No shortness of breath, no cough, no hemoptysis. GASTROINTESTINAL: No diarrhea, no nausea, no vomiting, no abdominal pain. NEUROLOGICAL: No headaches, no weakness, no numbness. HEMATOLOGICAL: Denies any bleeding or petechiae. GENITOURINARY: Denies any burning micturition, frequency, or urgency. MUSCULOSKELETAL/RHEUMATOLOGICAL: Denies any joint pain, swelling, or any muscle pain. ENDOCRINE: Denies any polyuria or polydipsia. The rest of the 14-point review of systems is negative. Past Medical History Past Medical History: Coronary Artery Disease (CAD), CVA/TIA, Hyperlipidemia, Hypertension, Osteoarthritis (OA), Renal Disease Additional Past Medical History / Comment(s): Generalized arthritis, L leg numbness/tingling since harvested vein for CABG, slight cardiac murmur, kidney stones, possible ureteral stricture-difficult to pass lópez catheters. tia behi nd eye many years ago History of Any Multi-Drug Resistant Organisms: None Reported Past Surgical History: Back Surgery, Coronary Bypass/CABG, Heart Ca theterization, Joint Replacement, Orthopedic Surgery Additional Past Surgical History / Comment(s): 2004 CABG 4 vessel, UVPPP, colonoscopy, bilateral knee arthroscopy, bilateral total knee arthroplasties, bilateral rotator cuff repairs, R total reverse shoulder, kidney stone basketing, cystoscopies/scar tissue removed from bladder. 2006 2022 back surgeries Past Anesthesia/Blood Transfusion Reactions: No Reported Reaction Additional Past Anesthesia/Blood Transfusion Reaction / Comment(s): no hx blood transfusion, had hallucinations after back surgery 11/2022 Past Psychological History: No Psychological Hx Reported Smoking Status: Former smoker Past Alcohol Use History: None Reported Past Drug Use History: None Reported - Past Family History Father Additional Family Medical History / Comment(s): Father in a tractor accident. Mother Family Medical History: Myocardial Infarction (MO) Additional Family Medical History / Comment(s): Mother of a massive MO at the age of 69yrs. Brother(s) Family Medical History: Cancer Sister(s) Family Medical History: Cancer Medications and Allergies Home Medications Medication Instructions Recorded Confirmed Type lisinopriL [Lisinopril] 10 mg PO DAILY 12/23/14 10/13/23 History Multivitamins, Thera [Multivitamin 1 tab PO DAILY 12/26/14 10/13/23 History (formulary)] Pravastatin Sodium 80 mg PO DAILY 11/21/18 10/13/23 History Aspirin EC [Ecotrin Low Dose] 81 mg PO DAILY #30 tablet. 11/22/18 10/13/23 Rx Cholecalciferol [Vitamin D3 (25 25 mcg PO DAILY 12/09/22 10/13/23 History Mcg = 1000 Iu)] Clopidogrel [Plavix] 75 mg PO DAILY 12/09/22 10/13/23 History Cephalexin [Keflex] 500 mg PO Q6HR #40 cap 10/06/23 10/13/23 Rx Fish Oil 1,400mg 1,400 mg PO DAILY 10/13/23 10/13/23 History Metoprolol Tartrate [Lopressor] 25 mg PO BID 10/13/23 10/13/23 History Mupirocin 2% Oint [Bactroban 2% 1 applic TOPICAL BID PRN 10/13/23 10/13/23 History Oint] Sulfamethox-Tmp 800-160Mg [Bactrim 1 tab PO Q12HR 10/13/23 10/13/23 History Ds] Allergies Allergy/AdvReac Type Severity Reaction Status Date / Time morphine AdvReac Nausea & Verified 10/13/23 13:08 Vomiting Physical Exam Vitals: Vital Signs Temp Pulse Pulse Resp BP BP Pulse Ox 10/14/23 08:00 22 10/14/23 07:41 98.1 F 63 16 124/64 96 10/14/23 01:49 97.7 F 62 17 94/60 95 10/13/23 23:00 22 10/13/23 22:20 98 F 62 14 119/72 99 10/13/23 20:00 73 16 108/63 96 10/13/23 18:38 98.7 F 72 16 109/58 95 10/13/23 17:23 98.9 F 77 16 121/62 94 L 10/13/23 14:21 98.5 F 70 16 110/58 100 Intake and Output 10/13/23 10/14/23 10/14/23 22:59 06:59 14:59 Other: Voiding Method Toilet Toilet # Voids 1 Weight 67.132 kg 67.132 kg GENERAL DESCRIPTION: Elderly male lying in bed, no distress. No tachypnea or accessory muscle of respiration use. HEENT: Shows Pallor , no scleral icterus. Oral mucous membrane is dry. No pharyngeal erythema or thrush NECK: Trachea central, no thyromegaly. LUNGS: Unlabored breathing. Clear to auscultation anteriorly. No wheeze or crackle. HEART: S1, S2, regular rate and rhythm. No loud murmur ABDOMEN: Soft, no tenderness , guarding or rigidity, no organomegaly EXTREMITIES: Forearm on the left side did have a small wound which has been cultured he did have a swelling to the medial side of the left upper arm which is warm and tender to touch SKIN: No rash, no masses palpable. NEUROLOGICAL: The patient is awake, alert, oriented x3, mood and affect normal. Results CBC & Chem 7: 10/15/23 05:11 10/15/23 05:07 Labs: Abnormal Lab Results - Last 24 Hours (Table) 10/13/23 10/13/23 Range/Units 13:06 13:06 WBC 11.1 H (3.8-10.6) k/uL Neutrophils # 9.4 H (1.3-7.7) k/uL Sodium 126 L (137-145) mmol/L Carbon Dioxide 20 L (22-30) mmol/L BUN 33 H (9-20) mg/dL Glucose 103 H (74-99) mg/dL Microbiology - Last 24 Hours (Table) 10/13/23 17:15 Gram Stain - Preliminary Wrist - Left Thrombosis Risk Factor Assmnt - Choose All That Apply Any of the Below Risk Factors Present?: No Each Risk Factor Represents 3 Points: Age 75 years or older Thrombosis Risk Factor Assessment Total Risk Factor Score: 3 Thrombosis Risk Factor Assessment Level: Moderate Risk Assessment and Plan Assessment: 1. Nonhealing wound left forearm patient has been dealing with the wound to the left lateral forearm for more than a week and has failed outpatient oral Bactrim DS as well as Keflex therapy no concern for possible development of abscess to the left upper lobe likely from gram-positive skin talha gram-negative infection less likely but not entirely excluded -- Patient has been pancultured -Has been placed on IV antibiotics in form of vancomycin and Zosyn 2. Swelling left forearm; hematoma versus abscess; ID recommending evaluation by orthopedic surgery; consult placed; appreciate recommendations 3. Hyponatremia; IV fluids in form of normal saline at a rate of 75 cc an hour; will monitor electrolytes closely 4. Mild ROSSY; IV fluids as indicated above; monitor strict GILDA's, daily weights, renal function electrolytes; avoid nephrotoxins and hypotension 5. Hypertension; lisinopril 10 mg daily; metoprolol 25 mg twice daily 6. Hyperlipidemia; pravastatin 80 mg p.o. nightly DVT prophylaxis; SCDs only, given possibility of a surgical procedure CODE STATUS; full code
--- NOTE | 2023-10-15 16:24 | P.PN ---
Subjective Progress Note Date: 10/15/23 78-year-old male with history significant for hypertension, hyperlipidemia, CVA, TIA, coronary artery disease, osteoarthritis, presents to ED with nonhealing wound left forearm. Patient apparently has been dealing with a wound to the left lateral forearm area that apparently started as a small pimple; patient went with the at clinic with a peroxide and squeezed the pus out of it subsequently the patient noticed to having open laceration hand cellulitis that has been treated by the ER as well as by primary care physician with oral Keflex and Bactrim DS patient apparently did have a culture done on 10/06/2023 in the ER they did grew gram positive bacilli. Patient subsequent noticed to have increasing swelling to the left upper arm over the last few days that area is painful describing it to be mostly sharp to dull aching moderate intensity worse with touching and there is no drainage with the symptoms. The patient has been sent to the ER on presentation to the hospital the patient was afebrile and no fever have recorded subsequently patient was not tachycardic hypotensive or hypoxic and no need for supplemental oxygen. Blood work completed in ED reveals a WBC of 4.7, 13.3 and platelet count of 176, sodium 129, potassium 4.2, BUNs/creatinine of 24/0.74 and blood glucose of 159 --Patient had ultrasound Doppler completed in ED which was negative for DVT; ultrasound did show nonspecific complex lesion in the left upper arm concerning for possible infected hematoma --patient did have blood cultures obtained patient was started on vancomycin and Zosyn. Infectious disease was consulted for further management of antibiotic therapy patient did have a Doppler ultrasound that was negative for DVT extremity ultrasound did show some nonspecific complex lesion in the left upper arm concerning for possible infected hematoma muscle further etiology not entirely excluded Objective - Vital Signs Vital signs: Vital Signs Temp 98.1 F 10/15/23 07:48 Pulse 60 10/15/23 07:48 Resp 17 10/15/23 07:48 BP 121/60 10/15/23 07:48 Pulse Ox 96 10/15/23 07:48 FiO2 Intake & Output 10/14/23 10/15/23 10/15/23 18:59 06:59 18:59 Intake Total 540 450 240 Balance 540 450 240 Weight 67.132 kg Intake: Intake, IV Titration 450 Amount Cefepime 2 gm In Sodium 200 Chloride 0.9% 100 ml @ 25 mls/hr IVPB Q8HR [facility] Rx# :[id number] Vancomycin 1,250 mg In 250 Sodium Chloride 0.9% 250 ml @ 125 mls/hr IVPB Q12H [facility] Rx#:[id number] Oral 540 240 Other: Voiding Method Toilet Toilet Toilet # Voids 1 - Exam GENERAL DESCRIPTION: Elderly male lying in bed, no distress. No tachypnea or accessory muscle of respiration use. HEENT: Shows Pallor , no scleral icterus. Oral mucous membrane is dry. No pharyngeal erythema or thrush NECK: Trachea central, no thyromegaly. LUNGS: Unlabored breathing. Clear to auscultation anteriorly. No wheeze or crackle. HEART: S1, S2, regular rate and rhythm. No loud murmur ABDOMEN: Soft, no tenderness , guarding or rigidity, no organomegaly EXTREMITIES: Forearm on the left side did have a small wound which has been cultured he did have a swelling to the medial side of the left upper arm which is warm and tender to touch SKIN: No rash, no masses palpable. NEUROLOGICAL: The patient is awake, alert, oriented x3, mood and affect normal. - Labs CBC & Chem 7: 10/15/23 05:11 10/15/23 05:07 Labs: Abnormal Lab Results - Last 24 Hours (Table) 10/14/23 10/14/23 10/15/23 Range/Units 13:59 13:59 05:07 RBC (4.40-5.60) X 10*6/uL Hgb (13.0-17.0) g/dL Hct (39.6-50.0) % RDW (11.5-14.5) % MPV (9.5-12.2) FL Lymphocytes # 0.4 L (1.0-4.8) k/uL Monocytes # (0.20-1.00) X 10*3/uL Eosinophils # (0.04-0.35) X 10*3/uL Sodium 129 L 130 L (137-145) mmol/L Carbon Dioxide 20 L (22-30) mmol/L BUN 24 H (9-20) mg/dL Creatinine 0.56 L (0.66-1.25) mg/dL Glucose 159 H (74-99) mg/dL Calcium 8.0 L 7.9 L (8.4-10.2) mg/dL 10/15/23 Range/Units 05:11 RBC 4.38 L (4.40-5.60) X 10*6/uL Hgb 12.9 L (13.0-17.0) g/dL Hct 38.9 L (39.6-50.0) % RDW 16.3 H (11.5-14.5) % MPV 8.8 L (9.5-12.2) FL Lymphocytes # 0.49 L (1.0-4.8) k/uL Monocytes # 0.14 L (0.20-1.00) X 10*3/uL Eosinophils # 0.02 L (0.04-0.35) X 10*3/uL Sodium (137-145) mmol/L Carbon Dioxide (22-30) mmol/L BUN (9-20) mg/dL Creatinine (0.66-1.25) mg/dL Glucose (74-99) mg/dL Calcium (8.4-10.2) mg/dL Microbiology - Last 24 Hours (Table) 10/13/23 17:15 Gram Stain - Preliminary Wrist - Left Wound Culture - Preliminary 10/13/23 13:00 Blood Culture - Preliminary Blood 10/13/23 12:45 Blood Culture - Preliminary Blood Assessment and Plan Assessment: 1. Nonhealing wound left forearm patient has been dealing with the wound to the left lateral forearm for more than a week and has failed outpatient oral Bactrim DS as well as Keflex therapy no concern for possible development of abscess to the left upper lobe likely from gram-positive skin talha gram-negative infection less likely but not entirely excluded -- Patient has been pancultured -Has been placed on IV antibiotics in form of vancomycin and Zosyn 2. Swelling left forearm; hematoma versus abscess; ID recommending evaluation by orthopedic surgery; consult placed; appreciate recommendations 3. Hyponatremia; IV fluids in form of normal saline at a rate of 75 cc an hour; will monitor electrolytes closely 4. Mild ROSSY; IV fluids as indicated above; monitor strict GILDA's, daily weights, renal function electrolytes; avoid nephrotoxins and hypotension 5. Hypertension; lisinopril 10 mg daily; metoprolol 25 mg twice daily 6. Hyperlipidemia; pravastatin 80 mg p.o. nightly DVT prophylaxis; SCDs only, given possibility of a surgical procedure CODE STATUS; full code
[2023-10-15] MEDS: VANCOMYCIN TROUGH DUE 1 EACH MISC MISCELLANE ONE (17:30)
[2023-10-16 04:01] LABS: African American GFR (CKD) >90 (>60 ml/min/1.73 sqM); Anion Gap 6 mmol/L; Blood Urea Nitrogen 16 mg/dL (9-20); Calcium 7.9 mg/dL (8.4-10.2); Carbon Dioxide 19 mmol/L (22-30); Chloride 106 mmol/L (98-107); Glucose 90 mg/dL (74-99); Non-African American GFR(CKD) >90 (>60 ml/min/1.73 sqM); Sodium 131 mmol/L (137-145)
[2023-10-16 09:24] LABS: Basophils # (A) 0.01 X 10*3/uL (0.00-0.10); Basophils % (A) 0.2 %; Eosinophils # (A) 0.04 X 10*3/uL (0.04-0.35); Eosinophils % (A) 0.8 %; HCT 39.3 % (39.6-50.0); HGB 12.8 g/dL (13.0-17.0); Lymphocytes # (A) 0.57 X 10*3/uL (0.90-5.00); Lymphocytes % (A) 11.6 %; MCHC 32.6 g/dL (32.0-37.0); MCV 92.3 FL (80.0-97.0); Mean Platelet Volume 9.7 FL (9.5-12.2); Monocytes # (A) 0.17 X 10*3/uL (0.20-1.00); Monocytes % (A) 3.4 %; NRBC Per 100 WBC 0 X 10*3/uL (0.00-0.01); Neutrophils # (A) 4.12 X 10*3/uL (1.80-7.70); Neutrophils % (A) 83.6 %; Platelet Count 143 X 10*3/uL (140-440); RBC 4.26 X 10*6/uL (4.40-5.60); RDW 16.1 % (11.5-14.5); WBC 4.93 X 10*3/uL (4.50-10.00)
--- NOTE | 2023-10-16 10:31 | P.PN ---
Subjective Progress Note Date: 10/16/23 Patient's remained stable. He has no new complaints. This left wrist skin abscess appear stable. Patient was received IV antibiotics. We will observe her closely. Objective - Vital Signs Vital signs: Vital Signs Temp 98 F 10/16/23 08:00 Pulse 67 10/16/23 08:00 Resp 16 10/16/23 08:00 BP 124/70 10/16/23 08:00 Pulse Ox 100 10/16/23 08:00 FiO2 Intake & Output 10/15/23 10/16/23 10/16/23 18:59 06:59 18:59 Intake Total 1280 Balance 1280 Intake: Oral 1280 Other: Voiding Method Toilet Toilet Toilet # Voids 3 3 - Labs CBC & Chem 7: 10/16/23 03:11 10/16/23 03:11 Labs: Abnormal Lab Results - Last 24 Hours (Table) 10/16/23 10/16/23 Range/Units 03:11 03:11 RBC 4.26 L (4.40-5.60) X 10*6/uL Hgb 12.8 L (13.0-17.0) g/dL Hct 39.3 L (39.6-50.0) % RDW 16.1 H (11.5-14.5) % Lymphocytes # 0.57 L (0.90-5.00) X 10*3/uL Monocytes # 0.17 L (0.20-1.00) X 10*3/uL Sodium 131 L (137-145) mmol/L Carbon Dioxide 19 L (22-30) mmol/L Creatinine 0.59 L (0.66-1.25) mg/dL Calcium 7.9 L (8.4-10.2) mg/dL Microbiology - Last 24 Hours (Table) 10/13/23 13:00 Blood Culture - Preliminary Blood 10/13/23 12:45 Blood Culture - Preliminary Blood 10/13/23 17:15 Gram Stain - Preliminary Wrist - Left Wound Culture - Preliminary
--- NOTE | 2023-10-16 15:43 | P.PN ---
Subjective Progress Note Date: 10/16/23 78-year-old male with history significant for hypertension, hyperlipidemia, CVA, TIA, coronary artery disease, osteoarthritis, presents to ED with nonhealing wound left forearm. Patient apparently has been dealing with a wound to the left lateral forearm area that apparently started as a small pimple; patient went with the at clinic with a peroxide and squeezed the pus out of it subsequently the patient noticed to having open laceration hand cellulitis that has been treated by the ER as well as by primary care physician with oral Keflex and Bactrim DS patient apparently did have a culture done on 10/06/2023 in the ER they did grew gram positive bacilli. Patient subsequent noticed to have increasing swelling to the left upper arm over the last few days that area is painful describing it to be mostly sharp to dull aching moderate intensity worse with touching and there is no drainage with the symptoms. The patient has been sent to the ER on presentation to the hospital the patient was afebrile and no fever have recorded subsequently patient was not tachycardic hypotensive or hypoxic and no need for supplemental oxygen. Blood work completed in ED reveals a WBC of 4.7, 13.3 and platelet count of 176, sodium 129, potassium 4.2, BUNs/creatinine of 24/0.74 and blood glucose of 159 --Patient had ultrasound Doppler completed in ED which was negative for DVT; ultrasound did show nonspecific complex lesion in the left upper arm concerning for possible infected hematoma --patient did have blood cultures obtained patient was started on vancomycin and Zosyn. Infectious disease was consulted for further management of antibiotic therapy patient did have a Doppler ultrasound that was negative for DVT extremity ultrasound did show some nonspecific complex lesion in the left upper arm concerning for possible infected hematoma muscle further etiology not entirely excluded 10/16/2023 Patient is seen and evaluated resting in bed; swelling left upper arm seems to be improving; patient indicates he feels like swelling is somewhat worsened compared to yesterday Vital signs are reviewed and are stable; patient remains afebrile patient presented to hospital with left upper arm swelling and this patient has been dealing with the wound to the left lateral forearm for more than a week and has failed outpatient oral Bactrim DS as well as Keflex therapy no concern for possible development of abscess to the left upper lobe likely from gram-positive skin talha gram-negative infection less likely but not entirely excluded -patient ultrasound however suggestive of possible fluid collection suspicious for abscess General surgery has been consulted for surgical drainage of this abscess and deep culture -patient swelling to the left arm from his slightly decreased cultures currently pending, patient to continue patient on vancomycin pharmacy to dose and cefepime while waiting for the culture to finalize Objective - Vital Signs Vital signs: Vital Signs Temp 98 F 10/16/23 08:00 Pulse 67 10/16/23 08:00 Resp 16 10/16/23 08:00 BP 124/70 10/16/23 08:00 Pulse Ox 100 10/16/23 08:00 FiO2 Intake & Output 10/15/23 10/16/23 10/16/23 18:59 06:59 18:59 Intake Total 1280 Balance 1280 Intake: Oral 1280 Other: Voiding Method Toilet Toilet Toilet # Voids 3 3 - Exam GENERAL DESCRIPTION: Elderly male lying in bed, no distress. No tachypnea or accessory muscle of respiration use. HEENT: Shows Pallor , no scleral icterus. Oral mucous membrane is dry. No pharyngeal erythema or thrush NECK: Trachea central, no thyromegaly. LUNGS: Unlabored breathing. Clear to auscultation anteriorly. No wheeze or crackle. HEART: S1, S2, regular rate and rhythm. No loud murmur ABDOMEN: Soft, no tenderness , guarding or rigidity, no organomegaly EXTREMITIES: Forearm on the left side did have a small wound which has been cultured he did have a swelling to the medial side of the left upper arm which is warm and tender to touch SKIN: No rash, no masses palpable. NEUROLOGICAL: The patient is awake, alert, oriented x3, mood and affect normal. - Labs CBC & Chem 7: 10/16/23 03:11 10/16/23 03:11 Labs: Abnormal Lab Results - Last 24 Hours (Table) 10/16/23 10/16/23 Range/Units 03:11 03:11 RBC 4.26 L (4.40-5.60) X 10*6/uL Hgb 12.8 L (13.0-17.0) g/dL Hct 39.3 L (39.6-50.0) % RDW 16.1 H (11.5-14.5) % Lymphocytes # 0.57 L (0.90-5.00) X 10*3/uL Monocytes # 0.17 L (0.20-1.00) X 10*3/uL Sodium 131 L (137-145) mmol/L Carbon Dioxide 19 L (22-30) mmol/L Creatinine 0.59 L (0.66-1.25) mg/dL Calcium 7.9 L (8.4-10.2) mg/dL Microbiology - Last 24 Hours (Table) 10/13/23 13:00 Blood Culture - Preliminary Blood 10/13/23 12:45 Blood Culture - Preliminary Blood 10/13/23 17:15 Gram Stain - Preliminary Wrist - Left Wound Culture - Preliminary Assessment and Plan Assessment: 1. Nonhealing wound left forearm patient has been dealing with the wound to the left lateral forearm for more than a week and has failed outpatient oral Bactrim DS as well as Keflex therapy no concern for possible development of abscess to the left upper lobe likely from gram-positive skin talha gram-negative infection less likely but not entirely excluded -- Patient has been pancultured -Has been placed on IV antibiotics in form of vancomycin and Zosyn 2. Swelling left forearm; hematoma versus abscess; ID recommending evaluation by orthopedic surgery; consult placed; appreciate recommendations 3. Hyponatremia; IV fluids in form of normal saline at a rate of 75 cc an hour; will monitor electrolytes closely 4. Mild ROSSY; IV fluids as indicated above; monitor strict GILDA's, daily weights, renal function electrolytes; avoid nephrotoxins and hypotension 5. Hypertension; lisinopril 10 mg daily; metoprolol 25 mg twice daily 6. Hyperlipidemia; pravastatin 80 mg p.o. nightly DVT prophylaxis; SCDs only, given possibility of a surgical procedure CODE STATUS; full code
--- NOTE | 2023-10-16 21:28 | P.PN ---
Subjective Progress Note Date: 10/16/23 Principal diagnosis: Reason for follow up his left forearm wound and upper arm abscess Patient is a 78-year-old male with a past medical history significant for hypertension hyperlipidemia CVA TIA coronary artery disease osteoarthritis in this patient apparently has been dealing with a wound to the left lateral forearm area with multiple courses of antibiotic now presenting with left upper arm swelling concerning for possible abscess, patient did have an ultrasound concerning for small area of possible abscess. On today's evaluation that is 10/16/2023,the patient denies any fever or any chills, patient is breathing comfortably on room air, the patient denies chest pain shortness of breath and no significant cough, patient denies abdominal pain, no nausea vomiting or diarrhea. Swelling and pain to the left upper arm slightly decreased in intensity. Patient white count is down to 4.93, creatinine 0.59 blood and local cultures currently pending Objective - Vital Signs Vital signs: Vital Signs Temp 98 F 10/16/23 08:00 Pulse 67 10/16/23 08:00 Resp 16 10/16/23 08:00 BP 124/70 10/16/23 08:00 Pulse Ox 100 10/16/23 08:00 FiO2 Intake & Output 10/15/23 10/16/23 10/16/23 18:59 06:59 18:59 Intake Total 1280 Balance 1280 Intake: Oral 1280 Other: Voiding Method Toilet Toilet Toilet # Voids 3 3 - Exam GENERAL DESCRIPTION: An elderly male lying in bed in no distress RESPIRATORY SYSTEM: Unlabored breathing , decreased breath sounds at bases HEART: S1 S2 regular rate and rhythm , ABDOMEN: Soft , no tenderness EXTREMITIES: Left upper arm swelling has slightly decreased - Labs CBC & Chem 7: 10/16/23 03:11 10/16/23 03:11 Labs: Abnormal Lab Results - Last 24 Hours (Table) 10/16/23 10/16/23 Range/Units 03:11 03:11 RBC 4.26 L (4.40-5.60) X 10*6/uL Hgb 12.8 L (13.0-17.0) g/dL Hct 39.3 L (39.6-50.0) % RDW 16.1 H (11.5-14.5) % Lymphocytes # 0.57 L (0.90-5.00) X 10*3/uL Monocytes # 0.17 L (0.20-1.00) X 10*3/uL Sodium 131 L (137-145) mmol/L Carbon Dioxide 19 L (22-30) mmol/L Creatinine 0.59 L (0.66-1.25) mg/dL Calcium 7.9 L (8.4-10.2) mg/dL Microbiology - Last 24 Hours (Table) 10/13/23 13:00 Blood Culture - Preliminary Blood 10/13/23 12:45 Blood Culture - Preliminary Blood 10/13/23 17:15 Gram Stain - Preliminary Wrist - Left Wound Culture - Preliminary Assessment and Plan (1) Abscess of left arm Current Visit: Yes Status: Acute Code(s): L02.414 - CUTANEOUS ABSCESS OF LEFT UPPER LIMB SNOMED Code(s): 44660861659332014 (2) Wound of left upper extremity Current Visit: Yes Status: Acute Code(s): S41.102A - UNSPECIFIED OPEN WOUND OF LEFT UPPER ARM, INITIAL ENCOUNTER SNOMED Code(s): 027410194 (3) Failure of outpatient treatment Current Visit: Yes Status: Acute Code(s): Z78.9 - OTHER SPECIFIED HEALTH STATUS SNOMED Code(s): 323438552 Plan: 1patient presented to hospital with left upper arm swelling and this patient has been dealing with the wound to the left lateral forearm for more than a week and has failed outpatient oral Bactrim DS as well as Keflex therapy no concern for possible development of abscess to the left upper lobe likely from gram- positive skin talha gram-negative infection less likely but not entirely excluded 2-patient ultrasound however suggestive of possible fluid collection suspicious for abscess General surgery has been consulted for surgical drainage of this abscess and deep culture 3 patient swelling to the left arm from his slightly decreased cultures are pending, patient to continue patient on vancomycin pharmacy to dose and cefepime while waiting for the culture to finalize and adjust antibiotic if needed Dictation was produced using [employer] dictation software. please excuse any grammatical, word or spelling errors. Time with Patient: Less than 30
[2023-10-16] MEDS: SULFAMETHOX-TMP 400-80MG 1 EACH TAB PO SCH (21:42)
[2023-10-17 03:14] LABS: Basophils % (A) 0 %; Eosinophils # (A) 0.1 k/uL (0-0.7); Eosinophils % (A) 1 %; HCT 41.5 % (39.0-53.0); HGB 13.1 gm/dL (13.0-17.5); Lymphocytes # (A) 0.5 k/uL (1.0-4.8); Lymphocytes % (A) 9 %; MCH 30.7 pg (25.0-35.0); MCHC 31.7 g/dL (31.0-37.0); Mean Platelet Volume 7.1; Monocytes # (A) 0.5 k/uL (0-1.0); Monocytes % (A) 10 %; Neutrophils # (A) 4.4 k/uL (1.3-7.7); Neutrophils % (A) 79 %; Platelet Count 135 k/uL (150-450); RBC 4.28 m/uL (4.30-5.90); RDW 14.8 % (11.5-15.5); WBC 5.5 k/uL (3.8-10.6)
[2023-10-17 04:09] LABS: African American GFR (CKD) >90 (>60 ml/min/1.73 sqM); Anion Gap 3 mmol/L; Blood Urea Nitrogen 15 mg/dL (9-20); Calcium 8.1 mg/dL (8.4-10.2); Carbon Dioxide 20 mmol/L (22-30); Chloride 107 mmol/L (98-107); Glucose 88 mg/dL (74-99); Non-African American GFR(CKD) >90 (>60 ml/min/1.73 sqM); Sodium 130 mmol/L (137-145)
--- NOTE | 2023-10-17 14:31 | P.PN ---
Subjective Progress Note Date: 10/17/23 CHIEF COMPLAINT: Left wrist skin abscess HISTORY OF PRESENT ILLNESS: Patient reports improvement in his left wrist skin abscess. He still has pain in the upper arm. The swelling and erythema in that area is also decreased. Afebrile. WBC 5.5 Hgb 13.1 PHYSICAL EXAM: VITAL SIGNS: Reviewed. GENERAL: Well-developed in no acute distress. Extremities: Left wrist abscess improving. Minimal drainage. Left upper extremity swelling and erythema decreased. There is still an area of induration that is smaller in size. ASSESSMENT: 1. Left wrist abscess PLAN: -Antibiotics per infectious disease -No surgical intervention planned Physician Taxi Proprietor note has been reviewed by physician. Signing provider agrees with the documented findings, assessment, and plan of care. Objective - Vital Signs Vital signs: Vital Signs Temp 98.2 F 10/17/23 07:46 Pulse 62 10/17/23 07:46 Resp 16 10/17/23 07:46 BP 125/66 10/17/23 07:46 Pulse Ox 98 10/17/23 07:46 FiO2 Intake & Output 10/16/23 10/17/23 10/17/23 18:59 06:59 18:59 Intake Total 1080 120 Balance 1080 120 Intake: Oral 1080 120 Other: Voiding Method Toilet Toilet # Voids 3 1 # Bowel Movements 1 - Labs CBC & Chem 7: 10/17/23 02:44 10/17/23 02:44 Labs: Abnormal Lab Results - Last 24 Hours (Table) 10/17/23 10/17/23 Range/Units 02:44 02:44 RBC 4.28 L (4.30-5.90) m/uL Plt Count 135 L (150-450) k/uL Lymphocytes # 0.5 L (1.0-4.8) k/uL Sodium 130 L (137-145) mmol/L Carbon Dioxide 20 L (22-30) mmol/L Creatinine 0.49 L (0.66-1.25) mg/dL Calcium 8.1 L (8.4-10.2) mg/dL Microbiology - Last 24 Hours (Table) 10/13/23 17:15 Gram Stain - Final Wrist - Left Wound Culture - Final Nocardia brasiliensis 10/13/23 13:00 Blood Culture - Preliminary Blood 10/13/23 12:45 Blood Culture - Preliminary Blood
--- NOTE | 2023-10-17 16:13 | P.PN ---
Subjective Progress Note Date: 10/17/23 This is a 78-year-old gentleman admitted with left lateral forearm wound progressed over a week ago, failed outpatient treatment, hyponatremia and multiple other medical issues , continues on vancomycin and cefepime as per ID. Renal function stable. sodium 130. Afebrile, normal WBC. Left wrist /forearm cultures finalized with Nocardia brasiliensis.preliminary blood cultures reporting no growth after 72 hours. left upper extremity ultrasound reported negative for DVT, ultrasound of left upper extremity reported nonspecific complex lesion, 2.3 x 1.7 x 1.5 cm with central nodular component and peripheral hypoechoic component could reflect hematoma. Infected collection difficult to exclude. Mass of other etiology should also be considered. General surgery consulted for potential I&D with deep culture. Objective - Vital Signs Vital signs: Vital Signs Temp 98.2 F 10/17/23 07:46 Pulse 62 10/17/23 07:46 Resp 16 10/17/23 07:46 BP 125/66 10/17/23 07:46 Pulse Ox 98 10/17/23 07:46 FiO2 Intake & Output 10/16/23 10/17/23 10/17/23 18:59 06:59 18:59 Intake Total 1080 120 Balance 1080 120 Intake: Oral 1080 120 Other: Voiding Method Toilet Toilet # Voids 3 1 # Bowel Movements 1 - Exam PHYSICAL EXAM: VITAL SIGNS: [As above] GENERAL: Alert and oriented x 3, sitting up in chair,no acute distress HEENT: Atraumatic, normocephalic conjunctivae normal. eyes normal. Sclera anicteric. mmm. NECK: Supple, no JVD. CARDIOVASCULAR: S1, S2 regular. Systolic murmur RESPIRATION: Unlabored, equal air entry, clear to auscultation ,breath sounds diminished in the bases. ABDOMEN: Soft, no distention, nontender . No guarding. +BS EXTREMITIES: Left upper arm swelling,erythema decreased, left lateral wrist dressing clean dry and intact LEGS: No edema. no swelling, no calf tenderness noted. Positive DP pulses. NERVOUS SYSTEM: Cranial N 2-12 grossly normal.No focal deficits. Skin: Warm and dry, no rash. - Labs CBC & Chem 7: 10/17/23 02:44 10/17/23 02:44 Labs: Abnormal Lab Results - Last 24 Hours (Table) 10/17/23 10/17/23 Range/Units 02:44 02:44 RBC 4.28 L (4.30-5.90) m/uL Plt Count 135 L (150-450) k/uL Lymphocytes # 0.5 L (1.0-4.8) k/uL Sodium 130 L (137-145) mmol/L Carbon Dioxide 20 L (22-30) mmol/L Creatinine 0.49 L (0.66-1.25) mg/dL Calcium 8.1 L (8.4-10.2) mg/dL Microbiology - Last 24 Hours (Table) 10/13/23 17:15 Gram Stain - Final Wrist - Left Wound Culture - Final Nocardia brasiliensis 10/13/23 13:00 Blood Culture - Preliminary Blood 10/13/23 12:45 Blood Culture - Preliminary Blood Assessment and Plan Assessment: Left wrist abscess, failed outpatient treatment, cultures reporting Nocardia brasiliensis. Left upper extremity nonspecific complex lesion, 2.3 x 1.7 x 1.5 cm with central nodular component and peripheral hypoechoic component, general surgery following Recent revision posterior lateral fusion [id number] with open treatment L2 fracture, removal with replacement of new cage L2-3, status post revision L2- pelvis decompression and fusion, 224. History of distal bulbar urethral stricture, status post dilation with Burrows catheter- coude placement intraoperative as per urology. History of a occipital CVA,11/15 brain MRI , follows with Dr. Rajwinder Francisco. reports repeat MRI of brain performed September 24 at [facility] [place]. CAD, history of CABG Hypertension Hyperlipidemia Plan: Continue on current medication resume ,monitoring and symptomatic treatm ent. Encourage diet intake, patient has not been eating well prior to admission. Antibiotics as per ID. General surgery eval of left upper forearm with recommendations pending. Close monitoring of renal function and electrolytes with repeat labs ordered for a.m. The impression and plan of care has been dictated as directed. .: I performed a history and examination of this patient, discussed the same with the dictator. I agree with the dictator's note ,documented as a scribe. Any ad ditional findings or plans will be noted.
--- NOTE | 2023-10-17 22:57 | P.PN ---
Subjective Progress Note Date: 10/17/23 Principal diagnosis: Reason for follow up his left forearm wound and upper arm abscess Patient is a 78-year-old male with a past medical history significant for hypertension hyperlipidemia CVA TIA coronary artery disease osteoarthritis in this patient apparently has been dealing with a wound to the left lateral forearm area with multiple courses of antibiotic now presenting with left upper arm swelling concerning for possible abscess, patient did have an ultrasound concerning for small area of possible abscess. On today's evaluation that is 10/17/2023,the patient remains to be afebrile, patient is on room air not requiring supplemental oxygen and denies any nomi rtness of breath no chest pain or cough.Patient denies having any nausea or vomiting, no abdominal pain and no diarrhea swelling to the left forearm slightly decreased in intensity. Patient white count is 5.5, creatinine 0.49 local culture finalized with nocardia brasiliensis Objective - Vital Signs Vital signs: Vital Signs Temp 98.2 F 10/17/23 07:46 Pulse 62 10/17/23 07:46 Resp 16 10/17/23 07:46 BP 125/66 10/17/23 07:46 Pulse Ox 98 10/17/23 07:46 FiO2 Intake & Output 10/16/23 10/17/23 10/17/23 18:59 06:59 18:59 Intake Total 1080 120 Balance 1080 120 Intake: Oral 1080 120 Other: Voiding Method Toilet Toilet # Voids 3 1 # Bowel Movements 1 - Exam GENERAL DESCRIPTION: An elderly male lying in bed in no distress RESPIRATORY SYSTEM: Unlabored breathing , decreased breath sounds at bases HEART: S1 S2 regular rate and rhythm , ABDOMEN: Soft , no tenderness EXTREMITIES: Left upper arm swelling has slightly decreased - Labs CBC & Chem 7: 10/17/23 02:44 10/17/23 02:44 Labs: Abnormal Lab Results - Last 24 Hours (Table) 10/17/23 10/17/23 Range/Units 02:44 02:44 RBC 4.28 L (4.30-5.90) m/uL Plt Count 135 L (150-450) k/uL Lymphocytes # 0.5 L (1.0-4.8) k/uL Sodium 130 L (137-145) mmol/L Carbon Dioxide 20 L (22-30) mmol/L Creatinine 0.49 L (0.66-1.25) mg/dL Calcium 8.1 L (8.4-10.2) mg/dL Microbiology - Last 24 Hours (Table) 10/13/23 17:15 Gram Stain - Final Wrist - Left Wound Culture - Final Nocardia brasiliensis 10/13/23 13:00 Blood Culture - Preliminary Blood 10/13/23 12:45 Blood Culture - Preliminary Blood Assessment and Plan (1) Abscess of left arm Current Visit: Yes Status: Acute Code(s): L02.414 - CUTANEOUS ABSCESS OF LEFT UPPER LIMB SNOMED Code(s): 38422727607542772 (2) Wound of left upper extremity Current Visit: Yes Status: Acute Code(s): S41.102A - UNSPECIFIED OPEN WOUND OF LEFT UPPER ARM, INITIAL ENCOUNTER SNOMED Code(s): 667245383 (3) Failure of outpatient treatment Current Visit: Yes Status: Acute Code(s): Z78.9 - OTHER SPECIFIED HEALTH STATUS SNOMED Code(s): 577348663 Plan: 1patient presented to hospital with left upper arm swelling and this patient has been dealing with the wound to the left lateral forearm for more than a week and has failed outpatient oral Bactrim DS as well as Keflex therapy no concern for possible development of abscess to the left upper lobe likely from gram- positive skin talha gram-negative infection less likely but not entirely excluded 2-patient ultrasound however suggestive of possible fluid collection suspicious for abscess General surgery has been consulted for surgical drainage of this abscess and deep culture 3 patient swelling to the left arm from his slightly decreased cultures are finalized as nocardia, antibiotic has been just to Rocephin and Bactrim DS and the patient continued to improve to finish therapy with the Bactrim DS at the bedside multiple questions were answered Dictation was produced using [employer] dictation software. please excuse any grammatical, word or spelling errors. Time with Patient: Less than 30
[2023-10-18 07:46] VITALS: BP 119/75; PULSE 63; RESP 16; TEMP 98.1
[2023-10-18 08:29] LABS: Basophils # (A) 0.01 X 10*3/uL (0.00-0.10); Basophils % (A) 0.2 %; Eosinophils # (A) 0.02 X 10*3/uL (0.04-0.35); Eosinophils % (A) 0.4 %; HCT 38.6 % (39.6-50.0); HGB 12.7 g/dL (13.0-17.0); Lymphocytes # (A) 0.63 X 10*3/uL (0.90-5.00); MCH 29.8 pg (27.0-32.0); MCHC 32.9 g/dL (32.0-37.0); MCV 90.6 FL (80.0-97.0); Mean Platelet Volume 9.8 FL (9.5-12.2); Monocytes # (A) 0.23 X 10*3/uL (0.20-1.00); Monocytes % (A) 4.8 %; NRBC Per 100 WBC 0 X 10*3/uL (0.00-0.01); Neutrophils # (A) 3.93 X 10*3/uL (1.80-7.70); Neutrophils % (A) 81.2 %; Platelet Count 139 X 10*3/uL (140-440); RBC 4.26 X 10*6/uL (4.40-5.60); RDW 15.6 % (11.5-14.5); WBC 4.84 X 10*3/uL (4.50-10.00)
[2023-10-18 08:54] LABS: BUN/Creat Ratio 17.86 Ratio (12.00-20.00); Blood Urea Nitrogen 12.5 mg/dL (9.0-27.0); Calcium 8.4 mg/dL (8.7-10.3); Carbon Dioxide 24.3 mmol/L (21.6-31.8); Chloride 101 mmol/L (96-109); Glucose 94 mg/dL (70-110); Potassium 4.1 mmol/L (3.5-5.5); Sodium 134 mmol/L (135-145)
--- NOTE | 2023-10-18 10:55 | P.PN ---
Subjective Progress Note Date: 10/18/23 CHIEF COMPLAINT: Left wrist skin abscess HISTORY OF PRESENT ILLNESS: Patient reports improvement in his left wrist skin abscess. Patient still complains of some pain in the left upper arm. However, it is improving. He reports that he is being discharged today. Afebrile. WBC 4.84 PHYSICAL EXAM: VITAL SIGNS: Reviewed. GENERAL: Well-developed in no acute distress. Extremities: Left wrist abscess improving. no drainage. Left upper extremity swelling and erythema decreased. There is a small area of induration in the left posterior upper arm that is decreasing in size. No fluctuance. ASSESSMENT: 1. Left wrist abscess improving PLAN: -Antibiotics per infectious disease -No surgical intervention planned -Patient can be discharged from surgical standpoint when medically cleared Physician [employer] note has been reviewed by physician. Signing provider agrees with the documented findings, assessment, and plan of care. Objective - Vital Signs Vital signs: Vital Signs Temp 98.1 F 10/18/23 07:45 Pulse 63 10/18/23 07:45 Resp 16 10/18/23 07:45 BP 119/75 10/18/23 07:45 Pulse Ox 97 10/18/23 07:45 FiO2 Intake & Output 10/17/23 10/18/23 10/18/23 18:59 06:59 18:59 Intake Total 900 540 Balance 900 540 Intake: Oral 900 540 Other: Voiding Method Toilet # Voids 2 2 - Labs CBC & Chem 7: 10/18/23 04:21 10/18/23 04:21 Labs: Abnormal Lab Results - Last 24 Hours (Table) 10/18/23 10/18/23 Range/Units 04:21 04:21 RBC 4.26 L (4.40-5.60) X 10*6/uL Hgb 12.7 L (13.0-17.0) g/dL Hct 38.6 L (39.6-50.0) % RDW 15.6 H (11.5-14.5) % Plt Count 139 L (140-440) X 10*3/uL Lymphocytes # 0.63 L (0.90-5.00) X 10*3/uL Eosinophils # 0.02 L (0.04-0.35) X 10*3/uL Sodium 134 L (135-145) mmol/L Calcium 8.4 L (8.7-10.3) mg/dL
--- NOTE | 2023-10-18 13:44 | P.PN ---
Subjective Progress Note Date: 10/18/23 Principal diagnosis: Reason for follow up his left forearm wound and upper arm abscess Patient is a 78-year-old male with a past medical history significant for hypertension hyperlipidemia CVA TIA coronary artery disease osteoarthritis in this patient apparently has been dealing with a wound to the left lateral forearm area with multiple courses of antibiotic now presenting with left upper arm swelling concerning for possible abscess, patient did have an ultrasound concerning for small area of possible abscess. On today's evaluation that is 10/18/2023, the patient continues to be afebrile, the patient is on room air and breathing comfortably, the Pt denies having any chest pain or cough, the patient denies having any abdominal pain no vomiting or any diarrhea patient swelling to the left upper arm has decreased intensity mention feeling better. Patient white count is 4.4, creatinine 0.7 blood culture has been negative Objective - Vital Signs Vital signs: Vital Signs Temp 98.1 F 10/18/23 07:45 Pulse 63 10/18/23 07:45 Resp 16 10/18/23 07:45 BP 119/75 10/18/23 07:45 Pulse Ox 97 10/18/23 07:45 FiO2 Intake & Output 10/17/23 10/18/23 10/18/23 18:59 06:59 18:59 Intake Total 900 540 Balance 900 540 Intake: Oral 900 540 Other: Voiding Method Toilet # Voids 2 2 - Exam GENERAL DESCRIPTION: An elderly male lying in bed in no distress RESPIRATORY SYSTEM: Unlabored breathing , decreased breath sounds at bases HEART: S1 S2 regular rate and rhythm , ABDOMEN: Soft , no tenderness EXTREMITIES: Left upper arm swelling has slightly decreased - Labs CBC & Chem 7: 10/18/23 04:21 10/18/23 04:21 Labs: Abnormal Lab Results - Last 24 Hours (Table) 10/18/23 10/18/23 Range/Units 04:21 04:21 RBC 4.26 L (4.40-5.60) X 10*6/uL Hgb 12.7 L (13.0-17.0) g/dL Hct 38.6 L (39.6-50.0) % RDW 15.6 H (11.5-14.5) % Plt Count 139 L (140-440) X 10*3/uL Lymphocytes # 0.63 L (0.90-5.00) X 10*3/uL Eosinophils # 0.02 L (0.04-0.35) X 10*3/uL Sodium 134 L (135-145) mmol/L Calcium 8.4 L (8.7-10.3) mg/dL Assessment and Plan (1) Abscess of left arm Status: Acute Code(s): L02.414 - CUTANEOUS ABSCESS OF LEFT UPPER LIMB SNOMED Code(s): 61011263285443973 (2) Wound of left upper extremity Status: Acute Code(s): S41.102A - UNSPECIFIED OPEN WOUND OF LEFT UPPER ARM, INITIAL ENCOUNTER SNOMED Code(s): 956395154 (3) Failure of outpatient treatment Status: Acute Code(s): Z78.9 - OTHER SPECIFIED HEALTH STATUS SNOMED Code(s): 351380762 Plan: 1patient presented to hospital with left upper arm swelling and this patient has been dealing with the wound to the left lateral forearm for more than a week and has failed outpatient oral Bactrim DS as well as Keflex therapy no concern for possible development of abscess to the left upper lobe likely from gram- positive skin talha gram-negative infection less likely but not entirely excluded 2-patient ultrasound however suggestive of possible fluid collection suspicious for abscess General surgery recommending no drainage 3 patient swelling to the left arm from his slightly decreased cultures are fi nalized as nocardia, 4-patient will finish therapy with oral Ceftin and Bactrim DS x 10 days and cl ose outpatient follow-up care discussed with T[employer] ATTENDANT for admitting team and also with the at the bedside multiple question concern answered Dictation was produced using [employer] dictation software. please excuse any grammatical, word or spelling errors. Time with Patient: Less than 30
--- NOTE | 2023-10-18 15:29 | P.DS ---
Providers Date of admission: 10/13/23 16:12 Attending physician: Antonio Zhang Consults: 10/13/23 16:11 Consult Physician Urgent Consulting Provider: Jennifer Mohamud Consult Reason/Comments: Wound forearm Do you want consulting provider notified?: Yes 10/14/23 13:27 Consult Physician Routine Consulting Provider: Arnulfo Pal Consult Reason/Comments: L forearm abscess Do you want consulting provider notified?: Yes Primary care physician: Antonio Zhang Hospital Course: Final Diagnosis Left wrist abscess, failed outpatient treatment, cultures reporting Nocardia brasiliensis. Left upper extremity nonspecific complex lesion, 2.3 x 1.7 x 1.5 cm with central nodular component and peripheral hypoechoic component, general surgery following Recent revision posterior lateral fusion [id number] with open treatment L2 fracture, removal with replacement of new cage L2-3, status post revision L2- pelvis decompression and fusion, 224. History of distal bulbar urethral stricture, status post dilation with Burrows catheter- coude placement intraoperative as per urology. History of a occipital CVA,11/15 brain MRI , follows with Dr. Rajwinder Francisco. reports repeat MRI of brain performed September 24 at [facility] [place] [facility] [place] CAD, history of CABG Hypertension Hyperlipidemia Discharge Disposition Patient stable for discharge home patient will follow-up with Dr. Zhang in the office in 1 to 2 days. Patient will follow-up with Dr. Mohamud in 1 week. Continue a course of oral antibiotics with Ceftin and Bactrim for the next 10 days. Hospital Course This is a 78-year-old gentleman admitted with left lateral forearm wound progressed over a week ago, failed outpatient treatment, hyponatremia and multiple other medical issues. Was started on vancomycin and cefepime as per ID. Renal function stable. sodium 130. Afebrile, normal WBC. Left wrist /forearm cultures finalized with Nocardia brasiliensis. preliminary blood cultures reporting no growth after 72 hours. left upper extremity ultrasound reported negative for DVT, ultrasound of left upper extremity reported nonspecific complex lesion, 2.3 x 1.7 x 1.5 cm with central nodular component and peripheral hypoechoic component could reflect hematoma. Infected collection difficult to exclude. Mass of other etiology should also be considered. General surgery consulted for potential I&D with deep culture. Neurosurgery is not recommending any surgical intervention for the upper arm swelling. [place] that this was decreasing in size. After discussion with ID patient can be discharged home and recommending to follow-up in the office with Dr. Yanez in 1 to 2 weeks. Patient will continue a course of oral Ceftin and oral Bactrim for the next 10 days following the wound cultures. Please see medication reconciliation for a list of current medications. Thank you for allowing us to participate in the care of this patient. The impression and plan of care has been dictated by Christel Cortez, Nurse Practitioner as directed. Dr. Moy MD I have performed a history and physical examination and medical decision making of this patient, discussed the same with the dictator, and agree with the dictators assessment and plan as written, documented as a scribe. Based on total visit time, I have performed more than 50% of this visit. Patient Condition at Discharge: Stable Plan - Discharge Summary Discharge Rx Participant: No New Discharge Prescriptions: New Sulfamethox-Tmp 400-80Mg [Bactrim SS 400-80 mg] 1 each PO BID 10 Days #20 tab cefUROXime axetiL [Ceftin] 500 mg PO BID 10 Days #20 tab Continue lisinopriL [Lisinopril] 10 mg PO DAILY Multivitamins, Thera [Multivitamin (formulary)] 1 tab PO DAILY Pravastatin Sodium 80 mg PO DAILY Aspirin EC [Ecotrin Low Dose] 81 mg PO DAILY #30 tablet. Cholecalciferol [Vitamin D3 (25 Mcg = 1000 Iu)] 25 mcg PO DAILY Mupirocin 2% Oint [Bactroban 2% Oint] 1 applic TOPICAL BID PRN PRN Reason: wound, left wrist Fish Oil 1,400mg 1,400 mg PO DAILY Clopidogrel [Plavix] 75 mg PO DAILY Metoprolol Tartrate [Lopressor] 25 mg PO BID Discontinued Sulfamethox-Tmp 800-160Mg [Bactrim Ds] 1 tab PO Q12HR Cephalexin [Keflex] 500 mg PO Q6HR #40 cap Discharge Medication List lisinopriL [Lisinopril] 10 mg PO DAILY 12/23/14 [History] Multivitamins, Thera [Multivitamin (formulary)] 1 tab PO DAILY 12/26/14 [History] Pravastatin Sodium 80 mg PO DAILY 11/21/18 [History] Aspirin EC [Ecotrin Low Dose] 81 mg PO DAILY #30 tablet. 11/22/18 [Rx] Cholecalciferol [Vitamin D3 (25 Mcg = 1000 Iu)] 25 mcg PO DAILY 12/09/22 [History] Clopidogrel [Plavix] 75 mg PO DAILY 12/09/22 [History] Fish Oil 1,400mg 1,400 mg PO DAILY 10/13/23 [History] Metoprolol Tartrate [Lopressor] 25 mg PO BID 10/13/23 [History] Mupirocin 2% Oint [Bactroban 2% Oint] 1 applic TOPICAL BID PRN 10/13/23 [History] Sulfamethox-Tmp 400-80Mg [Bactrim SS 400-80 mg] 1 each PO BID 10 Days #20 tab 10/18/23 [Rx] cefUROXime axetiL [Ceftin] 500 mg PO BID 10 Days #20 tab 10/18/23 [Rx] Follow up Appointment(s)/Referral(s): Antonio Zhang DO [Primary Care Provider] - 10/21/23 1:00 pm (appointment with Gaby BOSS) Jennifer Mohamud MD [STAFF PHYSICIAN] - 1 Week (Please call the office to schedule a follow up appointment) Ambulatory/Diagnostic Orders: Basic Metabolic Panel [LAB.AMB] Time Frame: 3 Days, Location: None Selected Complete Blood Count w/diff [LAB.AMB] Location: None Selected Discharge Disposition: HOME SELF-CARE
== END 2023-10-18 12:54 | disposition home or self-care (01) | DRG 603 ==
LOC: EC 12:17 → 4SSUR 16:12 → 5NMEDONC 20:21
PROVIDERS: ADMIT Family Medicine; ATTEND Family Medicine
DX: L02.414 Cutaneous abscess of left upper limb (principal); E87.1 Hypo-osmolality and hyponatremia; N17.9 Acute kidney failure, unspecified; S51.812A Laceration without foreign body of left forearm, initial encounter; I25.10 Atherosclerotic heart disease of native coronary artery without angina pectoris; R53.1 Weakness; I10 Essential (primary) hypertension; B96.89 Other specified bacterial agents as the cause of diseases classified elsewhere; Z87.891 Personal history of nicotine dependence; M19.90 Unspecified osteoarthritis, unspecified site; E78.5 Hyperlipidemia, unspecified; Z87.19 Personal history of other diseases of the digestive system; Z79.02 Long term (current) use of antithrombotics/antiplatelets; Z79.82 Long term (current) use of aspirin; Z79.899 Other long term (current) drug therapy; Z82.49 Family history of ischemic heart disease and other diseases of the circulatory system; Z86.73 Personal history of transient ischemic attack (TIA), and cerebral infarction without residual deficits; Z95.1 Presence of aortocoronary bypass graft; Z87.442 Personal history of urinary calculi; Z96.653 Presence of artificial knee joint, bilateral; Z88.5 Allergy status to narcotic agent; Z98.1 Arthrodesis status
CPT/HCPCS: 36415; 80048; 80053; 80202; 83605; 85025; 85610; 85730; 87040; 87070; 87205; 93005; 96361; 96365; 96366; 96367; 99285

== ENCOUNTER 2023-11-29 05:32 | Inpatient (IN) | payer MEDICARE ==
[~2023-11-29 05:32] MED LIST changes: -LIDOCAINE 1% (10MG/ML) FOR IV START INTRADERMA PRN; -fentaNYL (PF) 50 MCG/ML 2 ML AMP IV PRN
[2023-11-29] MEDS ORDERED: LIDOCAINE 1% (10MG/ML) FOR IV START INTRADERMA PRN (06:00)
[2023-11-29] MEDS ORDERED: fentaNYL (PF) 50 MCG/ML 2 ML AMP IVP PRN (06:00)
[2023-11-29] MEDS ORDERED: MIDAZOLAM 2 MG/2 ML VIAL IV PRN (06:00)
--- NOTE | 2023-11-29 06:17 | P.HPOR ---
"History of Present Illness H&P Date: 11/24/23 [facility] [address] [place] [address]| DO VAHID MACKEY, MSN, SUPPLY ANALYST-C Patient Name: Manny Rodriguez Age/Sex: 78, MALE : 43 DATE OF SERVICE: Nov 24, 2023 2:00?PM VISIT TYPE: FOLLOW UP Approved RM CHIEF COMPLAINT: Left arm wound s/p T10-P revision HISTORY: Manny presents today to follow upon his T10-P revision fusion of which he is doing well from and has no complaints. However, recently he was hospitalized for sepsis related to an infection in his leg that went to his LUE. He developed an abscess on the inner portion of his LUE of which his states was very large and purulent at the time. He spent a week in the hospital and they were treating it with abx IV. Surgery was consulted on the abscess but decided against evacuation for unknown reasons. states that she then brought him home and started warm compresses on the abscess and yesterday it expressed some of itself from the area. There is however, a silver dollar sized open wound/ulceration of the medial aspect of the patients left arm that is just above the elbow and is still draining and extremely painful for the patient. She states there is visible muscle tissue in this area as well as soft tissues and changing the dressing for him is very painful. He sees. Dr. Mohamud of [place] who has cultured it several times, but there is no definitive answer as to what to treat with and it does not seem to be healing at all. He denies any f/c/sob/cp at this time. Denies any numbness/tingling. PAST MEDICAL HISTORY Reviewed with pt. He has a hx of stents, as well as cardiac history, HTN which he is treated and stable PAST SURGICAL HISTORY T10-P with revision; stents; abdominal sx MEDICATIONS Reviewed with pt, see list ALLERGIES NKDA SOCIAL HISTORY Never smoker, no tobacco use, no ETOH, no recreational substance use ROS: 16 point review of systems completed and as stated in HPI. All other systems reviewed are negative. EXAM: AOX3, NAD, well nourished, well hydrated, NAD TTP of the LUE on the inner aspect. There is an open wound on the inner aspect of the LUE just proximal to the medial elbow/epicondyle. There are visible muscle tissues here. It is about silverdollar sized. There is a secondary site that is just distal to this that is bleeding and purulent drainage. The abscess seems to be larger than this and tracs anteriorly towards the bicep region. . Back Incision is well healed. No EEE. No TTP No pain with ROM of the Left elbow, shoulder or wrist No pain with ROM of the low back Negative tensioning 5/5 UE all major muscle groups 5/5 LE all major muscle groups Normal post op deconditioning as well as post hospital stay due to his current condition CN grossly intact Respirations normal, non labored SILT L2-S1 2/4 DP/PT pulses; 2/4 rad/ulnar pulses Neg Homans Neg Hoffmans Neg Babinski Neg Clonus Compartments soft and compressive Ambulating with walker IMAGING: AP and LAT XR of the Lumbar spine today show no signs of hardware failure, loosening or migration. All hardware is holding well. Good alignment and presybeterian of lordosis and height. Cage is in a good position and stable. NO fractures. No lesions. IMPRESSION: LUE abscess with ulceration s/p T10-P revision decompression and fusion s/p sepsis with hospital stay, recent PLAN: WBAT LUE, ROM as able Change dressing frequently and when saturated with LUE. Maintain wounds clean and dry. Clean with soap and water only right now. Discussed options with pt, and he desires that we surgically debride the wound and evacuate the abscess as well as attempt closure of the wound which is reasonable given his current condition as well as the potential for disseminated infection of the lumbar hardware. We will obtain labs, ekg and cxr on arrival to pre op NPO @ midnight before surgery Plan for surgery on Tuesday11/29/23 0700 for debridement and possible closure vs wound vac placement. Cont current ABX regiment per ID, cont follow up out pt with them FOLLOW UP: POST OP PT Education: YES In our visit today the patient and I have had a chance to go over my understanding of their current condition, the natural course history without intervention and various interventional options. Questions were invited and answered, and the patient wishes to proceed as outlined above. I will be sure to keep you updated after the patient returns here for further follow-up. Thank you again for your referral. Please do not hesitate to contact me if you have any further questions. Signed and authenticated by: Nov 24, 2023 4:20?PM EDT DO Mai Mackey Domen[facility] [address] [place] [address] This document is confidential, intended only for the named recipient(s) and may contain information that is privileged or exempt from disclosure under applicable law. If you are not the intended recipient(s), you are notified that the dissemination, distribution or copying of this information is strictly prohibited. If you received this message in error, please notify the sender then delete this message. Past Medical History Past Medical History: Coronary Artery Disease (CAD), CVA/TIA, Hyperlipidemia, Hypertension, Osteoarthritis (OA), Renal Disease, Sleep Apnea/CPAP/BIPAP Additional Past Medical History / Comment(s): Generalized arthritis, L leg numbness/tingling since harvested vein for CABG, slight cardiac murmur, kidney stones, possible ureteral stricture-difficult to pass lópez catheters. tia behind eye August 2023. No C-PAP. Wound left leg-became infected August 2023. Lt wrist open area in September 2023 was in hosptail. History of Any Multi-Drug Resistant Organisms: None Reported Past Surgical History: Back Surgery, Coronary Bypass/CABG, Heart Catheterization, Joint Replacement, Orthopedic Surgery Additional Past Surgical History / Comment(s): 2004 CABG 4 vessel, UVPPP, colonoscopy, bilateral knee arthroscopy, bilateral total knee arthroplasties, bilateral rotator cuff repairs, R total reverse shoulder, kidney stone basketing, cystoscopies/scar tissue removed from bladder. 2006 2022 back surgeries. Back surgery Nov and Apr 2023. Lt wrist was in hospital for IVPB. 2 open areas lt arm from shoulder to elbow. Past Anesthesia/Blood Transfusion Reactions: No Reported Reaction Additional Past Anesthesia/Blood Transfusion Reaction / Comment(s): no hx blood transfusion, had hallucinations after back surgery 11/2022 Smoking Status: Former smoker - Past Family History Father Additional Family Medical History / Comment(s): Father in a tractor accident. Mother Family Medical History: Myocardial Infarction (MT) Additional Family Medical History / Comment(s): Mother of a massive MT at the age of 69yrs. Brother(s) Family Medical History: Cancer Additional Family Medical History / Comment(s): liver. Sister(s) Family Medical History: Cancer Additional Family Medical History / Comment(s): liver cancer Medications and Allergies Home Medications Medication Instructions Recorded Confirmed Type lisinopriL [Lisinopril] 10 mg PO QAM 12/23/14 11/25/23 History Multivitamins, Thera [Multivitamin 1 tab PO QAM 12/26/14 11/25/23 History (formulary)] Pravastatin Sodium 80 mg PO QAM 11/21/18 11/25/23 History Cholecalciferol [Vitamin D3 (25 25 mcg PO QAM 12/09/22 11/25/23 History Mcg = 1000 Iu)] Clopidogrel [Plavix] 75 mg PO QAM 12/09/22 11/25/23 History Fish Oil 1,400mg 1,400 mg PO QAM 10/13/23 11/25/23 History Metoprolol Tartrate [Lopressor] 25 mg PO BID 10/13/23 11/25/23 History Sulfamethox-Tmp 400-80Mg [Bactrim 1 each PO BID 10 Days #20 tab 10/18/23 11/25/23 Rx SS 400-80 mg] cefUROXime axetiL [Ceftin] 500 mg PO BID 10 Days #20 tab 10/18/23 11/25/23 Rx Aspirin EC [Ecotrin Low Dose] 81 mg PO QAM 11/25/23 11/25/23 History Allergies Allergy/AdvReac Type Severity Reaction Status Date / Time morphine AdvReac Nausea & Verified 11/25/23 11:40 Vomiting Physical Examination Osteopathic Statement: *. No significant issues noted on an osteopathic structural exam other than those noted in the History and Physical/Consult. Assessment and Plan (1) Abscess of arm Current Visit: No Status: Acute Code(s): L02.419 - CUTANEOUS ABSCESS OF LIMB, UNSPECIFIED SNOMED Code(s): 509404501 (2) Abscess of left arm Current Visit: No Status: Acute Code(s): L02.414 - CUTANEOUS ABSCESS OF LEFT UPPER LIMB SNOMED Code(s): 51816330444502914"
[2023-11-29] MEDS: IV FLUID CONTINUATION 1,000 ML IV ONE ×2 (06:50→11:07)
[2023-11-29] MEDS: LACTATED RINGERS 1,000 ML IV SCH (06:50)
[2023-11-29] MEDS: ONDANSETRON 4 MG/2 ML VIAL IVP ONE (06:52)
--- NOTE | 2023-11-29 06:52 | P.PN ---
Progress Note - Text Progress Note Date: 11/29/23 History and Physical UPDATE I have seen and examined the patient and reviewed the history and physical. There appear to be no significant changes in the patient's current medical status as outlined in the current History and Physical. Spoke with about pt status and potential admission for further abx and eval by ID again after surgical cultures done. She agrees and states for us to do whatever is necessary to treat him appropriately. Pt agrees as well. We will proceed with surgery at this time.
[2023-11-29] MEDS: ACETAMINOPHEN TAB 500 MG TAB PO PRN (06:54)
[2023-11-29] MEDS: DEXAMETHASONE SOD PHOSPHATE 4 MG/ML 1 ML VIAL IV ONE (06:55)
[2023-11-29] MEDS: GABAPENTIN 300 MG CAP PO PRN (06:55)
[2023-11-29] MEDS: VANCOMYCIN 1,250 MG in SODIUM CHLORIDE 0.9% 250 ML IVPB STA (07:05)
[2023-11-29] MEDS ORDERED: fentaNYL (PF) 50 MCG/ML 2 ML AMP ONE (07:10)
[2023-11-29] MEDS ORDERED: MIDAZOLAM 2 MG/2 ML VIAL ONE (07:10)
[2023-11-29] MEDS ORDERED: ePHEDrine 50 MG/ML 1 ML VIAL ONE (07:10)
[2023-11-29] MEDS ORDERED: PHENYLEPHRINE-0.9% NACL SYG 1,000 MCG/10 ML SYRINGE ONE (07:10)
[2023-11-29] MEDS ORDERED: PROPOFOL 10 MG/ML 20 ML VIAL IV ONE (07:10)
[2023-11-29] MEDS ORDERED: LIDOCAINE 1% INJ 10MG/ML (20 ML MDV) ONE (07:10)
[2023-11-29] MEDS: SODIUM CHLORIDE 0.9% 100 ML with GENTAMICIN 80 MG IV ONE (07:12)
[2023-11-29] MEDS: ceFAZolin 1,000 MG in SODIUM CHLORIDE 0.9% 1,000 ML IRRIGATION ONE (07:25)
[2023-11-29] MEDS ORDERED: VANCOMYCIN IV PER PHARMACY 1 EACH MISC MISCELLANE PRN (08:05)
[2023-11-29] MEDS: HYDROmorphone 0.5 MG/0.5 ML SYRINGE IVP PRN ×2 (09:16→14:53)
--- NOTE | 2023-11-29 11:09 | P.OP ---
Date of Procedure: 11/29/23 Preoperative Diagnosis: Current Active Problems Infected wound (Acute) Abscess of arm (Acute) Abscess of left arm (Acute) Wound of left upper extremity (Acute) Postoperative Diagnosis: Current Active Problems Infected wound (Acute) Abscess of arm (Acute) Abscess of left arm (Acute) Wound of left upper extremity (Acute) Procedure(s) Performed: Excisional debridement of LUE 9x5x2 cm using skin knife to remove skin and necrotic soft tissues, rongure to remove necrotic tissues and curette to remove and create bleeding wound bed. Placement of wound vac LUE Implants: Wound vac black sponge Anesthesia: MERLYNA Surgeon: Cruz Mahoney Estimated Blood Loss (ml): 20 IV fluids (ml): 800 Urine output (ml): 0 Pathology: other (x2 cultures, x1 spec, x1 path spec) Condition: stable Disposition: PACU Indications for Procedure: ictsavita presents today to follow upon his T10-P revision fusion of which he is doing well from and has no complaints. However, recently he was hospitalized for sepsis related to an infection in his leg that went to his LUE. He developed an abscess on the inner portion of his LUE of which his states was very large and purulent at the time. He spent a week in the hospital and they were treating it with abx IV. Surgery was consulted on the abscess but decided against evacuation for unknown reasons. states that she then brought him home and started warm compresses on the abscess and yesterday it expressed some of itself from the area. There is however, a silver dollar sized open wound/ulceration of the medial aspect of the patients left arm that is just above the elbow and is still draining and extremely painful for the patient. She states there is visible muscle tissue in this area as well as soft tissues and changing the dressing for him is very painful. He sees. Dr. Mohamud of [place] who has cultured it several times, but there is no definitive answer as to what to treat with and it does not seem to be healing at all. He denies any f/c/sob/cp at this time. Denies any numbness/tingling. Description of Procedure: The patient was seen and examined in the preoperative area. All preoperative protocols were followed. Informed consent was obtained risks and benefits of the procedure were discussed at length. Risks including bleeding infection damage to the surrounding tissue and risk of reoperation were discussed with the patient. Risk of anesthesia up to and including was a discussed with the patient. These are outlined in the risk reviewed. They were willing to accept these risks and all of the risks of surgery. The patient was given a weight- based dose of antibiotics in the form of vancomycin weight-based dose with gentamicin 80 mg. The patient was seen and evaluated by the anesthesia team who deemed them fit for surgery. The site was marked, the patient was willing to proceed with the procedure. The patient was transferred to the operative suite by the Department of anesthesia. There were then drifted off to sleep by the department of anesthesia and Gen.] anesthesia was used. Once adequate anesthesia had been obtained the patient was carefully transferred to the operative bed. All bony prominences were padded accordingly. SCDs were placed on the nonoperative lower extremities. Arms were well padded. left upper extremity was exposed and placed on a arm board. Preoperative briefing was done with the operative team and everyone was ready for the procedure to start. The patients left upper extremity was then prepped and draped in the normal sterile fashion. Timeout was then performed and all parties in agreement with the procedure to be performed. the wound of the left however she was especially inspected. There is a wound on the patients left medial upper arm just proximal to the medial epicondyles over the medial aspect of the intermuscular septum of the bicep and tricep. There is a tracking that appears to go deep and proximally. We ellipticized this wound and excised the infective tract. This led us down to the muscle and soft tissue and the neurovascular bundle. The musculocutaneous nerve was identified along with the ulnar nerve or with the brachial artery and vein which were all intact. The infectious portion seems to track along the neurovascular bundle proximally however following the intermuscular septum into the bicipital region. Wound measured 9 x 5 x 2 cm after excisional debridement. Good bleeding bed was obtained. Cultures were taken as well as specimen from this area Real used to remove necrotic tissue as well as skin knife and curet to create bleeding bed. Wound was able to be closed. Due to the nature of the wound and the continued issues as elected for wound VAC placement. The wound was then irrigated with Irricept normal sterile saline antibiotic solution and Betadine and hydrogen peroxide followed lateral sterile saline. This allowed for further debridement of the area. After this we then placed a wound VAC with a black sponge. This was attached and had good suction. There were no leaks. The patient was then transferred back to their hospital bed. There were awakened by department of anesthesia having tolerated the procedure very well with no complications. The patient was then transported to the postoperative care unit in stable condition.
[2023-11-29] MEDS: Pre Op ABX Message 1 EACH MISC MISCELLANE ONE (12:23)
[2023-11-29] MEDS: HYDROcodone/APAP 5-325MG 1 EACH TAB PO PRN (12:46)
[2023-11-29] MEDS: 0.9% NACL WITH KCL 20 MEQ/L 1,000 ML IV SCH (12:46)
[2023-11-29] MEDS: ACETAMINOPHEN TAB 325 MG TAB PO SCH (12:47)
[2023-11-29 15:06] VITALS: BMI 23.7
[2023-11-29] MEDS: ONDANSETRON 4 MG/2 ML VIAL IVP PRN (18:09)
[2023-11-29] MEDS: SULFAMETHOX-TMP 800-160MG 1 EACH TAB PO SCH (20:37)
[2023-11-30 03:52] LABS: Basophils % (A) 0 %; Eosinophils % (A) 0 %; HCT 33.3 % (39.0-53.0); HGB 11.2 gm/dL (13.0-17.5); Lymphocytes % (A) 14 %; MCH 31.5 pg (25.0-35.0); MCHC 33.6 g/dL (31.0-37.0); MCV 93.6 fL (80.0-100.0); Mean Platelet Volume 7.5; Monocytes # (A) 0.4 k/uL (0-1.0); Monocytes % (A) 5 %; Neutrophils # (A) 5.7 k/uL (1.3-7.7); Neutrophils % (A) 79 %; Platelet Count 203 k/uL (150-450); RBC 3.56 m/uL (4.30-5.90); RDW 14.7 % (11.5-15.5); WBC 7.1 k/uL (3.8-10.6)
[2023-11-30 04:04] LABS: African American GFR (CKD) >90 (>60 ml/min/1.73 sqM); Anion Gap 3 mmol/L; Blood Urea Nitrogen 16 mg/dL (9-20); Calcium 8.7 mg/dL (8.4-10.2); Carbon Dioxide 24 mmol/L (22-30); Chloride 102 mmol/L (98-107); Glucose 95 mg/dL (74-99); Non-African American GFR(CKD) 88 (>60 ml/min/1.73 sqM); Potassium 4.6 mmol/L (3.5-5.1); Sodium 129 mmol/L (137-145)
--- NOTE | 2023-11-30 07:38 | P.CONS ---
History of Present Illness - Reason for Consult Consult date: 11/29/23 Culture and antibiotic management left arm abscess Requesting physician: Cruz Mahoney - Chief Complaint Left upper arm abscess and wound x weeks - History of Present Illness Patient is a 78-year-old male with a past medical history significant for hypertension hyperlipidemia CVA TIA coronary artery disease sleep apnea and the patient was recently admitted to this facility with a left forearm wound and also developing abscess to the left upper arm patient at that time was evaluated by surgery recommending no surgical drainage patient did have a local 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 and the patient has been treated with Bactrim DS on a follow-up visit in the office patient did have spontaneous drainage of this abscess at which point had deep cultures were obtained and sent to leak around and came back negative and the patient has been treated with the Bactrim DS also received few weeks of oral Ceftin patient apparently has been e valuated by his orthopedic surgeon for spine surgery follow-up patient was electively admitted to the hospital taken to the OR and the status post excisional debridement of the left upper extremity [id number] 2 cm and a drainage of necrotic tissue and culture infectious disease was consulted for management of antibiotic therapy, patient currently denies having any fever or any chills has been breathing comfortably no headache or URI symptoms no chest pain shortness of breath or cough no abdominal pain has been complaining of pain to the left lower arm to be sharp almost under 10 in severity without radiation Review of Systems Positive point and negatives has been mentioned in the HPI, complete review of systems was performed and all other systems are negative Past Medical History Past Medical History: Coronary Artery Disease (CAD), CVA/TIA, Hyperlipidemia, Hypertension, Osteoarthritis (OA), Renal Disease, Sleep Apnea/CPAP/BIPAP Additional Past Medical History / Comment(s): Generalized arthritis, L leg numbness/tingling since harvested vein for CABG, slight cardiac murmur, kidney stones, possible ureteral stricture-difficult to pass lópez catheters. tia behind eye August 2023. No C-PAP. Wound left leg-became infected August 2023. Lt wrist open area in September 2023 was in hosptail. History of Any Multi-Drug Resistant Organisms: None Reported Past Surgical History: Back Surgery, Coronary Bypass/CABG, Heart Catheterization, Joint Replacement, Orthopedic Surgery Additional Past Surgical History / Comment(s): 2004 CABG 4 vessel, UVPPP, colonoscopy, bilateral knee arthroscopy, bilateral total knee arthroplasties, bilateral rotator cuff repairs, R total reverse shoulder, kidney stone basketing, cystoscopies/scar tissue removed from bladder. 2006 2022 back surgeries. Back surgery Nov and Apr 2023. Lt wrist was in hospital for IVPB. 2 open areas lt arm from shoulder to elbow. Past Anesthesia/Blood Transfusion Reactions: No Reported Reaction Additional Past Anesthesia/Blood Transfusion Reaction / Comm: no hx blood transfusion, had hallucinations after back surgery 11/2022 Smoking Status: Former smoker - Past Family History Father Additional Family Medical History / Comment(s): Father in a tractor accident. Mother Family Medical History: Myocardial Infarction ([place]) Additional Family Medical History / Comment(s): Mother of a massive [place] at the age of 69yrs. Brother(s) Family Medical History: Cancer Additional Family Medical History / Comment(s): liver. Sister(s) Family Medical History: Cancer Additional Family Medical History / Comment(s): liver cancer Medications and Allergies Home Medications Medication Instructions Recorded Confirmed Type lisinopriL [Lisinopril] 10 mg PO QAM 12/23/14 11/25/23 History Multivitamins, Thera [Multivitamin 1 tab PO QAM 12/26/14 11/25/23 History (formulary)] Pravastatin Sodium 80 mg PO QAM 11/21/18 11/29/23 History Cholecalciferol [Vitamin D3 (25 25 mcg PO QAM 12/09/22 11/25/23 History Mcg = 1000 Iu)] Clopidogrel [Plavix] 75 mg PO QAM 12/09/22 11/25/23 History Fish Oil 1,400mg 1,400 mg PO QAM 10/13/23 11/25/23 History Metoprolol Tartrate [Lopressor] 25 mg PO BID 10/13/23 11/25/23 History Sulfamethox-Tmp 400-80Mg [Bactrim 1 each PO BID 10 Days #20 tab 10/18/23 11/25/23 Rx SS 400-80 mg] cefUROXime axetiL [Ceftin] 500 mg PO BID 10 Days #20 tab 10/18/23 11/25/23 Rx Aspirin EC [Ecotrin Low Dose] 81 mg PO QAM 11/25/23 11/25/23 History Allergies Allergy/AdvReac Type Severity Reaction Status Date / Time morphine AdvReac Nausea & Verified 11/29/23 06:16 Vomiting Physical Exam Vitals: Vital Signs Temp Pulse Resp BP Pulse Ox 11/29/23 11:40 61 18 109/53 96 11/29/23 11:15 62 16 109/55 95 11/29/23 11:00 66 16 114/59 96 11/29/23 10:30 64 16 111/57 97 11/29/23 10:00 59 L 18 111/58 95 11/29/23 09:48 58 L 16 111/56 97 11/29/23 09:33 63 20 125/60 97 11/29/23 09:18 64 18 121/58 95 11/29/23 09:03 59 L 16 98/57 96 11/29/23 08:48 65 62 H 98/56 97 11/29/23 08:33 64 18 103/56 97 11/29/23 08:18 68 18 101/54 95 11/29/23 08:03 97.0 F L 57 L 16 105/54 100 11/29/23 06:31 97.6 F 54 L 18 145/65 98 Intake and Output 11/28/23 11/29/23 11/29/23 22:59 06:59 14:59 Intake Total 100 1303 Output Total 30 Balance 100 1273 Intake: IV 100 1303 Output: Estimated Blood Loss 30 Other: Weight 66.7 kg GENERAL DESCRIPTION: Elderly male lying in bed, no distress. No tachypnea or accessory muscle of respiration use. HEENT: Shows Pallor , no scleral icterus. Oral mucous membrane is dry. No pharyngeal erythema or thrush NECK: Trachea central, no thyromegaly. LUNGS: Unlabored breathing. Clear to auscultation anteriorly. No wheeze or crackle. HEART: S1, S2, regular rate and rhythm. No loud murmur ABDOMEN: Soft, no tenderness , guarding or rigidity, no organomegaly EXTREMITIES: Left upper arm is currently dressed no drainage on the dressing SKIN: No rash, no masses palpable. NEUROLOGICAL: The patient is awake, alert, oriented x3, mood and affect normal. Results CBC & Chem 7: 11/30/23 03:22 11/30/23 03:22 Assessment and Plan (1) Abscess of left arm Current Visit: Yes Status: Acute Code(s): L02.414 - CUTANEOUS ABSCESS OF LEFT UPPER LIMB SNOMED Code(s): 84494798037483211 (2) Infected wound Current Visit: Yes Status: Acute Code(s): T14.8XXA - OTHER INJURY OF UNSPECIFIED BODY REGION, INITIAL ENCOUNTER; L08.9 - LOCAL INFECTION OF THE SKIN AND SUBCUTANEOUS TISSUE, UNSP SNOMED Code(s): 56151805 Plan: 1patient electively admitted to the hospital after drainage of the left upper arm abscess in this patient who did have previous admission to the hospital with similar symptoms and at that time he did have wound to the forearm culture from the wound did grew nocardia unfortunately the left upper arm abscess was not drained by surgical team at that point he did have a spontaneous drainage and did have outpatient cultures were negative no status post surgical debridement orthopedics and deep culture which are currently pending 2-we will empirically start the patient on Rocephin 2 g daily and Bactrim DS keeping in mind possible pathogen being nocardia while waiting for the culture to finalize at the bedside multiple question concern answered Discharge antibiotics can be either oral or IV depending upon the clinical response and culture We will follow on clinical condition and cultures to further adjust medication if needed Thank you for this consultation we will follow the patient along with you Dictation was produced using [employer] dictation software. please excuse any grammatical, word or spelling errors. Time with Patient: Greater than 30
[2023-11-30] MEDS: METOPROLOL TARTRATE 25 MG TAB PO SCH (12:59)
[2023-11-30] MEDS: PANTOPRAZOLE 40 MG/10 ML VIAL IVP SCH (13:06)
--- NOTE | 2023-11-30 13:30 | P.PN ---
Subjective Progress Note Date: 11/30/23 Principal diagnosis: Abscess of left arm Wound of left upper extremity s/p [id number] decompression and fusion Patient seen and examined this morning. Patient is sitting up in chair at bedside. Spouse is present in room. Patient reports that his pain is managed on current regimen. Surgical incision with wound VAC to left upper extremity, VAC is patent with minimal drainage throughout tubing and chamber. Collins wrap is clean dry and intact. Patient denies any numbness or tingling to the left upper extremity. Patient is scheduled for irrigation and debridement with closure tomorrow 12/01/2023. Patient will be n.p.o. at midnight. Continue to encourage patient to utilize incentive spirometer while awake. No acute concerns. Objective - Vital Signs Vital signs: Vital Signs Temp 97.8 F 11/30/23 07:22 Pulse 55 L 11/30/23 07:22 Resp 16 11/30/23 07:22 BP 132/64 11/30/23 07:22 Pulse Ox 99 11/30/23 07:22 FiO2 Intake & Output 11/29/23 11/30/23 11/30/23 18:59 06:59 18:59 Intake Total 1603 1200 Output Total 30 750 Balance 1573 450 Weight 66.7 kg Intake: IV 1303 Intake, IV Titration 300 600 Amount 0.9% NaCl with KCl 20 Meq 250 600 /l 1,000 ml @ 50 mls/hr IV .Q20H [facility] Rx#: [id number] cefTRIAXone 2 gm In 50 Sodium Chloride 0.9% 50 ml @ 100 mls/hr IVPB Q24HR [facility] Rx#:[id number] Oral 600 Output: Urine 750 Estimated Blood Loss 30 Other: Voiding Method Toilet Urinal - Exam Inspection: Surgical incision to the left upper extremity with wound VAC placement, minimal drainage throughout tubing and canister. Sensation: Sensation is equal, symmetric, bilaterally intact throughout the upper and lower extremities Palpation: Mild tenderness to palpation of the left upper extremity due to surgical procedure. Range of motion: Patient does have full range of motion bilateral upper and lower extremities on exam Motor: 5/5 in all major motor groups in the right upper and lower extremities, 4/5 left upper extremity Special tests: Negative Homans bilaterally. Negative Esvin bilaterally. Negative clonus bilaterally. Neurovascular: Radial pulse intact, 2+ bilaterally. Cap refill under 3 seconds in digits upper extremities. - Labs CBC & Chem 7: 11/30/23 03:22 11/30/23 03:22 Labs: Abnormal Lab Results - Last 24 Hours (Table) 11/30/23 11/30/23 Range/Units 03:22 03:22 RBC 3.56 L (4.30-5.90) m/uL Hgb 11.2 L (13.0-17.5) gm/dL Hct 33.3 L (39.0-53.0) % Sodium 129 L (137-145) mmol/L Microbiology - Last 24 Hours (Table) 11/29/23 07:13 Gram Stain - Preliminary Arm - Left 11/29/23 07:13 Gram Stain - Preliminary Arm - Left Assessment and Plan Assessment: Post Op day 1: Left upper extremity wound irrigation and debridement with wound vac placement Plan: -Appreciate sourcing consultant and team management. -Left upper extremity irrigation and debridement with wound closure scheduled for tomorrow 12/01/2023, patient will be NPO at midnight. -Activity: Ambulate as tolerated. Patient may perform range of motion exercises with left upper extremity, NWB. -Pain control: Adequate at this time -Meds: reviewed -GI ppx: senna, Miralax -DVT PPX: Mechanical -Hygiene: Maintain dressing clean and dry. -Wound Vac: continue to monitor output and record every shift -Encourage IS 10x/hr -Dispo: Cinically pending *I reviewed and discussed this case with my attending Dr. Mahoney, whom has reviewed this chart and films and is in agreement with assessment and plan of care as outlined above. I have personally seen and examined the patient, performed the documentation and the assessment and plan as written. Number of minutes spent on the visit: 20m.
--- NOTE | 2023-11-30 15:25 | P.CONS ---
History of Present Illness - Reason for Consult Consult date: 11/30/23 Medical management Requesting physician: Cruz Mahoney - Chief Complaint Left upper arm abscess/wound - History of Present Illness This is a pleasant 78-year-old gentleman recently admitted inpatient with left wrist/upper arm abscess. Evaluated by general surgery ,no surgical drainage recommended at that time. 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 Patient readmitted to the hospital, status post I&D with wound VAC placement, postop day #1.Maintained on ceftriaxone and Bactrim DS as per ID while cultures finalizing- prior cultures had reported Nocardia. Afebrile, normal WBC. Reports positive pain to touch. Denies chest pain, palpitations or shortness of breath. Review of Systems Constitutional: Denied any fatigue denied any fever. Cardio vascular: denied any chest pain, palpitations Gastrointestinal denied any nausea vomiting Pulmonary: Denied any shortness of breath cough Neurologic denied any new focal deficits All inpatient medications were reviewed and appropriate changes in these medications as dictated in the interval history and assessment and plan. Past Medical History Past Medical History: Coronary Artery Disease (CAD), CVA/TIA, Hyperlipidemia, Hypertension, Osteoarthritis (OA), Renal Disease, Sleep Apnea/CPAP/BIPAP Additional Past Medical History / Comment(s): Generalized arthritis, L leg numbness/tingling since harvested vein for CABG, slight cardiac murmur, kidney stones, possible ureteral stricture-difficult to pass lópez catheters. tia behind eye August 2023. No C-PAP. Wound left leg-became infected August 2023. Lt wrist open area in September 2023 was in hosptail. History of Any Multi-Drug Resistant Organisms: None Reported Past Surgical History: Back Surgery, Coronary Bypass/CABG, Heart Catheterization, Joint Replacement, Orthopedic Surgery Additional Past Surgical History / Comment(s): 2004 CABG 4 vessel, UVPPP, colonoscopy, bilateral knee arthroscopy, bilateral total knee arthroplasties, b ilateral rotator cuff repairs, R total reverse shoulder, kidney stone basketing, cystoscopies/scar tissue removed from bladder. 2006 2022 back surgeries. Back surgery Nov and Apr 2023. Lt wrist was in hospital for IVPB. 2 open areas lt arm from shoulder to elbow. Past Anesthesia/Blood Transfusion Reactions: No Reported Reaction Additional Past Anesthesia/Blood Transfusion Reaction / Comm: no hx blood transfusion, had hallucinations after back surgery 11/2022 Smoking Status: Former smoker - Past Family History Father Additional Family Medical History / Comment(s): Father in a tractor accident. Mother Family Medical History: Myocardial Infarction ([place]) Additional Family Medical History / Comment(s): Mother of a massive [place] at the age of 69yrs. Brother(s) Family Medical History: Cancer Additional Family Medical History / Comment(s): liver. Sister(s) Family Medical History: Cancer Additional Family Medical History / Comment(s): liver cancer Medications and Allergies Home Medications Medication Instructions Recorded Confirmed Type lisinopriL [Lisinopril] 10 mg PO QAM 12/23/14 11/25/23 History Multivitamins, Thera [Multivitamin 1 tab PO QAM 12/26/14 11/25/23 History (formulary)] Pravastatin Sodium 80 mg PO QAM 11/21/18 11/29/23 History Cholecalciferol [Vitamin D3 (25 25 mcg PO QAM 12/09/22 11/25/23 History Mcg = 1000 Iu)] Clopidogrel [Plavix] 75 mg PO QAM 12/09/22 11/25/23 History Fish Oil 1,400mg 1,400 mg PO QAM 10/13/23 11/25/23 History Metoprolol Tartrate [Lopressor] 25 mg PO BID 10/13/23 11/25/23 History Sulfamethox-Tmp 400-80Mg [Bactrim 1 each PO BID 10 Days #20 tab 10/18/23 11/25/23 Rx SS 400-80 mg] cefUROXime axetiL [Ceftin] 500 mg PO BID 10 Days #20 tab 10/18/23 11/25/23 Rx Aspirin EC [Ecotrin Low Dose] 81 mg PO QAM 11/25/23 11/25/23 History Allergies Allergy/AdvReac Type Severity Reaction Status Date / Time morphine AdvReac Nausea & Verified 11/29/23 06:16 Vomiting Physical Exam Vitals: Vital Signs Temp Pulse Resp BP Pulse Ox 11/30/23 07:22 97.8 F 55 L 16 132/64 99 11/30/23 01:18 97.6 F 75 20 101/63 97 11/29/23 19:20 97.5 F L 77 18 110/66 98 11/29/23 17:29 97.7 F 63 14 101/53 98 11/29/23 13:17 62 119/69 97 11/29/23 13:02 63 111/59 96 11/29/23 12:46 97.5 F L 63 16 113/63 97 11/29/23 11:40 61 18 109/53 96 Intake and Output 11/29/23 11/30/23 11/30/23 22:59 06:59 14:59 Intake Total 540 960 Output Total 750 Balance 540 210 Intake: Intake, IV Titration 300 600 Amount 0.9% NaCl with KCl 20 Meq 250 600 /l 1,000 ml @ 50 mls/hr IV .Q20H [facility] Rx#: [id number] cefTRIAXone 2 gm In 50 Sodium Chloride 0.9% 50 ml @ 100 mls/hr IVPB Q24HR [facility] Rx#:[id number] Oral 240 360 Output: Urine 750 Other: Voiding Method Toilet Urinal PHYSICAL EXAM: VITAL SIGNS: [As above] GENERAL: Alert and oriented x 3, sitting up in chair,no acute distress HEENT: Atraumatic, normocephalic conjunctivae normal. eyes normal. Sclera anicteric. mmm. NECK: Supple, no JVD. CARDIOVASCULAR: S1, S2 regular. Systolic murmur RESPIRATION: Unlabored, equal air entry, clear to auscultation ,breath sounds diminished in the bases. ABDOMEN: Soft, no distention, nontender . No guarding. +BS EXTREMITIES: Left arm swelling with wound VAC, dressing clean dry and intact LEGS: No edema. no swelling, no calf tenderness noted. Positive DP pulses. NERVOUS SYSTEM: Cranial N 2-12 grossly normal.No focal deficits. Skin: Warm and dry, no rash. Results CBC & Chem 7: 11/30/23 03:22 11/30/23 03:22 Labs: Abnormal Lab Results - Last 24 Hours (Table) 11/30/23 11/30/23 Range/Units 03:22 03:22 RBC 3.56 L (4.30-5.90) m/uL Hgb 11.2 L (13.0-17.5) gm/dL Hct 33.3 L (39.0-53.0) % Sodium 129 L (137-145) mmol/L Microbiology - Last 24 Hours (Table) 11/29/23 07:13 Gram Stain - Preliminary Arm - Left 11/29/23 07:13 Gram Stain - Preliminary Arm - Left 11/29/23 07:13 Gram Stain - Preliminary Arm - Left Assessment and Plan Assessment: Recent inpatient admission discharged on 10/18/2023 with Left wrist abscess, fa iled outpatient treatment, cultures reporting Nocardia brasiliensis. Status post I&D with wound VAC placement. Hyponatremia Recent revision posterior lateral fusion [id number] with open treatment L2 fracture, removal with replacement of new cage L2-3, status post revision L2- pelvis decompression and fusion, 224. History of distal bulbar urethral stricture, status post dilation with López catheter- coude placement intraoperative as per urology. History of a occipital CVA,11/15 brain MRI , follows with Dr. Rajwinder Francisco. reports repeat MRI of brain performed September 24 at [facility]. CAD, history of CABG Hypertension Hyperlipidemia Plan: Continue on current medication regimen ,monitoring and symptomatic treatment. Pain management. PPI for GI prophylaxis. Aggressive pulmonary toileting with incentive spirometer reinforced. Antibiotics as per ID, cultures pending. Scheduled for wound closure tomorrow. Thank you for the consult. The impression and plan of care has been dictated as directed. Dr.: I performed a history and examination of this patient, discussed the same with the dictator. I agree with the dictator's note ,documented as a scribe. Any additional findings or plans will be noted.
--- NOTE | 2023-12-01 08:19 | P.PN ---
Subjective Progress Note Date: 11/30/23 Principal diagnosis: Reason for follow-up is left lower extremity abscess and wound Patient is a 78-year-old male with a past medical history significant for hypertension hyperlipidemia CVA TIA coronary artery disease sleep apnea and the patient was recently admitted to this facility with a left forearm wound and also developing abscess to the left upper arm, now with readmission to the hospital for drainage and debridement of the left extremity wound. On today's evaluation that is 11/30/2023, patient has been afebrile, patient is breathing comfortably and is currently on room air, patient denies having any significant cough no chest pain shortness of breath, patient denies nausea vomiting or diarrhea and no abdominal pain denies any worsening pain to left lo wer extremity. Patient white count is 7.1, creatinine 0.74 cultures are currently pending Objective - Vital Signs Vital signs: Vital Signs Temp 97.8 F 11/30/23 07:22 Pulse 55 L 11/30/23 07:22 Resp 16 11/30/23 07:22 BP 132/64 11/30/23 07:22 Pulse Ox 99 11/30/23 07:22 FiO2 Intake & Output 11/29/23 11/30/23 11/30/23 18:59 06:59 18:59 Intake Total 1603 1200 Output Total 30 750 Balance 1573 450 Weight 66.7 kg Intake: IV 1303 Intake, IV Titration 300 600 Amount 0.9% NaCl with KCl 20 Meq 250 600 /l 1,000 ml @ 50 mls/hr IV .Q20H [facility] Rx#: [id number] cefTRIAXone 2 gm In 50 Sodium Chloride 0.9% 50 ml @ 100 mls/hr IVPB Q24HR [facility] Rx#:[id number] Oral 600 Output: Urine 750 Estimated Blood Loss 30 Other: Voiding Method Toilet Urinal - Exam GENERAL DESCRIPTION: An elderly male lying in bed in no distress RESPIRATORY SYSTEM: Unlabored breathing , decreased breath sounds at bases HEART: S1 S2 regular rate and rhythm , ABDOMEN: Soft , no tenderness EXTREMITIES: Left upper arm wound is covered with a wound VAC - Labs CBC & Chem 7: 11/30/23 03:22 11/30/23 03:22 Labs: Abnormal Lab Results - Last 24 Hours (Table) 11/30/23 11/30/23 Range/Units 03:22 03:22 RBC 3.56 L (4.30-5.90) m/uL Hgb 11.2 L (13.0-17.5) gm/dL Hct 33.3 L (39.0-53.0) % Sodium 129 L (137-145) mmol/L Microbiology - Last 24 Hours (Table) 11/29/23 07:13 Gram Stain - Preliminary Arm - Left 11/29/23 07:13 Gram Stain - Preliminary Arm - Left 11/29/23 07:13 Gram Stain - Preliminary Arm - Left Assessment and Plan (1) Abscess of left arm Current Visit: Yes Status: Acute Code(s): L02.414 - CUTANEOUS ABSCESS OF LEFT UPPER LIMB SNOMED Code(s): 10834865535974102 (2) Infected wound Current Visit: Yes Status: Acute Code(s): T14.8XXA - OTHER INJURY OF UNSPECIFIED BODY REGION, INITIAL ENCOUNTER; L08.9 - LOCAL INFECTION OF THE SKIN AND SUBCUTANEOUS TISSUE, UNSP SNOMED Code(s): 23059954 Plan: 1patient electively admitted to the hospital after drainage of the left upper arm abscess in this patient who did have previous admission to the hospital with similar symptoms and at that time he did have wound to the forearm culture from the wound did grew nocardia unfortunately the left upper arm abscess was not drained by surgical team at that point he did have a spontaneous drainage and did have outpatient cultures were negative no status post surgical debridement orthopedics and deep culture which are currently pending 2-patient to continue with Rocephin 2 g daily and Bactrim DS while waiting for the culture to finalize Dictation was produced using [employer] dictation software. please excuse any grammatical, word or spelling errors. Time with Patient: Less than 30
[2023-12-01] MEDS: PRAVASTATIN SODIUM 80 MG TAB PO SCH (09:19)
[2023-12-01] MEDS ORDERED: fentaNYL (PF) 50 MCG/ML 2 ML AMP IV PRN (09:41)
[2023-12-01] MEDS: IV FLUID CONTINUATION 1,000 ML IV ONE (09:45)
[2023-12-01] MEDS: LACTATED RINGERS 1,000 ML IV SCH (09:52)
[2023-12-01] MEDS: DEXAMETHASONE SOD PHOSPHATE 4 MG/ML 1 ML VIAL IVP STA (10:33)
[2023-12-01] MEDS: ONDANSETRON 4 MG/2 ML VIAL IVP PRN (10:33)
--- NOTE | 2023-12-01 11:37 | P.PN ---
Progress Note - Text Progress Note Date: 12/01/23 Orthopedic Surgery Risk Review Manny Rodriguez is a 78 yo male presenting for evaluation of LUE wound s/p initial debridement with wound vac placement back for revision washout and possible closure. It was my pleasure to have seen and examined Manny. In our visit today we have had a chance to go over subjective complaints, physical examination findings and treatments including the natural course history without intervention and various interventional options. On physical exam, Manny demonstrates wound s/p debiridement with large soft tissue void. I have explained to the patient that this fracture needs stabilization. Based on the patients imaging, physical exam, and the rapid progression and disabling nature of her symptoms, at this time I recommend surgery in the form or a: Left arm irrigation and debridement with closure I discussed the risk and benefits of this procedure at length with the patient. Questions were invited and answered, and the patient wishes to proceed as outlined below. Currently, I am recommendin. Left arm irrigation and debridement with closure 2. Review of surgical risks and benefits as well as an educational packet on the proposed surgical procedure. Risks: All surgical procedures come with inherent risks, including those related to positioning, anesthesia, intraoperative findings, and postoperative complications. It is important to understand that surgery does not come with any guarantee of a successful outcome as complications and adverse events are always possible. The patient was given a handout discussing the surgical procedure and risks associated with the intervention, both of which were discussed with the patient. These risks include but are not limited to the following: - Experiencing same, different or even worse symptoms compared to before surgery. - Requiring further surgery or other forms of treatment presently or at some time in the future . - On an extreme but fortunately relatively rare basis severe complication such as blindness, stroke, heart attack, temporary and/or permanent nerve injury, paralysis, coma, or may occur, sometimes without known explanation. - Surgical complications may include but are not limited to risk of infec tion, fluid accumulation in the surgical dissection site, including a seroma or hematoma, that requires additional surgery, wound drainage, bleeding, new numbness or weakness, vision changes/loss, spinal fluid leakage, non-healing and/or infected incision, headaches, difficulty or inability to swallow, hoarseness, hemopneumothorax, pneumothorax, injury to nerves, spinal cord, blood vessels, lymphatics or other vital organs (i.e., bowel injury, injury to the great vessels); heterotopic bone formation; complications related to the hardware such as screws, rods, including misplaced hardware, device failure, hardware fracture/breakage, or hardware loosening; retained surgical instrumentations or devices and the need for further surgery. - Medical risks of the planned surgery include but are not limited to generalized Infections to the whole body or local areas outside of the surgical site (sepsis), heart attack, bleeding, anaphylaxis, meningitis, seizure, epilepsy, hearing loss, burn gu, laceration of the head or other areas of the body, bruising, hypersensitivity of the skin, bladder over distension; allergic reaction; shoulder injury related to positioning; fat, blood and air clots to other areas of the body like heart, lungs, brain; failure of internal organs such as lungs, kidneys, liver and excessive bleeding. If blood transfusions are necessary, note that transfusions may cause intolerance reactions such as anaphylaxis or other complex reactions. Despite best efforts, the results of surgery might not heal in terms of bone, soft tissues such as skin, fascia, ligaments, and joints. [facility] has multiple operating rooms with single and overlapping rooms running daily. They currently function under the required guidelines as produced by the Senate [employer] Committee with regards to the overlapping rooms and will continue to comply with changes to this policy as they occur. The requirements include and are complied with as follows: (1) the critical portions of the overlapping rooms will not occur at the same time, (2) the attending physician will be physically present during the critical portions of the procedure and immediately available during the entire case, and (3) a back-up attending is designated should the primary attending not be immediately available. The patient has had a chance to review all the listed information, has been given print outs detailing this information, and has had all his/her questions answered to their satisfaction. It was my pleasure to have seen and examined Manny. In our visit today we have had a chance to go over my understanding of our patient's current condition, the natural course history without intervention and various interventional options. Questions were invited and answered, and the patient wishes to proceed as outlined above. I have seen and examined the patient for 25 minutes and we have spent more than 50% of the time in repeat and detailed counseling about the patient's condition, its natural course history with out and as much as can be predicted with surgery and re-review of various surgical treatment options. In conclusion he has requested we proceed with the above suggested surgery and are willing to accept risks and limitations of the suggested surgery as nature of the disease process and our best attempts at treatment for the condition. Thank you again for allowing us to be part of your patient's care. Please don't hesitate to contact me if you have any further questions. Signed and authenticated by: Cruz Roblero [facility] [address] [address]
[2023-12-01] MEDS ORDERED: PROPOFOL 10 MG/ML 20 ML VIAL IV ONE (12:08)
[2023-12-01] MEDS ORDERED: fentaNYL (PF) 50 MCG/ML 2 ML AMP ONE (12:08)
[2023-12-01] MEDS ORDERED: ePHEDrine 50 MG/ML 1 ML VIAL ONE (12:08)
[2023-12-01] MEDS ORDERED: MIDAZOLAM 2 MG/2 ML VIAL ONE (12:08)
[2023-12-01] MEDS: ceFAZolin 1,000 MG in SODIUM CHLORIDE 0.9% 1,000 ML IRRIGATION ONE (12:41)
--- NOTE | 2023-12-01 13:20 | P.OP ---
Date of Procedure: 12/01/23 Preoperative Diagnosis: Current Active Problems Abscess of arm (Acute) Abscess of left arm (Acute) Infected wound (Acute) Wound of left upper extremity (Acute) Postoperative Diagnosis: Current Active Problems Abscess of arm (Acute) Abscess of left arm (Acute) Infected wound (Acute) Wound of left upper extremity (Acute) Procedure(s) Performed: IRRIGATION AND DEBRIDEMENT LEFT ARM 10X6X3 CM USING SKIN KNIFE FOR REMOVAL OF SKIN, AND NECROTIC TISSUES, CURETTE TO SCRAPE ABSCESS BED AND MAKE WOUND BED BLEED, RONGURE TO REMOVE TISSUE. SOFT TISSUE, MUSCLE, FACIA, NERVE. PRIMARY COMPLEX CLOSURE LUE 10X6X3, 3 LAYER APPLICATION OF PREVENA INCISIONAL VAC Implants: Anesthesia: GETA Surgeon: Cruz Mahoney Gear Machinist #1: Anisa Bonilla (WAS PRESENT AND ASSISTED WITH ALL ASPECTS OF THE CASE FROM POSITION TO CLOSURE) Estimated Blood Loss (ml): 20 IV fluids (ml): 1,200 Urine output (ml): 0 Pathology: none sent Condition: stable Disposition: PACU Indications for Procedure: Manny Rodriguez is a 78 yo male presenting for evaluation of LUE wound s/p initial debridement with wound vac placement back for revision washout and possible closure. It was my pleasure to have seen and examined Manny. In our visit today we have had a chance to go over subjective complaints, physical examination findings and treatments including the natural course history without intervention and various interventional options. On physical exam, Manny demonstrates wound s/p debiridement with large soft tissue void. I have explained to the patient that this fracture needs stabilization. Based on the patients imaging, physical exam, and the rapid progression and disabling nature of her symptoms, at this time I recommend surgery in the form or a: Left arm irrigation and debridement with closure I discussed the risk and benefits of this procedure at length with the patient. Questions were invited and answered, and the patient wishes to proceed as outlined below. Currently, I am recommendin. Left arm irrigation and debridement with closure Description of Procedure: The patient was seen and examined in the preoperative area. All preoperative protocols were followed. Informed consent was obtained risks and benefits of the procedure were discussed at length. Risks including bleeding infection damage to the surrounding tissue and risk of reoperation were discussed with the patient. Risk of anesthesia up to and including was a discussed with the patient. These are outlined in the risk reviewed. They were willing to accept these risks and all of the risks of surgery. The patient was given a weight- based dose of antibiotics in the form of vancomycin weight-based dose with gentamicin 80 mg. The patient was seen and evaluated by the anesthesia team who deemed them fit for surgery. The site was marked, the patient was willing to proceed with the procedure. The patient was transferred to the operative suite by the Department of anesthesia. There were then drifted off to sleep by the department of anesthesia and Gen.] anesthesia was used. Once adequate anesthesia had been obtained the patient was carefully transferred to the operative bed. All bony prominences were padded accordingly. SCDs were placed on the nonoperative lower extremities. Arms were well padded. left upper extremity was exposed and placed on a arm board. Preoperative briefing was done with the operative team and everyone was ready for the procedure to start. The patients left upper extremity was then prepped and draped in the normal sterile fashion. Timeout was then performed and all parties in agreement with the procedure to be performed. Wound was inspected there was good bleeding bed and reasonable granulation tissue that has started. The abscess was probed and curettte used to scrape the bed and create bleeding tissue as well as remove any necrotic tissues. Rongure was then used for removal of further necrotic tissues. MSK and Ulnar nerves still intact and functional. Skin edges were freshened. The wound was irrigated with 1 L abx solution, Irricept and NSS. Complex 3 layer closure was then done. 0 Vicryl placed in deep subq tissues. 2-0 placed in superficial sub q and skin edges approximated with 2-0 nylon in a horizontal mattress fashion. Edges approximated well. The wound was cleaned and a Prevena incisional vac was placed. The arm was then wrapped with an pedrito wrap. Good suction was noted without leaks. The patient was then transferred back to their hospital bed. There were awakened by department of anesthesia having tolerated the procedure very well with no complications. The patient was then transported to the postoperative care unit in stable condition.
[2023-12-01] MEDS: ANIDULAFUNGIN 200 MG in SODIUM CHLORIDE 0.9% 200 ML IVPB ONE (14:08)
--- NOTE | 2023-12-01 16:07 | P.PN ---
Subjective Progress Note Date: 12/01/23 - History of Present Illness This is a pleasant 78-year-old gentleman recently admitted inpatient with left wrist/upper arm abscess. Evaluated by general surgery ,no surgical drainage recommended at that time. 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 Patient readmitted to the hospital, status post I&D with wound VAC placement, postop day #1.Maintained on ceftriaxone and Bactrim DS as per ID while cultures finalizing- prior cultures had reported Nocardia. Afebrile, normal WBC. Reports positive pain to touch. Denies chest pain, palpitations or shortness of breath. 12/01/2023 maintained on IV antibiotics as per infectious disease. Scheduled for further I&D with closure today of the affected extremity as per orthopedic surgery. Denies chest pain, palpitations or shortness of breath. Afebrile. Objective - Vital Signs Vital signs: Vital Signs Temp 98.1 F 12/01/23 14:00 Pulse 67 12/01/23 15:14 Resp 16 12/01/23 14:00 BP 124/75 12/01/23 15:14 Pulse Ox 95 12/01/23 15:14 FiO2 Intake & Output 11/30/23 12/01/23 12/01/23 18:59 06:59 18:59 Intake Total 118 550 501 Output Total 630 10 10 Balance -512 540 491 Intake: IV 501 Intake, IV Titration 550 Amount 0.9% NaCl with KCl 20 Meq 550 /l 1,000 ml @ 50 mls/hr IV .Q20H [facility] Rx#: [id number] Oral 118 Output: Drainage 10 Left Arm 10 Urine 630 Estimated Blood Loss 10 Other: Voiding Method Toilet Urinal Urinal - Exam PHYSICAL EXAM: VITAL SIGNS: [As above] GENERAL: Alert and oriented x 3, sitting up in bed,no acute distress HEENT: Atraumatic, normocephalic conjunctivae normal. eyes normal. Sclera anicteric. NECK: Supple, no JVD. CARDIOVASCULAR: S1, S2 regular. Systolic murmur RESPIRATION: Unlabored, equal air entry, clear to auscultation ,breath sounds diminished in the bases. ABDOMEN: Soft, no distention, nontender . No guarding. +BS EXTREMITIES: Left arm with wound VAC, dressing clean dry and intact LEGS: No edema. no swelling, no calf tenderness noted. Positive DP pulses. NERVOUS SYSTEM: Cranial N 2-12 grossly normal.No focal deficits. Skin: Warm and dry, no rash. - Labs CBC & Chem 7: 11/30/23 03:22 11/30/23 03:22 Labs: Microbiology - Last 24 Hours (Table) 11/29/23 07:13 Anaerobic Culture - Preliminary Arm - Left 11/29/23 07:13 Anaerobic Culture - Preliminary Arm - Left 11/29/23 07:13 Anaerobic Culture - Preliminary Arm - Left 11/29/23 07:13 Gram Stain - Preliminary Arm - Left Tissue Culture - Preliminary Yeast species 11/29/23 07:13 Gram Stain - Final Arm - Left Wound Culture - Final 11/29/23 07:13 Gram Stain - Final Arm - Left Wound Culture - Final 11/29/23 15:14 Blood Culture - Preliminary Blood Assessment and Plan Assessment: Recent inpatient admission discharged on 10/18/2023 with Left wrist abscess, f [facility] outpatient treatment, cultures reporting Nocardia brasiliensis. Status post I&D with wound VAC placement. Hyponatremia Recent revision posterior lateral fusion [id number] with open treatment L2 fracture, removal with replacement of new cage L2-3, status post revision L2- pelvis decompression and fusion, 224. History of distal bulbar urethral stricture, status post dilation with Burrows catheter- coude placement intraoperative as per urology. History of a occipital CVA,11/15 brain MRI , follows with Dr. Rajwinder Francisco. reports repeat MRI of [place] [facility] [place], history of CABG Hypertension Hyperlipidemia Plan: Continue on current medication regimen ,monitoring and symptomatic treatment. Scheduled for further I&D with wound closure today. Antibiotics as per ID. Cultures pending. pain management. Maintain aggressive pulmonary toileting with incentive spirometer reinforced. The impression and plan of care has been dictated as directed. : I performed a history and examination of this patient, discussed the same with the dictator. I agree with the dictator's note ,documented as a scribe. Any additional findings or plans will be noted.
[2023-12-01] MEDS ORDERED: HYDROmorphone 1 MG/ML 1 ML SYRINGE IVP PRN (18:15)
[2023-12-01] MEDS: HYDROcodone/APAP 7.5-325MG 1 EACH TAB PO PRN (20:37)
--- NOTE | 2023-12-02 08:18 | P.PN ---
Subjective Progress Note Date: 12/01/23 Principal diagnosis: Reason for follow-up is left lower extremity abscess and wound Patient is a 78-year-old male with a past medical history significant for hypertension hyperlipidemia CVA TIA coronary artery disease sleep apnea and the patient was recently admitted to this facility with a left forearm wound and also developing abscess to the left upper arm, now with readmission to the hospital for drainage and debridement of the left extremity wound. Patient was taken back to the OR the patient status post I&D left arm wound and primary closure of the wound completed on 12/01/2023 On today's evaluation that is 12/01/2023, Patient is afebrile this morning patient denies having any chest pain shortness of breath or cough, the patient is breathing comfortably and currently on room air, patient denies any abdominal pain no diarrhea no nausea no vomiting pain to the left upper extremity currently controlled. No new lab has been obtained today initial culture growing yeast species Objective - Vital Signs Vital signs: Vital Signs Temp 97.4 F L 12/01/23 09:44 Pulse 62 12/01/23 09:44 Resp 16 12/01/23 09:44 BP 154/70 12/01/23 09:44 Pulse Ox 97 12/01/23 09:44 FiO2 Intake & Output 11/30/23 12/01/23 12/01/23 18:59 06:59 18:59 Intake Total 118 550 Output Total 630 10 Balance -512 540 Intake: Intake, IV Titration 550 Amount 0.9% NaCl with KCl 20 Meq 550 /l 1,000 ml @ 50 mls/hr IV .Q20H [facility] Rx#: [id number] Oral 118 Output: Drainage 10 Left Arm 10 Urine 630 Other: Voiding Method Toilet Urinal Urinal - Exam GENERAL DESCRIPTION: An elderly male lying in bed in no distress RESPIRATORY SYSTEM: Unlabored breathing , decreased breath sounds at bases HEART: S1 S2 regular rate and rhythm , ABDOMEN: Soft , no tenderness EXTREMITIES: Left upper arm wound is covered with a wound VAC - Labs CBC & Chem 7: 11/30/23 03:22 11/30/23 03:22 Labs: Microbiology - Last 24 Hours (Table) 11/29/23 07:13 Anaerobic Culture - Preliminary Arm - Left 11/29/23 07:13 Anaerobic Culture - Preliminary Arm - Left 11/29/23 07:13 Anaerobic Culture - Preliminary Arm - Left 11/29/23 07:13 Gram Stain - Preliminary Arm - Left Tissue Culture - Preliminary Yeast species 11/29/23 07:13 Gram Stain - Final Arm - Left Wound Culture - Final 11/29/23 07:13 Gram Stain - Final Arm - Left Wound Culture - Final 11/29/23 15:14 Blood Culture - Preliminary Blood Assessment and Plan (1) Abscess of left arm Current Visit: Yes Status: Acute Code(s): L02.414 - CUTANEOUS ABSCESS OF LEFT UPPER LIMB SNOMED Code(s): 46336383994851454 (2) Infected wound Current Visit: Yes Status: Acute Code(s): T14.8XXA - OTHER INJURY OF UNSPECIFIED BODY REGION, INITIAL ENCOUNTER; L08.9 - LOCAL INFECTION OF THE SKIN AND SUBCUTANEOUS TISSUE, UNSP SNOMED Code(s): 01543313 Plan: 1patient electively admitted to the hospital after drainage of the left upper arm abscess in this patient who did have previous admission to the hospital with similar symptoms and at that time he did have wound to the forearm culture from the wound did grew nocardia unfortunately the left upper arm abscess was not drained by surgical team at that point he did have a spontaneous drainage and did have outpatient cultures were negative no status post surgical debridement orthopedics and deep culture which are currently growing yeast species with ID sensitivities pending 2-patient to continue with Rocephin 2 g daily and Bactrim DS oral add Eraxis while waiting for the ID of this yeast Dictation was produced using [employer] dictation software. please excuse any grammatical, word or spelling errors. Time with Patient: Less than 30
[2023-12-02] MEDS: ANIDULAFUNGIN 100 MG in SODIUM CHLORIDE 0.9% 100 ML IVPB SCH (08:29)
[2023-12-02 09:31] LABS: BUN/Creat Ratio 15.67 Ratio (12.00-20.00); Blood Urea Nitrogen 14.1 mg/dL (9.0-27.0); Calcium 8.4 mg/dL (8.7-10.3); Chloride 101 mmol/L (96-109); Glucose 95 mg/dL (70-110); Potassium 4.8 mmol/L (3.5-5.5); Sodium 132 mmol/L (135-145)
[2023-12-02 09:48] LABS: Basophils # (A) 0.01 X 10*3/uL (0.00-0.10); Basophils % (A) 0.2 %; Eosinophils # (A) 0.01 X 10*3/uL (0.04-0.35); Eosinophils % (A) 0.2 %; HGB 11.1 g/dL (13.0-17.0); Lymphocytes % (A) 16.7 %; MCH 29.9 pg (27.0-32.0); MCHC 32.6 g/dL (32.0-37.0); MCV 91.6 FL (80.0-97.0); Mean Platelet Volume 9.9 FL (9.5-12.2); Monocytes # (A) 0.26 X 10*3/uL (0.20-1.00); Monocytes % (A) 4.3 %; NRBC Per 100 WBC 0 X 10*3/uL (0.00-0.01); Neutrophils # (A) 4.68 X 10*3/uL (1.80-7.70); Neutrophils % (A) 78.3 %; Platelet Count 206 X 10*3/uL (140-440); RBC 3.71 X 10*6/uL (4.40-5.60); RDW 15.2 % (11.5-14.5); WBC 5.98 X 10*3/uL (4.50-10.00)
--- NOTE | 2023-12-02 11:05 | P.PN ---
Subjective Progress Note Date: 12/02/23 Principal diagnosis: Abscess of left arm Wound of left upper extremity s/p [id number] decompression and fusion Patient seen and examined this morning. Patient is resting comfortably in bed. Patient reports that his pain is managed on current regimen. Surgical incision with Prevena wound VAC to left upper extremity. Collins wrap is clean dry and intact. Patient denies any numbness or tingling to the left upper extremity. Patient is to be nonweightbearing with left upper extremity, although he may perform gentle range of motion exercises with no full flexion. Awaiting wound cultures and recommendations from Dr. Mohamud to follow. Continue to encourage patient to utilize incentive spirometer while awake. No acute concerns. Objective - Vital Signs Vital signs: Vital Signs Temp 97.4 F L 12/02/23 08:00 Pulse 55 L 12/02/23 08:00 Resp 14 12/02/23 08:00 BP 125/67 12/02/23 08:00 Pulse Ox 98 12/02/23 08:00 FiO2 Intake & Output 12/01/23 12/02/23 12/02/23 18:59 06:59 18:59 Intake Total 1541 550 Output Total 660 450 Balance 881 550 -450 Intake: IV 501 Intake, IV Titration 600 550 Amount 0.9% NaCl with KCl 20 Meq 400 550 /l 1,000 ml @ 50 mls/hr IV .Q20H [facility] Rx#: [id number] Anidulafungin 200 mg In 200 Sodium Chloride 0.9% 200 ml @ 84 mls/hr IVPB ONCE ONE Rx#:[id number] Oral 440 Output: Urine 650 450 Estimated Blood Loss 10 Other: Voiding Method Urinal Urinal - Exam Inspection: Surgical incision to the left upper extremity with clusure and Prevena wound VAC placement. Sensation: Sensation is equal, symmetric, bilaterally intact throughout the upper and lower extremities Palpation: Mild tenderness to palpation of the left upper extremity due to surgical procedure. Range of motion: Patient does have full range of motion bilateral upper and lower extremities on exam Motor: 5/5 in all major motor groups in the right upper and lower extremities, 4/5 left upper extremity Special tests: Negative Homans bilaterally. Negative Esvin bilaterally. Negative clonus bilaterally. Neurovascular: Radial pulse intact, 2+ bilaterally. Cap refill under 3 seconds in digits upper extremities. - Labs CBC & Chem 7: 12/02/23 03:39 12/02/23 03:39 Labs: Microbiology - Last 24 Hours (Table) 11/29/23 15:14 Blood Culture - Preliminary Blood 11/29/23 07:13 Anaerobic Culture - Preliminary Arm - Left 11/29/23 07:13 Anaerobic Culture - Preliminary Arm - Left 11/29/23 07:13 Anaerobic Culture - Preliminary Arm - Left 11/29/23 07:13 Gram Stain - Preliminary Arm - Left Tissue Culture - Preliminary Yeast species 11/29/23 07:13 Gram Stain - Final Arm - Left Wound Culture - Final 11/29/23 07:13 Gram Stain - Final Arm - Left Wound Culture - Final Assessment and Plan Assessment: Post Op day 1: Left upper extremity wound irrigation and debridement with c losure and Prevena wound vac placement Plan: -Appreciate reservoir engineering consultant and team management. -Awaiting wound cultures, recommendations from Dr. Mohamud to follow. -Activity: Ambulate as tolerated. Patient may perform range of motion exercises with left upper extremity, NWB. -Pain control: Adequate at this time -Meds: reviewed -GI ppx: senna, Miralax -DVT PPX: Mechanical -Hygiene: Maintain dressing clean and dry. -Wound Vac: continue to monitor output and record every shift -Encourage IS 10x/hr -Dispo: Cinically pending *I reviewed and discussed this case with my attending Dr. Mahoney, whom has reviewed this chart and films and is in agreement with assessment and plan of care as outlined above. I have personally seen and examined the patient, performed the documentation and the assessment and plan as written. Number of minutes spent on the visit: 20m.
--- NOTE | 2023-12-02 14:52 | P.PN ---
Subjective Progress Note Date: 12/02/23 Principal diagnosis: Reason for follow-up is left lower extremity abscess and wound Patient is a 78-year-old male with a past medical history significant for hypertension hyperlipidemia CVA TIA coronary artery disease sleep apnea and the patient was recently admitted to this facility with a left forearm wound and also developing abscess to the left upper arm, now with readmission to the hospital for drainage and debridement of the left extremity wound. Patient was taken back to the OR the patient status post I&D left arm wound and primary closure of the wound completed on 12/01/2023 On today's evaluation that is 12/02/2023,the patient denies any fever or any chills, patient is breathing comfortably on room air, the patient denies chest pain shortness of breath and no significant cough, patient denies abdominal pain, no nausea vomiting or diarrhea. Patient pain to the left lower extremity slightly decreased in intensity. Patient white count is 5.98, creatinine 0.9 cultures yeast species Objective - Vital Signs Vital signs: Vital Signs Temp 97.4 F L 12/02/23 08:00 Pulse 55 L 12/02/23 08:00 Resp 14 12/02/23 08:00 BP 125/67 12/02/23 08:00 Pulse Ox 98 12/02/23 08:00 FiO2 Intake & Output 12/01/23 12/02/23 12/02/23 18:59 06:59 18:59 Intake Total 1541 550 Output Total 660 450 Balance 881 550 -450 Intake: IV 501 Intake, IV Titration 600 550 Amount 0.9% NaCl with KCl 20 Meq 400 550 /l 1,000 ml @ 50 mls/hr IV .Q20H [facility] Rx#: [id number] Anidulafungin 200 mg In 200 Sodium Chloride 0.9% 200 ml @ 84 mls/hr IVPB ONCE ONE Rx#:[id number] Oral 440 Output: Urine 650 450 Estimated Blood Loss 10 Other: Voiding Method Urinal Urinal - Exam GENERAL DESCRIPTION: An elderly male lying in bed in no distress RESPIRATORY SYSTEM: Unlabored breathing , decreased breath sounds at bases HEART: S1 S2 regular rate and rhythm , ABDOMEN: Soft , no tenderness EXTREMITIES: Left upper arm wound is covered dressed no drainage - Labs CBC & Chem 7: 12/02/23 03:39 12/02/23 03:39 Labs: Abnormal Lab Results - Last 24 Hours (Table) 12/02/23 12/02/23 Range/Units 03:39 03:39 RBC 3.71 L (4.40-5.60) X 10*6/uL Hgb 11.1 L (13.0-17.0) g/dL Hct 34.0 L (39.6-50.0) % RDW 15.2 H (11.5-14.5) % Eosinophils # 0.01 L (0.04-0.35) X 10*3/uL Sodium 132 L (135-145) mmol/L Calcium 8.4 L (8.7-10.3) mg/dL Microbiology - Last 24 Hours (Table) 11/29/23 15:14 Blood Culture - Preliminary Blood 11/29/23 07:13 Anaerobic Culture - Preliminary Arm - Left 11/29/23 07:13 Anaerobic Culture - Preliminary Arm - Left 11/29/23 07:13 Anaerobic Culture - Preliminary Arm - Left 11/29/23 07:13 Gram Stain - Preliminary Arm - Left Tissue Culture - Preliminary Yeast species 11/29/23 07:13 Gram Stain - Final Arm - Left Wound Culture - Final 11/29/23 07:13 Gram Stain - Final Arm - Left Wound Culture - Final Assessment and Plan (1) Abscess of left arm Current Visit: Yes Status: Acute Code(s): L02.414 - CUTANEOUS ABSCESS OF LEFT UPPER LIMB SNOMED Code(s): 01716458663181288 (2) Infected wound Current Visit: Yes Status: Acute Code(s): T14.8XXA - OTHER INJURY OF UNSPECIFIED BODY REGION, INITIAL ENCOUNTER; L08.9 - LOCAL INFECTION OF THE SKIN AND SUBCUTANEOUS TISSUE, UNSP SNOMED Code(s): 61570306 Plan: 1patient electively admitted to the hospital after drainage of the left upper arm abscess in this patient who did have previous admission to the hospital with similar symptoms and at that time he did have wound to the forearm culture from the wound did grew nocardia unfortunately the left upper arm abscess was not drained by surgical team at that point he did have a spontaneous drainage and did have outpatient cultures were negative no status post surgical debridement orthopedics and deep culture which are currently growing yeast species with ID sensitivities pending 2-patient to continue with Rocephin 2 g daily along with Eraxis while waiting for the ID of this yeast to determine discharge antibiotics Dictation was produced using [employer] dictation software. please excuse any grammatical, word or spelling errors. Time with Patient: Less than 30
--- NOTE | 2023-12-02 15:25 | P.PN ---
Subjective Progress Note Date: 12/02/23 - History of Present Illness This is a pleasant 78-year-old gentleman recently admitted inpatient with left wrist/upper arm abscess. Evaluated by general surgery ,no surgical drainage recommended at that time. 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 Patient readmitted to the hospital, status post I&D with wound VAC placement, postop day #1.Maintained on ceftriaxone and Bactrim DS as per ID while cultures finalizing- prior cultures had reported Nocardia. Afebrile, normal WBC. Reports positive pain to touch. Denies chest pain, palpitations or shortness of breath. 12/01/2023 maintained on IV antibiotics as per infectious disease. Scheduled for further I&D with closure today of the affected extremity as per orthopedic surgery. Denies chest pain, palpitations or shortness of breath. Afebrile. 12/02/2023 underwent left upper extremity wound I&D with closure yesterday, with prevana wound VAC applied. Tolerated procedure well. Ambulating in room, reporting pain lessened. Denies numbness or tingling of the affected extremity. Cultures reported yeast species ;wound cultures finalizing. Continues on Eraxis, ceftriaxone and Bactrim DS. Afebrile, normal WBC. Bicarb 23, BUN 14, creatinine 0.9. Denies chest pain, palpitations or shortness of breath. Objective - Vital Signs Vital signs: Vital Signs Temp 97.3 F L 12/02/23 14:00 Pulse 51 L 12/02/23 14:00 Resp 14 12/02/23 14:00 BP 120/63 12/02/23 14:00 Pulse Ox 98 12/02/23 14:00 FiO2 Intake & Output 12/01/23 12/02/23 12/02/23 18:59 06:59 18:59 Intake Total 1541 550 Output Total 660 450 Balance 881 550 -450 Weight 66.7 kg Intake: IV 501 Intake, IV Titration 600 550 Amount 0.9% NaCl with KCl 20 Meq 400 550 /l 1,000 ml @ 50 mls/hr IV .Q20H [facility] Rx#: [id number] Anidulafungin 200 mg In 200 Sodium Chloride 0.9% 200 ml @ 84 mls/hr IVPB ONCE ONE Rx#:[id number] Oral 440 Output: Urine 650 450 Estimated Blood Loss 10 Other: Voiding Method Urinal Urinal - Exam PHYSICAL EXAM: VITAL SIGNS: [As above] GENERAL: Alert and oriented x 3, standing by bedside,no acute distress HEENT: Atraumatic, normocephalic conjunctivae normal. eyes normal. NECK: Supple, no JVD. CARDIOVASCULAR: S1, S2 regular. Systolic murmur RESPIRATION: Unlabored, equal air entry, clear to auscultation. ABDOMEN: Soft, no distention, nontender . No guarding. +BS EXTREMITIES: Left arm with prevana wound VAC, dressing clean dry and intact LEGS: No edema. no swelling, no calf tenderness noted. NERVOUS SYSTEM: Cranial N 2-12 grossly normal.No focal deficits. Skin: Warm and dry, no rash. - Labs CBC & Chem 7: 12/02/23 03:39 12/02/23 03:39 Labs: Abnormal Lab Results - Last 24 Hours (Table) 12/02/23 12/02/23 Range/Units 03:39 03:39 RBC 3.71 L (4.40-5.60) X 10*6/uL Hgb 11.1 L (13.0-17.0) g/dL Hct 34.0 L (39.6-50.0) % RDW 15.2 H (11.5-14.5) % Eosinophils # 0.01 L (0.04-0.35) X 10*3/uL Sodium 132 L (135-145) mmol/L Calcium 8.4 L (8.7-10.3) mg/dL Microbiology - Last 24 Hours (Table) 11/29/23 15:14 Blood Culture - Preliminary Blood 11/29/23 07:13 Anaerobic Culture - Preliminary Arm - Left 11/29/23 07:13 Anaerobic Culture - Preliminary Arm - Left 11/29/23 07:13 Anaerobic Culture - Preliminary Arm - Left 11/29/23 07:13 Gram Stain - Preliminary Arm - Left Tissue Culture - Preliminary Yeast species Assessment and Plan Assessment: Recent inpatient admission discharged on 10/18/2023 with Left wrist abscess, failed outpatient treatment, cultures reporting Nocardia brasiliensis. Left upper extremity wound I&D with wound VAC placement 11/29/2023. status post I&D left upper extremity with closure and wound VAC placement, 12/01/2023. Cultures reporting yeast species, finalizing. Hyponatremia Recent revision posterior lateral fusion [id number] with open treatment L2 frac ture, removal with replacement of new cage L2-3, status post revision L2-pelvis decompression and fusion, 224. History of distal bulbar urethral stricture, status post dilation with Burrows catheter- coude placement intraoperative as per urology. History of a occipital CVA,11/15 brain MRI , follows with Dr. Rajwinder Francisco. reports repeat MRI of brain performed September 24 at [facility]. CAD, history of CABG Hypertension Hyperlipidemia Plan: Continue on current medication regimen ,monitoring and symptomatic treatment. Cultures finalizing .antibiotics as per ID. Pain management. Maintain aggressive pulmonary toileting with incentive spirometer reinforced. Discharge planning in progress pending finalized cultures. The impression and plan of care has been dictated as directed. : I performed a history and examination of this patient, discussed the same with the dictator. I agree with the dictator's note ,documented as a scribe. Any additional findings or plans will be noted.
[2023-12-03 09:37] LABS: Basophils # (A) 0.02 X 10*3/uL (0.00-0.10); Basophils % (A) 0.5 %; Eosinophils # (A) 0.25 X 10*3/uL (0.04-0.35); Eosinophils % (A) 5.8 %; HCT 34.8 % (39.6-50.0); HGB 11.4 g/dL (13.0-17.0); Lymphocytes # (A) 1.55 X 10*3/uL (0.90-5.00); Lymphocytes % (A) 35.7 %; MCH 30.5 pg (27.0-32.0); MCHC 32.8 g/dL (32.0-37.0); Mean Platelet Volume 10.4 FL (9.5-12.2); Monocytes # (A) 0.35 X 10*3/uL (0.20-1.00); Monocytes % (A) 8.1 %; NRBC Per 100 WBC 0 X 10*3/uL (0.00-0.01); Neutrophils # (A) 2.16 X 10*3/uL (1.80-7.70); Neutrophils % (A) 49.7 %; Platelet Count 184 X 10*3/uL (140-440); RBC 3.74 X 10*6/uL (4.40-5.60); RDW 15.2 % (11.5-14.5); WBC 4.34 X 10*3/uL (4.50-10.00)
--- NOTE | 2023-12-03 10:32 | P.PN ---
Subjective Progress Note Date: 12/03/23 Principal diagnosis: Left upper extremity abscess, status post I&D procedure Patient is evaluated at bedside today, he is resting comfortably. Patient appears stable, no acute pain noted. The incisional wound VAC remains in place. We are still waiting for culture and sensitivities. Patient has minimal discomfort at this time. he denies any numbness or tingling to the upper extremity. He denies fever, chills, shortness of breath or chest pain Objective - Vital Signs Vital signs: Vital Signs Temp 97.6 F 12/03/23 07:07 Pulse 50 L 12/03/23 07:07 Resp 14 12/03/23 07:07 BP 134/64 12/03/23 07:07 Pulse Ox 96 12/03/23 07:07 FiO2 Intake & Output 12/02/23 12/03/23 12/03/23 18:59 06:59 18:59 Intake Total 2270 950 Output Total 450 700 Balance 1820 250 Weight 66.7 kg Intake: Intake, IV Titration 650 550 Amount 0.9% NaCl with KCl 20 Meq 500 550 /l 1,000 ml @ 50 mls/hr IV .Q20H [facility] Rx#: [id number] Anidulafungin 100 mg In 100 Sodium Chloride 0.9% 100 ml @ 84 mls/hr IVPB DAILY [facility] Rx#:[id number] cefTRIAXone 2 gm In 50 Sodium Chloride 0.9% 50 ml @ 100 mls/hr IVPB Q24HR [facility] Rx#:[id number] Oral 1620 400 Output: Urine 450 700 Other: Voiding Method Urinal - Exam Left upper extremity: Incisional wound VAC was removed removed today, stitches are all in good positio n and condition, no active drainage. There is very minimal bruising present in the area. Elbow extension and flexion are intact, wrist extension and flexion are intact, he is able to wiggle all the fingers and make a fist with no difficulty Sensory exam to light touch is intact throughout the extremity Ulnar pulse are 2+ - Labs CBC & Chem 7: 12/03/23 03:35 12/02/23 03:39 Labs: Abnormal Lab Results - Last 24 Hours (Table) 12/03/23 Range/Units 03:35 WBC 4.34 L (4.50-10.00) X 10*3/uL RBC 3.74 L (4.40-5.60) X 10*6/uL Hgb 11.4 L (13.0-17.0) g/dL Hct 34.8 L (39.6-50.0) % RDW 15.2 H (11.5-14.5) % Microbiology - Last 24 Hours (Table) 11/29/23 15:14 Blood Culture - Preliminary Blood Assessment and Plan Assessment: Postoperative day #2 status post irrigation and debridement left upper extremity, secondary wound closure, wound VAC placement Left upper extremity abscess Plan: The wound VAC was removed today at bedside, a new dressing was applied. Continued conservative measures, this to include basic range of motion exercises, icing and elevating Pain control, continue current medications GI and DVT prophylaxis, continue current medications Await culture and sensitivity results Medical recommendations appreciated Infectious disease recommendations appreciated Will continue to follow during hospital stay
[2023-12-03 11:06] LABS: BUN/Creat Ratio 20.44 Ratio (12.00-20.00); Blood Urea Nitrogen 18.4 mg/dL (9.0-27.0); Calcium 8.4 mg/dL (8.7-10.3); Carbon Dioxide 23.2 mmol/L (21.6-31.8); Chloride 107 mmol/L (96-109); Glucose 84 mg/dL (70-110); Potassium 5.3 mmol/L (3.5-5.5); Sodium 140 mmol/L (135-145)
--- NOTE | 2023-12-03 14:42 | P.PN ---
Subjective Progress Note Date: 12/03/23 Principal diagnosis: Reason for follow-up is left lower extremity abscess and wound Patient is a 78-year-old male with a past medical history significant for hypertension hyperlipidemia CVA TIA coronary artery disease sleep apnea and the patient was recently admitted to this facility with a left forearm wound and also developing abscess to the left upper arm, now with readmission to the hospital for drainage and debridement of the left extremity wound. Patient was taken back to the OR the patient status post I&D left arm wound and primary closure of the wound completed on 12/01/2023 On today's evaluation that is 12/03/2023,the patient remains to be afebrile, patient is on room air not requiring supplemental oxygen and denies any shortness of breath no chest pain or cough.Patient denies having any nausea or vomiting, no abdominal pain and no diarrhea has been reported, the patient pain to the left lower extremity has decreased in intensity. The patient will count is 4.34, creatinine 0.9 local culture growing yeast with ID pending Objective - Vital Signs Vital signs: Vital Signs Temp 97.6 F 12/03/23 07:07 Pulse 50 L 12/03/23 07:07 Resp 14 12/03/23 07:07 BP 134/64 12/03/23 07:07 Pulse Ox 96 12/03/23 07:07 FiO2 Intake & Output 12/02/23 12/03/23 12/03/23 18:59 06:59 18:59 Intake Total 2270 950 Output Total 450 700 Balance 1820 250 Weight 66.7 kg Intake: Intake, IV Titration 650 550 Amount 0.9% NaCl with KCl 20 Meq 500 550 /l 1,000 ml @ 50 mls/hr IV .Q20H [facility] Rx#: [id number] Anidulafungin 100 mg In 100 Sodium Chloride 0.9% 100 ml @ 84 mls/hr IVPB DAILY [facility] Rx#:[id number] cefTRIAXone 2 gm In 50 Sodium Chloride 0.9% 50 ml @ 100 mls/hr IVPB Q24HR [facility] Rx#:[id number] Oral 1620 400 Output: Urine 450 700 Other: Voiding Method Urinal Urinal - Exam GENERAL DESCRIPTION: An elderly male lying in bed in no distress RESPIRATORY SYSTEM: Unlabored breathing , decreased breath sounds at bases HEART: S1 S2 regular rate and rhythm , ABDOMEN: Soft , no tenderness EXTREMITIES: Left upper arm wound is stitched surrounding swelling redness decreased no drainage - Labs CBC & Chem 7: 12/03/23 03:35 12/03/23 03:35 Labs: Abnormal Lab Results - Last 24 Hours (Table) 12/03/23 12/03/23 Range/Units 03:35 03:35 WBC 4.34 L (4.50-10.00) X 10*3/uL RBC 3.74 L (4.40-5.60) X 10*6/uL Hgb 11.4 L (13.0-17.0) g/dL Hct 34.8 L (39.6-50.0) % RDW 15.2 H (11.5-14.5) % BUN/Creatinine Ratio 20.44 H (12.00-20.00) Ratio Calcium 8.4 L (8.7-10.3) mg/dL Microbiology - Last 24 Hours (Table) 11/29/23 15:14 Blood Culture - Preliminary Blood Assessment and Plan (1) Abscess of left arm Current Visit: Yes Status: Acute Code(s): L02.414 - CUTANEOUS ABSCESS OF LEFT UPPER LIMB SNOMED Code(s): 47592224116695579 (2) Infected wound Current Visit: Yes Status: Acute Code(s): T14.8XXA - OTHER INJURY OF UNSPECIFIED BODY REGION, INITIAL ENCOUNTER; L08.9 - LOCAL INFECTION OF THE SKIN AND SUBCUTANEOUS TISSUE, UNSP SNOMED Code(s): 13581331 Plan: 1patient electively admitted to the hospital after drainage of the left upper arm abscess in this patient who did have previous admission to the hospital with similar symptoms and at that time he did have wound to the forearm culture from the wound did grew nocardia unfortunately the left upper arm abscess was not drained by surgical team at that point he did have a spontaneous drainage and did have outpatient cultures were negative no status post surgical debridement orthopedics and deep culture which are currently growing yeast species with ID sensitivities pending 2-patient to continue with Rocephin 2 g daily along with Eraxis while waiting for the ID of this yeast to determine discharge antibiotics and monitor clinical course closely Dictation was produced using [employer] software. please excuse any grammatical, word or spelling errors. Time with Patient: Less than 30
--- NOTE | 2023-12-03 16:19 | P.PN ---
Subjective Progress Note Date: 12/03/23 Interval History: This is a pleasant 78-year-old gentleman recently admitted inpatient with left wrist/upper arm abscess. Evaluated by general surgery ,no surgical drainage recommended at that time. 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 Patient readmitted to the hospital, status post I&D with wound VAC placement, postop day #1.Maintained on ceftriaxone and Bactrim DS as per ID while cultures finalizing- prior cultures had reported Nocardia. Afebrile, normal WBC. Reports positive pain to touch. Denies chest pain, palpitations or shortness of breath. 12/01/2023 maintained on IV antibiotics as per infectious disease. Scheduled for further I&D with closure today of the affected extremity as per orthopedic surgery. Denies chest pain, palpitations or shortness of breath. Afebrile. 12/02/2023 underwent left upper extremity wound I&D with closure yesterday, with prevana wound VAC applied. Tolerated procedure well. Ambulating in room, reporting pain lessened. Denies numbness or tingling of the affected extremity. Cultures reported yeast species ;wound cultures finalizing. Continues on Eraxis, ceftriaxone and Bactrim DS. Afebrile, normal WBC. Bicarb 23, BUN 14, creatinine 0.9. Denies chest pain, palpitations or shortness of breath. 12/02--patient was seen and examined today. No issues overnight.-Left upper extremity dressing intact. Currently on Eraxis, Rocephin and Bactrim. Infectious disease following. Holding lisinopril due to elevated potassium 5.3. Vital stable, afebrile. WBCs 4.34, hemoglobin 11.4, platelet 184. Sodium 140, potassium 5.3, BUN 18, creatinine 0.9. Assessment and plan: Recent inpatient admission discharged on 10/18/2023 with Left wrist abscess, failed outpatient treatment, cultures reporting Nocardia brasiliensis. Left upper extremity Abscess/ wound I&D with wound VAC placement 11/29/2023. status post I&D left upper extremity with closure and wound VAC placement, 12/01/2023. Cultures reporting yeast species, finalizing. Hyponatremia--proved Hyperkalemia: Recent revision posterior lateral fusion [id number] with open treatment L2 fracture, removal with replacement of new cage L2-3, status post revision L2- pelvis decompression and fusion, 224. History of distal bulbar urethral stricture, status post dilation with Burrows catheter- coude placement intraoperative as per urology. History of a occipital CVA,11/15 brain MRI , follows with Dr. Rajwinder Francisco. reports repeat MRI of brain performed September 24 at [facility]. CAD, history of CABG Hypertension Hyperlipidemia Plan: Continue on current medication regimen ,monitoring and symptomatic treatment. Cultures finalizing .antibiotics as per ID. Pain management. Maintain aggressive pulmonary toileting with incentive spirometer reinforced. Discharge planning in progress pending finalized cultures. Resume aspirin and Plavix once okay with surgery. Infectious disease followingcurrently on Eraxis, Rocephin, Bactrim. Hold lisinopril due to elevated potassium DVT prophylaxis: Subcutaneous Lovenox/subcutaneous heparin for DVT prophylaxis once okay with surgery. PHYSICAL EXAMINATION: GENERAL: The patient is A&O x3, NAD HEENT: EOMI, Sclerae anicteric, Moist Mucous membranes Neck: Supple, Non tender, No JVD PULMONARY: Equal breath souds B/L, No wheezing, No crackles. CARDIOVASCULAR: S1, S2 present. No murmurs, rubs, or gallops. ABDOMEN: Soft, nontender, nondistended, normoactive bowel sounds. No guarding or rebound tenderness. MUSCULOSKELETAL: Left upper extremitydressed . no edema, No cyanosis. No clubbing. Normal ROM. Intact peripheral pulses. EXTREMITIES: No cyanosis, clubbing, or pedal edema. NEUROLOGICAL: CN 2-12 grossly intact. No FND Skin: No Rash REVIEW OF SYSTEMS: CONSTITUTIONAL: No fever or chills. CARDIOVASCULAR: No chest pain, palpitations or syncope. PULMONARY: No shortness of breath, no cough, sore throat. GASTROINTESTINAL: No nausea, vomiting, diarrhea, abdominal pain. : No Dysuria, urgency, frequency. Extremities: No edema. NEUROLOGICAL: No headaches, no weakness, or numbness Dictation was produced using [employer] dictation software. please excuse any grammatical, word or spelling errors. Objective - Vital Signs Vital signs: Vital Signs Temp 97.6 F 12/03/23 13:31 Pulse 57 L 12/03/23 13:31 Resp 16 12/03/23 13:31 BP 127/62 09/07/24 13:31 Pulse Ox 96 12/03/23 13:31 FiO2 Intake & Output 12/02/23 12/03/23 12/03/23 18:59 06:59 18:59 Intake Total 2270 950 540 Output Total 450 700 Balance 1820 250 540 Weight 66.7 kg Intake: Intake, IV Titration 650 550 Amount 0.9% NaCl with KCl 20 Meq 500 550 /l 1,000 ml @ 50 mls/hr IV .Q20H [facility] Rx#: [id number] Anidulafungin 100 mg In 100 Sodium Chloride 0.9% 100 ml @ 84 mls/hr IVPB DAILY [facility] Rx#:[id number] cefTRIAXone 2 gm In 50 Sodium Chloride 0.9% 50 ml @ 100 mls/hr IVPB Q24HR [facility] Rx#:[id number] Oral 1620 400 540 Output: Urine 450 700 Other: Voiding Method Urinal Urinal - Labs CBC & Chem 7: 12/03/23 03:35 12/03/23 03:35 Labs: Abnormal Lab Results - Last 24 Hours (Table) 12/03/23 12/03/23 Range/Units 03:35 03:35 WBC 4.34 L (4.50-10.00) X 10*3/uL RBC 3.74 L (4.40-5.60) X 10*6/uL Hgb 11.4 L (13.0-17.0) g/dL Hct 34.8 L (39.6-50.0) % RDW 15.2 H (11.5-14.5) % BUN/Creatinine Ratio 20.44 H (12.00-20.00) Ratio Calcium 8.4 L (8.7-10.3) mg/dL Microbiology - Last 24 Hours (Table) 11/29/23 07:13 Gram Stain - Final Arm - Left Tissue Culture - Final [place] parapsilosis group Staphylococcus epidermidis 11/29/23 15:14 Blood Culture - Preliminary Blood
[2023-12-04] MEDS ORDERED: lisinopriL 10 MG TAB PO SCH (09:00)
[2023-12-04] MEDS: MULTIVITAMINS, THERA 1 EACH TAB PO SCH (09:27)
[2023-12-04 09:36] LABS: Basophils # (A) 0.02 X 10*3/uL (0.00-0.10); Basophils % (A) 0.5 %; Eosinophils # (A) 0.23 X 10*3/uL (0.04-0.35); Eosinophils % (A) 5.4 %; HCT 36.4 % (39.6-50.0); HGB 11.9 g/dL (13.0-17.0); Immature Grans, Automated 0 %; Lymphocytes # (A) 1.32 X 10*3/uL (0.90-5.00); Lymphocytes % (A) 31.1 %; MCH 30.1 pg (27.0-32.0); MCHC 32.7 g/dL (32.0-37.0); MCV 92.2 FL (80.0-97.0); Monocytes # (A) 0.34 X 10*3/uL (0.20-1.00); NRBC Per 100 WBC 0 X 10*3/uL (0.00-0.01); Neutrophils # (A) 2.34 X 10*3/uL (1.80-7.70); Platelet Count 202 X 10*3/uL (140-440); RBC 3.95 X 10*6/uL (4.40-5.60); RDW 15.1 % (11.5-14.5); WBC 4.25 X 10*3/uL (4.50-10.00)
[2023-12-04 09:59] LABS: BUN/Creat Ratio 18.89 Ratio (12.00-20.00); Calcium 8.8 mg/dL (8.7-10.3); Carbon Dioxide 25.5 mmol/L (21.6-31.8); Chloride 101 mmol/L (96-109); Glucose 92 mg/dL (70-110); Potassium 4.9 mmol/L (3.5-5.5); Sodium 135 mmol/L (135-145)
--- NOTE | 2023-12-04 12:25 | P.PN ---
Subjective Progress Note Date: 12/04/23 Principal diagnosis: Left upper extremity abscess, status post I&D procedure Patient is evaluated at bedside today, he is resting comfortably. Patient appears stable, no acute pain noted. Patient has minimal discomfort at this time. he denies any numbness or tingling to the upper extremity. He denies fever, chills, shortness of breath or chest pain Objective - Vital Signs Vital signs: Vital Signs Temp 98.3 F 12/04/23 07:58 Pulse 57 L 12/04/23 07:58 Resp 16 12/04/23 07:58 BP 129/68 12/04/23 07:58 Pulse Ox 97 12/04/23 07:58 FiO2 Intake & Output 12/03/23 12/04/23 12/04/23 18:59 06:59 18:59 Intake Total 540 Output Total 1600 Balance 540 -1600 Intake: Oral 540 Output: Urine 1600 Other: Voiding Method Urinal Urinal Urinal # Voids 3 - Exam Left upper extremity: Dressing is in good position and condition, no obvious drainage, no excessive swelling or bruising noted Elbow extension and flexion are intact, wrist extension and flexion are intact, he is able to wiggle all the fingers and make a fist with no difficulty Sensory exam to light touch is intact throughout the extremity Radial and ulnar pulse are 2+ - Labs CBC & Chem 7: 12/04/23 04:01 12/04/23 04:01 Labs: Abnormal Lab Results - Last 24 Hours (Table) 12/04/23 Range/Units 04:01 WBC 4.25 L (4.50-10.00) X 10*3/uL RBC 3.95 L (4.40-5.60) X 10*6/uL Hgb 11.9 L (13.0-17.0) g/dL Hct 36.4 L (39.6-50.0) % RDW 15.1 H (11.5-14.5) % Microbiology - Last 24 Hours (Table) 11/29/23 07:13 Anaerobic Culture - Final Arm - Left 11/29/23 07:13 Anaerobic Culture - Final Arm - Left 11/29/23 07:13 Anaerobic Culture - Final Arm - Left 11/29/23 07:13 Gram Stain - Final Arm - Left Tissue Culture - Final [place] parapsilosis group Staphylococcus epidermidis Assessment and Plan Assessment: Postoperative day #3 status post irrigation and debridement left upper extremity, secondary wound closure, wound VAC placement Left upper extremity abscess Plan: Monitor surgical dressing Pain control, continue current medications GI and DVT prophylaxis, continue current medications Medical recommendations appreciated Infectious disease recommendations appreciated Orthopedically patient is stable for discharge, await infectious disease recommendations for outpatient antibiotics. Time with Patient: Less than 30
--- NOTE | 2023-12-04 14:05 | P.PN ---
Subjective Progress Note Date: 12/04/23 Interval History: This is a pleasant 78-year-old gentleman recently admitted inpatient with left wrist/upper arm abscess. Evaluated by general surgery ,no surgical drainage recommended at that time. 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 Patient readmitted to the hospital, status post I&D with wound VAC placement, postop day #1.Maintained on ceftriaxone and Bactrim DS as per ID while cultures finalizing- prior cultures had reported Nocardia. Afebrile, normal WBC. Reports positive pain to touch. Denies chest pain, palpitations or shortness of breath. 12/01/2023 maintained on IV antibiotics as per infectious disease. Scheduled for further I&D with closure today of the affected extremity as per orthopedic surgery. Denies chest pain, palpitations or shortness of breath. Afebrile. 12/02/2023 underwent left upper extremity wound I&D with closure yesterday, with prevana wound VAC applied. Tolerated procedure well. Ambulating in room, reporting pain lessened. Denies numbness or tingling of the affected extremity. Cultures reported yeast species ;wound cultures finalizing. Continues on Eraxis, ceftriaxone and Bactrim DS. Afebrile, normal WBC. Bicarb 23, BUN 14, creatinine 0.9. Denies chest pain, palpitations or shortness of breath. 12/02--patient was seen and examined today. No issues overnight.-Left upper extremity dressing intact. Currently on Eraxis, Rocephin and Bactrim. Infectious disease following. Holding lisinopril due to elevated potassium 5.3. Vital stable, afebrile. WBCs 4.34, hemoglobin 11.4, platelet 184. Sodium 140, potassium 5.3, BUN 18, creatinine 0.9. 12/04/2023--patient was seen and examined today. Sitting up in chair. at bedside. Resting comfortably, no issues overnight. Pain is controlled. Orthopedic following. Infectious disease following. Vital stable, remained afebrile. Labs showed WBCs 4.25, hemoglobin 11.9, platelet normal. BMP unremarkable. Assessment and plan: Recent inpatient admission discharged on 10/18/2023 with Left wrist abscess, failed outpatient treatment, cultures reporting Nocardia brasiliensis. Left upper extremity Abscess/ wound I&D with wound VAC placement 11/29/2023. status post I&D left upper extremity with closure and wound VAC placement, 12/01/2023. Cultures reporting yeast species, finalizing. Hyponatremia--improved Hyperkalemia: Solved Recent revision posterior lateral fusion [id number] with open treatment L2 fracture, removal with replacement of new cage L2-3, status post revision L2- pelvis decompression and fusion, 224. History of distal bulbar urethral stricture, status post dilation with Burrows catheter- coude placement intraoperative as per urology. History of a occipital CVA,11/15 brain MRI , follows with Dr. Rajwinder Francisco. reports repeat MRI of brain [place] [facility] [place], history of CABG Hypertension Hyperlipidemia Plan: Continue on current medication regimen ,monitoring and symptomatic treatment. Cultures finalizing .antibiotics as per ID. Pain management. Maintain aggressive pulmonary toileting with incentive spirometer reinforced. Discharge planning in progress pending finalized cultures. Resume aspirin and Plavix once okay with surgery. Infectious disease followingcurrently on Eraxis, Rocephin, Bactrim. Hold lisinopril due to elevated potassium DVT prophylaxis: Subcutaneous Lovenox/subcutaneous heparin for DVT prophylaxis once okay with surgery. PHYSICAL EXAMINATION: GENERAL: The patient is A&O x3, NAD HEENT: EOMI, Sclerae anicteric, Moist Mucous membranes Neck: Supple, Non tender, No JVD PULMONARY: Equal breath souds B/L, No wheezing, No crackles. CARDIOVASCULAR: S1, S2 present. No murmurs, rubs, or gallops. ABDOMEN: Soft, nontender, nondistended, normoactive bowel sounds. No guarding or rebound tenderness. MUSCULOSKELETAL: Left upper extremitydressed . no edema, No cyanosis. No clubbing. Normal ROM. Intact peripheral pulses. EXTREMITIES: No cyanosis, clubbing, or pedal edema. NEUROLOGICAL: CN 2-12 grossly intact. No FND Skin: No Rash REVIEW OF SYSTEMS: CONSTITUTIONAL: No fever or chills. CARDIOVASCULAR: No chest pain, palpitations or syncope. PULMONARY: No shortness of breath, no cough, sore throat. GASTROINTESTINAL: No nausea, vomiting, diarrhea, abdominal pain. : No Dysuria, urgency, frequency. Extremities: No edema. NEUROLOGICAL: No headaches, no weakness, or numbness Dictation was produced using [employer] dictation software. please excuse any grammatical, word or spelling errors. Objective - Vital Signs Vital signs: Vital Signs Temp 98.3 F 12/04/23 07:58 Pulse 57 L 12/04/23 07:58 Resp 16 12/04/23 07:58 BP 129/68 12/04/23 07:58 Pulse Ox 97 12/04/23 07:58 FiO2 Intake & Output 12/03/23 12/04/23 12/04/23 18:59 06:59 18:59 Intake Total 540 Output Total 1600 Balance 540 -1600 Intake: Oral 540 Output: Urine 1600 Other: Voiding Method Urinal Urinal Urinal # Voids 3 - Labs CBC & Chem 7: 12/04/23 04:01 12/04/23 04:01 Labs: Abnormal Lab Results - Last 24 Hours (Table) 12/04/23 Range/Units 04:01 WBC 4.25 L (4.50-10.00) X 10*3/uL RBC 3.95 L (4.40-5.60) X 10*6/uL Hgb 11.9 L (13.0-17.0) g/dL Hct 36.4 L (39.6-50.0) % RDW 15.1 H (11.5-14.5) % Microbiology - Last 24 Hours (Table) 11/29/23 07:13 Anaerobic Culture - Final Arm - Left 11/29/23 07:13 Anaerobic Culture - Final Arm - Left 11/29/23 07:13 Anaerobic Culture - Final Arm - Left 11/29/23 07:13 Gram Stain - Final Arm - Left Tissue Culture - Final Parisa parapsilosis group Staphylococcus epidermidis
[2023-12-04] MEDS ORDERED: VANCOMYCIN IV PER PHARMACY 1 EACH MISC MISCELLANE PRN (14:51)
--- NOTE | 2023-12-04 14:54 | P.PN ---
Subjective Progress Note Date: 12/04/23 Principal diagnosis: Reason for follow-up is left lower extremity abscess and wound Patient is a 78-year-old male with a past medical history significant for hypertension hyperlipidemia CVA TIA coronary artery disease sleep apnea and the patient was recently admitted to this facility with a left forearm wound and also developing abscess to the left upper arm, now with readmission to the hospital for drainage and debridement of the left extremity wound. Patient was taken back to the OR the patient status post I&D left arm wound and primary closure of the wound completed on 12/01/2023 On today's evaluation that is 12/04/2023, the patient continues to be afebrile, the patient is on room air and breathing comfortably, the Pt denies having any chest pain or cough, the patient denies having any abdominal pain no vomiting or any diarrhea pain to the left extremity has decreased in intensity. The patient white count is 4.25, creatinine 0.9 local culture with Parisa parapsilosis since and staph epi Objective - Vital Signs Vital signs: Vital Signs Temp 98.3 F 12/04/23 07:58 Pulse 57 L 12/04/23 07:58 Resp 16 12/04/23 07:58 BP 129/68 12/04/23 07:58 Pulse Ox 97 12/04/23 07:58 FiO2 Intake & Output 12/03/23 12/04/23 12/04/23 18:59 06:59 18:59 Intake Total 540 Output Total 1600 Balance 540 -1600 Intake: Oral 540 Output: Urine 1600 Other: Voiding Method Urinal Urinal Urinal # Voids 3 - Exam GENERAL DESCRIPTION: An elderly male lying in bed in no distress RESPIRATORY SYSTEM: Unlabored breathing , decreased breath sounds at bases HEART: S1 S2 regular rate and rhythm , ABDOMEN: Soft , no tenderness EXTREMITIES: Left upper arm wound is currently dressed no drainage on the dressing - Labs CBC & Chem 7: 12/04/23 04:01 12/04/23 04:01 Labs: Abnormal Lab Results - Last 24 Hours (Table) 12/04/23 Range/Units 04:01 WBC 4.25 L (4.50-10.00) X 10*3/uL RBC 3.95 L (4.40-5.60) X 10*6/uL Hgb 11.9 L (13.0-17.0) g/dL Hct 36.4 L (39.6-50.0) % RDW 15.1 H (11.5-14.5) % Microbiology - Last 24 Hours (Table) 11/29/23 07:13 Anaerobic Culture - Final Arm - Left 11/29/23 07:13 Anaerobic Culture - Final Arm - Left 11/29/23 07:13 Anaerobic Culture - Final Arm - Left 11/29/23 07:13 Gram Stain - Final Arm - Left Tissue Culture - Final Parisa parapsilosis group Staphylococcus epidermidis Assessment and Plan (1) Abscess of left arm Current Visit: Yes Status: Acute Code(s): L02.414 - CUTANEOUS ABSCESS OF LEFT UPPER LIMB SNOMED Code(s): 69457619755291534 (2) Infected wound Current Visit: Yes Status: Acute Code(s): T14.8XXA - OTHER INJURY OF UNSPECIFIED BODY REGION, INITIAL ENCOUNTER; L08.9 - LOCAL INFECTION OF THE SKIN AND SUBCUTANEOUS TISSUE, UNSP SNOMED Code(s): 31110994 Plan: 1patient electively admitted to the hospital after drainage of the left upper arm abscess in this patient who did have previous admission to the hospital with similar symptoms and at that time he did have wound to the forearm culture from the wound did grew nocardia unfortunately the left upper arm abscess was not drained by surgical team at that point he did have a spontaneous drainage and did have outpatient cultures were negative no status post surgical debridement orthopedics and deep culture which are currently growing Parisa parapsilosis and staph epi that is resistant to Bactrim 2-we will discontinue Rocephin and Bactrim in the Eraxis start the patient on vancomycin pharmacy to dose and oral Diflucan plan is for oral doxycycline Diflucan on discharge at the bedside questions answered Dictation was produced using [employer] dictation software. please excuse any grammatical, word or spelling errors. Time with Patient: Less than 30
[2023-12-04] MEDS: VANCOMYCIN 1,250 MG in SODIUM CHLORIDE 0.9% 250 ML IVPB SCH (15:26)
[2023-12-04] MEDS: FLUCONAZOLE 100 MG TAB PO SCH (15:26)
[2023-12-04 19:36] VITALS: RESP 16
[2023-12-05 08:07] VITALS: BP 145/66; PULSE 54; TEMP 97.9
[2023-12-05] MEDS: PANTOPRAZOLE 40 MG TABLET PO SCH (08:23)
[2023-12-05 08:52] LABS: Basophils # (A) 0.03 X 10*3/uL (0.00-0.10); Basophils % (A) 0.6 %; Eosinophils # (A) 0.25 X 10*3/uL (0.04-0.35); Eosinophils % (A) 4.8 %; HCT 38.9 % (39.6-50.0); HGB 12.4 g/dL (13.0-17.0); Lymphocytes % (A) 30.8 %; MCH 29.8 pg (27.0-32.0); MCHC 31.9 g/dL (32.0-37.0); MCV 93.5 FL (80.0-97.0); Mean Platelet Volume 10.1 FL (9.5-12.2); Monocytes # (A) 0.39 X 10*3/uL (0.20-1.00); Monocytes % (A) 7.5 %; NRBC Per 100 WBC 0 X 10*3/uL (0.00-0.01); Neutrophils # (A) 2.92 X 10*3/uL (1.80-7.70); Neutrophils % (A) 56.1 %; Platelet Count 213 X 10*3/uL (140-440); RBC 4.16 X 10*6/uL (4.40-5.60); RDW 15.3 % (11.5-14.5)
[2023-12-05 09:12] LABS: Blood Urea Nitrogen 16.2 mg/dL (9.0-27.0); Calcium 9.1 mg/dL (8.7-10.3); Chloride 105 mmol/L (96-109); Glucose 98 mg/dL (70-110); Potassium 6.2 mmol/L (3.5-5.5); Sodium 138 mmol/L (135-145)
--- NOTE | 2023-12-05 10:09 | P.PN ---
Subjective Progress Note Date: 12/05/23 Principal diagnosis: Left upper extremity abscess, status post I&D procedure Patient is evaluated at bedside today, he is resting comfortably. Patient appears stable, no acute pain noted. Patient has minimal discomfort at this time. he denies any numbness or tingling to the upper extremity. He denies fever, chills, shortness of breath or chest pain Objective - Vital Signs Vital signs: Vital Signs Temp 97.9 F 12/05/23 07:21 Pulse 54 L 12/05/23 07:21 Resp 16 12/05/23 07:21 BP 145/66 12/05/23 07:21 Pulse Ox 99 12/05/23 07:21 FiO2 Intake & Output 12/04/23 12/05/23 12/05/23 18:59 06:59 18:59 Intake Total 540 Output Total 425 Balance 540 -425 Intake: Oral 540 Output: Urine 425 Other: Voiding Method Urinal Urinal # Voids 2 # Bowel Movements 1 - Exam Left upper extremity: Dressing is in good position and condition, no obvious drainage, no excessive s welling or bruising noted Elbow extension and flexion are intact, wrist extension and flexion are intact, he is able to wiggle all the fingers and make a fist with no difficulty Sensory exam to light touch is intact throughout the extremity Radial and ulnar pulse are 2+ - Labs CBC & Chem 7: 12/05/23 05:47 12/05/23 05:47 Labs: Abnormal Lab Results - Last 24 Hours (Table) 12/05/23 12/05/23 Range/Units 05:47 05:47 RBC 4.16 L (4.40-5.60) X 10*6/uL Hgb 12.4 L (13.0-17.0) g/dL Hct 38.9 L (39.6-50.0) % MCHC 31.9 L (32.0-37.0) g/dL RDW 15.3 H (11.5-14.5) % Potassium 6.2 A* (3.5-5.5) mmol/L Microbiology - Last 24 Hours (Table) 11/29/23 15:14 Blood Culture - Final Blood 11/29/23 07:13 Anaerobic Culture - Final Arm - Left 11/29/23 07:13 Anaerobic Culture - Final Arm - Left 11/29/23 07:13 Anaerobic Culture - Final Arm - Left Assessment and Plan Assessment: Postoperative day #4 status post irrigation and debridement left upper extremity, secondary wound closure, wound VAC placement Left upper extremity abscess Plan: Monitor surgical dressing Pain control, continue current medications GI and DVT prophylaxis, continue current medications Medical recommendations appreciated Infectious disease recommendations appreciated Orthopedically patient is stable for discharge, await infectious disease recommendations for outpatient antibiotics. Time with Patient: Less than 30
--- NOTE | 2023-12-05 12:30 | P.DS ---
Providers Date of admission: 12/01/23 09:55 Expected date of discharge: 12/05/23 Attending physician: Cruz Mahoney DO Consults: 11/29/23 06:52 Consult Physician Routine Consulting Provider: Antonio Zhang Consult Reason/Comments: Medical Management Do you want consulting provider notified?: Yes, Notify in am 11/29/23 06:56 Consult Physician Routine Consulting Provider: Jennifer Mohamud Consult Reason/Comments: Cx and ABX mgt, arm abscess/wound Do you want consulting provider notified?: Yes, Notify in am Primary care physician: Antonio Zhang [facility] Course: Date of admission: 11/29/2023 Date of discharge: 12/05/2023 Admission diagnosis: Left arm abscess Discharge diagnosis: Status post I&D left arm abscess Attending physician: Dr. Mahoney Surgical procedures: Incision and drainage with irrigation and debridement left arm abscess Brief history: Patient is a 78-year-old male with a history of left arm abscess that had been initially treating conservatively in the outpatient setting by infectious disease with antibiotics. At this point patient has failed conservative treatment measures and has opted to proceed with a elective incision and drainage with irrigation and debridement left arm abscess. Hospital course: Details of patient's surgery can be found in operative report. Patient tolerated the procedure well and was subsequently transported to orthope dic floor. Patient's orthopeidc and medical care was provided daily. Patient had daily laboratory tests performed for evaluation of overall blood counts. Patient had daily physical therapy to include strengthening range of motion as well as education with walker ambulation. Patient was treated with [place]USTIN hose and compression stockings for their postoperative DVT prophylaxis during their inpatient stay. Patient was noted to have a relatively uneventful postoperative course. Patient reported satisfactory pain control with oral pain medications by postoperative day 1. Patient showed satisfactory progress with physical therapy. Patient moved steadily through the program and had no difficulty meeting the goals by postoperative day 3. Given patient's otherwise satisfactory course and having met physical therapy goals, plan is to discharge patient [home] on postoperative day 3. Discharge condition/disposition: Patient will be discharged [home] in stable condition. Discharge medications: Instructions are given on resumption of patient's normal daily medications per primary care recommendation, in addition patient will be prescribed doxycycline and Diflucan. Discharge instructions: 1. Basic dressing changes 1-2 times a day 2. Utilize antibacterial soap to the wound 3. Avoid soaking of the wound 4. Avoid excess use of the left elbow 5. Plan for follow-up with [facility] in 1 week for recheck Procedures: Incision and drainage with irrigation and debridement left arm abscess Patient Condition at Discharge: Good Plan - Discharge Summary Discharge Rx Participant: No New Discharge Prescriptions: New Doxycycline [Vibramycin] 100 mg PO BID 10 Days #20 capsule Fluconazole [Diflucan] 100 mg PO DAILY #12 tab Discontinued Sulfamethox-Tmp 400-80Mg [Bactrim SS 400-80 mg] 1 each PO BID 10 Days #20 tab cefUROXime axetiL [Ceftin] 500 mg PO BID 10 Days #20 tab No Action lisinopriL [Lisinopril] 10 mg PO QAM Multivitamins, Thera [Multivitamin (formulary)] 1 tab PO QAM Pravastatin Sodium 80 mg PO QAM Cholecalciferol [Vitamin D3 (25 Mcg = 1000 Iu)] 25 mcg PO QAM Fish Oil 1,400mg 1,400 mg PO QAM Clopidogrel [Plavix] 75 mg PO QAM Metoprolol Tartrate [Lopressor] 25 mg PO BID Aspirin EC [Ecotrin Low Dose] 81 mg PO QAM Discharge Medication List lisinopriL [Lisinopril] 10 mg PO QAM 12/23/14 [History] Multivitamins, Thera [Multivitamin (formulary)] 1 tab PO QAM 12/26/14 [History] Pravastatin Sodium 80 mg PO QAM 11/21/18 [History] Cholecalciferol [Vitamin D3 (25 Mcg = 1000 Iu)] 25 mcg PO QAM 12/09/22 [History] Clopidogrel [Plavix] 75 mg PO QAM 12/09/22 [History] Fish Oil 1,400mg 1,400 mg PO QAM 10/13/23 [History] Metoprolol Tartrate [Lopressor] 25 mg PO BID 10/13/23 [History] Aspirin EC [Ecotrin Low Dose] 81 mg PO QAM 11/25/23 [History] Doxycycline [Vibramycin] 100 mg PO BID 10 Days #20 capsule 12/05/23 [Rx] Fluconazole [Diflucan] 100 mg PO DAILY #12 tab 12/05/23 [Rx] Follow up Appointment(s)/Referral(s): Antonio Zhang DO [Primary Care Provider] - 1 Week Cruz Mahoney DO [Doctor of Osteopathic Medicine] - 12/12/23 10:00 am Jennifer Mohamud MD [STAFF PHYSICIAN] - 12/14/23 2:30 pm Patient Instructions/Handouts: Incision and Drainage (DC) Activity/Diet/Wound Care/Special Instructions: Orthopedic discharge instructions: 1. Dressing changes daily 2. Keep incision covered and dry while showering 3. Avoid excess flexion of the elbow, avoid heavy lifting 4. Plan for follow-up at [facility] in 10 days, please contact office with any acute issues or questions Discharge Disposition: HOME WITH HOME HEALTH SERVICES
[2023-12-06] MEDS ORDERED: VANCOMYCIN TROUGH DUE 1 EACH MISC MISCELLANE ONE (15:00)
--- NOTE | 2023-12-06 15:30 | P.PN ---
Subjective Progress Note Date: 12/05/23 - History of Present Illness This is a pleasant 78-year-old gentleman recently admitted inpatient with left wrist/upper arm abscess. Evaluated by general surgery ,no surgical drainage recommended at that time. 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 Patient readmitted to the hospital, status post I&D with wound VAC placement, postop day #1.Maintained on ceftriaxone and Bactrim DS as per ID while cultures finalizing- prior cultures had reported Nocardia. Afebrile, normal WBC. Reports positive pain to touch. Denies chest pain, palpitations or shortness of breath. 12/01/2023 maintained on IV antibiotics as per infectious disease. Scheduled for further I&D with closure today of the affected extremity as per orthopedic surgery. Denies chest pain, palpitations or shortness of breath. Afebrile. 12/02/2023 underwent left upper extremity wound I&D with closure yesterday, with prevana wound VAC applied. Tolerated procedure well. Ambulating in room, reporting pain lessened. Denies numbness or tingling of the affected extremity. Cultures reported yeast species ;wound cultures finalizing. Continues on Eraxis, ceftriaxone and Bactrim DS. Afebrile, normal WBC. Bicarb 23, BUN 14, creatinine 0.9. Denies chest pain, palpitations or shortness of breath. 12/05/2023 patient is up ambulating around, pain much better controlled. Denies numbness or tingling of the affected upper extremity. Denies chest pain, palpitations or shortness of breath. Denies fever or chills. Afebrile, normal WBC, hemoglobin 12.4, platelets 213, sodium 138, potassium 4.8, renal function stable. Objective - Vital Signs Vital signs: Vital Signs Temp 97.9 F 12/05/23 07:21 Pulse 54 L 12/05/23 07:21 Resp 16 12/05/23 07:21 BP 145/66 12/05/23 07:21 Pulse Ox 99 12/05/23 07:21 FiO2 Intake & Output 12/04/23 12/05/23 12/05/23 18:59 06:59 18:59 Intake Total 540 Output Total 425 Balance 540 -425 Intake: Oral 540 Output: Urine 425 Other: Voiding Method Urinal Urinal Toilet # Voids 2 # Bowel Movements 1 - Exam PHYSICAL EXAM: VITAL SIGNS: [As above] GENERAL: Alert and oriented x 3, standing by bedside,no acute distress HEENT: Atraumatic, normocephalic conjunctivae normal. eyes normal. NECK: Supple, no JVD. CARDIOVASCULAR: S1, S2 regular. Systolic murmur RESPIRATION: Unlabored, equal air entry, clear to auscultation. ABDOMEN: Soft, no distention, nontender . No guarding. +BS EXTREMITIES: Left arm dressing clean dry and intact, wiggles digits freely LEGS: No edema. no swelling, no calf tenderness noted. NERVOUS SYSTEM: Cranial N 2-12 grossly normal.No focal deficits. Skin: Warm and dry, no rash. - Labs CBC & Chem 7: 12/05/23 05:47 12/05/23 10:08 Labs: Abnormal Lab Results - Last 24 Hours (Table) 12/05/23 12/05/23 Range/Units 05:47 05:47 RBC 4.16 L (4.40-5.60) X 10*6/uL Hgb 12.4 L (13.0-17.0) g/dL Hct 38.9 L (39.6-50.0) % MCHC 31.9 L (32.0-37.0) g/dL RDW 15.3 H (11.5-14.5) % Potassium 6.2 A* (3.5-5.5) mmol/L Microbiology - Last 24 Hours (Table) 11/29/23 15:14 Blood Culture - Final Blood Assessment and Plan Assessment: Recent inpatient admission discharged on 10/18/2023 with Left wrist abscess, failed outpatient treatment, cultures reporting Nocardia brasiliensis. Left upper extremity wound I&D with wound VAC placement 11/29/2023. status post I&D left upper extremity with closure and wound VAC placement, 12/01/2023. Cultures reporting Parisa parapsilosis group, Staphylococcus epidermidis Hyponatremia Recent revision posterior lateral fusion [id number] with open treatment L2 fracture, removal with replacement of new cage L2-3, status post revision L2- pelvis decompression and fusion, 224. History of distal bulbar urethral stricture, status post dilation with Burrows catheter- coude placement intraoperative as per urology. History of a occipital CVA,11/15 brain MRI , follows with Dr. Rajwinder Francisco. reports repeat MRI of brain performed [place] [facility] [place], history of CABG Hypertension Hyperlipidemia Plan: Continue on current medication regimen ,monitoring and symptomatic treatment. antibiotics as per ID. Pain management. Maintain aggressive pulmonary toileting with incentive spirometer reinforced. Discharge planning in progress as per orthopedic surgery. Follow-up with PCP in 1 week. The impression and plan of care has been dictated as directed. : I performed a history and examination of this patient, discussed the same with the dictator. I agree with the dictator's note ,documented as a scribe. Any additional findings or plans will be noted.
--- NOTE | 2023-12-07 08:23 | P.PN ---
Subjective Progress Note Date: 12/05/23 Principal diagnosis: Reason for follow-up is left lower extremity abscess and wound Patient is a 78-year-old male with a past medical history significant for hypertension hyperlipidemia CVA TIA coronary artery disease sleep apnea and the patient was recently admitted to this facility with a left forearm wound and also developing abscess to the left upper arm, now with readmission to the hospital for drainage and debridement of the left extremity wound. Patient was taken back to the OR the patient status post I&D left arm wound and primary closure of the wound completed on 12/01/2023 On today's evaluation that is 12/05/2023, Patient is afebrile patient is currently on room air and denies having any shortness of breath, the patient denies any chest pain or cough, the patient denies any nausea vomiting did not have any abdominal pain and no diarrhea pain to the left upper arm has decreased in intensity. Patient white count normal at 5.20 creatinine is 1.0 culture finalized with Parisa parasitosis and staph epi Objective - Vital Signs Vital signs: Vital Signs Temp 97.9 F 12/05/23 07:21 Pulse 54 L 12/05/23 07:21 Resp 16 12/05/23 07:21 BP 145/66 12/05/23 07:21 Pulse Ox 99 12/05/23 07:21 FiO2 Intake & Output 12/04/23 12/05/23 12/05/23 18:59 06:59 18:59 Intake Total 540 Output Total 425 Balance 540 -425 Intake: Oral 540 Output: Urine 425 Other: Voiding Method Urinal Urinal Toilet # Voids 2 # Bowel Movements 1 - Exam GENERAL DESCRIPTION: An elderly male lying in bed in no distress RESPIRATORY SYSTEM: Unlabored breathing , decreased breath sounds at bases HEART: S1 S2 regular rate and rhythm , ABDOMEN: Soft , no tenderness EXTREMITIES: Left upper arm wound is currently dressed no drainage on the dressing - Labs CBC & Chem 7: 12/05/23 05:47 12/05/23 10:08 Labs: Abnormal Lab Results - Last 24 Hours (Table) 12/05/23 12/05/23 Range/Units 05:47 05:47 RBC 4.16 L (4.40-5.60) X 10*6/uL Hgb 12.4 L (13.0-17.0) g/dL Hct 38.9 L (39.6-50.0) % MCHC 31.9 L (32.0-37.0) g/dL RDW 15.3 H (11.5-14.5) % Potassium 6.2 A* (3.5-5.5) mmol/L Microbiology - Last 24 Hours (Table) 11/29/23 15:14 Blood Culture - Final Blood 11/29/23 07:13 Anaerobic Culture - Final Arm - Left 11/29/23 07:13 Anaerobic Culture - Final Arm - Left 11/29/23 07:13 Anaerobic Culture - Final Arm - Left Assessment and Plan (1) Abscess of left arm Status: Acute Code(s): L02.414 - CUTANEOUS ABSCESS OF LEFT UPPER LIMB SNOMED Code(s): 59041997933150876 (2) Infected wound Status: Acute Code(s): T14.8XXA - OTHER INJURY OF UNSPECIFIED BODY REGION, INITIAL ENCOUNTER; L08.9 - LOCAL INFECTION OF THE SKIN AND SUBCUTANEOUS TISSUE, UNSP SNOMED Code(s): 78157561 Plan: 1patient electively admitted to the hospital after drainage of the left upper arm abscess in this patient who did have previous admission to the hospital with similar symptoms and at that time he did have wound to the forearm culture from the wound did grew nocardia unfortunately the left upper arm abscess was not drained by surgical team at that point he did have a spontaneous drainage and did have outpatient cultures were negative no status post surgical debridement orthopedics and deep culture which are currently growing Parisa parapsilosis and staph epi that is resistant to Bactrim 2-patient will finish therapy with oral doxycycline Diflucan x 2 weeks on discharge and close outpatient follow-up, prescription was sent to the pharmacy at the bedside questions answered Dictation was produced using [employer] dictation software. please excuse any grammatical, word or spelling errors. Time with Patient: Less than 30
== END 2023-12-05 12:48 | disposition home or self-care (01) | DRG 570 ==
LOC: OR 05:32 → 5NMEDONC 07:54 → OR 12-01 09:55 → 5NMEDONC 12-01 09:55
PROVIDERS: ADMIT Orthopaedic Surgery; ATTEND Orthopaedic Surgery
PROC: 0JBF0ZZ Excision of Left Upper Arm Subcutaneous Tissue and Fascia, Open Approach (ICD-10-PCS; principal; 2023-11-29 07:00)
PROC: 0JBF0ZZ Excision of Left Upper Arm Subcutaneous Tissue and Fascia, Open Approach (ICD-10-PCS; 2023-12-01)
DX: L02.414 Cutaneous abscess of left upper limb (principal); D65 Disseminated intravascular coagulation [defibrination syndrome]; E87.1 Hypo-osmolality and hyponatremia; L02.416 Cutaneous abscess of left lower limb; B37.2 Candidiasis of skin and nail; E78.5 Hyperlipidemia, unspecified; E87.5 Hyperkalemia; I10 Essential (primary) hypertension; I25.10 Atherosclerotic heart disease of native coronary artery without angina pectoris; Z79.02 Long term (current) use of antithrombotics/antiplatelets; Z79.82 Long term (current) use of aspirin; Z79.899 Other long term (current) drug therapy; Z80.0 Family history of malignant neoplasm of digestive organs; Z82.49 Family history of ischemic heart disease and other diseases of the circulatory system; Z86.73 Personal history of transient ischemic attack (TIA), and cerebral infarction without residual deficits; Z87.442 Personal history of urinary calculi; Z87.891 Personal history of nicotine dependence; Z95.1 Presence of aortocoronary bypass graft; Z96.653 Presence of artificial knee joint, bilateral; Z88.5 Allergy status to narcotic agent; Z98.1 Arthrodesis status
CPT/HCPCS: 80048; 84132; 85025; 87040; 87070; 87075; 87077; 87186; 87205; 88304

== ENCOUNTER → 2024-07-04 | Outpatient (CLI) | payer MEDICARE ==
[2024-07-04 15:11] LABS: ALT 20 U/L (10-49); AST 37 U/L (14-35); Chol/HDL Ratio 3.19 Ratio
== END | disposition home or self-care (01) ==
LOC: LABWHC1 09:42
PROVIDERS: ATTEND Internal Medicine Cardiovascular Disease
DX: E78.2 Mixed hyperlipidemia (principal)
CPT/HCPCS: 36415; 80061; 84450; 84460

== ENCOUNTER 2024-10-21 13:25 | Inpatient (IN) | payer MEDICARE ==
--- NOTE | 2024-10-21 15:01 | ED ---
General Adult HPI - General Chief complaint: Urogenital Stated complaint: Urogenital Time Seen by Provider: 10/21/24 14:35 Source: patient, family, RN notes reviewed, old records reviewed Mode of arrival: ambulatory Limitations: no limitations - History of Present Illness Initial comments: 79-year-old male presented to the ER for evaluation of urinary frequency. Patient's is providing majority of HPI. She reports since yesterday patie nt has been going to the bathroom more often and reporting painful urination. She states patient went to bed around 6:30 PM last night and slept approximately 15 hours this morning until she woke him up. She states today he appears very lethargic and weak. Given urinary complaints did give patient Azo's and an old prescription of Keflex. She states patient has had a decreased appetite ove r the past 24 hours but was able to consume water and cereal this afternoon. Patient is complaining of lower abdominal pain is an achy in nature. He denies any diarrhea/constipation, hematochezia or melena. Denies nausea or vomiting. She denies any fevers, chills, chest pain, dizziness, lightheadedness, palpitations, cough, sore throat, shortness of breath. Patient denies any recent falls. Patient does report chronic back pain with multiple lumbar spine surgeries no new features of back pain. - Related Data Home Medications Medication Instructions Recorded Confirmed lisinopriL [Lisinopril] 10 mg PO QAM 12/23/14 11/25/23 Multivitamins, Thera [Multivitamin 1 tab PO QAM 12/26/14 11/25/23 (formulary)] Pravastatin Sodium 80 mg PO QAM 11/21/18 11/29/23 Cholecalciferol [Vitamin D3 (25 25 mcg PO QAM 12/09/22 11/25/23 Mcg = 1000 Iu)] Clopidogrel [Plavix] 75 mg PO QAM 12/09/22 11/25/23 Fish Oil 1,400mg 1,400 mg PO QAM 10/13/23 11/25/23 Metoprolol Tartrate [Lopressor] 25 mg PO BID 10/13/23 11/25/23 Aspirin EC [Ecotrin Low Dose] 81 mg PO QAM 11/25/23 11/25/23 Previous Rx's Medication Instructions Recorded Doxycycline [Vibramycin] 100 mg PO BID 10 Days #20 capsule 12/05/23 Fluconazole [Diflucan] 100 mg PO DAILY #12 tab 12/05/23 Allergies Allergy/AdvReac Type Severity Reaction Status Date / Time morphine AdvReac Nausea & Verified 10/21/24 13:31 Vomiting Review of Systems ROS Statement: Those systems with pertinent positive or pertinent negative responses have been documented in the HPI. ROS Other: All systems not noted in ROS Statement are negative. Past Medical History Past Medical History: Coronary Artery Disease (CAD), CVA/TIA, Hyperlipidemia, Hypertension, Osteoarthritis (OA), Renal Disease, Sleep Apnea/CPAP/BIPAP Additional Past Medical History / Comment(s): Generalized arthritis, L leg n umbness/tingling since harvested vein for CABG, slight cardiac murmur, kidney stones, possible ureteral stricture-difficult to pass lópez catheters. tia behind eye August 2023. No C-PAP. Wound left leg-became infected August 2023. Lt wrist open area in September 2023 was in hosptail. History of Any Multi-Drug Resistant Organisms: None Reported Past Surgical History: Back Surgery, Coronary Bypass/CABG, Heart Catheterization, Joint Replacement, Orthopedic Surgery Additional Past Surgical History / Comment(s): 2004 CABG 4 vessel, UVPPP, colonoscopy, bilateral knee arthroscopy, bilateral total knee arthroplasties, bilateral rotator cuff repairs, R total reverse shoulder, kidney stone basketing, cystoscopies/scar tissue removed from bladder. 2006 2022 back surgeries. Back surgery Nov and Apr 2023. Lt wrist was in hospital for IVPB. 2 open areas lt arm from shoulder to elbow. Past Anesthesia/Blood Transfusion Reactions: No Reported Reaction Additional Past Anesthesia/Blood Transfusion Reaction / Comment(s): no hx blood transfusion, had hallucinations after back surgery 11/2022 Past Psychological History: No Psychological Hx Reported Smoking Status: Former smoker Past Alcohol Use History: None Reported Past Drug Use History: None Reported - Past Family History Father Additional Family Medical History / Comment(s): Father in a tractor accident. Mother Family Medical History: Myocardial Infarction (AR) Additional Family Medical History / Comment(s): Mother of a massive AR at the age of 69yrs. Brother(s) Family Medical History: Cancer Additional Family Medical History / Comment(s): liver. Sister(s) Family Medical History: Cancer Additional Family Medical History / Comment(s): liver cancer General Exam Limitations: no limitations General appearance: alert, in no apparent distress Respiratory exam: Present: normal lung sounds bilaterally. Absent: respiratory distress, wheezes, rales, rhonchi, stridor Cardiovascular Exam: Present: regular rate, normal rhythm, normal heart sounds. Absent: systolic murmur, diastolic murmur, rubs, gallop, clicks GI/Abdominal exam: Present: soft, tenderness (Right lower quadrant), normal bowel sounds Extremities exam: Present: normal inspection, full ROM, normal capillary refill. Absent: tenderness, pedal edema, joint swelling, calf tenderness Neurological exam: Present: alert, oriented X3, CN II-XII intact Skin exam: Present: warm, dry, intact, normal color. Absent: rash Course Vital Signs 10/21/24 10/21/24 13:28 14:45 Temperature 100.8 F H 100.7 F H Pulse Rate 91 85 Respiratory 20 18 Rate Blood Pressure 113/71 121/58 O2 Sat by Pulse 97 95 Oximetry - Reevaluation(s) Reevaluation #1: 10/21/24 17:03 Patient reevaluated. Patient seeming more confused since arrival to the ER. AxO to self. CT brain ordered. , bedside, educated on findings and is agree able for admission. 10/21/24 17:11 [facility]. Medical Decision Making - Medical Decision Making Was pt. sent in by a medical professional or institution (, PA, ASSISTANT THERAPY AIDE, urgent care, hospital, or skilled nursing...) When possible be specific @ -No Did you speak to anyone other than the patient for history (EMS, parent, family, police, friend...)? What history was obtained from this source @ -Patient's and [id number], at bedside, aiding in HPI and past medical history. Did you review nursing and triage notes (agree or disagree)? Why? @ -I reviewed and agree with nursing and triage notes Were old charts reviewed (outside hosp., previous admission, EMS record, old EKG, old radiological studies, urgent care reports/EKG's, skilled nursing records)? Report findings @ -No old charts were reviewed Differential Diagnosis (chest pain, altered mental status, abdominal pain women, abdominal pain men, vaginal bleeding, weakness, fever, dyspnea, syncope, headache, dizziness, GI bleed, back pain, seizure, CVA, palpatations, mental health, musculoskeletal)? @ -[Differential Weakness:Hypoglycemia, shock, sepsis, hyponatremia, anemia, infection, AR, ETOH, adverse medicine reaction, overdose, stroke, this is not meant to be an all-inclusive list. EKG interpreted by me (3pts min.). @ -As above X-rays interpreted by me (1pt min.). @ -CXR interpreted by me negative for focal consolidations, pneumothorax or pleural effusions. CT interpreted by me (1pt min.). @ -CT abdomen pelvis negative for acute intra-abdominal/pelvic process. CT brain pending. U/S interpreted by me (1pt. min.). @ -None done What testing was considered but not performed or refused? (CT, X-rays, U/S, labs)? Why? @ -None What meds were considered but not given or refused? Why? @ -None Did you discuss the management of the patient with other professionals (professionals i.e. , PA, ASSISTANT THERAPY AIDE, lab, RT, psych nurse, social media analyst, feltmaker and weigher, teacher, dog control officer, rehabilitation caseworker)? Give summary @ -Yes, Case discussed with [facility], Dr. Ramos, who accepts admission. Was smoking cessation discussed for >3mins.? @ -No Was critical care preformed (if so, how long)? @ -No Were there social determinants of health that impacted care today? How? (Homelessness, low income, unemployed, alcoholism, drug addiction, transportation, low edu. Level, literacy, decrease access to med. care, detention, rehab)? @ -No Was there de-escalation of care discussed even if they declined (Discuss DNR or withdrawal of care, Hospice)? DNR status @ -No What co-morbidities impacted this encounter? (DM, HTN, Smoking, COPD, CAD, Cancer, CVA, ARF, Chemo, Hep., AIDS, mental health diagnosis, sleep apnea, morbid obesity)? @ -CAD, history of CVA/TIA, hyperlipidemia, hypertension, renal disease, chronic back pain Was patient admitted / discharged? Hospital course, mention meds given and route, prescriptions, significant lab abnormalities, going to OR and other pertinent info. @ -Admitted. 79-year-old male presented the ER for evaluation of increasing urinary frequency. Upon arrival patient found to be febrile at 100.8 but was otherwise stable. Patient in no signs of acute distress and nontoxic-appearing. Laboratory studies obtained remarkable for WBC of 20.8 with left shift. Sodium 133, potassium 4.5. Lactic 2.0. Troponin 0.027. Urine analysis concerning for infection with 157 WBCs and 14 RBCs this will be sent for culture. Viral swabs negative. Chest x-ray negative for acute cardiopulmonary process. CT abdomen pelvis negative for acute intra-abdominal/pelvic process. Patient met sepsis criteria at 1514. Blood cultures ordered at 1505. Rocephin ordered at 14:36. Patient received IBW sepsis fluid bolus of LR, 2,000ml, and started on maintenance fluid at 130 cc/h. Fever control with p.o. Tylenol and IV Toradol, with improvement. Admission considered and accepted by [facility], Dr. Lai ID on consult. Upon reevaluation, patient seeming more confused and only oriented to self. CT brain ordered at that time, my attending Dr. Rivas will follow results. Patient admitted for further evaluation and treatment of urosepsis, is agreeable. Case discussed with ED attending, Dr. Rivas. Undiagnosed new problem with uncertain prognosis? @ -No Drug Therapy requiring intensive monitoring for toxicity (Heparin, Nitro, Insulin, Cardizem)? @ -No Were any procedures done? @ -No Diagnosis/symptom? @ -Sepsis/UTI Acute, or Chronic, or Acute on Chronic? @ -Acute Uncomplicated (without systemic symptoms) or Complicated (systemic symptoms)? @ -Complicated Side effects of treatment? @ -No Exacerbation, Progression, or Severe Exacerbation? @ -No Poses a threat to life or bodily function? How? (Chest pain, USA, AR, pneumonia, PE, COPD, DKA, ARF, appy, cholecystitis, CVA, Diverticulitis, Homicidal, Suicidal, threat to staff... and all critical care pts) @ -Yes, sepsis can lead to endorgan dysfunction. - Lab Data Result diagrams: 10/21/24 15:05 10/21/24 15:05 Lab Results 10/21/24 10/21/24 10/21/24 Range/Units 15:05 15:05 15:05 WBC 20.87 H (4.50-10.00) 10*3/uL RBC 5.16 (4.40-5.60) 10*6/uL Hgb 16.2 (13.0-17.0) g/dL Hct 47.0 (39.6-50.0) % MCV 91.1 (80.0-97.0) fL MCH 31.4 (27.0-32.0) pg MCHC 34.5 (32.0-37.0) g/dL Plt Count 186 (140-440) 10*3/uL MPV 9.8 (9.5-12.2) fL Immature Gran % (Auto) 0.4 % Neutrophils % 91.2 % Lymphocytes % 4.2 % Monocytes % 4.0 % Eosinophils % 0.0 % Basophils % 0.2 % Immature Gran # 0.09 H (0.00-0.04) 10*3/uL Neutrophils # 19.01 H (1.80-7.70) 10*3/uL Lymphocytes # 0.88 L (0.90-5.00) 10*3/uL Monocytes # 0.83 (0.20-1.00) 10*3/uL Eosinophils # 0.01 L (0.04-0.35) 10*3/uL Basophils # 0.05 (0.00-0.10) 10*3/uL PT (10.0-12.5) sec INR (<1.2) APTT (22.0-30.0) sec Sodium 133 L (137-145) mmol/L Potassium 4.5 (3.5-5.1) mmol/L Chloride 96 L (98-107) mmol/L Carbon Dioxide 28 (22-30) mmol/L Anion Gap 9 mmol/L BUN 17 (9-20) mg/dL Creatinine 0.99 (0.66-1.25) mg/dL Est GFR (CKD-EPI)AfAm 83 (>60 ml/min/1.73 sqM) Est GFR (CKD-EPI)NonAf 72 (>60 ml/min/1.73 sqM) Glucose 115 H (74-99) mg/dL Plasma Lactic Acid Óscar 2.0 (0.7-2.0) mmol/L Calcium 9.5 (8.4-10.2) mg/dL Total Bilirubin 1.3 (0.2-1.3) mg/dL AST 31 (17-59) U/L ALT 18 (4-49) U/L Alkaline Phosphatase 100 (38-126) U/L Troponin I (0.000-0.034) ng/mL Total Protein 8.4 H (6.3-8.2) g/dL Albumin 4.7 (3.5-5.0) g/dL Lipase (23-300) U/L Urine Color Urine Appearance (Clear) Urine RBC (0-5) /hpf Urine WBC (0-5) /hpf Urine Mucus (None) /hpf Influenza Type A (PCR) (Not Detectd) Influenza Type B (PCR) (Not Detectd) RSV (PCR) (Not Detectd) SARS-CoV-2 (PCR) (Not Detectd) 10/21/24 10/21/24 10/21/24 Range/Units 15:05 15:05 15:05 WBC (4.50-10.00) 10*3/uL RBC (4.40-5.60) 10*6/uL Hgb (13.0-17.0) g/dL Hct (39.6-50.0) % MCV (80.0-97.0) fL MCH (27.0-32.0) pg MCHC (32.0-37.0) g/dL Plt Count (140-440) 10*3/uL MPV (9.5-12.2) fL Immature Gran % (Auto) % Neutrophils % % Lymphocytes % % Monocytes % % Eosinophils % % Basophils % % Immature Gran # (0.00-0.04) 10*3/uL Neutrophils # (1.80-7.70) 10*3/uL Lymphocytes # (0.90-5.00) 10*3/uL Monocytes # (0.20-1.00) 10*3/uL Eosinophils # (0.04-0.35) 10*3/uL Basophils # (0.00-0.10) 10*3/uL PT 12.1 (10.0-12.5) sec INR 1.1 (<1.2) APTT 24.7 (22.0-30.0) sec Sodium (137-145) mmol/L Potassium (3.5-5.1) mmol/L Chloride (98-107) mmol/L Carbon Dioxide (22-30) mmol/L Anion Gap mmol/L BUN (9-20) mg/dL Creatinine (0.66-1.25) mg/dL Est GFR (CKD-EPI)AfAm (>60 ml/min/1.73 sqM) Est GFR (CKD-EPI)NonAf (>60 ml/min/1.73 sqM) Glucose (74-99) mg/dL Plasma Lactic Acid Óscar (0.7-2.0) mmol/L Calcium (8.4-10.2) mg/dL Total Bilirubin (0.2-1.3) mg/dL AST (17-59) U/L ALT (4-49) U/L Alkaline Phosphatase (38-126) U/L Troponin I 0.027 (0.000-0.034) ng/mL Total Protein (6.3-8.2) g/dL Albumin (3.5-5.0) g/dL Lipase 37 (23-300) U/L Urine Color Urine Appearance (Clear) Urine RBC (0-5) /hpf Urine WBC (0-5) /hpf Urine Mucus (None) /hpf Influenza Type A (PCR) (Not Detectd) Influenza Type B (PCR) (Not Detectd) RSV (PCR) (Not Detectd) SARS-CoV-2 (PCR) (Not Detectd) 10/21/24 10/21/24 Range/Units 15:16 15:23 WBC (4.50-10.00) 10*3/uL RBC (4.40-5.60) 10*6/uL Hgb (13.0-17.0) g/dL Hct (39.6-50.0) % MCV (80.0-97.0) fL MCH (27.0-32.0) pg MCHC (32.0-37.0) g/dL Plt Count (140-440) 10*3/uL MPV (9.5-12.2) fL Immature Gran % (Auto) % Neutrophils % % Lymphocytes % % Monocytes % % Eosinophils % % Basophils % % Immature Gran # (0.00-0.04) 10*3/uL Neutrophils # (1.80-7.70) 10*3/uL Lymphocytes # (0.90-5.00) 10*3/uL Monocytes # (0.20-1.00) 10*3/uL Eosinophils # (0.04-0.35) 10*3/uL Basophils # (0.00-0.10) 10*3/uL PT (10.0-12.5) sec INR (<1.2) APTT (22.0-30.0) sec Sodium (137-145) mmol/L Potassium (3.5-5.1) mmol/L Chloride (98-107) mmol/L Carbon Dioxide (22-30) mmol/L Anion Gap mmol/L BUN (9-20) mg/dL Creatinine (0.66-1.25) mg/dL Est GFR (CKD-EPI)AfAm (>60 ml/min/1.73 sqM) Est GFR (CKD-EPI)NonAf (>60 ml/min/1.73 sqM) Glucose (74-99) mg/dL Plasma Lactic Acid Óscar (0.7-2.0) mmol/L Calcium (8.4-10.2) mg/dL Total Bilirubin (0.2-1.3) mg/dL AST (17-59) U/L ALT (4-49) U/L Alkaline Phosphatase (38-126) U/L Troponin I (0.000-0.034) ng/mL Total Protein (6.3-8.2) g/dL Albumin (3.5-5.0) g/dL Lipase (23-300) U/L Urine Color [place] Urine Appearance Clear (Clear) Urine RBC 14 H (0-5) /hpf Urine WBC 157 H (0-5) /hpf Urine Mucus Rare H (None) /hpf Influenza Type A (PCR) Not Detected (Not Detectd) Influenza Type B (PCR) Not Detected (Not Detectd) RSV (PCR) Not Detected (Not Detectd) SARS-CoV-2 (PCR) Not Detected (Not Detectd) - EKG Data -: EKG Interpreted by Me EKG Comments: EKG taken at 15: 27 showing a sinus rhythm. No ST segment elevations or depressions. No T wave inversions. Ventricular rate 79, MS interval 186, QRS duration 137, QT/QTc 393/428. - Radiology Data Radiology results: report reviewed, image reviewed Disposition Clinical Impression: UTI (urinary tract infection), Sepsis, Confusion Disposition: ADMITTED IP TO THIS HOSP Condition: Stable Referrals: Antonio Zhang DO [Primary Care Provider] - 1-2 days Time of Disposition: 17:12
[2024-10-21] MEDS: ACETAMINOPHEN TAB 325 MG TAB PO STA (15:16)
[2024-10-21] MEDS: KETOROLAC 15 MG/ML 1 ML VIAL IVP STA (15:17)
[2024-10-21 15:22] LABS: Basophils # (A) 0.05 10*3/uL (0.00-0.10); Basophils % (A) 0.2 %; Eosinophils # (A) 0.01 10*3/uL (0.04-0.35); Eosinophils % (A) 0.0 %; HCT 47.0 % (39.6-50.0); HGB 16.2 g/dL (13.0-17.0); Lymphocytes # (A) 0.88 10*3/uL (0.90-5.00); Lymphocytes % (A) 4.2 %; MCH 31.4 pg (27.0-32.0); MCHC 34.5 g/dL (32.0-37.0); MCV 91.1 fL (80.0-97.0); Monocytes # (A) 0.83 10*3/uL (0.20-1.00); Monocytes % (A) 4.0 %; Neutrophils # (A) 19.01 10*3/uL (1.80-7.70); Neutrophils % (A) 91.2 %; Platelet Count 186 10*3/uL (140-440); RBC 5.16 10*6/uL (4.40-5.60); RDW 13.1 % (11.5-14.5); WBC 20.87 10*3/uL (4.50-10.00)
[2024-10-21] MEDS: LACTATED RINGERS 1,000 ML IV SCH ×2 (15:23→18:18)
[2024-10-21 15:41] LABS: INR 1.1 (<1.2); Partial Thromboplastin Time 24.7 sec (22.0-30.0); Prothrombin Time 12.1 sec (10.0-12.5)
[2024-10-21 15:49] LABS: ALT 18 U/L (4-49); AST 31 U/L (17-59); African American GFR (CKD) 83 (>60 ml/min/1.73 sqM); Albumin 4.7 g/dL (3.5-5.0); Alkaline Phosphatase 100 U/L (38-126); Anion Gap 9 mmol/L; Blood Urea Nitrogen 17 mg/dL (9-20); Calcium 9.5 mg/dL (8.4-10.2); Carbon Dioxide 28 mmol/L (22-30); Chloride 96 mmol/L (98-107); Glucose 115 mg/dL (74-99); Non-African American GFR(CKD) 72 (>60 ml/min/1.73 sqM); Potassium 4.5 mmol/L (3.5-5.1); Sodium 133 mmol/L (137-145); Total Protein 8.4 g/dL (6.3-8.2)
--- NOTE | 2024-10-21 15:49 | XR ---
EXAMINATION TYPE: XR chest 2V DATE OF EXAM: 10/21/2024 3:43 PM COMPARISON: Previous chest radiograph 02/15/2022. CLINICAL INDICATION: Male, 79 years old with history of fever/weakness; [facility] TECHNIQUE: XR chest 2V Frontal and lateral views of the chest. FINDINGS: Lungs/Pleura: There is no evidence of pleural effusion, focal consolidation, or pneumothorax. Pulmonary vascularity: Unremarkable. Heart/mediastinum: Cardiomediastinal silhouette is unremarkable. Median sternotomy wires. Musculoskeletal: No acute osseous pathology. Right shoulder arthroplasty. Partially visualized meat grader ior spinal fusion hardware. Other findings: None IMPRESSION: No acute cardiopulmonary disease/process. [facility], , 10/21/2024 3:47 PM
[2024-10-21] MEDS: LACTATED RINGERS 500 ML IV ONE ×2 (16:07→17:46)
[2024-10-21 16:15] LABS: Mucus,Urine Rare /hpf; RBC,Urine 14 /hpf (0-5); WBC,Urine 157 /hpf (0-5)
[2024-10-21 16:18] LABS: Color,Urine Orange
[2024-10-21 16:23] LABS: RSV Not Detected (Not Detectd)
--- NOTE | 2024-10-21 16:48 | CT ---
EXAMINATION TYPE: CT abdomen pelvis w con DATE OF EXAM: 10/21/2024 4:36 PM COMPARISON: Previous CT abdomen/pelvis study 08/17/2022. CLINICAL INDICATION: Male, 79 years old with history of fever/urinary frequency; fever/urinary freque ncy TECHNIQUE: Axial CT abdomen pelvis w con;Sagittal and coronal reformats were created on a separate w orkstation. Contrast used:100 mL of Isovue 300 with IV Contrast, (none if empty) Oral contrast used: without Oral Contrast (none if empty) CT DLP: 1045.3 mGycm, Automated exposure control for dose reduction was used. FINDINGS: LOWER CHEST: Unremarkable ABDOMEN LIVER: Unremarkable GALLBLADDER AND BILE DUCTS: Unremarkable. PANCREAS: Unremarkable. SPLEEN: Unremarkable. ADRENAL GLANDS: Unremarkable. KIDNEYS AND URETERS: No evidence of hydronephrosis or renal calculus. The ureters are unremarkable. PELVIS BLADDER: No evidence for wall thickening or mass given limitations of exam. REPRODUCTIVE: Prostate is enlarged in size with central calcifications. ABDOMEN & PELVIS STOMACH AND BOWEL: Stomach and duodenum are unremarkable. No evidence of bowel obstruction. Colonic diverticulosis without acute diverticulitis. PERITONEUM/RETROPERITONEUM: No evidence of pneumoperitoneum or free fluid. VASCULATURE: No evidence of aortic aneurysm. 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 MUSCULOSKELETAL: No acute osseous abnormalities. Multilevel thoracolumbar spine fusion hardware and e vidence of previous vertebral augmentation procedure. Anterolisthesis of L4 on L5. L2-L3 intervertebr al disc spacer device appears anterior, recommend correlation with any prior outside imaging. Partial ly visualized median sternotomy wires. LYMPH NODES: No gross evidence for lymphadenopathy. SOFT TISSUE/ABDOMINAL WALL: Unremarkable IMPRESSION: No acute abnormality in abdomen/pelvis or CT findings to explain reported symptoms. [facility], , 10/21/2024 4:45 PM
[2024-10-21] MEDS ORDERED: ACETAMINOPHEN TAB 325 MG TAB PO PRN (17:12)
[2024-10-21] MEDS ORDERED: NALOXONE 0.4 MG/ML 1 ML VIAL IV PRN (17:12)
--- NOTE | 2024-10-21 17:34 | CT ---
EXAMINATION TYPE: CT brain w con DATE OF EXAM: 10/21/2024 5:29 PM COMPARISON: CT brain study 12/15/2022. CLINICAL INDICATION: Male, 79 years old with history of confusion; TECHNIQUE: Axial CT images were obtained with coronal and sagittal reformats created and reviewed. FINDINGS: Extra-axial spaces: No abnormal extra-axial fluid collections. Ventricular system: Dilatation in proportion to cerebral atrophy. Cerebral parenchyma: Cerebral atrophy. No acute intraparenchymal hemorrhage or mass effect. The cordero -white junction is well differentiated. Scattered hypoattenuating areas are seen within the white mat ter. No abnormal enhancement is seen after the administration of intravenous contrast. Cerebellum: Unremarkable. Mass effect: No evidence of midline shift. Intracranial vasculature: Atherosclerotic calcifications of the intracranial vessels. Soft tissues: Normal. Calvarium/osseous structures: No depressed skull fracture. Paranasal sinuses and mastoid air cells: Clear. Visualized orbits: Orbital contents are intact. IMPRESSION: No acute intracranial process. [facility], , 10/21/2024 5:31 PM
[2024-10-21] MEDS: LACTATED RINGERS 1,000 ML IV ONE (17:46)
[2024-10-22] MEDS: METOPROLOL TARTRATE 25 MG TAB PO SCH (13:07)
[2024-10-22] MEDS: CLOPIDOGREL 75 MG TAB PO SCH (13:07)
[2024-10-22] MEDS: PANTOPRAZOLE 40 MG/10 ML VIAL IVP SCH (13:07)
[2024-10-22] MEDS: ASPIRIN 81 MG PO SCH (13:07)
--- NOTE | 2024-10-22 16:57 | P.HPIM ---
History of Present Illness H&P Date: 10/22/24 Chief Complaint: Lethargic, confusion, incontinence This is a pleasant 79-year-old gentleman with past medical history significant for CAD, status post CABG, hyperlipidemia, hypertension, CVA,chronic kidney disease, urethral stricture, renal calculi, chronic low back pain with radiculopathy,revision posterior lateral fusion [id number] with open treatment L2 fracture, removal with replacement of new cage L2-3, status post revision L2- pelvis decompression and fusion, 224, left wrist abscess with Nocardia brasiliensis,status post I&D requiring wound VAC placement 10/18 and multiple other medical issues presented to the ER with complaints of lethargy, confusion, incontinence. Brain CT reported no acute intracranial process. Urine and blood cultures obtained, pending. reports on October 10 , followed up with Dr. Pablo since [place] regarding the middle of patient's back was having bloody drainage, received Duricef for 5 days. Mid back site currently dry, well-approx imated. Patient's also stated a few days prior to admission she was suspecting patient had UTI and gave him some Keflex for few days. On admission Tmax 100.8, WBC 20.8. Hemoglobin 16.2, platelets 186, INR 1.1, sodium 133, potassium 4.5, bicarb 28, BUN 17, creatinine 0.99, lactic acid 2. UA reported WBCs 157 with rare mucus, urine culture pending. viral studies negative. Chest x-ray reported nonacute. CT of abdomen and pelvis reported no acute abnormality in abdomen pelvis. 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 Antibiotics of ceftriaxone initiated, along with Toradol for pain management. Complains of"bone pain". Review of Systems ROS Statement: Those systems with pertinent positive or pertinent negative responses have been documented in the HPI. ROS Other: All systems not noted in ROS Statement are negative. Past Medical History Past Medical History: Coronary Artery Disease (CAD), CVA/TIA, Hyperlipidemia, Hypertension, Osteoarthritis (OA), Renal Disease, Sleep Apnea/CPAP/BIPAP Additional Past Medical History / Comment(s): Generalized arthritis, L leg numbness/tingling since harvested vein for CABG, slight cardiac murmur, kidney stones, possible ureteral stricture-difficult to pass lópez catheters. tia behind eye August 2023. No C-PAP. Wound left leg-became infected August 2023. Lt wrist open area in September 2023 was in hosptail. History of Any Multi-Drug Resistant Organisms: None Reported Past Surgical History: Back Surgery, Coronary Bypass/CABG, Heart Catheterization, Joint Replacement, Orthopedic Surgery Additional Past Surgical History / Comment(s): 2004 CABG 4 vessel, UVPPP, colono scopy, bilateral knee arthroscopy, bilateral total knee arthroplasties, bilateral rotator cuff repairs, R total reverse shoulder, kidney stone basketing, cystoscopies/scar tissue removed from bladder. 2006 2022 back surgeries. Back surgery Nov and Apr 2023. Lt wrist was in hospital for IVPB. 2 open areas lt arm from shoulder to elbow. Past Anesthesia/Blood Transfusion Reactions: No Reported Reaction Additional Past Anesthesia/Blood Transfusion Reaction / Comment(s): no hx blood transfusion, had hallucinations after back surgery 11/2022 Past Psychological History: No Psychological Hx Reported Additional Psychological History / Comment(s): Pt resides with his spouse. He is independent. Smoking Status: Former smoker Past Alcohol Use History: None Reported Additional Past Alcohol Use History / Comment(s): Pt started smoking in 1959 and quit in 1987. smoked 3 cigarettes a day. Past Drug Use History: None Reported - Past Family History Father Additional Family Medical History / Comment(s): Father in a tractor accident. Mother Family Medical History: Myocardial Infarction ([place]) Additional Family Medical History / Comment(s): Mother of a massive [place] at the age of 69yrs. Brother(s) Family Medical History: Cancer Additional Family Medical History / Comment(s): liver. Sister(s) Family Medical History: Cancer Additional Family Medical History / Comment(s): liver cancer Medications and Allergies Home Medications Medication Instructions Recorded Confirmed Type lisinopriL [Lisinopril] 10 mg PO DAILY 12/23/14 10/21/24 History Multivitamins, Thera [Multivitamin 1 tab PO DAILY 12/26/14 10/21/24 History (formulary)] Pravastatin Sodium 80 mg PO DAILY 11/21/18 10/21/24 History Cholecalciferol [Vitamin D3 (25 50 mcg PO DAILY 12/09/22 10/21/24 History Mcg = 1000 Iu)] Clopidogrel [Plavix] 75 mg PO DAILY 12/09/22 10/21/24 History Metoprolol Tartrate [Lopressor] 25 mg PO BID 10/13/23 10/21/24 History Aspirin EC [Ecotrin Low Dose] 81 mg PO DAILY 11/25/23 10/21/24 History Fish Oil/Dha/Epa [Fish Oil 1,200 1 cap PO DAILY 10/21/24 10/21/24 History mg Fish Oil] Allergies Allergy/AdvReac Type Severity Reaction Status Date / Time morphine AdvReac Nausea & Verified 10/21/24 17:48 Vomiting Physical Exam Vitals: Vital Signs Temp Pulse Pulse Pulse Resp BP BP 10/22/24 09:08 98.2 F 70 16 118/65 10/22/24 01:19 97 F L 56 L 14 125/62 10/21/24 20:20 97.8 F 62 17 126/66 10/21/24 18:21 98.3 F 61 18 125/55 10/21/24 17:46 66 18 123/71 10/21/24 14:45 100.7 F H 85 18 121/58 10/21/24 13:28 100.8 F H 91 20 113/71 Pulse Ox 10/22/24 09:08 94 L 10/22/24 01:19 99 10/21/24 20:20 97 10/21/24 18:21 95 10/21/24 17:46 96 10/21/24 14:45 95 10/21/24 13:28 97 Intake and Output 10/21/24 10/22/24 10/22/24 22:59 06:59 14:59 Output Total 500 Balance -500 Output: Urine 500 Other: Weight 71.214 kg VITAL SIGNS: [Reviewed] GENERAL: Alert and oriented x 3, sitting up in bed,no acute distress HEENT: Atraumatic, normocephalic conjunctivae normal. eyes normal. Sclera anicteric. mmm. NECK: Supple, no JVD. CARDIOVASCULAR: S1, S2 regular. Systolic murmur RESPIRATION: Unlabored, equal air entry, clear to auscultation ,breath sounds diminished in the bases. ABDOMEN: Soft, no distention, nontender . No guarding. +BS LEGS: No edema. no swelling, no calf tenderness noted. Positive DP pulses. NERVOUS SYSTEM: Cranial N 2-12 grossly normal.No focal deficits. Skin: Warm and dry, no rash. Mid spine-prior surgical site clean dry intact, w ell-approximated. Results CBC & Chem 7: 10/23/24 04:21 10/23/24 04:21 Labs: Abnormal Lab Results - Last 24 Hours (Table) 10/21/24 10/21/24 10/21/24 Range/Units 15:05 15:05 15:23 WBC 20.87 H (4.50-10.00) 10*3/uL Immature Gran # 0.09 H (0.00-0.04) 10*3/uL Neutrophils # 19.01 H (1.80-7.70) 10*3/uL Lymphocytes # 0.88 L (0.90-5.00) 10*3/uL Eosinophils # 0.01 L (0.04-0.35) 10*3/uL Sodium 133 L (137-145) mmol/L Chloride 96 L (98-107) mmol/L Glucose 115 H (74-99) mg/dL Total Protein 8.4 H (6.3-8.2) g/dL Urine RBC 14 H (0-5) /hpf Urine WBC 157 H (0-5) /hpf Urine Mucus Rare H (None) /hpf Thrombosis Risk Factor Assmnt - Choose All That Apply Each Factor Represents 1 point: Obesity (BMI >25) Each Risk Factor Represents 3 Points: Age 75 years or older Thrombosis Risk Factor Assessment Total Risk Factor Score: 4 Thrombosis Risk Factor Assessment Level: Moderate Risk Assessment and Plan Assessment: Sepsis, admitted with fevers, elevated white count, with change in LOC, metabolic encephalopathy ,secondary to infection, suspect acute UTI, workup in p rogress; blood and urine cultures pending History of revision posterior lateral fusion [id number] with open treatment L2 fracture, removal with replacement of new cage L2-3, status post revision L2-pe lvis decompression and fusion, 224. History of left wrist abscess, Nocardia brasiliensis,Status post I&D requiring wound VAC placement 10/18 History of distal bulbar urethral stricture, status post dilation with López catheter- coude placement intraoperative as per urology. History of a occipital CVA 11/15 CAD, history of CABG Hypertension Hyperlipidemia Plan: Continue on current medication regime ,monitoring and symptomatic treatment. Blood and urine cultures pending.maintain ceftriaxone. Infectious disease consult in place with recommendations pending. Pain management. IV fluid hydration. The impression and plan of care has been dictated as directed. : I performed a history and examination of this patient, discussed the same with the dictator. I agree with the dictator's note ,documented as a scribe. Any additional findings or plans will be noted.
--- NOTE | 2024-10-22 22:23 | P.CONS ---
History of Present Illness - Reason for Consult Consult date: 10/22/24 Sepsis - Chief Complaint Weakness burning and frequency of urine x 2 days - History of Present Illness Patient is a 79-year-old male with a past medical history significant for Coronary Artery Disease (CAD), CVA/TIA, Hyperlipidemia, Hypertension, Osteoarthritis (OA), Renal Disease, Sleep Apnea/CPAP/BIPAP has been brought to the hospital concerning for frequency and painful urination and also noticed to have some weakness lethargy and mental status changes patient was given some Azo and leftover Keflex on the weekend however the patient did not have any improvement with worsening of his symptoms the patient has been brought to the hospital patient complaining of some chills and he did have fever of 100.8 F on presentation to the hospital patient was not tachycardic or hypotensive not hypoxic no need for supplemental oxygen patient did have a white count of 20.87 with a left shift creatinine 0.99 electrolytes are normal liver enzymes are normal urine has been significantly positive urine culture obtained which are currently pending patient did have a chest x-ray that was negative for acute cardiopulmonary disease process abdominal pelvis CT no acute abnormality in abdominal pelvis patient did receive a dose of Rocephin in the subsequently has been admitted to the hospital infectious disease was consulted for further management of antibiotic therapy patient currently denies having any headache or URI symptoms no chest pain or shortness of breath occasional cough some nausea but no vomiting or diarrhea Review of Systems Positive point and negatives has been mentioned in the HPI, complete review of systems was performed and all other systems are negative Past Medical History Past Medical History: Coronary Artery Disease (CAD), CVA/TIA, Hyperlipidemia, Hypertension, Osteoarthritis (OA), Renal Disease, Sleep Apnea/CPAP/BIPAP Additional Past Medical History / Comment(s): Generalized arthritis, L leg numbness/tingling since harvested vein for CABG, slight cardiac murmur, kidney stones, possible ureteral stricture-difficult to pass lópez catheters. tia behind eye August 2023. No C-PAP. Wound left leg-became infected August 2023. Lt wrist open area in September 2023 was in hosptail. History of Any Multi-Drug Resistant Organisms: None Reported Past Surgical History: Back Surgery, Coronary Bypass/CABG, Heart Catheterizati on, Joint Replacement, Orthopedic Surgery Additional Past Surgical History / Comment(s): 2004 CABG 4 vessel, UVPPP, colonoscopy, bilateral knee arthroscopy, bilateral total knee arthroplasties, bilateral rotator cuff repairs, R total reverse shoulder, kidney stone basketing, cystoscopies/scar tissue removed from bladder. 2006 2022 back surgeries. Back surgery Nov and Apr 2023. Lt wrist was in hospital for IVPB. 2 open areas lt arm from shoulder to elbow. Past Anesthesia/Blood Transfusion Reactions: No Reported Reaction Additional Past Anesthesia/Blood Transfusion Reaction / Comm: no hx blood transfusion, had hallucinations after back surgery 11/2022 Past Psychological History: No Psychological Hx Reported Smoking Status: Former smoker Past Alcohol Use History: None Reported Past Drug Use History: None Reported - Past Family History Father Additional Family Medical History / Comment(s): Father in a tractor accident. Mother Family Medical History: Myocardial Infarction ([place]) Additional Family Medical History / Comment(s): Mother of a massive [place] at the age of 69yrs. Brother(s) Family Medical History: Cancer Additional Family Medical History / Comment(s): liver. Sister(s) Family Medical History: Cancer Additional Family Medical History / Comment(s): liver cancer Medications and Allergies Home Medications Medication Instructions Recorded Confirmed Type lisinopriL [Lisinopril] 10 mg PO DAILY 12/23/14 10/21/24 History Multivitamins, Thera [Multivitamin 1 tab PO DAILY 12/26/14 10/21/24 History (formulary)] Pravastatin Sodium 80 mg PO DAILY 11/21/18 10/21/24 History Cholecalciferol [Vitamin D3 (25 50 mcg PO DAILY 12/09/22 10/21/24 History Mcg = 1000 Iu)] Clopidogrel [Plavix] 75 mg PO DAILY 12/09/22 10/21/24 History Metoprolol Tartrate [Lopressor] 25 mg PO BID 10/13/23 10/21/24 History Aspirin EC [Ecotrin Low Dose] 81 mg PO DAILY 11/25/23 10/21/24 History Fish Oil/Dha/Epa [Fish Oil 1,200 1 cap PO DAILY 10/21/24 10/21/24 History mg Fish Oil] Allergies Allergy/AdvReac Type Severity Reaction Status Date / Time morphine AdvReac Nausea & Verified 10/21/24 17:48 Vomiting Physical Exam Vitals: Vital Signs Temp Pulse Pulse Pulse Resp BP BP 10/22/24 09:08 98.2 F 70 16 118/65 10/22/24 01:19 97 F L 56 L 14 125/62 10/21/24 20:20 97.8 F 62 17 126/66 10/21/24 18:21 98.3 F 61 18 125/55 10/21/24 17:46 66 18 123/71 10/21/24 14:45 100.7 F H 85 18 121/58 10/21/24 13:28 100.8 F H 91 20 113/71 Pulse Ox 10/22/24 09:08 94 L 10/22/24 01:19 99 10/21/24 20:20 97 10/21/24 18:21 95 10/21/24 17:46 96 10/21/24 14:45 95 10/21/24 13:28 97 Intake and Output 10/21/24 10/22/24 10/22/24 22:59 06:59 14:59 Output Total 500 Balance -500 Output: Urine 500 GENERAL DESCRIPTION: Elderly male lying in bed, no distress. No tachypnea or accessory muscle of respiration use. HEENT: Shows Pallor , no scleral icterus. Oral mucous membrane is dry. No pharyngeal erythema or thrush NECK: Trachea central, no thyromegaly. LUNGS: Unlabored breathing. Clear to auscultation anteriorly. No wheeze or crackle. HEART: S1, S2, regular rate and rhythm. No loud murmur ABDOMEN: Soft, no tenderness , guarding or rigidity, no organomegaly EXTREMITIES: No edema of feet. SKIN: No rash, no masses palpable. NEUROLOGICAL: The patient is awake, alert, oriented x3, mood and affect normal. Results CBC & Chem 7: 10/21/24 15:05 10/21/24 15:05 Labs: Abnormal Lab Results - Last 24 Hours (Table) 10/21/24 10/21/24 10/21/24 Range/Units 15:05 15:05 15:23 WBC 20.87 H (4.50-10.00) 10*3/uL Immature Gran # 0.09 H (0.00-0.04) 10*3/uL Neutrophils # 19.01 H (1.80-7.70) 10*3/uL Lymphocytes # 0.88 L (0.90-5.00) 10*3/uL Eosinophils # 0.01 L (0.04-0.35) 10*3/uL Sodium 133 L (137-145) mmol/L Chloride 96 L (98-107) mmol/L Glucose 115 H (74-99) mg/dL Total Protein 8.4 H (6.3-8.2) g/dL Urine RBC 14 H (0-5) /hpf Urine WBC 157 H (0-5) /hpf Urine Mucus Rare H (None) /hpf Assessment and Plan (1) Sepsis Current Visit: Yes Status: Acute Code(s): A41.9 - SEPSIS, UNSPECIFIED ORGANISM SNOMED Code(s): 81837888 (2) UTI (urinary tract infection) Current Visit: Yes Status: Acute Code(s): N39.0 - URINARY TRACT INFECTION, SITE NOT SPECIFIED SNOMED Code(s): 42761064 Plan: 1patient presented to hospital with sepsis in this patient who did have fever elevated white count meeting currently for SIRS/sepsis source is urinary changes. No significant urinary symptoms with a positive UA CT abdominal pelvis did not show any hydronephrosis or kidney stone. 2will increase the dose of Rocephin to 2 g daily while waiting for the culture to finalize Family bedside question concern answered We will follow on clinical condition and cultures to further adjust medication if needed Thank you for this consultation we will follow the patient along with you Dictation was produced using [employer] dictation software. please excuse any grammatical, word or spelling errors. Time with Patient: Greater than 30
[2024-10-23 08:21] LABS: Basophils # (A) 0.02 X 10*3/uL (0.00-0.10); Basophils % (A) 0.3 %; Eosinophils # (A) 0.24 X 10*3/uL (0.04-0.35); Eosinophils % (A) 3.2 %; HCT 35.5 % (39.6-50.0); HGB 11.7 g/dL (13.0-17.0); Immature Grans, Automated 0.30 %; Lymphocytes # (A) 0.62 X 10*3/uL (0.90-5.00); Lymphocytes % (A) 8.3 %; MCH 30.1 pg (27.0-32.0); MCHC 33.0 g/dL (32.0-37.0); MCV 91.3 FL (80.0-97.0); Monocytes # (A) 0.35 X 10*3/uL (0.20-1.00); Monocytes % (A) 4.7 %; NRBC Per 100 WBC 0 X 10*3/uL (0.00-0.01); Neutrophils # (A) 6.18 X 10*3/uL (1.80-7.70); Neutrophils % (A) 83.2 %; Platelet Count 146 X 10*3/uL (140-440); RBC 3.89 X 10*6/uL (4.40-5.60); RDW 13.4 % (11.5-14.5); WBC 7.43 X 10*3/uL (4.50-10.00)
[2024-10-23 08:36] LABS: Anion Gap 8.10 mmol/L (4.00-12.00); BUN/Creat Ratio 14.22 Ratio (12.00-20.00); Blood Urea Nitrogen 12.8 mg/dL (9.0-27.0); Calcium 8.1 mg/dL (8.7-10.3); Carbon Dioxide 23.9 mmol/L (21.6-31.8); Chloride 100 mmol/L (96-109); Glucose 101 mg/dL (70-110); Potassium 4.0 mmol/L (3.5-5.5); Sodium 132 mmol/L (135-145)
[2024-10-23] MEDS: KETOROLAC 15 MG/ML 1 ML VIAL IVP PRN (09:38)
[2024-10-23] MEDS: PSYLLIUM HUSK 100% 6 GM PACKET PO SCH (09:49)
[2024-10-23 14:19] VITALS: BMI 25.3
--- NOTE | 2024-10-23 16:22 | P.PN ---
Subjective Progress Note Date: 10/23/24 Principal diagnosis: Reason for follow-up is UTI Patient is a 79-year-old male with a past medical history significant for Coronary Artery Disease (CAD), CVA/TIA, Hyperlipidemia, Hypertension, Osteoarthritis (OA), Renal Disease, Sleep Apnea/CPAP/BIPAP has been brought to the hospital concerning for frequency and painful urination has been diagnosed with sepsis secondary to UTI. On today's evaluation that is 10/23/2024, Patient did have resolution of his fever is afebrile this morning patient denies having any chest pain shortness of breath or cough, the patient is currently on room air, patient denies any abdominal pain no diarrhea no nausea no vomiting, mention improving the urinary symptoms. Patient white count normalized to 7.43, creatinine 0.9 blood urine culture currently pending Objective - Vital Signs Vital signs: Vital Signs Temp 97.5 F L 10/23/24 12:27 Pulse 49 L 10/23/24 12:27 Resp 20 10/23/24 12:27 BP 115/65 10/23/24 12:27 Pulse Ox 100 10/23/24 12:27 FiO2 Intake & Output 10/22/24 10/23/24 10/23/24 18:59 06:59 18:59 Intake Total 1350 240 Balance 1350 240 Weight 71.214 kg 71.214 kg Intake: Intake, IV Titration 1350 Amount Lactated Ringers 1,000 ml 1300 @ 80 mls/hr IV .[id number] [facility] Rx#:[id number] cefTRIAXone 1 gm In 50 Sodium Chloride 0.9% 50 ml @ 100 mls/hr IVPB Q24H [facility] Rx#:[id number] Oral 240 Other: Voiding Method Toilet Toilet Toilet # Voids 2 # Bowel Movements 0 - Exam GENERAL DESCRIPTION: An elderly male lying in bed in no distress RESPIRATORY SYSTEM: Unlabored breathing , decreased breath sounds at bases HEART: S1 S2 regular rate and rhythm , ABDOMEN: Soft , no tenderness EXTREMITIES: No edema feet - Labs CBC & Chem 7: 10/23/24 04:21 10/23/24 04:21 Labs: Abnormal Lab Results - Last 24 Hours (Table) 10/23/24 10/23/24 Range/Units 04:21 04:21 RBC 3.89 L (4.40-5.60) X 10*6/uL Hgb 11.7 L (13.0-17.0) g/dL Hct 35.5 L (39.6-50.0) % Lymphocytes # 0.62 L (0.90-5.00) X 10*3/uL Sodium 132 L (135-145) mmol/L Calcium 8.1 L (8.7-10.3) mg/dL Microbiology - Last 24 Hours (Table) 10/21/24 15:05 Blood Culture - Preliminary Blood 10/21/24 15:23 Urine Culture - Preliminary Urine,Voided Assessment and Plan (1) Sepsis Current Visit: Yes Status: Acute Code(s): A41.9 - SEPSIS, UNSPECIFIED ORGANISM SNOMED Code(s): 71393250 (2) UTI (urinary tract infection) Current Visit: Yes Status: Acute Code(s): N39.0 - URINARY TRACT INFECTION, SITE NOT SPECIFIED SNOMED Code(s): 77163748 Plan: 1patient presented to hospital with sepsis in this patient who did have fever elevated white count meeting currently for SIRS/sepsis source is urinary changes. No significant urinary symptoms with a positive UA CT abdominal pelvis did not show any hydronephrosis or kidney stone. 2patient did have resolution of his fever white count normalized we will treat with Rocephin while waiting for the culture to finalize at the bedside question answered Dictation was produced using [employer] dictation software. please excuse any grammatical, word or spelling errors. Time with Patient: Less than 30
[2024-10-24 08:16] VITALS: TEMP 97.8
[2024-10-24 10:44] LABS: HCT 38.4 % (39.6-50.0); HGB 12.7 g/dL (13.0-17.0); MCH 30.1 pg (27.0-32.0); MCHC 33.1 g/dL (32.0-37.0); MCV 91.0 FL (80.0-97.0); NRBC Per 100 WBC 0 X 10*3/uL (0.00-0.01); Platelet Count 170 X 10*3/uL (140-440); RBC 4.22 X 10*6/uL (4.40-5.60); RDW 13.1 % (11.5-14.5); WBC 3.61 X 10*3/uL (4.50-10.00)
[2024-10-24 10:51] LABS: Anion Gap 8.40 mmol/L (4.00-12.00); BUN/Creat Ratio 18.11 Ratio (12.00-20.00); Blood Urea Nitrogen 16.3 mg/dL (9.0-27.0); Calcium 8.3 mg/dL (8.7-10.3); Carbon Dioxide 22.6 mmol/L (21.6-31.8); Chloride 101 mmol/L (96-109); Glucose 104 mg/dL (70-110); Potassium 4.3 mmol/L (3.5-5.5); Sodium 132 mmol/L (135-145)
[2024-10-24 14:07] VITALS: BP 130/61; PULSE 52; RESP 16
--- NOTE | 2024-10-24 14:52 | P.PN ---
Subjective Progress Note Date: 10/24/24 Principal diagnosis: Reason for follow-up is UTI Patient is a 79-year-old male with a past medical history significant for Coronary Artery Disease (CAD), CVA/TIA, Hyperlipidemia, Hypertension, Osteoarthritis (OA), Renal Disease, Sleep Apnea/CPAP/BIPAP has been brought to the hospital concerning for frequency and painful urination has been diagnosed with sepsis secondary to UTI. On today's evaluation that is 10/24/2024,the patient denies any fever or any chills, patient is breathing comfortably on room air, the patient denies chest pain shortness of breath and no significant cough, patient denies abdominal pain, no nausea vomiting or diarrhea. Mention improvement to urinary symptoms. Urine has been finalized with an E. coli that is a sensitive pathogen white count is 3.61, creatinine 0.9 Objective - Vital Signs Vital signs: Vital Signs Temp 97.8 F 10/24/24 08:00 Pulse 66 10/24/24 09:15 Resp 17 10/24/24 09:15 BP 154/88 10/24/24 09:15 Pulse Ox 100 10/24/24 08:00 FiO2 Intake & Output 10/23/24 10/24/24 10/24/24 18:59 06:59 18:59 Intake Total 2870 Balance 2870 Weight 71.214 kg Intake: Intake, IV Titration 1010 Amount Lactated Ringers 1,000 ml 960 @ 80 mls/hr IV .[id number] [facility] Rx#:[id number] cefTRIAXone 2 gm In 50 Sodium Chloride 0.9% 50 ml @ 100 mls/hr IVPB Q24H [facility] Rx#:[id number] Oral 1860 Other: Voiding Method Toilet Toilet # Voids 3 2 # Bowel Movements 1 - Exam GENERAL DESCRIPTION: An elderly male lying in bed in no distress RESPIRATORY SYSTEM: Unlabored breathing , decreased breath sounds at bases HEART: S1 S2 regular rate and rhythm , ABDOMEN: Soft , no tenderness EXTREMITIES: No edema feet - Labs CBC & Chem 7: 10/24/24 06:30 10/24/24 06:30 Labs: Abnormal Lab Results - Last 24 Hours (Table) 10/24/24 10/24/24 Range/Units 06:30 06:30 WBC 3.61 L (4.50-10.00) X 10*3/uL RBC 4.22 L (4.40-5.60) X 10*6/uL Hgb 12.7 L (13.0-17.0) g/dL Hct 38.4 L (39.6-50.0) % Sodium 132 L (135-145) mmol/L Calcium 8.3 L (8.7-10.3) mg/dL Microbiology - Last 24 Hours (Table) 10/21/24 15:05 Blood Culture - Preliminary Blood 10/21/24 15:23 Urine Culture - Final Urine,Voided Escherichia coli Assessment and Plan (1) Sepsis Status: Acute Code(s): A41.9 - SEPSIS, UNSPECIFIED ORGANISM SNOMED Code(s): 79991927 (2) UTI (urinary tract infection) Status: Acute Code(s): N39.0 - URINARY TRACT INFECTION, SITE NOT SPECIFIED SNOMED Code(s): 89345889 Plan: 1patient presented to hospital with sepsis in this patient who did have fever elevated white count meeting currently for SIRS/sepsis source is urinary changes. No significant urinary symptoms with a positive UA CT abdominal pelvis did not show any hydronephrosis or kidney stone. 2patient did have resolution of his fever white count normalized urine has been finalized with E. coli sensitive pathogen will finish therapy with oral Ceftin prescription be sent to the pharmacy care discussed with the STRIP POLISHER for admitting team at the bedside question answered Dictation was produced using [employer] dictation software. please excuse any grammatical, word or spelling errors. Time with Patient: Less than 30
--- NOTE | 2024-10-25 16:58 | P.PN ---
Subjective Progress Note Date: 10/23/24 H&P Date: 10/22/24 Chief Complaint: Lethargic, confusion, incontinence This is a pleasant 79-year-old gentleman with past medical history significant for CAD, status post CABG, hyperlipidemia, hypertension, CVA,chronic kidney disease, urethral stricture, renal calculi, chronic low back pain with radiculopathy,revision posterior lateral fusion [id number] with open treatment L2 fracture, removal with replacement of new cage L2-3, status post revision L2-pelvis decompression and fusion, 224, left wrist abscess with Nocardia brasiliensis,status post I&D requiring wound VAC placement 10/18 and multiple other medical issues presented to the ER with complaints of lethargy, confusion, incontinence. Brain CT reported no acute intracranial process. Urine and blood cultures obtained, pending. reports on October 10 , followed up with Dr. Pablo since [place] regarding the middle of patient's back was having bloody drainage, received Duricef for 5 days. Mid back site currently dry, well- approximated. Patient's also stated a few days prior to admission she was suspecting patient had UTI and gave him some Keflex for few days. On admission Tmax 100.8, WBC 20.8. Hemoglobin 16.2, platelets 186, INR 1.1, sodium 133, potassium 4.5, bicarb 28, BUN 17, creatinine 0.99, lactic acid 2. UA reported WBCs of 157, rare mucus, urine culture pending. viral studies negative. Chest x-ray reported nonacute. CT of abdomen and pelvis reported no acute abnormality in abdomen pelvis. 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 Antibiotics of ceftriaxone initiated, along with Toradol for pain management. Complains of"bone pain". 10/23/2024 evaluated by infectious disease, ceftriaxone dose adjusted while cultures finalize. Afebrile, Tmax 99.6, WBC has normalized. Reports decreased pain with urination. Objective - Vital Signs Vital signs: Vital Signs Temp 98.0 F 10/23/24 07:37 Pulse 60 10/23/24 09:11 Resp 15 10/23/24 09:11 BP 117/67 10/23/24 07:37 Pulse Ox 96 10/23/24 07:37 FiO2 Intake & Output 10/22/24 10/23/24 10/23/24 18:59 06:59 18:59 Intake Total 1350 240 Balance 1350 240 Weight 71.214 kg Intake: Intake, IV Titration 1350 Amount Lactated Ringers 1,000 ml 1300 @ 80 mls/hr IV .[id number] [facility] Rx#:[id number] cefTRIAXone 1 gm In 50 Sodium Chloride 0.9% 50 ml @ 100 mls/hr IVPB Q24H [facility] Rx#:[id number] Oral 240 Other: Voiding Method Toilet Toilet Toilet # Voids 2 # Bowel Movements 0 - Exam VITAL SIGNS: [Reviewed] GENERAL: Alert and oriented x 3, sitting up in bed,no acute distress HEENT: Atraumatic, normocephalic conjunctivae normal. eyes normal. Sclera anicteric. mmm. NECK: Supple, no JVD. CARDIOVASCULAR: S1, S2 regular. Systolic murmur RESPIRATION: Unlabored, equal air entry, clear to auscultation ,breath sounds diminished in the bases. ABDOMEN: Soft, no distention, mild bilateral lower quadrant tender . No guarding. +BS LEGS: No edema. no swelling, nontender, positive DP pulses. NERVOUS SYSTEM: Cranial N 2-12 grossly normal.No focal deficits. Skin: Warm and dry, no rash. - Labs CBC & Chem 7: 10/24/24 06:30 10/24/24 06:30 Labs: Abnormal Lab Results - Last 24 Hours (Table) 10/23/24 10/23/24 Range/Units 04:21 04:21 RBC 3.89 L (4.40-5.60) X 10*6/uL Hgb 11.7 L (13.0-17.0) g/dL Hct 35.5 L (39.6-50.0) % Lymphocytes # 0.62 L (0.90-5.00) X 10*3/uL Sodium 132 L (135-145) mmol/L Calcium 8.1 L (8.7-10.3) mg/dL Microbiology - Last 24 Hours (Table) 10/21/24 15:05 Blood Culture - Preliminary Blood 10/21/24 15:23 Urine Culture - Preliminary Urine,Voided Assessment and Plan Assessment: Sepsis, admitted with fevers, elevated white count, with change in LOC, metabolic encephalopathy ,secondary to infection, suspect acute UTI, workup in progress; blood and urine cultures in progress History of revision posterior lateral fusion [id number] with open treatment L2 fracture, removal with replacement of new cage L2-3, status post revision L2- pelvis decompression and fusion, 224. History of left wrist abscess, Nocardia brasiliensis,Status post I&D requiring wound VAC placement 10/18 History of distal bulbar urethral stricture, status post dilation with Burrows catheter- coude placement intraoperative as per urology. History of a occipital CVA 11/15 CAD, history of CABG Hypertension Hyperlipidemia Plan: Continue on current medication regime ,monitoring and symptomatic treatment. IV fluid hydration. blood and urine cultures finalizing. Antibiotics of ceftriaxone as per infectious disease. The impression and plan of care has been dictated as directed. : I performed a history and examination of this patient, discussed the same with the dictator. I agree with the dictator's note ,documented as a scribe. Any additional findings or plans will be noted.
--- NOTE | 2024-10-25 17:13 | P.DS ---
Providers Date of admission: 10/21/24 17:39 Expected date of discharge: 10/24/24 Attending physician: Antonio Zhang Consults: 10/21/24 17:12 Consult Physician Urgent Consulting Provider: Jennifer Mohamud Consult Reason/Comments: Sepsis Do you want consulting provider notified?: Yes Primary care physician: Antonio Zhang [facility] Course: Final Diagnoses: Sepsis, admitted with fevers, elevated white count, with change in LOC, metabolic encephalopathy ,secondary to infection, acute E. coli UTI, sensitive pathogen. History of revision posterior lateral fusion [id number] with open treatment L2 fracture, removal with replacement of new cage L2-3, status post revision L2- pelvis decompression and fusion, 224. History of left wrist abscess, Nocardia brasiliensis,Status post I&D requiring wound VAC placement 10/18 History of distal bulbar urethral stricture, status post dilation with Burrows catheter- coude placement intraoperative as per urology. History of a occipital CVA 11/15 CAD, history of CABG Hypertension Hyperlipidemia Hospital course:This is a pleasant 79-year-old gentleman with past medical history significant for CAD, status post CABG, hyperlipidemia, hypertension, C VA,chronic kidney disease, urethral stricture, renal calculi, chronic low back pain with radiculopathy,revision posterior lateral fusion [id number] with open treatment L2 fracture, removal with replacement of new cage L2-3, status post revision L2-pelvis decompression and fusion, 224, left wrist abscess with Nocardia brasiliensis,status post I&D requiring wound VAC placement 10/18 and multiple other medical issues presented to the ER with complaints of lethargy, confusion, incontinence. Brain CT reported no acute intracranial process. Urine and blood cultures obtained, pending. reports on October 10 , followed up with Dr. Pablo since [place] regarding the middle of patient's back was having bloody drainage, received Duricef for 5 days. Mid back site currently dry, well- approximated. Patient's also stated a few days prior to admission she was suspecting patient had UTI and gave him some Keflex for few days. On admission Tmax 100.8, WBC 20.8. Hemoglobin 16.2, platelets 186, INR 1.1, sodium 133, potassium 4.5, bicarb 28, BUN 17, creatinine 0.99, lactic acid 2. UA reported WBCs of 157, rare mucus, urine culture pending. viral studies negative. Chest x-ray reported nonacute. CT of abdomen and pelvis reported no acute abnormality in abdomen pelvis. 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 Antibiotics of ceftriaxone initiated, along with Toradol for pain management. Complains of"bone pain". 10/23/2024 evaluated by infectious disease, ceftriaxone dose adjusted while cultures finalize. Afebrile, Tmax 99.6, WBC has normalized. Reports decreased pain with urination. IV fluid hydration. blood and urine cultures finalizing. Antibiotics of ceftriaxone as per infectious disease. 10/24/2024 significant clinical improvement. Afebrile, prelim blood culture reporting no growth after 48 hours, urine culture finalized reporting E. coli sensitive to ceftriaxone. Urinary symptoms improved .afebrile, normal WBC. C reatinine 0.9. Denies abdominal pain. Denies nausea vomiting or diarrhea. Denies chest pain, palpitations or shortness of breath. Recommending patient follows up with urology outpatient. Patient has been cleared by infectious disease for discharge on Ceftin 500 twice daily x 1 week. Patient will be discharged home today in a stable condition with guarded prognosis. The impression and plan of care has been dictated as directed. : I performed a history and examination of this patient, discussed the same with the dictator. I agree with the dictator's note ,documented as a scribe. Any additional findings or plans will be noted. Patient Condition at Discharge: Stable Plan - Discharge Summary Discharge Rx Participant: Yes New Discharge Prescriptions: New Psyllium Husk 100% [Metamucil Packet] 6 gm PO DAILY packet Pantoprazole [Protonix] 40 mg PO DAILY #30 tab cefuroxime axetiL [Ceftin] 500 mg PO BID #14 tab Continue lisinopriL [Lisinopril] 10 mg PO DAILY Multivitamins, Thera [Multivitamin (formulary)] 1 tab PO DAILY Pravastatin Sodium 80 mg PO DAILY Cholecalciferol [Vitamin D3 (25 Mcg = 1000 Iu)] 50 mcg PO DAILY Clopidogrel [Plavix] 75 mg PO DAILY Metoprolol Tartrate [Lopressor] 25 mg PO BID Aspirin EC [Ecotrin Low Dose] 81 mg PO DAILY Fish Oil/Dha/Epa [Fish Oil 1,200 mg Fish Oil] 1 cap PO DAILY Discharge Medication List lisinopriL [Lisinopril] 10 mg PO DAILY 12/23/14 [History] Multivitamins, Thera [Multivitamin (formulary)] 1 tab PO DAILY 12/26/14 [History] Pravastatin Sodium 80 mg PO DAILY 11/21/18 [History] Cholecalciferol [Vitamin D3 (25 Mcg = 1000 Iu)] 50 mcg PO DAILY 12/09/22 [His tory] Clopidogrel [Plavix] 75 mg PO DAILY 12/09/22 [History] Metoprolol Tartrate [Lopressor] 25 mg PO BID 10/13/23 [History] Aspirin EC [Ecotrin Low Dose] 81 mg PO DAILY 11/25/23 [History] Fish Oil/Dha/Epa [Fish Oil 1,200 mg Fish Oil] 1 cap PO DAILY 10/21/24 [History] Pantoprazole [Protonix] 40 mg PO DAILY #30 tab 10/24/24 [Rx] Psyllium Husk 100% [Metamucil Packet] 6 gm PO DAILY packet 10/24/24 [Rx] cefuroxime axetiL [Ceftin] 500 mg PO BID #14 tab 10/24/24 [Rx] Follow up Appointment(s)/Referral(s): Antonio Zhang DO [Primary Care Provider] - 1-2 days Kennedy Da Silva MD [STAFF PHYSICIAN] - 1 Week Patient Instructions/Handouts: Urinary Tract Infection in Men (DC), Sepsis (DC), Acute Delirium (DC) Discharge Disposition: HOME SELF-CARE
== END 2024-10-24 14:41 | disposition home or self-care (01) | DRG 871 ==
LOC: EC 13:25 → 5NMEDONC 17:39
PROVIDERS: ADMIT Family Medicine; ATTEND Family Medicine
DX: A41.51 Sepsis due to Escherichia coli [E. coli] (principal); G93.41 Metabolic encephalopathy; I12.9 Hypertensive chronic kidney disease with stage 1 through stage 4 chronic kidney disease, or unspecified chronic kidney disease; N18.9 Chronic kidney disease, unspecified; N39.0 Urinary tract infection, site not specified; R65.20 Severe sepsis without septic shock; E78.5 Hyperlipidemia, unspecified; I25.10 Atherosclerotic heart disease of native coronary artery without angina pectoris; G89.29 Other chronic pain; R32 Unspecified urinary incontinence; M13.0 Polyarthritis, unspecified; Z79.02 Long term (current) use of antithrombotics/antiplatelets; Z79.82 Long term (current) use of aspirin; Z79.899 Other long term (current) drug therapy; Z95.1 Presence of aortocoronary bypass graft; Z87.891 Personal history of nicotine dependence; Z86.73 Personal history of transient ischemic attack (TIA), and cerebral infarction without residual deficits
CPT/HCPCS: 36415; 70460; 71046; 74177; 80048; 80053; 81001; 83605; 83690; 84484; 85025; 85027; 85610; 85730; 87040; 87077; 87086; 87186; 87636; 93005; 96361; 96365; 96375; 99285